=== PATIENT | female | born 1945 | race Caucasian/White ===

== ENCOUNTER → 2017-08-15 11:35 | Outpatient (CLI) | payer MEDICARE, OTHER, SELFPAY ==
--- NOTE | 2017-08-15 12:28 | RAD_ITS ---
STUDY: X-RAY CHEST REASON FOR EXAM: Female, 71 years old. Shortness of breath and cough for 6 weeks. TECHNIQUE: 2 views COMPARISON: Prior chest of November 25, 2016. FINDINGS: The lung mercedes are well-expanded without new consolidation, focal atelectasis or a substantial pleural effusion. There is no demonstrated pleural abnormality. Normal size heart. Normal mediastinum and eladia. Normal visualized pulmonary arteries. There is atherosclerotic calcification of the aortic arch with tortuosity. There are diffuse degenerative changes of the visualized thoracic spine. Status post right shoulder arthroplasty and left shoulder rotator cuff repair. There is no demonstrated abnormality of the visualized soft tissue structures of the upper abdomen. RAD/Chest PA and Lateral IMPRESSION: No acute cardiopulmonary findings or changes. Negative for new consolidation, focal atelectasis or a substantial pleural effusion. Electronically Signed: Mary Ellen Santos MD at 18:36 EST , Service support ,
[2017-08-15 13:10] LABS: Hematocrit 40.3 % (37-47); Mean Corp Hgb Conc 32.3 g/gl (32-36); Mean Corpuscular Volume 93.1 fL (81-99); Mean Platelet Vol. 10.8 fl (6.2-12.0); Platelet Count 203 K/mm3 (150-450); RBC Distribution Width CV 13.9 % (11.6-14.6); Red Blood Count 4.33 M/mm3 (4.2-5.4); White Blood Count 6.2 K/mm3 (4.4-11.0)
[2017-08-15 13:28] LABS: Scan Indicated on CBC? Y/N NO
[2017-08-15 13:47] LABS: Anion Gap 5 (5-15); BUN 14 mg/dL (7-18); BUN/Creat Ratio 21.5 RATIO (10-20); CRP, High Sensitivity Cardiac 1.76 mg/L; Calcium,Total 8.7 mg/dL (8.5-10.1); Chloride 104 mmol/L (98-107); Creatinine, Serum 0.65 mg/dL (0.55-1.02); EST Glomerular Filtration Rate 95 mL/min (>60); Est Glom Filt Rate - Afr Amer 115 mL/min (>60); Glucose 110 mg/dL (74-106); Potassium 4.3 mmol/L (3.5-5.1); Sodium Level 139 mmol/L (136-145)
== END ==
PROVIDERS: Family Provider Internal Medicine; PCP Internal Medicine; Visit Provider Internal Medicine Cardiovascular Disease
DX: R06.02 Shortness of breath (principal); R05 Cough; R07.1 Chest pain on breathing
CPT/HCPCS: 36415; 71046; 80048; 85027; 86141

== ENCOUNTER → 2018-06-19 16:06 | Outpatient (CLI) | payer MEDICARE, OTHER, SELFPAY ==
[2018-06-11 13:18] VITALS: BMI 28.4
[2018-06-19 17:16] LABS: Anion Gap 8 (5-15); BUN 17 mg/dL (7-18); BUN/Creat Ratio 24.6 RATIO (10-20); Calcium,Total 9.2 mg/dL (8.5-10.1); Chloride 105 mmol/L (98-107); Creatinine, Serum 0.69 mg/dL (0.55-1.02); EST Glomerular Filtration Rate 89 mL/min (>60); Est Glom Filt Rate - Afr Amer 108 mL/min (>60); Glucose 92 mg/dL (74-106); Potassium 4.1 mmol/L (3.5-5.1); Sodium Level 139 mmol/L (136-145); Thyroid Stim Hormone (TSH) 1.75 uIU/mL (0.358-3.74)
[2018-06-19 17:18] LABS: Absolute Lymphocyte Count 2.52 X10^3/ul (0.83-4.51); Absolute Neutrophil Count 2.8 X10^3/uL (2.0-7.7); Basophil# 0.02 X10^3/uL; Basophil% 0.3 % (0-1); Eosinophil# 0.32 X10^3/uL; Hematocrit 39.7 % (37-47); Lymphocyte # 2.52 X10^3/ul (4.0); Lymphocyte % 39.7 % (19-41); Mean Corp Hgb Conc 32.7 g/gl (32-36); Mean Corpuscular Volume 91.5 fL (81-99); Mean Platelet Vol. 10.6 fl (6.2-12.0); Monocyte# 0.67 X10^3/uL; Monocyte% 10.6 % (0-10); Neutrophil # 2.81 X10^3/uL (2.7-7.7); Neutrophil % 44.2 % (47-70); Platelet Count 237 K/mm3 (150-450); RBC Distribution Width CV 13.8 % (11.6-14.6); RBC Distribution Width SD 45.7 fl (35.1-43.9); Red Blood Count 4.34 M/mm3 (4.2-5.4); White Blood Count 6.4 K/mm3 (4.4-11.0)
[2018-06-19 17:20] LABS: POSITIVE COUNT NO; POSITIVE DIFFERENTIAL NO; POSITIVE MORPHOLOGY NO
[2018-06-22 16:26] LABS: Anti-Smooth Muscle ABS 12 Units (0-19); Thyroid Peroxidase AB 15 IU/mL (0-34)
[2018-06-22 16:44] LABS: Anti-Nuclear Antibody Test Negative (.)
== END ==
PROVIDERS: Family Provider Internal Medicine; PCP Internal Medicine; Referring Provider Internal Medicine Cardiovascular Disease
DX: R74.8 Abnormal levels of other serum enzymes (principal); E78.00 Pure hypercholesterolemia, unspecified; R53.83 Other fatigue
CPT/HCPCS: 36415; 80048; 83516; 84443; 85025; 86038; 86376

== ENCOUNTER → 2019-11-18 10:53 | Outpatient (CLI) | payer MEDICARE, OTHER, SELFPAY ==
[2019-11-18 10:13] VITALS: BMI 28.2
[2019-11-18 11:22] LABS: Absolute Lymphocyte Count 2.15 X10^3/uL (0.83-4.51); Absolute Neutrophil Count 3.7 X10^3/uL (2.0-7.7); Basophil# 0.04 X10^3/uL; Basophil% 0.6 % (0-1); Eosinophil# 0.26 X10^3/uL; Eosinophils% 3.8 % (0-5); Hematocrit 40.8 % (37-47); Hemoglobin 13.2 g/dL (12.0-15.0); Lymphocyte # 2.15 X10^3/ul (4.0); Lymphocyte % 31.4 % (19-41); Mean Corp Hgb Conc 32.4 g/dL (32-36); Mean Corpuscular Hgb 31.1 pg (27.0-32.0); Mean Platelet Vol. 10.5 fl (6.2-12.0); Monocyte# 0.67 X10^3/uL; Monocyte% 9.8 % (0-10); NRBC Flagged by Analyzer 0 % (0-5); Neutrophil # 3.71 X10^3/uL (2.7-7.7); Neutrophil % 54.1 % (47-70); Platelet Count 204 K/mm3 (150-450); RBC Distribution Width CV 14.2 % (11.6-14.6); RBC Distribution Width SD 49.5 fl (35.1-43.9); Red Blood Count 4.25 M/mm3 (4.2-5.4); White Blood Count 6.9 K/mm3 (4.4-11.0)
[2019-11-18 11:45] LABS: Anion Gap 5 (5-15); BUN 18 mg/dL (7-18); BUN/Creat Ratio 23.5 RATIO (10-20); Calcium,Total 8.6 mg/dL (8.5-10.1); Chloride 107 mmol/L (98-107); Creatinine, Serum 0.76 mg/dL (0.55-1.02); EST Glomerular Filtration Rate 79 mL/min (>60); Est Glom Filt Rate - Afr Amer 95 mL/min (>60); Glucose 100 mg/dL (74-106); Potassium 4.4 mmol/L (3.5-5.1); Sodium Level 141 mmol/L (136-145)
--- OUTSIDE RECORDS SUMMARY | 2020-04-02 07:43 | XMS RPT_ITS | CCD ---
:1945 External Reference #:[id number] Author Organization [facility] Care Team Providers Name Role Phone Lane RN, L Unavailable Nata RN, A Unavailable Unavailable Haritha Salazar Unavailable Unavailable DeFinis, Y Unavailable Unavailable DeFinis, Y Unavailable Unavailable Lane RN, L Unavailable Raffy PALACIOS, Elias Unavailable Lane RN, L Unavailable Lane RN, L Unavailable Lane RN, L Unavailable Haritha Salazar Unavailable Unavailable Nata MUIR, A Unavailable Unavailable Aaron PALACIOS, Karlo Unavailable Todd PALACIOS, Mal Unavailable Lane RN, L Unavailable Haritha Salazar Unavailable Unavailable Haritha Salazar Unavailable Unavailable Haritha Salazar Unavailable Unavailable Haritha Lomax Primary Care Provider Allergies Reported Allergen Reaction(s) Severity Date of Onset Location iodine Pt states may have Critical, 10-09-2010 - [facility] ([id number]) Medications Medication Name Sig Date Prescriber Location amoxicillin AMOXICILLIN 500 MG 03-04-2017 Greg [facility] TABS Take 4 tablets 1 [facility] - hour before dental [facility] procedure Clinic ([id number]) AMOXICILLIN [id number] Greg Walker MD apixaban ELIQUIS TABS 12-27-2016 [facility] APIXABAN (39488) TABS [id number] Kat Mayes PAC ELIQUIS TABS APIXABAN 12-27-2016 [facility] (15038) TABS [id number] Kat Mayes PAC ELIQUIS TABS APIXABAN 12-27-2016 [facility] (75911) TABS [id number] Kat Juanerling PAC ELIQUIS TABS APIXABAN 12-27-2016 [facility] (32670) TABS [id number] Kat Mayes PAC ELIQUIS 5 mg tab tab(s) 5 mg 11-28-2016 [facility] (49033) twice daily. 0 12/26/2016 Active Comment: 5 mg twice daily. 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 30 capsule 0 08/02/2019 Active Comment: Take 1 capsule by mouth thre e times daily as needed. Calcium CALCIUM 500 MG TAB Take 01-23-2006 Fabian Emerson Ja ian [facility] one(1) tablet two(2) Jerry Emerson (95484) times daily. 0 01/23/2006 Active Comment: Take one(1) tablet two(2) ti mes daily. calcium carbonate / LGCLLEX-DHOSRJJKD-PQVW TABS take 03-01-2015 [facility] magnesium oxide / 1 tablet once daily [facility] - zinc oxide MULTIPLE MINERALS [id number] [facility] STEEL [facility] (443 33) VYETQSM-CGEPGZJHV-BXFL TABS take 1 tablet 03-01-2015 [facility] Orthopaedic once daily [employer]ULT[employer] [place] - [facility] [phone] Delia East LPN Cli deyvi (82942) MPLKLYY-GMWDLGWEF-CTTM TABS take 1 tablet 03-01-2015 [facility] Orthopaedic once daily [facility] MINERALS [place] - [facility] [phone] Delia East LPN Cli deyvi (95168) FTNSTTY-WFZDTZYTP-ISZB TABS take 1 tablet 03-01-2015 [facility] Orthopaedic once daily [facility] - [facility]opaedic Surgeons [phone] Delia Kita STEEL TIER Cli deyvi (26289) calcium carbonate / CALCIUM CARBONATE-VITAMIN D 10-09-2010 [facility] vitamin D 600-125 MG-UNIT TABS One (44 691) tablet by mouth daily CALCIUM CARBONATE-VITAMIN D [id number] Lulú M Rubina CALCIUM CARBONATE-VITAMIN D 600-125 10-09-201012-09-2016 [facility] MG-UNIT TABS One tablet by mouth (77465) daily CALCIUM CARBONATE-VITAMIN D [id number] Lazaro Akbar MD CALCIUM CARBONATE-VITAMIN D 600-125 10-09-2010 [facility] MG-UNIT TABS One tablet by mouth (09110) daily CALCIUM CARBONATE-VITAMIN D 22353975265 Lulú Cespedes CALCIUM CARBONATE-VITAMIN D 600-125 10-09-201012-09-2016 [facility] MG-UNIT TABS One tablet by mouth (35612) daily CALCIUM CARBONATE-VITAMIN D 23664130980 Lazaro Akbar MD CALCIUM CARBONATE-VITAMIN D 600-125 10-09-2010 [facility] MG-UNIT TABS One tablet by mouth (71015) daily CALCIUM CARBONATE-VITAMIN D 78016706091 Lulú Son Cespedes CALCIUM CARBONATE-VITAMIN D 600-125 10-09-201012-09-2016 [facility] MG-UNIT TABS One tablet by mouth (39909) daily CALCIUM CARBONATE-VITAMIN D 17470196672 Lazaro Akbar MD CALCIUM CARBONATE-VITAMIN D 600-125 10-09-2010 [facility] MG-UNIT TABS One tablet by mouth (29964) daily CALCIUM CARBONATE-VITAMIN D 44351225486 Lulú Cespedes CALCIUM CARBONATE-VITAMIN D 600-125 10-09-201012-09-2016 [facility] MG-UNIT TABS One tablet by mouth (53609) daily CALCIUM CARBONATE-VITAMIN D 34653445694 Lazaro Akbar MD CALCIUM CARBONATE-VITAMIN D 600-125 10-09-2010 [facility] MG-UNIT TABS One tablet by mouth (34148) daily CALCIUM CARBONATE-VITAMIN D 31683376906 Lulú Cespedes CALCIUM CARBONATE-VITAMIN D 600-125 10-09-201012-09-2016 [facility] MG-UNIT TABS One tablet by mouth (40085) daily CALCIUM CARBONATE-VITAMIN D 73978881557 Lazaro Akbar MD CALCIUM CARBONATE-VITAMIN D 600-125 10-09-2010 [facility] MG-UNIT TABS One tablet by mouth (45734) daily CALCIUM CARBONATE-VITAMIN D 91166305084 Lulú Cespedes CALCIUM CARBONATE-VITAMIN D 600-125 10-09-2010 [facility] MG-UNIT TABS One tablet by mouth (26648) daily CALCIUM CARBONATE-VITAMIN D 43750977108 Lulú Cespedes CALCIUM CARBONATE-VITAMIN D 600-125 10-09-201012-09-2016 [facility] MG-UNIT TABS One tablet by mouth (95123) daily CALCIUM CARBONATE-VITAMIN D 59264719696 Lazaro Akbar MD CALCIUM CARBONATE-VITAMIN D 600-125 10-09-2010 [facility] MG-UNIT TABS One tablet by mouth (85064) daily CALCIUM CARBONATE-VITAMIN D 96282557419 Lulú Cespedes CALCIUM CARBONATE-VITAMIN D 600-125 10-09-201012-09-2016 [facility] MG-UNIT TABS One tablet by mouth (00890) daily CALCIUM CARBONATE-VITAMIN D 79103113557 Lazaro Akbar MD CALCIUM CARBONATE-VITAMIN D 600-125 10-09-2010 [facility] MG-UNIT TABS One tablet by mouth (96516) daily CALCIUM CARBONATE-VITAMIN D 51008302923 Lulú Cespedes CALCIUM CARBONATE-VITAMIN D 600-125 10-09-2010 [facility] MG-UNIT TABS One tablet by mouth (12395) daily CALCIUM CARBONATE-VITAMIN D 53464893232 Lulú Cespedes CALCIUM CARBONATE-VITAMIN D 600-125 10-09-2010 [facility] MG-UNIT TABS One tablet by mouth (93017) daily CALCIUM CARBONATE-VITAMIN D 58970629425 Lulú Cline Cespedes CALCIUM CARBONATE-VITAMIN D 600-125 10-09-2010 [facility] MG-UNIT TABS One tablet by mouth (96019) daily CALCIUM CARBONATE-VITAMIN D 67931743304 Lulú Cline Brigantine CALCIUM CARBONATE-VITAMIN D 600-125 10-09-2010 [facility] MG-UNIT TABS One tablet by mouth (33605) daily CALCIUM CARBONATE-VITAMIN D 55778037635 Lulú Cline Brigantine CALCIUM CARBONATE-VITAMIN D 600-125 10-09-2010 [facility] MG-UNIT TABS One tablet by mouth (71710) daily CALCIUM CARBONATE-VITAMIN D 09029958236 Lulú Cline Brigantine CALCIUM CARBONATE-VITAMIN D 600-125 10-09-2010 [facility] MG-UNIT TABS One tablet by mouth (05494) daily CALCIUM CARBONATE-VITAMIN D 43988868277 Lulú [facility] CALCIUM CARBONATE-VITAMIN D 600-125 10-09-2010 [facility] MG-UNIT TABS One tablet by mouth (21456) daily CALCIUM CARBONATE-VITAMIN D 25112470941 Lulú Sandovalward cholecalciferol VITAMIN D3 81440 UNIT 11-08-2016 Kat mcbride [facility] CAPS Take 1 capsule by [facility] paedic [place] mouth daily for 5 days. - Or thopaedic Then take 1 capsule by [facility] mouth per week for 5 (20085) weeks CHOLECALCIFEROL [id number] Kat Mayes [facility] VITAMIN D3 1000 UNIT CAPS take 1 01-06-2015 [facility] Orthopaedic [place] capsule once daily - [facility] CHOLECALCIFEROL [id number] Delia (59188) Kita GIL diclofenac VOLTAREN 1 % GEL 05-30-2017 [facility] Cl in[facility] GLORIA PALACIOS Orthop aedic SODIUM [id number] Center - Greg Walker MD [facility] (07836) dilTIAZem DILTIAZEM HCL ER 120 05-30-2015 - Rosalind Rey [facility] [id number] One 11-29-2016 Lane [facility] (4469 1) tablet by mouth daily DILTIAZEM HCL [id number] Lazaro Akbar MD Ergocalciferol VITAMIN D 12-09-2016 [facility] (ERGOCALCIFEROL) [facility] (4469 1) 36581 UNIT CAPS One tablet by mouth weekly ERGOCALCIFEROL 55104302213 Lazaro Akbar MD VITAMIN D (ERGOCALCIFEROL) 95723 12-09-2016 [facility] UNIT CAPS One tablet by mouth (4 4691) weekly ERGOCALCIFEROL 36139520675 Lazaro Akbar MD VITAMIN D 400 UNIT CAP Take one(1) 01-23-2006 Fabian maddox [facility] tablet two(2) times daily. 0 (44 691) 01/23/2006 Active Comment: Take one(1) tablet two(2) ti mes daily. estradiol VIVELLE-DOT 0.025 MG/24HR 10-09-2010 - 10-23-2011 [facility] PTTW twice weekly, Take as ( 77454) directed ESTRADIOL [id number] Lazaro Akbar MD VIVELLE-DOT 0.025 MG/24HR PTTW 10-09-2010 [facility] (01046) twice weekly, Take as directed ESTRADIOL [id number] Lulú Cespedes VIVELLE-DOT 0.025 MG/24HR PTTW 10-09-2010 - 10-23-2011 [facility] (29346) twice weekly, Take as directed ESTRADIOL [id number] Lazaro Akbar MD VIVELLE-DOT 0.025 MG/24HR PTTW 10-09-2010 [facility] (89952) twice weekly, Take as directed ESTRADIOL [id number] Lulú Cespedes VIVELLE-DOT 0.025 MG/24HR PTTW 10-09-2010 - 10-23-2011 [facility] (96347) twice weekly, Take as directed ESTRADIOL [id number] Lazaro Akbar MD VIVELLE-DOT 0.025 MG/24HR PTT10-09-2010 [facility] (07588) twice weekly, Take as directed ESTRADIOL [id number] Lulú M Cespedes VIVELLE-DOT 0.025 MG/24HR PTTW 10-09-2010 - 10-23-2011 [facility] (08584) twice weekly, Take as directed ESTRADIOL [id number] Lazaro Akbar MD VIVELLE-DOT 0.025 MG/24HR PTT10-09-2010 [facility] (51763) twice weekly, Take as directed ESTRADIOL [id number] Lulú M Cespedes VIVELLE-DOT 0.025 MG/24HR PTTW 10-09-2010 - 10-23-2011 [facility] (03803) twice weekly, Take as directed ESTRADIOL [id number] Lazaro Akbar MD VIVELLE-DOT 0.025 MG/24HR PTTW 10-09-2010 [facility] (36947) twice weekly, Take as directed ESTRADIOL [id number] Lulú M Cespedes VIVELLE-DOT 0.025 MG/24HR PTTW 10-09-2010 - 10-23-2011 [facility] (28652) twice weekly, Take as directed ESTRADIOL [id number] Lazaro Akbar MD VIVELLE-DOT 0.025 MG/24HR PTTW 10-09-2010 - 10-23-2011 [facility] (47417) twice weekly, Take as directed ESTRADIOL [id number] Lazaro Akbar MD VIVELLE-DOT 0.025 MG/24HR PTTW 10-09-2010 [facility] (06002) twice weekly, Take as directed ESTRADIOL [id number] Lulú M Cespedes VIVELLE-DOT 0.025 MG/24HR PTT10-09-2010 [facility] (44134) twice weekly, Take as directed ESTRADIOL [id number] Lulú M Cespedes VIVELLE-DOT 0.025 MG/24HR PTTW 10-09-2010 - 10-23-2011 [facility] (01595) twice weekly, Take as directed ESTRADIOL [id number] Lazaro Akbar MD VIVELLE-DOT 0.025 MG/24HR PTT10-09-2010 [facility] (35338) twice weekly, Take as directed ESTRADIOL [id number] Lulú M Cespedes VIVELLE-DOT 0.025 MG/24HR PTTW 10-09-2010 - 10-23-2011 [facility] (25032) twice weekly, Take as directed ESTRADIOL [id number] Lazaro Akbar MD VIVELLE-DOT 0.025 MG/24HR PTT10-09-2010 [facility] (20308) twice weekly, Take as directed ESTRADIOL [id number] Lulú Cline Cespedes VIVELLE-DOT 0.025 MG/24HR PTTW 10-09-2010 - 10-23-2011 [facility] (41817) twice weekly, Take as directed ESTRADIOL [id number] Lazaro Akbar MD VIVELLE-DOT 0.025 MG/24HR PTT10-09-2010 [facility] (52360) twice weekly, Take as directed ESTRADIOL [id number] Lulú Cline Cespedes VIVELLE-DOT 0.025 MG/24HR PTTW 10-09-2010 - 10-23-2011 [facility] (97299) twice weekly, Take as directed ESTRADIOL [id number] Lazaro Akbar MD VIVELLE-DOT 0.025 MG/24HR PTT10-09-2010 [facility] (43557) twice weekly, Take as directed ESTRADIOL [id number] Lulú Son Cespedes VIVELLE-DOT 0.025 MG/24HR PTT10-09-2010 - 10-23-2011 [facility] (26969) twice weekly, Take as directed ESTRADIOL [id number] Lazaro Akbar MD Flecainide flecainide (TAMBOCOR) 100 11-28-2016 Niya Lomax [facility] mg tablet Take 1 tablet by ( 23826) mouth twice daily. This is to fill because told cannot fill her RX early before going to [place] for 4 weeks (cannot run out of med while away). Running out of medication can be detrimental to her health. Do not cancel her usual prescription with refills 60 tablet 0 12/08/2017 Active Comment: Take 1 tablet by mouth twice daily. This is to fill because told cannot fill her RX early before going to [place] for 4 weeks (cannot run out of med while away). Running out of medica tion can be detrimental to her health. Do not cancel her usual prescriptio n with refills hydroxychloroquine PLAQUENIL 200 MG TABS 10-09-2010 - [facility] One tablet by mouth 04-30-2012 Group (4 4691) daily HYDROXYCHLOROQUINE SULFATE [id number] Lazaro Akbar MD magnesium carbonate MAGNESIUM CARBONATE [facility] Provider leveland ORAL Take by mouth. 0 [facility] Provider Clinic (24483) Active Comment: Take by mouth. meloxicam MELOXICAM 15 MG TABS 08-07-2015 - [facility] tablet by mouth 01-31-2016 Group (4 4691) daily MELOXICAM 73661543802 Lazaro Akbar MD Metoprolol METOPROLOL TARTRATE 11-29-2016 [facility] 25 MG TABS One half RN Group (4 4691) tablet by mouth twice daily METOPROLOL TARTRATE [id number] Lazaro Akbar MD metoprolol tartrate, short 11-28-2016 [facility] (79505) acting, (LOPRESSOR) 25 mg tablet 12.5 mg twice daily. 0 11/28/2016 Active LOPRESSOR TABS 12.5 mg tabs: 1 11-28-2016 [facility] (19891) tab twice daily METOPROLOL TARTRATE TABS [id number] Cassia Rivasman PT LOPRESSOR TABS 12.5 mg tabs: 11-28-2016 [facility] (01541) tab twice daily METOPROLOL TARTRATE TABS [id number] Cassia Rivasman PT LOPRESSOR TABS 12.5 mg tabs: 11-28-2016 [facility] (69936) tab twice daily METOPROLOL TARTRATE TABS [id number] Cassia Rivasman PT LOPRESSOR TABS 12.5 mg tabs: 11-28-2016 [facility] (62660) tab twice daily METOPROLOL TARTRATE TABS [id number] Cassia Mcintyre PT Comment: 12.5 mg twice daily. Mupirocin mupirocin (BACTROBAN) 2 01-09-2018 [facility] (Hist) [facility] darryl Clinic % ointment Apply 1 [place] [facility] (83136) application to affected (Hist) [place] area three times daily. 1 Tube 0 01/09/2018 Active Comment: Apply 1 application to affec nicole area three times daily. Omeprazole omeprazole (PRILOSEC) 10-15-2019 Niya Haritha [place] Sasha a [facility] 20 mg capsule Take 1 D [place] (30969) capsule by mouth daily before breakfast. 1/2 hr before meal. 30 capsule 1 10/15/2019 Active Comment: Take 1 capsule by mouth ronal y before breakfast. 1/2 hr before meal. predniSONE PREDNISONE 5 MG TABS 06/17-2010 - 10-22-2011 [facility] tablet daily (446 91) PREDNISONE [id number] Lazaro Akbar MD predniSONE (DELTASONE) 2.5 mg tablet Take [facility] Pr ovider [facility] (65624) 2.5 mg by mouth twice daily. 0 Active Comment: Take 2.5 mg by mouth twice d aily. UNSPECIFIED MEDICATION UNSPECIFIED MEDICATION 12-27-2016 [facility] FOR A-FIB(VERIFY) FOR A-FIB(VERIFY) [facility] Center - UNSPECIFIED [facility] Surgeons MEDICATION FOR Clinic (47219 ) A-FIB(VERIFY) Kat Mayes PAC UNSPECIFIED MEDICATION FOR 12-27-2016 [facility]opa[facility] Center - A-FIB(VERIFY) UNSPECIFIED [facility] (43736) MEDICATION FOR A-FIB(VERIFY) Kat Martinezereshter PAC UNSPECIFIED MEDICATION FOR 12-27-2016 [facility] Orthopaedic [place] - A-FIB(VERIFY) UNSPECIFIED [facility] (66649) MEDICATION FOR A-FIB(VERIFY) Kat Mayes PAC UNSPECIFIED MEDICATION FOR 12-27-2016 [facility]opaedic [place] - A-FIB(VERIFY) UNSPECIFIED [facility] (70269) MEDICATION FOR A-FIB(VERIFY) Kat Mayes PAC Vitamin A / Vitamin D VIT A/D COD LIVER OIL CAPS 10-09-2010 [facility] 1 tsp daily (4469 1) VITAMINS A & D CAPS [id number] Lazaro Akbar MD VITAMINS A & D CAPS VIT A/D COD LIVER OIL CAPS 10-23-2011 [facility] 1 tsp daily (4469 1) VITAMINS A & D CAPS [id number] Lazaro Akbar MD VIT A/D COD LIVER OIL CAPS 1 tsp QD 10-09-2010 [facility] (50785) VITAMINS A & D CAPS [id number] Lulú Cespedes VITAMINS A & D CAPS VIT A/D COD LIVER OIL CAPS 1 10-23-2011 [facility] tsp daily (15457) VITAMINS A & D CAPS [id number] Lazaro Akbar MD VIT A/D COD LIVER OIL CAPS 1 tsp daily 10-23-2011 [facility] (29273) VITAMINS A & D CAPS [id number] Lazaro Akbar MD VIT A/D COD LIVER OIL CAPS 1 tsp daily 10-22-2011 [facility] (90654) VITAMINS A & D CAPS [id number] Lazaro Akbar MD VIT A/D COD LIVER OIL CAPS 1 tsp daily 10-23-2011 [facility] (62103) VITAMINS A & D CAPS [id number] Lazaro Akbar MD VIT A/D COD LIVER OIL CAPS 1 tsp daily 10-23-2011 [facility] (76795) VITAMINS A & D CAPS [id number] Lazaro Akbar MD VIT A/D COD LIVER OIL CAPS 1 tsp daily 10-23-2011 [facility] (11043) VITAMINS A & D CAPS [id number] Lazaro Akbar MD VIT A/D COD LIVER OIL CAPS 1 tsp daily 10-23-2011 [facility] (14163) VITAMINS A & D CAPS [id number] Lazaro Akbar MD VIT A/D COD LIVER OIL CAPS 1 tsp daily 10-23-2011 [facility] (79563) VITAMINS A & D CAPS [id number] Lazaro Akbar MD VIT A/D COD LIVER OIL CAPS 1 tsp daily 10-23-2011 [facility] (80184) VITAMINS A & D CAPS [id number] Lazaro Akbar MD VIT A/D COD LIVER OIL CAPS 1 tsp daily 10-23-2011 [facility] (79617) VITAMINS A & D CAPS [id number] Lazaro Akbar MD VIT A/D COD LIVER OIL CAPS 1 tsp daily 10-23-2011 [facility] (39548) VITAMINS A & D CAPS [id number] Lazaro Akbar MD VIT A/D COD LIVER OIL CAPS 1 tsp QD 10-09-2010 [facility] (17004) VITAMINS A & D CAPS [id number] Lulú Cespedes VIT A/D COD LIVER OIL CAPS 1 tsp QD 10-09-2010 [facility] (50747) VITAMINS A & D CAPS [id number] Lulú Cespedes VIT A/D COD LIVER OIL CAPS 1 tsp QD 10-09-2010 [facility] (92190) VITAMINS A & D CAPS [id number] Lulú Cespedes VIT A/D COD LIVER OIL CAPS 1 tsp QD 10-09-2010 [facility] (84247) VITAMINS A & D CAPS [id number] Lulú Son Cespedes VIT A/D COD LIVER OIL CAPS 1 tsp QD 10-09-2010 [facility] (04438) VITAMINS A & D CAPS [id number] Lulú Son Cespedes VIT A/D COD LIVER OIL CAPS 1 tsp QD 10-09-2010 [facility] (06781) VITAMINS A & D CAPS [id number] Lulú Son Cespedes VIT A/D COD LIVER OIL CAPS 1 tsp QD 10-09-2010 [facility] (80009) VITAMINS A & D CAPS [id number] Lulú Son Cespedes VIT A/D COD LIVER OIL CAPS 1 tsp QD 10-09-2010 [facility] (66169) VITAMINS A & D CAPS [id number] Lulú Son Cespedes VIT A/D COD LIVER OIL CAPS 1 tsp QD 10-09-2010 [facility] (11435) VITAMINS A & D CAPS [id number] Lulú Son Cespedes VIT A/D COD LIVER OIL CAPS 1 tsp QD 10-09-2010 [facility] (62460) VITAMINS A & D CAPS [id number] Lulú Son Cespedes VIT A/D COD LIVER OIL CAPS 1 tsp QD 10-09-2010 [facility] (14996) VITAMINS A & D CAPS [id number] Lulú Cespedes Zinc zinc [facility] Provider [facility] (32538) Problems Active Problems Category Problem Name Status Date Location Cardiac dysrhythmias Paroxysmal Active 10-09-2010 - [facility] supraventricular (78343) tachycardia Disorders of lipid Hyperlipidemia Active 11-01-2014 - [facility] metabolism (20358) Diverticulosis and Diverticulosis of colon Active [facility] diverticulitis (22528) Heart valve disorders Mitral valve disorder Active 10-09-2010 - [facility] (75779) Nutritional Active rickets Active 11-08-2016 - [facility] deficiencies [facility] - [facility] (99960) Open wounds of Open wound of lower limb Active 01-16-2018 - [facility] extremities [facility] - [facility] (21591) Open wounds of head; Wound dehiscence Active 01-16-2018 - [facility] neck; and trunk [facility]opaedic [place] - [facility] (43632) Osteoarthritis Degenerative joint Active 09-10-2006 - [facility] disease of shoulder Orthopae dic Center region - [facility] (16334) Other nervous system Carpal tunnel syndrome Active 08-15-2015 - [facility] disorders Orthopaedic [facility] Orthopaedic Surgeons [facility] (03374) Residual codes; Family history of Active [facility] unclassified malignant neoplasm of (76813 ) gastrointestinal tract Unclassified Preoperative Active 11-06-2016 - [facility] cardiovascular (92005) examination Past or Other Problems Category Problem Name Status Date Location Immunizations and Hepatitis C Completed 06-02-2017 - [facility] screening for antibody test (09220) infectious disease positive Other connective tissue Pain in limb Completed 10-09-[address] [facility] disease (73574) Other lower respiratory Dyspnea on exertion Completed 11-06-2016 - [facility] disease (03663) Other nutritional; Body mass index Completed 04-18-2014 - [facility] endocrine; and (BMI) 26.0-26.9, (01571) metabolic disorders adult Residual codes; Family history of Completed 09-20-2014 - [facility] unclassified cancer of colon (58754) Residual codes; Family history of Completed [facility] unclassified stroke (38896) Syncope Syncope and Completed 10-09-2010 - [facility] collapse (78767) Unclassified Problem [facility] Orthopaedic [facility] (70518) Results Result Name Value Range Unit Interpretation Flag Date Location progress on 2019-10 PROGRESS HNO ID: [id number] Normal 10-15-2019 [facility] Author: Niya Lomax Uribe ([id number]) Service: ? Author Type: Physician Type: Progress Notes Filed: 11/08/2019 11:47 PM Note Text: This Team Access Model visit is a phone encounter. It requir ed patient-provider interaction for the medical decision making as documented below. This note was created using BrightTALKriter. Subjective Oneida Nino is a 74 year old female. Patient presents with: F/U 6 months SUBJECTIVE: Oneida Nino is a 74 year old year old lady scheduled for 6 month follow-up appointment. Appointment changed to Distance Healt h visit (Virtual Visit/FaceTime or Telephone visit) secondary to COV ID-19 precautions. August 05 to August 30 in [place]. Did self quarantine for 2 weeks. Worried that might have had it anyway No fevers for her or . Discussed Dr. Tran's appointment with her and results of te sts. Headaches--noted more often. At night when up in middle the night, Front with slight pain. Not thumping. Not like cannot get up or think. Can feel when bends down then goes away. No N/V. No vision problems. Not like a vise. One time had very severe headache and had to put cold compre ss on head. Shortly after that saw Dr. Clifton who thought might be TA. No biopsy done. Saw specialists including Ophthalmology who said did n ot think was TA. Dumb head sometimes--does not feel right but not bad heada shane Wonders if weather related. Normally does not suffer with headaches Off and on since back from [place]. Many days Periods with resolves then comes back. Sometimes robbin but noted with weather when bad. No sinus pressure Sometimes ear pressure and sore throat when woke up some day s. Noted heart burn and reflux issues some evenings. PAST MEDICAL HISTORY Diagnosis Date - Diarrhea - Diverticulosis of colon (without mention of hemorrhage) - Paroxysmal atrial fibrillation (HCC) 06/02/2017 Controlled on current meds; Dr. Akbar managing. - Positive hepatitis C antibody test 06/02/2017 negative for chronic active hepatitis C - Rheumatoid arthritis(714.0) Remission; note that diagnosis inflammatory arthritis (neg R F) on Dr. 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 - predniSONE (DELTASONE) 2.5 mg tablet Take 2.5 mg by mouth twice daily. - mupirocin (BACTROBAN) 2 % ointment Apply 1 application to affected area three times daily. (Patient not taking: Reported on 0 ) - flecainide (TAMBOCOR) 100 mg tablet Take 1 tablet by mouth twice daily. This is to fill because told cannot fill her RX early before going to [place] for 4 weeks (cannot run out of med while away). Runpat pham out of medication can be detrimental to her health. Do not cancel h er usual prescription with refills - ELIQUIS 5 mg tab tab(s) 5 mg twice daily. - metoprolol tartrate, short acting, (LOPRESSOR) 25 mg table t 12.5 mg twice daily. - MAGNESIUM CARBONATE ORAL Take by mouth. - zinc - CALCIUM 500 MG TAB Take one(1) tablet two(2) times daily. - VITAMIN D 400 UNIT CAP Take one(1) tablet two(2) times emil ly. No current facility-administered medications for this visit. Review of Systems Objective There were no vitals taken for this visit. Physical Exam Neurological: Mental Status: She is oriented to person, place, and time. Psychiatric: Mood and Affect: Mood normal. Speech: Speech normal. Thought Content: Thought content normal. Judgment: Judgment normal. Assessment and Plan Encounter Diagnosis ICD-10-CM 1. Nonintractable episodic headache, unspecified headache ty pe R51 2. Gastroesophageal reflux disease without esophagitis K21.9 3. Vitamin D deficiency E55.9 VITAMIN D 25 HYDROXY 4. Mixed hyperlipidemia E78.2 LIPID PANEL BASIC 5. Encounter for long-term current use of medication Z79.899 COMP METABOLIC PANEL CBC Above issues addressed with patient. Patient involved in shared decision making for management of medical issues. Reviewed travel history and concerns that might have had ill ness with COVID19 but no severe symptoms. Also evaluation and treatment she had for episode of severe headaches with rule out temporal arteritis. Continue to monitor and treat accordingly for issues with he adaches and GERD, including issues with sometimes sore throat in AM. Stable from cardiac standpoint. Continue present management. Follow up with ore miner. History and medications reviewed. Epic updated as needed Refills and/or prescriptions taken care of and meds adjusted as indicated after reviewed history, exam and labs. Health Maintenance reviewed. Updated record and/or ordered t ests as recorded. Encouraged on efforts at healthy diet and regular exercise a nd adequate sleep. The majority of the visit was spent counseling and/or coordi nating care for the patient. Telephone time was at least 30 minutes. Niya Lomax MD 10:50 -11:20 progress on 2019-09 PROGRESS HNO ID: [id number] Normal 10-05-2019 [facility] Author: Nilo Tran Uribe ([id number]) Service: ? Author Type: Physician Type: Progress Notes Filed: 10/05/2019 10:54 AM Note Text: Virtual visit Telephone patient choice COVID 19 era Follow up of Jul 02 2019 consultation when I wrote: Consultation requested for an opinion regarding abnormal anyi er tests. My final recommendations will be communicated back to the reque sting physician by way of shared Medical record or letter to reque sting physician via US mail. ? delightful 73 year old woman with mildly elevated liver enzy mes for decades ? She reports hepatitis after receiving gamma globulin after of her firsrt-born ? lap miriam for stones complicated by stricture ERCP and dilatation here 2002 ? MRCP [facility] (reviewed in [facility]) with no liver mass and non-specifi c dilated biliary tree 2008 ? Labs here: mildly elevated ast alt, GGT normal ? alcohol: infrequent ? symptoms; rheumatologic requiring low dose prednisone no pruritus ? ? I do not see a serol screen for liver ? never biopsy ? ? Exam: BP 143/71 (BP Site: Left Arm, BP Position: Sitting, BP Cuff Size: Regular Adult) Pulse 61 Temp 36.6 ?C (97.8 ?F) (Oral) Ht 170.2 cm (5' 7) Wt 80.2 kg (176 lb 12.8 oz) SpO2 95% BMI 27.69 kg/m? HEENT: neg abd; no mass or organ enalrgement extrem: no edema neuro: no asterixis Impression; mild liver test abn suspect not much liver injury ? Rec; 1. serol screen 2. Fibroscan today 3. call me next week 4. back up appt with me 3 months [facility] Robi. Interval Serologic screen negative - normal Component Latest Ref Rng AND Units 07/02/2019 Hep B Core Ab, Total Negative Negative Hep C Antibody IA Negative Negative Hep B Surface Ag Negative Negative Hep B Surface Ab, Qual Negative Negative Iron 41 - 186 ug/dL 63 TIBC 232 - 386 ug/dL 317 Transferrin Saturation 15 - 57 % 20 JUVE by EIA, Qual Negative Negative JUVE by EIA OD Ratio 0.6 Hep A Ab, Total Negative Positive (A) Smooth Muscle Ab Panel Negative Negative Mitochondrial Ab Panel Negative Negative Ferritin 14.7 - 205.1 ng/mL 216.0 (H) Fibroscan E (kpa):?5.3 CAP: 287 ? Impression The reading was adequate,?there is no corresponding fibrosis stage for the diagnosis abnormal results of liver function studies, these results can be used for baseline/comparison. 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 In summary, abnormal liver tests are best explained by mild steatosis without evidence of fibrosis. A liver biopsy would provide m ore certainty but risks not worth taking. Impression: NAFLD without evidence of BEYER or of cirrhosis Rec: control weight, BP, lipids repeat labs (CMP) yearly New Fibroscan to assess for evidence of progression in 2 yea rs. Discussed in detail with patient. she asks if intermittant f atigue might be related to liver condition. I do not think so. Will send her a copy of this visit report so she can share i t with her HCP outside [facility] orbit. See me 2 years Nilo Tran MD MACG progress on 2019-07 PROGRESS HNO ID: [id number] Normal 08-02-2019 [facility] Author: Natalee (Shredding Floor Equipment Operator) Kyler Uribe ([id number]) Service: ? Author Type: Nurse Specialist Type: Progress Notes Filed: 08/05/2019 3:55 PM Note Text: SUBJECTIVE: Oneida Nino is a 73 year old female. SHINGRIX VACCINE(2 of 3) due on 07/08/2011 INFLUENZA(1) due on 02/14/2019 HPI PMH significant for atrial fibrillation on OAC. Follows with Dr. Akbar [facility]. Presents today with report of cough ?1 week. She noted initially was productive of clear sputum, now resolved, and now mostly dry cough with some wheezing noted. Slightly short of breath with taki ng stairs otherwise not short of breath. Notes that she has been cough ing a lot, worse at night. She reports going skiing with her group, [facility] ill group members. She reports fever on Friday, not since. No h istory of asthma or COPD. Has been taking ybfu-izg-uathjul treatments with minor relief. Review of Systems Constitutional: Negative. Respiratory: Positive for cough and wheezing. Cardiovascular: Negative. Objective Physical Exam BP 110/70 (BP Site: Left Arm, BP Position: Sitting, BP Cuff Size: Regular Adult) Pulse (!) 54 Temp 36.6 ?C (97.9 ?F) Wt 79.8 kg (176 lb) SpO2 95% BMI 27.57 kg/m? General appearance: alert, cooperative, pleasant, in no acut e distress Head: Normocephalic Eyes: conjunctiva/corneas normal Ears: R TM - clear with good landmarks, L TM - clear with go od landmarks Nose: clear Oropharynx: moist without lesions Neck: supple and small, benign anterior cervical nodes bilat erally Heart: regular rate and rhythm, without murmur Lungs: clear to auscultation, without rales or wheeze, good air exchange ALLERGIES No Known Allergies predniSONE (DELTASONE) 2.5 mg tablet Take 2.5 mg by mouth tw ice daily. flecainide (TAMBOCOR) 100 mg tablet Take 1 tablet by mouth t wice daily. This is to fill because told cannot fill her RX early before going to [place] for 4 weeks (cannot run out of med while away). Runni ng out of medication can be detrimental to her health. Do not cancel h er usual prescription with refills ELIQUIS 5 mg tab tab(s) 5 mg twice daily. metoprolol tartrate, short acting, (LOPRESSOR) 25 mg tablet 12.5 mg twice daily. MAGNESIUM CARBONATE ORAL Take by mouth. zinc CALCIUM 500 MG TAB Take one(1) tablet two(2) times daily. VITAMIN D 400 UNIT CAP Take one(1) tablet two(2) times daily . predniSONE (DELTASONE) 20 mg tablet Take 1 tablet by mouth o nce daily for 4 days. Take daily with food. benzonatate (TESSALON PERLES) 100 mg capsule Take 1 capsule by mouth three times daily as needed. codeine-guaiFENesin (ROBITUSSIN AC) 10-100 mg/5 mL syrup Erik e 5-10 mL by mouth four times daily as needed for Cough for up to 7 days. May cause drowsiness. amoxicillin (AMOXIL) 875 mg tablet Take 1 tablet by mouth tw ice daily for 10 days. mupirocin (BACTROBAN) 2 % ointment Apply 1 application to af fected area three times daily. PAST MEDICAL HISTORY Diagnosis Date - Diarrhea - Diverticulosis of colon (without mention of hemorrhage) - Paroxysmal atrial fibrillation (HCC) 06/02/2017 Controlled on current meds; Dr. Akbar managing. - Positive hepatitis C antibody test 06/02/2017 negative for chronic active hepatitis C - Rheumatoid arthritis(714.0) Remission; note that diagnosis inflammatory arthritis (neg R F) on Dr. 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 Cough - ICD9: 786.2, ICD10: R05 Recommend plenty of rest and fluids, supportive care, Tyleno l as needed - PREDNISONE 20 MG TABLET - BENZONATATE 100 MG CAPSULE - CODEINE 10 MG-GUAIFENESIN 100 MG/5 ML ORAL LIQUID - AMOXICILLIN 875 MG TABLET She will let us know if not feeling improved with the above. PDMP website checked and validated. All prescriptions have b een APPROPRIATELY filled. No suspicious activity was identified. 08/02/2019 by JENNIFER Contreras APRN.CNS This Team Access Model visit is a same day encounter. It req uired patient-provider interaction for the medical decision making as documented below. cnov on 2019-08-02 CNOV Office Visit (INTMWS) Normal 08-02-[address] [place] [address] [facility] ONEIDA NINO I ([id number]) 1945 [facility] Date Time Provider Department ([id number]) 08/02/19 10:20 AM NATALEE CHÁVZE (SONU) INTMWS During your visit today, we recorded the following informati on about you: Temperature Pulse Blood pressure Weight 97.9 degrees 54/minute 110/70 79.8 kg Natalee Chváez APRN.CNS 08/05/2019 3:55 PM Addendum SUBJECTIVE: Oneida Nino is a 73 year old female. SHINGRIX VACCINE(2 of 3) due on 07/08/2011 INFLUENZA(1) due on 02/14/2019 HPI PMH significant for atrial f ibrillation on OAC. Follows with Dr. Akbar [facility]. Presents today with report of cough ?1 week. She noted initi ally was productive of clear sputum, now resolved, and now most ly dry cough with some wheezing noted. Slightly short of breath with taking stairs otherwise not short of breath. Notes that she has been coughing a lo t, worse at night. She reports going skiing with her group, several ill group mem bers. She reports fever on Friday, not since. No history of asthma or COPD. H as been taking eqvb-zmb-lmfodel treatments with minor relief. Review of Systems Constitutional: Negative. Respiratory: Positive for cough and wheezing. Cardiovascular: Negative. Objective Physical Exam BP 110/70 (BP Site: Left Arm, BP Position: Sitting, BP Cuff Size: Regular Adult) Pulse (!) 54 Temp 36.6 ?C (97.9 ?F) Wt 79.8 k g (176 lb) SpO2 95% BMI 27.57 kg/m? General appearance: alert, cooperative, pleasant, in no acut e distress Head: Normocephalic Eyes: conjunctiva/corneas normal Ears: R TM - clear with good landmarks, L TM - clear with go od landmarks Nose: clear Oropharynx: moist without lesions Neck: supple and small, benign anterior cervical nodes bilat erally Heart: regular rate and rhythm, without murmur Lungs: clear to auscultation, without rales or wheeze, good air exchange ALLERGIES No Known Allergies predniSONE (DELTASONE) 2.5 mg tablet Take 2.5 mg by mouth tw ice daily. flecainide (TAMBOCOR) 100 mg tablet Take 1 tablet by mouth twice daily. This is to fill because told cannot fill her RX early before going t o [place] [employer] for 4 weeks (cannot run out of med while away). Running out of med ication can be detrimental to her health. Do not cancel her usual pre scription with refills ELIQUIS 5 mg tab tab(s) 5 mg twice daily. metoprolol tartrate, short acting, (LOPRESSOR) 25 mg tablet 12.5 mg twice daily. MAGNESIUM CARBONATE ORAL Take by mouth. zinc CALCIUM 500 MG TAB Take one(1) tablet two(2) times daily. VITAMIN D 400 UNIT CAP Take one(1) tablet two(2) times daily . predniSONE (DELTASONE) 20 mg tablet Take 1 tablet by mouth once daily for 4 days. Take daily with food. benzonatate (TESSALON PERLES) 100 mg capsule Take 1 capsule by mouth three times daily as needed. codeine-guaiFENesin (ROBITUSSIN AC) 10-1 00 mg/5 mL syrup Take 5-10 mL by mouth four times daily as needed for Cough for up to 7 days. May cause drowsiness. amoxicillin (AMOXIL) 875 mg tablet Take 1 tablet by [facility] twice daily for 10 days. mupirocin (BACTROBAN) 2 % ointment Apply 1 appli cation to affected area three times daily. PAST MEDICAL HISTORY Diagnosis Date - Diarrhea - Diverticulosis of colon (without mention of hemorrhage) - Paroxysmal atrial fibrillation (HCC) 06/02/2017 Controlled on current meds; Dr. Akbar managing. - Positive hepatitis C antibody test 06/02/2017 negative for chronic active hepatitis C - Rheumatoid arthritis(714.0) Remission; note that diagnosis inflammatory arthritis (neg R F) on Dr. 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 Cough - ICD9: 786.2, ICD10: R05 Recommend plenty of rest and fluids, supportive care, Tyleno l as needed - PREDNISONE 20 MG TABLET - BENZONATATE 100 MG CAPSULE - CODEINE 10 MG-GUAIFENESIN 100 MG/5 ML ORAL LIQUID - AMOXICILLIN 875 MG TABLET She will let us know if not feeling improved with the above. PDMP website checked and validated. All prescrip tions have been APPROPRIATELY filled. No suspicious activity was identified. 08/02/2019 by JENNIFER Contreras APRN.SONU This Team Access Model visit is a same day encounter. It req uired patient-provider interaction for the medical decision making as documented below. Referring Provider: SELF [[id number]] Allergies As of Date: 08/02/2019 (No Known Allergies) Date Reviewed: 08/02/2019 Reviewed by: Shannon Hotte STEEL TIER - Fully Assessed Reason for Visit: Cough [28] Primary Visit Diagnosis:Cough [R05] Order(s):predniSONE (DELTASONE) 20 mg tabletTake 1 tablet by mouth once daily for 4 days. Take daily with food.Disp: 4 tabletRfl: 0 benzonatate (TESSALON PERLES) 100 mg capsuleTake 1 capsule b y mouth three times daily as needed.Disp: 30 capsuleRfl: 0 codeine-guaiFENesin (ROBITUSSIN AC) 10-100 mg/5 mL syrupTake 5-10 mL by mouth four times daily as needed for Cough for up to 7 da ys. May cause drowsiness.Disp: 120 mLRfl: 0 amoxicillin (AMOXIL) 875 mg tabletTake 1 tablet by mouth twi ce daily for 10 days.Disp: 20 tabletRfl: 0 Prescriptions as of 08/02/2019 Sig: PREDNISONE 2.5 MG TABLET Take 2.5 mg by mouth twice da* FLECAINIDE 100 MG TABLET Take 1 tablet by mouth twice * ELIQUIS 5 MG TABLET 5 mg twice daily. METOPROLOL TARTRATE 25 MG TAB* 12.5 mg twice daily. MAGNESIUM CARBONATE ORAL Take by mouth. ZINC-FOR TPN CALCIUM 500 MG TABLET Take one(1) tablet two(2) juany* VITAMIN D2 400 UNIT CAPSULE Take one(1) tablet two(2) juany* PREDNISONE 20 MG TABLET Take 1 tablet by mouth once d* BENZONATATE 100 MG CAPSULE Take 1 capsule by mouth three* CODEINE 10 MG-GUAIFENESIN 100* Take 5-10 mL by mouth four ti * AMOXICILLIN 875 MG TABLET Take 1 tablet by mouth twice * MUPIROCIN 2 % TOPICAL OINTMENT Apply 1 application to affect * Patient not taking: Reported on 07/02/2019 Problem List As Of Date 08/02/2019 Noted Resolved Unspecified constipation [K59.00] 06/02/2017 Diverticulosis of colon [K57.30] Internal hemorrhoids without mention of complic* 10/13/2015 FAMILY HX GI MALIGNANCY [Z80.0] More... Inflammatory arthritis [M19.90] 09/10/2006 More... 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 Positive hepatitis C antibody test [R76.8] 06/02/2017 More... Primary osteoarthritis of both knees [M17.0] 06/02/2017 More... Paroxysmal atrial fibrillation (HCC) [I48.0] 06/02/2017 More... Prescriptions ordered this encounter Disp Refills Start End PREDNISONE 20 MG TABLET 4 ta* 0 08/02/2019 08/06/2019 Route: ORAL Sig: Take 1 tablet by mouth once daily for 4 days. Take ronal y with food. BENZONATATE 100 MG CAPSULE 30 c* 0 08/02/2019 Route: ORAL Sig: Take 1 capsule by mouth three times daily as needed. CODEINE 10 MG-GUAIFENESIN 100 MG/5 M* 120 * 0 08/02/2019 Route: ORAL Sig: Take 5-10 mL by mouth four times daily as needed for Cough for up to 7 days. May cause drowsiness. AMOXICILLIN 875 MG TABLET 20 t* 0 08/02/2019 08/12/2019 Route: ORAL Sig: Take 1 tablet by mouth twice daily for 10 days. Encounter Status:Closed by NATALEE DUMONT on 08/02/19 smooth muscle ab pnl on 2019-07-02 Smooth Muscle Ab Pnl Negative Negative Normal 0 [facility] [place] [facility] ([id number]) Comment: Result Comment: Normal range : negative at a 1:20 serum dilution. Performed By: #### CBC, CRP, WSR #### [facility] [address] [place], [place] [address] protime on PT Coag (PPP) [Time] <0.9 0.9-1.3 s Low 0 [facility] [place] [facility] ([id number]) Comment: Result Comment: Vitamin K An tagonist (VKA) Therapeutic Range: INR 2 to 3 (Target INR of 2.5) Note: For patients treated w ith VKA drugs, such as warfarin, the [employer] [employer] 2012 Guideline recommends a therapeutic INR range of 2 to 3 (target INR of 2.5). This recommendation includes high-risk patients with antiphospholipid syndrome with previous arterial or venous thromboembolism, current-generation mechanical or bioprosthetic aortic heart valve replacement. Note: Patients with mechanical systems control engineer al aortic valve replacement and additional risk factors for thromboembolic events (atrial fibrillation, previous thromboembolism, LV dysfunction, hypercoagulable conditions) or an older generation mecha nical AVR (i.e., ball in-Cage) or any mechanical MVR should have a INR therapeutic range of 2.5 to 3.5 (target INR of 3). Danielle GH, et al. Chest 2012 , 141:7S-47S Isra RA, et al. [facility] , 70: 252-289 Result rechecked. Sample checked for a clot. Performed By: #### PT, CBC, CK, CMP, FERR, GGT, HREMOP, AHAVT, IRON, ANAS, ALD, SMOOTH, PHILLIP ####[facility] [id number] [place], [place] [phone] PT Coag (PPP) [Time] 9.9 9.7-13.0 sec Normal 0 [facility] [place] [facility] ([id number]) Comment: Performed By: #### PT, CBC, CK, CMP, FERR, GGT, HREMOP, AHAVT, IRON, ANAS, ALD, SMOOTH, PHILLIP ####[facility] [id number] [place], [place] [phone] progress on 2019-06 PROGRESS HNO ID: [id number] Normal 07-02-2019 [facility] Author: Crispin Uribe (Pa) ([id number]) Service: ? Author Type: Physician Major Assembler Type: Progress Notes Filed: 07/09/2019 3:19 PM Note Text: Patient fasting for 3 hours:Yes Any implanted devices:No Possibility of :No Fibroscan was performed on 07/02/2019, by Shireen Kemp RN and results are interpreted by Crispin Valdez PA-C Diagnosis: Abnormal results of liver function studies Please refer to get images report for individual readings Number of readings: 10 IQR 8% E (kpa): 5.3 CAP: 287 Impression The reading was adequate, there is no corresponding fibrosis stage for the diagnosis abnormal results of liver function studies, these results can be used for baseline/comparison. 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 Crispin Valdez PA-C Grade CAP value up to 237 dB/M corresponds to S0 (< 10 % Fat) CAP value between (238 - 258 dB/M) corresponds to S1 (>/= 11 % Fat) CAP value between (259 - 289 dB/M) corresponds to S2 (>/= 33 % Fat) CAP value > 290dB/M corresponds to S3 (>/= 67 % Fat) stage 0 ( S0:< 10 % steatosis) stage 1 (>/= S1: 11%-33% steatosis) stage 2 (>/= S2: 34%-66% steatosis) stage 3 (>/= S3: > 66% steatosis) Int J Clin Exp Med. 2015; 8(10): 91934?28675 PROGRESS HNO ID: [id number] Normal 07-02-2019 [facility] Author: Nilo Tran [place] ([id number]) Service: ? Author Type: Physician Type: Progress Notes Filed: 07/02/2019 10:11 AM Note Text: Consultation requested for an opinion regarding abnormal anyi er tests. My final recommendations will be communicated back to the reque sting physician by way of shared Medical record or letter to reque sting physician via US mail. delightful 73 year old woman with mildly elevated liver enzy mes for decades She reports hepatitis after receiving gamma globulin after of her firsrt-born lap miriam for stones complicated by stricture ERCP and dilatation here 2002 MRCP [facility] (reviewed in [facility]) with no liver mass and non-specifi c dilated biliary tree 2009 Labs here: mildly elevated ast alt, GGT normal alcohol: infrequent symptoms; rheumatologic requiring low dose prednisone no pruritus I do not see a serol screen for liver never biopsy Current Outpatient Medications Medication Sig - predniSONE (DELTASONE) 2.5 mg tablet Take 2.5 mg by mouth twice daily. - flecainide (TAMBOCOR) 100 mg tablet Take 1 tablet by mouth twice daily. This is to fill because told cannot fill her RX early before going to [place] 4 weeks (cannot run out of med while away). Runni ng out of medication can be detrimental to her health. Do not cancel h er usual prescription with refills - ELIQUIS 5 mg tab tab(s) 5 mg twice daily. - metoprolol tartrate, short acting, (LOPRESSOR) 25 mg table t 12.5 mg twice daily. - MAGNESIUM CARBONATE ORAL Take by mouth. - zinc - CALCIUM 500 MG TAB Take one(1) tablet two(2) times daily. - VITAMIN D 400 UNIT CAP Take one(1) tablet two(2) times emil ly. - mupirocin (BACTROBAN) 2 % ointment Apply 1 application to affected area three times daily. (Patient not taking: Reported on 0 ) No current facility-administered medications for this visit. Exam: BP 143/71 (BP Site: Left Arm, BP Position: Sitting, BP Cuff Size: Regular Adult) Pulse 61 Temp 36.6 ?C (97.8 ?F) (Oral) Ht 170.2 cm (5' 7) Wt 80.2 kg (176 lb 12.8 oz) SpO2 95% BMI 27.69 kg/m? HEENT: neg abd; no mass or organ enalrgement extrem: no edema neuro: no asterixis Impression; mild liver test abn suspect not much liver injury Rec; 1. serol screen 2. Fibroscan today 3. call me next week 4. back up appt with me 3 months [facility]. 25 min more than 50% counseling MD DOMENICA Murphy mitochondrial ab pnl on 2019-07-02 Mitochondrial Ab Pnl Negative Negative Normal 0 [facility] [place] [facility] ([id number]) Comment: Result Comment: Normal range : negative at a 1:20 serum dilution. Performed By: #### CBC, CRP, WSR #### [facility] [address] [place], [place] [id number] iron and tibc on 05-07-16 Iron [Mass/Vol] 63 41-186 ug/dL Normal 07-02-2019 [facility] ([id number]) Comment: Performed By: #### CBC, CRP, WSR #### [facility] [address] [place], [place] [address] TIBC 317 232-386 ug/dL Normal 07-02-2019 [facility] [place] [facility] ([id number]) Comment: Performed By: #### CBC, CRP, WSR #### [facility] [address] [place], [place] [address] Transferrin Saturatn 20 15-57 % Normal 0 [facility] [place] [facility] ([id number]) Comment: Performed By: #### CBC, CRP, WSR #### [address] [address] hepatitis remote panel on 2019-07-02 HBsAg Negative Negative Normal 07-02-2019 [facility] [place] [facility] ([id number]) Comment: Performed By: #### CBC, CRP, WSR #### [address] [address] Hep B Core Ab,Total Negative Negative Normal 07-02-2019 [facility] [place] [facility] ([id number]) Comment: Performed By: #### CBC, CRP, WSR #### [address] [address] Hepatitis C Ab IA Negative Negative Normal 07-02-2019 C [facility] (26587) Comment: Performed By: #### CBC, CRP, WSR #### [address] [address] HepB Surface Ab,Qual Negative Negative Normal 0 [facility] [place] [facility] (37237) Comment: Result Comment: NEGATIVE Performed By: #### CBC, CRP, WSR #### [address] [address] hepatitis a ab total on 2019-07-02 Hepatitis A Ab Positive Negative Critically abnormal 07-02 [facility] ([address]25) Comment: Performed By: #### CBC, CRP, WSR #### [address] [address] ggt on 2019-07-02 Gamma glutamyl transferase 130 6-46 U/L High [facility] [place] [facility] [Catalytic activity/Vol] (58942) Comment: Performed By: #### CBC, CRP, WSR #### [facility] [address] [place], [place] [address] ferritin on 2019-06 Ferritin [Mass/Vol] 216.0 14.7-205.1 ng/mL High 0 [facility] [place] [facility] (92960) Comment: Performed By: #### CBC, CRP, WSR #### [facility] s [facility] [place], [place] [address] comp metabolic panel on 2019-07-02 Albumin [Mass/Vol] 3.9 3.9-4.9 g/dL Normal 07-02-2019 [facility] [place] [facility] (81776) Comment: Performed By: #### CBC, CRP, WSR #### [address] [address] ALP [Catalytic activity/Vol] 156 34-123 U/L High 0 07-02-2019 [facility] [place] [facility] (32062) Comment: Performed By: #### CBC, CRP, WSR #### [address] [address] ALT [Catalytic activity/Vol] 44 7-38 U/L High 0 07-02-2019 [facility] [place] [facility] (46685) Comment: Performed By: #### CBC, CRP, WSR #### [facility] [address] [place], [place] [address] Anion gap [Moles/Vol] 8 9-18 mmol/L Low 07-02-19 20 [facility] [place] [facility] (98004) Comment: Performed By: #### CBC, CRP, WSR #### [place] [place], [place] [address] AST [Catalytic activity/Vol] 40 13-35 U/L High 0 07-02-2019 [facility] [place] [facility] (34475) Comment: Performed By: #### CBC, CRP, WSR #### [facility] [address] [place] [address] Bilirubin [Mass/Vol] 0.3 0.2-1.3 mg/dL Normal 0 [facility] [place] [facility] (27901) Comment: Performed By: #### CBC, CRP, WSR #### [facility] [address] [place], [place] [address] Calcium [Mass/Vol] 9.2 8.5-10.2 mg/dL Normal 07-02-2019 [facility] [place] [facility] (49785) Comment: Performed By: #### CBC, CRP, WSR #### [facility] [address] [place], [place] [address] Chloride [Moles/Vol] 102 97-105 mmol/L Normal 0 [facility] [place] [facility] (18090) Comment: Performed By: #### CBC, CRP, WSR #### [facility] [address] [place], [place] [address] CO2 [Moles/Vol] 29 22-30 mmol/L Normal 07-02-2019 [facility] (16179) Comment: Performed By: #### CBC, CRP, WSR #### [facility] s [address] [place], [place] [address] Creatinine [Mass/Vol] 0.77 0.58-0.96 mg/dL Normal 07-02-19 20 [facility] [place] [facility] (67993) Comment: Performed By: #### CBC, CRP, WSR #### [facility] [address] [place], [place] [address] eGFR- Amer. >60 Normal 07-02-2019 [facility] [place] [facility] (60021) Comment: Performed By: #### CBC, CRP, WSR #### [facility] [address] [place], [place] [address] GFR/1.73 sq M predicted >60 mL/min/{1.73_m2} Normal 07-02-2019 [facility] among non-blacks MDRD [place] ([address]) (S/P/Bld) [Vol rate/Area] Comment: Result Comment: eGFR (Estima nicole GFR) Units of measure: mL/min/1.73 meters squared eGFR is derived from the ree xpressed MDRD Study equation using the following parameters: serum creatinine, age, gender and race. The creatinine assay has been calibrated to be traceable to IDMS. An eGFR <60 mL/min/1.73m2 fo r >3 months is consistent with chronic kidney disease. Refer to KDOQI guidelines for clinical interpretation. In patients with unstable re nal function, e.g. those with acute kidney injury, the eGFR may not accurately reflect actual GFR. Performed By: #### CBC, CRP, WSR #### [facility] [address] [place], [place] [address] Glucose [Mass/Vol] 90 74-99 mg/dL Normal 07-02-2019 [facility] [place] [facility] (03296) Comment: Result Comment: The [place] Diabetes Association (ADA) provides guidance for cutoff values for fasting glucose and random glucose. The ADA defines fasting as no caloric intake for at least 8 hours. Fas ting plasma glucose results between 100 to 125 mg/dL indicate increased risk for diabetes (prediabetes). Fasting plasma glucose resul ts greater than or equal to 126 mg/dL meet the criteria for diagnosis of diabetes. In the absence of unequivocal hyperglycemia, results should be confirmed by repeat testing. In a patient with classic s ymptoms of hyperglycemia or hyperglycemic crisis, random plasma glucose results greater than or equal to 200 mg/dL meet the criteria for diagnosis of diabetes. Reference: Standards of [facility] Care in Diabetes 2016, [place] Diabetes Association. Diabetes Care. 2016.39(Suppl 1). Performed By: #### CBC, CRP, WSR #### [facility] [address] [place], [place] [address] Potassium [Moles/Vol] 4.4 3.7-5.1 mmol/L Normal 07-02-19 [facility] [place] [facility] (24359) Comment: Performed By: #### CBC, CRP, WSR #### [facility] [address] [place], [place] [address] Protein [Mass/Vol] 7.2 6.3-8.0 g/dL Normal 07-02-2019 [facility] [place] [facility] (68418) Comment: Performed By: #### CBC, CRP, WSR #### [facility] [address] [place], [place] [address] Sodium [Moles/Vol] 139 136-144 mmol/L Normal 07-02-2019 [facility] [place] [facility] (25799) Comment: Performed By: #### CBC, CRP, WSR #### [facility] [address] [place], [place] [address] Urea nitrogen [Mass/Vol] 18 7-21 mg/dL Normal 07-02 [facility] [place] [facility] (23903) Comment: Performed By: #### CBC, CRP, WSR #### [facility] [address] [place], [place] [address] cnov on 2019-07-02 CNOV Office Visit (GASTA5) Normal 07-02-[address] [place] [address] [facility] ONEIDA NINO I ([id number]) 1945 [facility] Date Time Provider Department ([id number]) 07/02/19 10:30 AM HEPATOLOGY PROCEDURES A5 GASTA5 During your visit today, we recorded the following informati on about you: Crispin Valdez PA-C 07/09/2019 3:19 PM Addendum Patient fasting for 3 hours:Yes Any implanted devices:No Possibility of :No Fibroscan was performed on 07/02/2019, by Shireen espino RN and results are interpreted by Crispin Valdez PA-C Diagnosis: Abnormal results of liver function studies Please refer to get images report for individual readings Number of readings: 10 IQR 8% E (kpa): 5.3 CAP: 287 Impression The reading was adequate, there is no corresponding fibrosis stage for the diagnosis abnormal results o f liver function studies, these results can be used for baseline/comparison. 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 Crispin Valdez PA-C Grade CAP value up to 237 dB/M corresponds to S0 (< 10 % Fat) CAP value between (238 - 258 dB/M) corresponds to S1 (>/= 11 % Fat) CAP value between (259 - 289 dB/M) corresponds to S2 (>/= 33 % Fat) CAP value > 290dB/M corresponds to S3 (>/= 67 % Fat) stage 0 ( S0:< 10 % steatosis) stage 1 (>/= S1: 11%-33% steatosis) stage 2 (>/= S2: 34%-66% steatosis) stage 3 (>/= S3: > 66% steatosis) Int J Clin Exp Med. 2015; 8(10): 04556?09836 Referring Provider: NILO TRAN [[id number]] Allergies As of Date: 07/02/2019 (No Known Allergies) Date Reviewed: 07/02/2019 Reviewed by: Gin Grace MA - Fully Assessed Visit Diagnosis:Abnormal results of liver function studies [ R94.5] Prescriptions as of 07/02/2019 Sig: PREDNISONE 2.5 MG TABLET Take 2.5 mg by mouth twice da* MUPIROCIN 2 % TOPICAL OINTMENT Apply 1 application to affect * Patient not taking: Reported on 07/02/2019 FLECAINIDE 100 MG TABLET Take 1 tablet by mouth twice * ELIQUIS 5 MG TABLET 5 mg twice daily. METOPROLOL TARTRATE 25 MG TAB* 12.5 mg twice daily. MAGNESIUM CARBONATE ORAL Take by mouth. ZINC-FOR TPN CALCIUM 500 MG TABLET Take one(1) tablet two(2) juany* VITAMIN D2 400 UNIT CAPSULE Take one(1) tablet two(2) juany* Problem List As Of Date 07/02/2019 Noted Resolved Unspecified constipation [K59.00] 06/02/2017 Diverticulosis of colon [K57.30] Internal hemorrhoids without mention of complic* 10/13/2015 FAMILY HX GI MALIGNANCY [Z80.0] More... Inflammatory arthritis [M19.90] 09/10/2006 More... 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 Positive hepatitis C antibody test [R76.8] 06/02/2017 More... Primary osteoarthritis of both knees [M17.0] 06/02/2017 More... Paroxysmal atrial fibrillation (HCC) [I48.0] 06/02/2017 More... Encounter Status:Closed by CRISPIN VALDEZ PA-C on 07/02/19 CNOV Office Visit (GASTA5) Normal 07-02-19 [place] [facility] NICHELLEONEIDA Yi ([id number]) 1945 [facility] Date Time Provider Department ([id number]) 07/02/19 9:30 AM NILO TRAN GASTA5 During your visit today, we recorded the following informati on about you: Temperature Pulse Blood pressure Weight 97.8 degrees 61/minute 143/71 80.2 kg Height 1.702 m Nilo Tran MD [facility] 07/02/2019 10:11 AM Signed Consultation requested for an opinion regarding abnormal anyi er tests. My final recommendations will be communicat ed back to the requesting physician by way of shared Medical record or letter to requesting physi sunita via [place] mail. delightful 73 year old woman with mildly elevated liver en zymes for decades She reports hepatitis after receiving gamma globulin after of her firsrt-born lap miriam for stones complicated by stricture ERCP and dilatation here 2002 MRCP [facility] (reviewed in [facility]) with no liver mass and non-specific dilated biliary tree 2008 Labs here: mildly elevated ast alt, GGT normal alcohol: infrequent symptoms; rheumatologic requiring low dose prednisone no pruritus I do not see a serol screen for liver never biopsy Current Outpatient Medications Medication Sig - predniSONE (DELTASONE) 2.5 mg tablet Take 2.5 mg by mouth twice daily. - flecainide (TAMBOCOR) 100 mg tablet Ta ke 1 tablet by mouth twice daily. This is to fill because told cannot fill her RX early before going to [place] for 4 weeks (cannot run out of med while away). Running out of med ication can be detrimental to her health. Do not cancel her usual pre scription with refills - ELIQUIS 5 mg tab tab(s) 5 mg twice daily. - metoprolol tartrate, short acting, (LOPRESSOR) 25 mg tab let 12.5 mg twice daily. - MAGNESIUM CARBONATE ORAL Take by mouth. - zinc - CALCIUM 500 MG TAB Take one(1) tablet two(2) times daily. - VITAMIN D 400 UNIT CAP Take one(1) tablet two(2) times emil ly. - mupirocin (BACTROBAN) 2 % ointment Apply 1 application to affected area three times daily. (Patient not taking: Reported on 07/02/2019 ) No current facility-administered medications for this visit. Exam: BP 143/71 (BP Site: Le ft Arm, BP Position: Sitting, BP Cuff Size: Regular Adult) Pulse 61 Temp 36.6 ?C (97.8 ?F) (Oral) Ht 170.2 cm (5' 7) Wt 80.2 kg (176 lb 12.8 oz) SpO2 95% BMI 27.69 kg/m? HEENT: neg abd; no mass or organ enalrgement extrem: no edema neuro: no asterixis Impression; mild liver test abn suspect not much liver injury Rec; 1. serol screen 2. Fibroscan today 3. call me next week 4. back up appt with me 3 months [facility]. 25 min more than 50% counseling MD DOMENICA Murphy MD [facility] 07/02/2019 10:13 AM Signed Addended by: NILO TRAN MD on: 07/02/2019 10:13 AM Modules accepted: Orders MD DOMENICA Murphy 07/02/2019 10:34 AM Signed Addended by: NILO TRAN MD on: 07/02/2019 10:34 AM Modules accepted: Orders Referring Provider: SELF [[id number]] Allergies As of Date: 07/02/2019 (No Known Allergies) Date Reviewed: 07/02/2019 Reviewed by: Gin Grace MA - Fully Assessed Reason for Visit: New Patient [172] Cmt: elevated liver enzymes Primary Visit Diagnosis:Abnormal results of liver function s angelika [R94.5] Order(s):DDI VIBRATION CONTROLLED TRANSIENT ELASTOGRAPHY (VC TE) [0871245] Order #: [id number] VIBRATION CONTROLLED TRANSIENT ELASTOGRAPHY (POC) [0860947] Order #: [id number]: 1 HEP REMOTE PANEL BL [SQHREMOP] Order #: [id number] FUTURE HEP A AB TOTAL [SQAHAVT] Order #: [id number] FUTURE SMOOTH MUSCLE AB PNL SCRN [SQSMOOTH] Order #: [id number] FUT URE MITOCHONDRIAL AB PNL SCRN [SQMITO] Order #: [id number] FUTUR E JUVE BLOOD [SQANAS] Order #: [id number] FUTURE IRON + TIBC [SQIRON] Order #: [id number] FUTURE FERRITIN BLD [SQFERR] Order #: [id number] FUTURE COMP METABOLIC PANEL [SQCMP] Order #: [id number] FUTURE CBC [SQCBC] Order #: [id number] FUTURE PROTHROMBIN TIME/PT [SQPT] Order #: [id number] FUTURE GGT BLD [SQGGT] Order #: [id number] FUTURE CK CREATINE KINASE [SQCK] Order #: [id number] FUTURE ALDOLASE BLD [SQALD] Order #: [id number] FUTURE Prescriptions as of 07/02/2019 Sig: PREDNISONE 2.5 MG TABLET Take 2.5 mg by mouth twice da* FLECAINIDE 100 MG TABLET Take 1 tablet by mouth twice * ELIQUIS 5 MG TABLET 5 mg twice daily. METOPROLOL TARTRATE 25 MG TAB* 12.5 mg twice daily. MAGNESIUM CARBONATE ORAL Take by mouth. ZINC-FOR TPN CALCIUM 500 MG TABLET Take one(1) tablet two(2) juany* VITAMIN D2 400 UNIT CAPSULE Take one(1) tablet two(2) juany* MUPIROCIN 2 % TOPICAL OINTMENT Apply 1 application to affect * Patient not taking: Reported on 07/02/2019 Problem List As Of Date 07/02/2019 Noted Resolved Unspecified constipation [K59.00] 06/02/2017 Diverticulosis of colon [K57.30] Internal hemorrhoids without mention of complic* 10/13/2015 FAMILY HX GI MALIGNANCY [Z80.0] More... Inflammatory arthritis [M19.90] 09/10/2006 More... 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 Positive hepatitis C antibody test [R76.8] 06/02/2017 More... Primary osteoarthritis of both knees [M17.0] 06/02/2017 More... Paroxysmal atrial fibrillation (HCC) [I48.0] 06/02/2017 More... Encounter Status:Closed by NILO TRAN MD on 07/02/19 ck on 2019-07-02 CK [Catalytic activity/Vol] 70 42-196 U/L Normal [facility] [place] [facility] (23324) Comment: Performed By: #### PT, CBC, CK, CMP, FERR, GGT, HREMOP, AHAVT, IRON, ANAS, ALD, SMOOTH, PHILLIP ####[facility] [address] [place], [place] [phone] cbc on 2019-07-02 Absolute nRBC <0.01 <0.01 Normal 07-02-2019 [facility] (21704) Comment: Performed By: #### PT, CBC, CK, CMP, FERR, GGT, HREMOP, AHAVT, IRON, ANAS, ALD, SMOOTH, PHILLIP ####[facility] [address] [place], [place] [phone] Erythrocyte distribution 13.5 11.5-15.0 % Normal 07-02 [facility] width (RBC) [Ratio] [place] ([address]) Comment: Performed By: #### PT, CBC, CK, CMP, FERR, GGT, HREMOP, AHAVT, IRON, ANAS, ALD, SMOOTH, PHILLIP ####[facility] [address] [place] [address], [place] [phone] Hematocrit (Bld) [Volume 43.0 36.0-46.0 % Normal 07-02 [facility] (41263) Comment: Performed By: #### PT, CBC, CK, CMP, FERR, GGT, HREMOP, AHAVT, IRON, ANAS, ALD, SMOOTH, PHILLIP ####[facility] [address] [place] [address] [phone] Hemoglobin (Bld) 13.9 11.5-15.5 g/dL Normal 07-02-2019 [facility] [Mass/Vol] [place] ([address]) Comment: Performed By: #### PT, CBC, CK, CMP, FERR, GGT, HREMOP, AHAVT, IRON, ANAS, ALD, SMOOTH, PHILLIP ####[facility] and [place] [phone] MCH (RBC) [Entitic mass] 30.2 26.0-34.0 pG Normal 07-02 [facility] [place] [facility] (71882) Comment: Performed By: #### PT, CBC, CK, CMP, FERR, GGT, HREMOP, AHAVT, IRON, ANAS, ALD, SMOOTH, PHILLIP ####[facility] and [address] [phone] MCHC (RBC) [Mass/Vol] 32.3 30.5-36.0 g/dL Normal 07-02-19 20 [facility] [place] [facility] (46539) Comment: Performed By: #### PT, CBC, CK, CMP, FERR, GGT, HREMOP, AHAVT, IRON, ANAS, ALD, SMOOTH, PHILLIP ####[facility] and [address] [phone] MCV (RBC) [Entitic vol] 93.3 80.0-100.0 fL Normal 07-02 [facility] [place] [facility] (24900) Comment: Performed By: #### PT, CBC, CK, CMP, FERR, GGT, HREMOP, AHAVT, IRON, ANAS, ALD, SMOOTH, PHILLIP ####[facility] [address] [place] [address], [place] [phone] Platelet mean volume 11.3 9.0-12.7 fL Normal 0 [facility] (Bld) [Entitic vol] [place] ([address]) Comment: Performed By: #### PT, CBC, CK, CMP, FERR, GGT, HREMOP, AHAVT, IRON, ANAS, ALD, SMOOTH, PHILLIP ####[facility] [address] [place] [address], [place] [phone] Platelets (Bld) [#/Vol] 236 150-400 k/uL Normal 2019 [facility] [place] [facility] (58740) Comment: Performed By: #### PT, CBC, CK, CMP, FERR, GGT, HREMOP, AHAVT, IRON, ANAS, ALD, SMOOTH, PHILLIP ####[facility] [address] [place] [place], [place] [phone] RBC (Bld) [#/Vol] 4.61 3.90-5.20 m/uL Normal 07-02-2019 [facility] (69911) Comment: Performed By: #### PT, CBC, CK, CMP, FERR, GGT, HREMOP, AHAVT, IRON, ANAS, ALD, SMOOTH, PHILLIP ####[facility] and [facility] [address] [place] [place], [place] [phone] WBC (Bld) [#/Vol] 8.38 3.70-11.00 k/uL Normal 07-02-2019 [facility] [place] [facility] (53064) Comment: Performed By: #### PT, CBC, CK, CMP, FERR, GGT, HREMOP, AHAVT, IRON, ANAS, ALD, SMOOTH, PHILLIP ####[facility] [address] [place] [address], [place] [phone] juve on 2019-07-02 Nuclear Ab IF (S) Negative Negative Normal 07-02-2019 [facility] [Titer] [place] ([address]) Comment: Performed By: #### CBC, CRP, WSR #### [facility] [address] [place], [place] [address] Nuclear Ab IF (S) [Titer] 0.6 OD Ratio Normal 06-16 [facility] [place] [facility] (05170) Comment: Result Comment: OD Ratio is interpreted as follows: Negative <1.0 Positive >=1.0 Performed By: #### CBC, CRP, WSR #### [facility] [address] [place], [place] [address] aldolase on 2019-06 Aldolase 7.9 1.5-8.1 U/L Normal 07-02-2019 [facility] [place] [facility] (87536) Comment: Result Comment: This test wa s developed and its performance characteristics determined by [facility]'s Miki Kaufman [facility]ology [facility] [place] ([facility]). It has not been cleared or a pproved by the FDA. [facility] is regulated under CLIA as qualified to perform high complexity testing. This test is used for clinic al purposes. It should not be regarded as investigational or for research. Performed By: #### CBC, CRP, WSR #### [facility] [address] [place], [place] [address] progress on 2019-04 PROGRESS HNO ID: [id number] Normal 04-26-2019 [facility] Author: Niya Lomax [place] ([id number]) Service: ? Author Type: Physician Type: Progress Notes Filed: 05/26/2019 7:45 AM Note Text: Patient presents with: Recheck: 6 month follow up SUBJECTIVE: Oneida Nino is a 73 year old year old lady here today for 6 month follow up appointment for review of medical conditions. Noted that rheumatoid arthritis issues increased this year. but was better when was in [place] where they walked and hiked more in the fresh air. Reviewed temporal arteritis scare. Had been referred to [facility] for biopsy but decision was not to pursue biopsy since did not s ee an indication to do the biopsy. Noted that had varicose vein procedure in [place]. Doing well . Discussed 2 episodes of GERD. with cough at night. None sinc e. Stable from cardiac standpoint, including from Paroxysmal A fib standpoint. PAST MEDICAL HISTORY Diagnosis Date - Diarrhea - Diverticulosis of colon (without mention of hemorrhage) - Paroxysmal atrial fibrillation (HCC) 06/02/2017 Controlled on current meds; Dr. Akbar managing. - Positive hepatitis C antibody test 06/02/2017 negative for chronic active hepatitis C - Rheumatoid arthritis(714.0) Remission; note that diagnosis inflammatory arthritis (neg R F) on Dr. 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 mupirocin (BACTROBAN) 2 % ointment, Apply 1 application to a ffected area three times daily. flecainide (TAMBOCOR) 100 mg tablet, Take 1 tablet by mouth twice daily. This is to fill because told cannot fill her RX early before going to [place] 4 weeks (cannot run out of med while away). Runni ng out of medication can be detrimental to her health. Do not cancel h er usual prescription with refills ELIQUIS 5 mg tab tab(s), 5 mg twice daily. metoprolol tartrate, short acting, (LOPRESSOR) 25 mg tablet, 12.5 mg twice daily. MAGNESIUM CARBONATE ORAL, Take by mouth. zinc, CALCIUM 500 MG TAB, Take one(1) tablet two(2) times daily. VITAMIN D 400 UNIT CAP, Take one(1) tablet two(2) times ronal y. No current facility-administered medications for this visit. OBJECTIVE: BP 108/62 (BP Site: Left Arm, BP Position: Sitting, BP Cuff Size: Large Adult) Pulse 60 Resp 16 Wt 78.5 kg (173 lb) BMI 27.9 2 kg/m? Patient is alert, oriented times 3, no apparent distress, af fect is bright, reactive. Heart: Regular rate, rhythm, no murmurs, gallops, rubs. Lungs: Clear to auscultation, bilaterally, breathing non lab ored. Ext: No cyanosis, clubbing, or edema. ASSESSMENT AND PLAN: Encounter Diagnosis ICD-10-CM 1. Inflammatory arthritis M19.90 2. Paroxysmal atrial fibrillation (HCC) I48.0 3. Mixed hyperlipidemia E78.2 4. Elevated alkaline phosphatase level R74.8 ALK PHOS ISOENZ YM BL 5. Gastroesophageal reflux disease without esophagitis K21.9 Above issues addressed with patient. Will continue follow up with Rheumatology. Noted that was be tter when was more active in [place]. No signs or symptoms of temporal art eritis. Continue to monitor. Further evaluation and treatment as ind icated. Also follows with Cardiology for PAF on Tambicor. Continue p resent management. Update labs on AlkPhos elevation. Further evaluation and jose atment as indicated. Patient involved in shared decision making for management of medical issues. History and medications reviewed. Epic updated as needed Refills and/or prescriptions taken care of and meds adjusted as indicated after reviewed history, exam and labs. Health Maintenance reviewed. Updated record and/or ordered t ests as recorded. Encouraged on efforts at healthy diet and regular exercise a nd adequate sleep. Niya Lomax MD cnov on 2019-04-14 CNOV Office Visit (INTMWS) Normal 04-14-20 19 [place] [facility] ONEIDA NINO I ([id number]) 1945 F [place] Date Time Provider Department ([id number]) 04/14/19 11:00 AM NIYA LOMAX INTMWS During your visit today, we recorded the following informati on about you: Pulse Respiration Blood pressure Weight 60/minute 16/minute 108/62 78.5 kg Niya Lomax MD 05/26/2019 7:45 AM Addendum Patient presents with: Recheck: 6 month follow up SUBJECTIVE: Oneida Nino is a 73 year old year old lady here today for 6 month follow up appointment for review of medical conditions. Noted that rheumatoid arthri tis issues increased this year. but was better when was in [place] where they walked and hiked more in the fresh air. Reviewed temporal arteritis scare. Had been referred to surgeon for biopsy but decision was not to purs ue biopsy since did not see an indication to do the biopsy. Noted that had varicose vein procedure in [place]. Doing well . Discussed 2 episodes of GERD. with cough at night. None sinc e. Stable from cardiac standpoint, including from Paroxysmal A fib standpoint. PAST MEDICAL HISTORY Diagnosis Date - Diarrhea - Diverticulosis of colon (without mention of hemorrhage) - Paroxysmal atrial fibrillation (HCC) 06/02/2017 Controlled on current meds; Dr. Akbar managing. - Positive hepatitis C antibody test 06/02/2017 negative for chronic active hepatitis C - Rheumatoid arthritis(714.0) Remission; note that diagnosis inflammatory arthritis (neg R F) on Dr. 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 mupirocin (BACTROBAN) 2 % ointment, Appl y 1 application to affected area three times daily. flecainide (TAMBOCOR) 100 mg tablet, Take 1 tabl et by mouth twice daily. This is to fill because told cannot fill her RX early before going to [place] for 4 weeks (cannot run out of med while away). Running out of med ication can be detrimental to her health. Do not cancel her usual pre scription with refills ELIQUIS 5 mg tab tab(s), 5 mg twice daily. metoprolol tartrate, short acting, (LOPRESSOR) 25 mg tablet, 12.5 mg twice daily. MAGNESIUM CARBONATE ORAL, Take by mouth. zinc, CALCIUM 500 MG TAB, Take one(1) tablet two(2) times daily. VITAMIN D 400 UNIT CAP, Take one(1) tablet two(2) times ronal y. No current facility-administered medications for this visit. OBJECTIVE: BP 108/62 (BP Site: Left Arm, BP Positio n: Sitting, BP Cuff Size: Large Adult) Pulse 60 Resp 16 Wt 78.5 kg (173 lb) BMI 27.92 kg/m? Patient is alert, oriented times 3, no apparent distress, affect is bright, reactive. Heart: Regular rate, rhythm, no murmurs, gallops, rubs. Lungs: Clear to auscultation, bilaterally, breathing non lab ored. Ext: No cyanosis, clubbing, or edema. ASSESSMENT AND PLAN: Encounter Diagnosis ICD-10-CM 1. Inflammatory arthritis M19.90 2. Paroxysmal atrial fibrillation (HCC) I48.0 3. Mixed hyperlipidemia E78.2 4. Elevated alkaline phosphatase level R74.8 ALK PHOS ISOENZ YM BL 5. Gastroesophageal reflux disease without esophagitis K21.9 Above issues addressed with patient. Will continue follow up with Rheumatolog y. Noted that was better when was more active in [place]. No signs or symptoms of temporal arteriti s. Continue to monitor. Further evaluation and treatment as indicated. Also follows with Cardiology for PAF on Tambicor. Continue present management. Update labs on AlkPhos eleva tion. Further evaluation and treatment as indicated. Patient involved in shared decision making for managem ent of medical issues. History and medications reviewed. Epic updated as needed Refills and/or prescriptions taken care of and meds adjusted as indicated after reviewed history, exam and labs. Health Maintenance reviewed. Updated record and/ or ordered tests as recorded. Encouraged on efforts at healthy diet an d regular exercise and adequate sleep. Niya Lomax MD Referring Provider: NIYA LOMAX [[id number]] Allergies As of Date: 04/14/2019 (No Known Allergies) Date Reviewed: 04/14/2019 Reviewed by: Odilia John LPN - Fully Assessed Reason for Visit: Recheck [92] Cmt: 6 month follow up Primary Visit Diagnosis:Inflammatory arthritis [M19.90] Other Visit Diagnoses:Paroxysmal atrial fibrillation (HCC) [ I48.0] Mixed hyperlipidemia [E78.2] Elevated alkaline phosphatase level [R74.8] Gastroesophageal reflux disease without esophagitis [K21.9] Order(s):ALK PHOS ISOENZYM BL [SQALKISO] Order #: [id number] FUTURE Prescriptions as of 04/14/2019 Sig: PREDNISONE 2.5 MG TABLET Take 2.5 mg by mouth twice da* MUPIROCIN 2 % TOPICAL OINTMENT Apply 1 application to affect * FLECAINIDE 100 MG TABLET Take 1 tablet by mouth twice * ELIQUIS 5 MG TABLET 5 mg twice daily. METOPROLOL TARTRATE 25 MG TAB* 12.5 mg twice daily. MAGNESIUM CARBONATE ORAL Take by mouth. ZINC-FOR TPN CALCIUM 500 MG TABLET Take one(1) tablet two(2) juany* VITAMIN D2 400 UNIT CAPSULE Take one(1) tablet two(2) juany* Problem List As Of Date 04/14/2019 Noted Resolved Unspecified constipation [K59.00] 06/02/2017 Diverticulosis of colon [K57.30] Internal hemorrhoids without mention of complic* 10/13/2015 FAMILY HX GI MALIGNANCY [Z80.0] More... Inflammatory arthritis [M19.90] 09/10/2006 More... 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 Positive hepatitis C antibody test [R76.8] 06/02/2017 More... Primary osteoarthritis of both knees [M17.0] 06/02/2017 More... Paroxysmal atrial fibrillation (HCC) [I48.0] 06/02/2017 More... Disposition: Return in about 6 months (around 10/14/2019) for 6 months follow up, With labs prior. Follow-up and Disposition History Recorded Encounter Status:Closed by NIYA LOMAX MD on 04/26/19 vitamin d 25 hydroxy on 2019-04-08 Vitamin D 25 Hydroxy 49.1 31.0-80.0 ng/mL Normal 04-08-201 9 [facility] [place] [facility] ([id number]) Comment: Result Comment: Classificati on of 25 [place] Vitamin D status: Insufficiency/Moderate Defic iency: < or = 30 ng/mL Sufficiency/Optimal Levels: 31 to 80 ng/mL Toxicity: > 100 ng/mL Test performed by chemilumin escent immunoassay. Performed By: #### CMP, LIPB , VITD ####[facility] [address] [place] [address] [phone] lipid panel, basic on 2019-04-08 Cholesterol [Mass/Vol] 235 <200 mg/dL High 04-08-2 019 [facility] [place] [facility] ([id number]) Comment: Result Comment: <200 mg/dL, Desirable 200-239 mg/dL, Borderline hi gh >239 mg/dL, High Performed By: #### CMP, LIPB , VITD #### [facility] [address] [place] [address] Cholesterol in HDL 80 >39 mg/dL Normal 04-08-2019 [facility] [place] [facility] [Mass/Vol] ([id number]) Comment: Result Comment: 40-59 mg/dL, Acceptable >59 mg/dL, High: Negative ri sk factor for coronary heart disease <40 mg/dL, Low: Positive ris k factor for coronary heart disease Performed By: #### CMP, LIPB , VITD #### [facility] [address] [place] [address] Cholesterol in LDL 143 <100 mg/dL High 04-08-2019 [facility] [place] [facility] [Mass/Vol] ([id number]) Comment: Result Comment: <100 mg/dL, Optimal 100-129 mg/dL, Near optimal/ above optimal 130-159 mg/dL, Borderline hi gh 160-189 mg/dL, High >189 mg/dL, Very high Secondary prevention optimal LDL Cholesterol levels are recommended to be < 70 mg/dL Performed By: #### CMP, LIPB , VITD #### [facility] [address] [place] [address] Fasting Time 10 hrs Normal 04-08-2019 [facility] ([id number]) Comment: Performed By: #### CMP, LIPB , VITD #### [facility] [address] [place] [address] LDL:HDL Ratio 1.79 <2.54 Normal 04-08-2019 [facility] ([id number]) Comment: Result Comment: Reference: 1. National Cholesterol Educ ation Program ATP III Guideline At-A-Glance Quick Desk Reference: National Heart, Lung, and Blood [place]. National Institutes of Health. 2001: NIH Publication No. 01-3305. 2. An International Atherosc lerosis Society position paper: global recommendations for the management of dyslipidemia: executive summary, Atherosclerosis. 2014: 232(2):410-413. Performed By: #### CMP, LIPB , VITD #### [place] [id number] [place] [phone] Non HDL Cholesterol 155 <130 mg/dL High 04-08-2019 [facility] [place] [facility] ([id number]) Comment: Result Comment: <130 mg/dL, Optimal 130-159 mg/dL, Near optimal/ above optimal 160-189 mg/dL, Borderline hi gh 190-219 mg/dL, High >219 mg/dL, Very high Secondary prevention optimal non HDL Cholesterol levels are recommended to be < 100 mg/dL Performed By: #### CMP, LIPB , VITD #### [place] [address] TC:HDL Ratio 2.94 <5.10 Normal 04-08-2019 [facility] ([id number]) Comment: Performed By: #### CMP, LIPB , VITD #### [place] [phone] Triglyceride [Mass/Vol] 61 <150 mg/dL Normal 2018 [facility] [place] [facility] (18692) Comment: Result Comment: <150 mg/dL, Normal 150-199 mg/dL, Borderline hi gh 200-499 mg/dL, High >499 mg/dL, Very high Performed By: #### CMP, LIPB , VITD #### [place] [phone] VLDL Cholesterol 12 <30 mg/dL Normal 04-08-2019 [facility] (43104) Comment: Performed By: #### CMP, LIPB , VITD #### [place] [address] comp metabolic panel on 2019-04-08 Albumin [Mass/Vol] 4.2 3.9-4.9 g/dL Normal 04-08-2019 [facility] [place] [facility] ([id number]) Comment: Performed By: #### CMP, LIPB , VITD #### [facility] [address] [place], [place] [address] ALP [Catalytic activity/Vol] 186 34-123 U/L High 1 [facility] [place] [facility] (79287) Comment: Performed By: #### CMP, LIPB , VITD #### [facility] [address] [place], [place] [address] ALT [Catalytic activity/Vol] 74 7-38 U/L High 1 [facility] [place] [facility] (37905) Comment: Performed By: #### CMP, LIPB , VITD #### [facility] [address] [place], [place] [address] Anion gap [Moles/Vol] 11 9-18 mmol/L Normal 04-08-20 19 [facility] [place] [facility] (17586) Comment: Performed By: #### CMP, LIPB , VITD #### [facility] [address] [place] [address] AST [Catalytic activity/Vol] 56 13-35 U/L High 1 [facility] [place] [facility] (87597) Comment: Performed By: #### CMP, LIPB , VITD #### [facility] [address] [place], [place] [address] Bilirubin [Mass/Vol] 0.5 0.2-1.3 mg/dL Normal 9 [facility] [place] [facility] (66902) Comment: Performed By: #### CMP, LIPB , VITD #### [facility] [address] [place], [place] [address] Calcium [Mass/Vol] 9.2 8.5-10.2 mg/dL Normal 04-08-2019 [facility] [place] [facility] (97341) Comment: Performed By: #### CMP, LIPB , VITD #### [facility] [address] [place], [place] [address] Chloride [Moles/Vol] 102 97-105 mmol/L Normal 9 [facility] [place] [facility] (10160) Comment: Performed By: #### CMP, LIPB , VITD #### [facility] [address] [place], [place] [address] CO2 [Moles/Vol] 26 22-30 mmol/L Normal 04-08-2019 [facility] (28652) Comment: Performed By: #### CMP, LIPB , VITD #### [facility] [address] [place] [address] Creatinine [Mass/Vol] 0.84 0.58-0.96 mg/dL Normal 04-08-20 19 [facility] [place] [facility] (06329) Comment: Performed By: #### CMP, LIPB , VITD #### [facility] [address] [place] [address] eGFR- Amer. >60 Normal 04-08-2019 [facility] [place] [facility] (76432) Comment: Performed By: #### CMP, LIPB , VITD #### [facility] [address] [place] [address] GFR/1.73 sq M predicted >60 mL/min/{1.73_m2} Normal 04-08-2019 [facility] among non-blacks [facility] (62547) (S/P/Bld) [Vol rate/Area] Comment: Result Comment: eGFR (Estima nicole GFR) Units of measure: mL/min/1.73 meters squared eGFR is derived from the ree xpressed MDRD Study equation using the following parameters: serum creatinine, age, gender and race. The creatinine assay has been calibrated to be traceable to IDMS. An eGFR <60 mL/min/1.73m2 fo r >3 months is consistent with chronic kidney disease. Refer to KDOQI guidelines for clinical interpretation. In patients with unstable re nal function, e.g. those with acute kidney injury, the eGFR may not accurately reflect actual GFR. Performed By: #### CMP, LIPB , VITD #### [facility] [address] [place] [address] Glucose [Mass/Vol] 86 74-99 mg/dL Normal 04-08-2019 [facility] [place] [facility] (15869) Comment: Result Comment: The [place] Diabetes Association (ADA) provides guidance for cutoff values for fasting glucose and random glucose. The ADA defines fasting as no caloric intake for at least 8 hours. Fas ting plasma glucose results between 100 to 125 mg/dL indicate increased risk for diabetes (prediabetes). Fasting plasma glucose resul ts greater than or equal to 126 mg/dL meet the criteria for diagnosis of diabetes. In the absence of unequivocal hyperglycemia, results should be confirmed by repeat testing. In a patient with classic s ymptoms of hyperglycemia or hyperglycemic crisis, random plasma glucose results greater than or equal to 200 mg/dL meet the criteria for diagnosis of diabetes. Reference: Standards of [facility] Care in Diabetes 2016, [place] Diabetes Association. Diabetes Care. 2016.39(Suppl 1). Performed By: #### CMP, LIPB , VITD #### [facility] [address] [place] [address] Potassium [Moles/Vol] 4.3 3.7-5.1 mmol/L Normal 04-08-20 19 [facility] [place] [facility] ([id number]) Comment: Performed By: #### CMP, LIPB , VITD #### [facility] [address] [place], [place] [address] Protein [Mass/Vol] 7.1 6.3-8.0 g/dL Normal 04-08-2019 [facility] [place] [facility] (64983) Comment: Performed By: #### CMP, LIPB , VITD #### [facility] [address] [place], [place] [address] Sodium [Moles/Vol] 139 136-144 mmol/L Normal 04-08-2019 [facility] [place] [facility] (97189) Comment: Performed By: #### CMP, LIPB , VITD #### [facility] [address] [place], [place] [address] Urea nitrogen [Mass/Vol] 16 7-21 mg/dL Normal 04-08 [facility] [place] [facility] (46984) Comment: Performed By: #### CMP, LIPB , VITD #### [facility] [address] [place], [place] [address] progress on 2019-01 PROGRESS HNO ID: [id number] Normal 02-10-2019 [facility] Author: Bhargavi Dean [place] ([id number]) Service: ? Author Type: ? Type: Progress Notes Filed: 02/10/2019 11:19 AM Note Text: Radiology Service Progress Note PATIENT NAME: Oneida Nino DATE OF SERVICE: February 10, 2019 TIME: 11:19 AM PATIENT IDENTITY VERIFICATION COMPLETED USING TWO (2) METHOD S: Name and Date of confirmed by patient verbally. PATIENT GENDER DATA: Female. status: : No status: NO. PATIENT RELEVANT IMPLANT DATA REVIEWED: Not Applicable RADIOLOGY DEPARTMENT: Mammography PERIPHERAL IV DATA: Not applicable SIGNED BY: Bhargavi Dean February 10, 2019 11:19 AM [place] screening on 02-02-28 [facility] SCREENING * * *Final Report* * * Normal [facility] DATE OF EXAM: Feb 10 2019 12:02PM [place] ([id number]) WO [id number] - [facility] SCREENING / PROCEDURE REASON: Screening for breast cancer * * * * Physician Interpretation * * * * RESULT: #[id number] - [facility] SCREENING BILATERAL DIGITAL SCREENING MAMMOGRAM WITH CAD: 02/10/2019 HISTORY: Screening Mammogram - patient reports NO breast sym ptoms /priors available for comparison. RESULT: TECHNIQUE: The study was acquired using full field digital t echnology and interpreted from soft copy. Current study was also evaluated with a Computer Aided Detec tion (CAD). Comparison is made to exams dated: 10/16/2017 mammogram, 016 mammogram, and 09/16/2014 mammogram - [facility]. The tissue of both breasts is heterogeneously dense. This may lo wer the sensitivity of mammography. No significant masses, calcifications, or other findings are seen in either breast. There has been no significant interval change. IMPRESSION: NEGATIVE There is no mammographic evidence of malignancy. A 1 year sc reening mammogram is recommended. Kaia Ross M.D., ch/speedy:02/10/2019 13:19:57 Custodian Supervisor(s): Hali Mendez RT(R)(M), Jerry rivers [facility] letter sent: Normal over 40 Mammogram BI-RADS: 1 Negative Multiple national specialty organizations have released chintan st cancer screening guidelines for women at average risk for developin g breast cancer - guidelines that are based on both evidence and opin ion, yet differ on when to start and how often to screen for breast c ancer. With representation from Breast Imaging, Internal Medicine, Women 's Health, Family Medicine, and Medical/Surgical Oncology, the [facility] has carefully reviewed the data and reached the following consen juarez: 1) All women should engage in shared decision-making with eir providers to decide when to start and how often to screen; 2) All women should have the opportunity to start screening mammography at age 40; 3) For women ages 45-55, we recommend annual screening mammo grams; 4) For women ages 55 and over, we support both the transitio n from an annual to a biennial interval if this aligns more with patie nt's values and preferences, or continuation with annual screening; 5) All women should discuss with their providers when to sto p screening mammograms. Oceanographer Geological: Speedy Transcribe Date/Time: Feb 10 2019 12:00P Dictated by: KAIA ROSS MD This examination was interpreted and the report reviewed and electronically signed by: KAIA ROSS MD on Feb 10 2019 1:19PM EST [id number] cnco on 2019-02-10 CNCO HNO ID: [id number] Normal 02-10-2019 [facility] [place] [facility] Author: Mammography Coordinator ([id number]) Service: ? Author Type: Physician Type: Letter Filed: 02/11/2019 11:32 PM Note Text: February 10, 2019 PID: [id number] Oneida Nino [address] [place] [address] Dear Ms. Nino, We are pleased to inform you that the results of your recent breast imaging exam on 02/10/2019 are normal. Your mammogram demonstrates that you have dense breast tissu e, which could hide abnormalities. Dense breast tissue, in and of itself, i s a relatively common condition. Therefore, this information is not provided to cause undue concern; rather, it is to raise your awarenes s and promote discussion with your health care provider regarding the pres ence of dense breast tissue in addition to other risk factors. Early detection of cancer is very important. We also underst and recommendations regarding breast cancer screening are contro versial. Please discuss with your primary care provider which strateg y is best for you and whether a mammogram is right for you. Your imaging studies and report will be kept on file at [facility] as part of your permanent medical record and are available f or your continuing care. Thank you for allowing us to help in meeting your health car e needs. Sincerely, Dr. Ross Interpreting Radiologist [facility] (Normal over 40) sed rate westergren on 2019-01-07 Sed Rate Westergren 5 0-20 mm/hr Normal 01-07-2019 [facility] [place] [facility] ([id number]) Comment: Performed By: #### CBC, CRP, WSR #### [facility] [address] [place] [id number] progress on 2018-12 PROGRESS HNO ID: [id number] Normal 01-07-2019 [facility] Author: Rolf Dee [place] ([id number]) Service: ? Author Type: Physician Type: Progress Notes Filed: 01/07/2019 10:51 AM Note Text: This note was created using [employer] Cytometer[employer]. Subjective Oneida Nino is a 73 year old female. Oneida Nino is a 73 year old year old female who presents w ith complaint of recent headache(s). On December 06, she woke up with left tem poral bursting headache that was relieved by Advil, cold compress, and was resolved the next morning. She saw Dr. Clifton who got nirmala rned about GCA. She was referred for a temporal biopsy to [place] [facility], b ut she cancelled due to the concern for general anesthesia, atrial fibrillation in the past, and being on Eliquis. She had no recurrence of that severe headache. She saw Dr. López in December and he examined her eyes and found no indication for GCA (see scanned report). Now she noted mild headaches lasting a few hours off and on. Pain is vague, non localized described as a dumb head, or heaviness. Headaches were intermittent. He r prednisone dose was not increased. There was no history of fever, visio n change, jaw claudication, neck pain, or stiffness. ACTIVE PROBLEM LIST Diverticulosis of Colon Family History of Malignant Neoplasm of Gastrointestinal Tra ct Inflammatory Arthritis Fh: Colon Cancer Hyperlipidemia Positive Hepatitis C Antibody Test Primary Osteoarthritis of Both Knees Paroxysmal Atrial Fibrillation (Hcc) Current Outpatient Medications: predniSONE (DELTASONE) 2.5 mg tablet Take 2.5 mg by mouth tw ice daily. flecainide (TAMBOCOR) 100 mg tablet Take 1 tablet by mouth t wice daily. This is to fill because told cannot fill her RX early before going to [place] for 4 weeks (cannot run out of med while away). Runni ng out of medication can be detrimental to her health. Do not cancel h er usual prescription with refills ELIQUIS 5 mg tab tab(s) 5 mg twice daily. metoprolol tartrate, short acting, (LOPRESSOR) 25 mg tablet 12.5 mg twice daily. MAGNESIUM CARBONATE ORAL Take by mouth. zinc CALCIUM 500 MG TAB Take one(1) tablet two(2) times daily. VITAMIN D 400 UNIT CAP Take one(1) tablet two(2) times daily . mupirocin (BACTROBAN) 2 % ointment Apply 1 application to af fected area three times daily. No current facility-administered medications for this visit. Review of Systems Constitutional: Negative for appetite change and fever. HENT: Negative. Eyes: Negative. Respiratory: Negative. Cardiovascular: Negative. Neurological: Negative for dizziness, speech difficulty, wea kness and numbness. Objective BP 124/60 (BP Site: Left Arm, BP Position: Sitting, BP Cuff Size: Regular Adult) Pulse (!) 56 Temp 36.4 ?C (97.5 ?F) (Temporal Art anita) Resp 12 Wt 78 kg (172 lb) BMI 27.76 kg/m? Physical Exam Constitutional: She is oriented to person, place, and time. No distress. HENT: Head: Normocephalic. Right Ear: Tympanic membrane normal. Left Ear: Tympanic membrane normal. Nose: Nose normal. Mouth/Throat: Oropharynx is clear and moist. Scant dried blood on right ear canal. No scalp tenderness. Eyes: Pupils are equal, round, and reactive to light. Conjun ctivae and EOM are normal. Neck: Neck supple. No muscular tenderness present. Carotid b ruit is not present. Cardiovascular: Regular rhythm, S1 normal and S2 normal. Bra dycardia present. Pulmonary/Chest: Breath sounds normal. Musculoskeletal: She exhibits no edema. Neurological: She is alert and oriented to person, place, an d time. She has normal strength. No cranial nerve deficit or sensory def icit. Gait normal. Skin: She is not diaphoretic. Assessment and Plan 1. Nonintractable headache, unspecified chronicity pattern, unspecified headache type - ICD9: 784.0, ICD10: R51 Mild, etiology not clear. Stress related? Heat related? I do ubt GCA, but we agreed to recheck labs. If abnormal, follow thru with biopsy or color doppler US. - CBC - SED RATE WESTERGREN - C-REACTIVE PROTEIN (CRP) Rolf Dee MD cnov on 2019-01-07 CNOV Office Visit (INTMWS) Normal 01-08-20 19 [place] [facility] ONEIDA NINO I ([id number]) 1945 [facility] Date Time Provider Department ([id number]) 01/07/19 9:40 AM ROLF DEE INTMWS During your visit today, we recorded the following informati on about you: Temperature Pulse Respiration Blood pressure 97.5 degrees 56/minute 12/minute 124/60 Weight 78 kg Rolf Dee MD 01/07/2019 10:51 AM Signed This note was created using NoteWriter. Subjective Oneida Nino is a 73 year old female. Oneiad Nino is a 73 year old year old female who pres ents with complaint of recent headache(s). On December 06, she woke up with left tempor al bursting headache that was relieved by Advil, cold compre ss, and was resolved the next morning. She saw Dr. Clifton who got concerned about GCA. Chapis katz was referred for a temporal biopsy to [facility], but she can celled due to the concern for general anesthesia, atrial fibrillation in the past, and being on Eliquis. She had no recurrence of that severe headache. She saw Dr. Waldo wilson in December and he examined her eyes and found no indication for GCA (see sca nned report). Now she noted mild headaches lasting a few hours off and on. P ain is vague, non localized described as a dumb head, or heaviness. Headache s were intermittent. Her prednisone dose was not increased. T here was no history of fever, vision change, jaw claudication, neck pain, or stiffn ess. ACTIVE PROBLEM LIST Diverticulosis of Colon Family History of Malignant Neoplasm of Gastrointestinal Tra ct Inflammatory Arthritis Fh: Colon Cancer Hyperlipidemia Positive Hepatitis C Antibody Test Primary Osteoarthritis of Both Knees Paroxysmal Atrial Fibrillation (Hcc) Current Outpatient Medications: predniSONE (DELTASONE) 2.5 mg tablet Take 2.5 mg by mouth tw ice daily. flecainide (TAMBOCOR) 100 mg tablet Take 1 tablet by mouth twice daily. This is to fill because told cannot fill her RX early before going t [employer] for 4 weeks (cannot run out of med while away). Running out of med ication can be detrimental to her health. Do not cancel her usual pre scription with refills ELIQUIS 5 mg tab tab(s) 5 mg twice daily. metoprolol tartrate, short acting, (LOPRESSOR) 25 mg tablet 12.5 mg twice daily. MAGNESIUM CARBONATE ORAL Take by mouth. zinc CALCIUM 500 MG TAB Take one(1) tablet two(2) times daily. VITAMIN D 400 UNIT CAP Take one(1) tablet two(2) times daily . mupirocin (BACTROBAN) 2 % ointment Apply 1 appli cation to affected area three times daily. No current facility-administered medications for this visit. Review of Systems Constitutional: Negative for appetite change and fever. HENT: Negative. Eyes: Negative. Respiratory: Negative. Cardiovascular: Negative. Neurological: Negative for d izziness, speech difficulty, weakness and numbness. Objective BP 124/60 (BP Site: Left Arm, BP Position: Sitting, BP Cuff Size: Regular Adult) Pulse (!) 56 Temp 36.4 ?C (97.5 ?F) (Temporal Art anita) Resp 12 Wt 78 kg (172 lb) BMI 27.76 kg/m? Physical Exam Constitutional: She is oriented to person, place, and time. No distress. HENT: Head: Normocephalic. Right Ear: Tympanic membrane normal. Left Ear: Tympanic membrane normal. Nose: Nose normal. Mouth/Throat: Oropharynx is clear and moist. Scant dried blood on right ear canal. No scalp tenderness. Eyes: Pupils are equal, round, and react susan to light. Conjunctivae and EOM are normal. Neck: Neck supple. No muscular tenderness present. Carotid b ruit is not present. Cardiovascular: Regular rhythm, S1 normal and S2 normal. Bradycardia present. Pulmonary/Chest: Breath sounds normal. Musculoskeletal: She exhibits no edema. Neurological: She is alert and oriented to person, place, and time. She has normal strength. No cranial nerve deficit or sensory deficit . Gait normal. Skin: She is not diaphoretic. Assessment and Plan 1. Nonintractable headache, unspecified chronicity pattern, unspecified headache type - ICD9: 784.0, ICD10: R51 Mild, etiology not clear. Stress related? Heat related? I doubt GCA, but we agreed to recheck labs. If abnormal, follow thru with biopsy or color doppler US. - CBC - SED RATE WESTERGREN - C-REACTIVE PROTEIN (CRP) Rolf Dee MD Referring Provider: SELF [[id number]] Allergies As of Date: 01/07/2019 (No Known Allergies) Date Reviewed: 01/07/2019 Reviewed by: Karon Olguin LPN - Fully Assessed Reason for Visit: Discussion [[id number]] Primary Visit Diagnosis:Nonintractable headache, unspecified chronicity pattern, unspecified headache type [R51] Order(s):CBC [SQCBC] Order #: [id number] FUTURE SED RATE WESTERGREN [SQWSR] Order #: [id number] FUTURE C-REACTIVE PROTEIN (CRP) [SQCRP] Order #: [id number] FUTURE Prescriptions as of 01/07/2019 Sig: PREDNISONE 2.5 MG TABLET Take 2.5 mg by mouth twice da* FLECAINIDE 100 MG TABLET Take 1 tablet by mouth twice * ELIQUIS 5 MG TABLET 5 mg twice daily. METOPROLOL TARTRATE 25 MG TAB* 12.5 mg twice daily. MAGNESIUM CARBONATE ORAL Take by mouth. ZINC-FOR TPN CALCIUM 500 MG TABLET Take one(1) tablet two(2) juany* VITAMIN D2 400 UNIT CAPSULE Take one(1) tablet two(2) juany* MUPIROCIN 2 % TOPICAL OINTMENT Apply 1 application to affect * Problem List As Of Date 01/07/2019 Noted Resolved Unspecified constipation [K59.00] 06/02/2017 Diverticulosis of colon [K57.30] Internal hemorrhoids without mention of complic* 10/13/2015 FAMILY HX GI MALIGNANCY [Z80.0] More... Inflammatory arthritis [M19.90] INVALID FOR* More... Other premature beats [I49.49] INVALID FOR*06/02/2017 VAIN I (vaginal intraepithelial neoplasia grade*INVALID FOR* 06/02/2017 FH: colon cancer [Z80.0] INVALID FOR* Hyperlipidemia [E78.5] INVALID FOR* More... Positive hepatitis C antibody test [R76.8] INVALID FOR* More... Primary osteoarthritis of both knees [M17.0] INVALID FOR* More... Paroxysmal atrial fibrillation (HCC) [I48.0] INVALID FOR* More... Encounter Status:Closed by ROLF DEE MD on 01/07/19 cbc on 2019-01-07 Absolute nRBC <0.01 <0.01 Normal 01-07-2019 [facility] ([id number]) Comment: Performed By: #### CBC, CRP, WSR #### [facility] [address] [place], [place] [address] Erythrocyte distribution 13.3 11.5-15.0 % Normal 01-07 [facility] width (RBC) [Ratio] [place] ([id number]) Comment: Performed By: #### CBC, CRP, WSR #### [facility] [address] [place], [place] [address] Hematocrit (Bld) [Volume 42.6 36.0-46.0 % Normal 01-07 [facility] fraction] [place] ([id number]) Comment: Performed By: #### CBC, CRP, WSR #### [facility] [address] [place], [place] [address] Hemoglobin (Bld) 14.0 11.5-15.5 g/dL Normal 01-07-2019 [facility] [Mass/Vol] [place] ([id number]) Comment: Performed By: #### CBC, CRP, WSR #### [address] [address] MCH (RBC) [Entitic mass] 31.0 26.0-34.0 pG Normal 01-07 [facility] [place] [facility] ([id number]) Comment: Performed By: #### CBC, CRP, WSR #### [address] [address] MCHC (RBC) [Mass/Vol] 32.9 30.5-36.0 g/dL Normal 01-08-20 19 [facility] [place] [facility] ([id number]) Comment: Performed By: #### CBC, CRP, WSR #### [address] [address] MCV (RBC) [Entitic vol] 94.5 80.0-100.0 fL Normal 01-07 [facility] [place] [facility] ([id number]) Comment: Performed By: #### CBC, CRP, WSR #### [address] [address] Platelet mean volume 11.0 9.0-12.7 fL Normal 9 [facility] (Bld) [Entitic vol] [place] ([address]) Comment: Performed By: #### CBC, CRP, WSR #### [address] [address] Platelets (Bld) [#/Vol] 230 150-400 k/uL Normal 2018 [facility] [place] [facility] ([id number]) Comment: Performed By: #### CBC, CRP, WSR #### [address] [place], [place] [address] RBC (Bld) [#/Vol] 4.51 3.90-5.20 m/uL Normal 01-07-2019 [facility] ([id number]) Comment: Performed By: #### CBC, CRP, WSR #### [facility] [address] [place] [address] WBC (Bld) [#/Vol] 7.30 3.70-11.00 k/uL Normal 01-07-2019 [facility] [place] [facility] ([id number]) Comment: Performed By: #### CBC, CRP, WSR #### [facility] [address] [place] [address] c-reactive protein on 2019-01-07 CRP [Mass/Vol] 0.3 <0.9 mg/dL Normal 01-07-2019 [facility] ([id number]) Comment: Performed By: #### CBC, CRP, WSR #### [facility] [address] [place], [place] [id number] office visit: follow-up by complaint, rm : 1 on 2018-02-13 NEGATED: Done Invalid Interpretation 018 [facility] Highlighted Code 02-13-2018 [facility] rowProtein mass - [facility] (75 [id number]) clinical summary: hmspatientid on 2018-02-13 POP Invalid 02-13-2018 [facility] Interpretation Code 02-13-2018 [facility] ([id number]) office visit: follow-up by complaint, rm : 1 on 2018-01-27 NEGATED: Done Invalid Interpretation 018 - [facility] Highlighted Code 01-27-2018 [facility] rowProtein mass - [facility] (17 360) clinical summary: hmspatientid on 2018-01-27 POP Invalid 01-27-2018 - [facility] Interpretation Code 01-27-2018 [facility] ([id number]) office visit: new/est - 1st visit with p hysician, rm: 3 on 2018-01-16 NEGATED: Done Invalid Interpretation 018 - [facility] Highlighted Code 01-16-2018 [facility] - [facility] (41 235) clinical summary: scanned ros summary on 2018-01-16 endocrine ROS Denies Invalid 01-16-2018 - [facility] Interpretation 01-16-2018 [facility] ([id number]) genitourinary review Denies Invalid 8 - [facility] of systems, E&M Interpretation 8 [facility] (06719) Lymphocytes Auto Denies Invalid 01-16-2018 - [facility] #/vol (Bld) Interpretation 01-16-2018 [facility] ([id number]) ROS Cardiac: Comments Ankle Invalid 01-17-20 18 - [facility] Swelling Interpretation 01-16-2018 [facility] (53555) ROS cardiovascular Complains Invalid 01-16-2018 - [facility] E&M Interpretation 01-16-2018 [facility] ([id number]) ROS ENT E&M Denies Invalid 01-16-2018 - [facility] Interpretation 01-16-2018 [facility] ([id number]) ROS gastrointestinal Denies Invalid 8 - [facility] E&M Interpretation 01-16-2018 [facility] ([id number]) ROS general E&M Denies Invalid 01-16-2018 - [facility] Interpretation 01-16-2018 [facility] (36368) ROS musculoskeletal Denies Invalid 01-16-2018 - [facility] E&M Interpretation 01-16-2018 [facility] ([id number]) ROS neurological E&M Denies Invalid 8 - [facility] Interpretation 01-16-2018 [facility] (14706) ROS psychiatric E&M Denies Invalid 01-16-2018 - [facility] Interpretation 01-16-2018 [facility] (52167) ROS pulmonary E&M Denies Invalid 01-16-2018 - [facility] Interpretation 01-16-2018 [facility] ([id number]) ROS skin E&M Denies Invalid 01-16-2018 - [facility] Interpretation 01-16-2018 [facility] (57587) clinical summary: hmspatientid on 2018-01-16 POP Invalid 01-16-2018 - [facility] Interpretation Code 01-16-2018 [facility] ([id number]) office visit: postop - subsequent visit, rm: 43 on 2018-01-13 NEGATED: Done Invalid Interpretation 018 - [facility] Highlighted Code 01-13-2018 [facility] rowProtein mass - [facility] ([id number]) Protein mass conc Done Invalid Interpretation 01-13-2018 - [facility] Code 01-13-2018 [facility] (44 333) clinical summary: hmspatientid on 2018-01-13 OOP Invalid 01-13-2018 - [facility] Interpretation Code 01-13-2018 [facility] ([id number]) lab report: crp, high sensitivity cardia c on 2017-08-15 c-reactive protein, 1.76 mg/L Invalid 08-15-2017 - [facility] quantitative, serum Interpretation Code 08-15-2017 Group (59575) lab report: cbc-complete blood cnt no di ff on 2017-08-15 Erythrocytes 4.33 4.2-5.4 10*6/uL Invalid 08-15-[address] [facility] (RBC) Interpretation 08-15-2017 [facility] (85898) Hematocrit (HCT) 40.3 37-47 % Invalid 08-15-2017 - [facility] Interpretation 08-15-2017 [facility] (93691) Hemoglobin (HGB) 13.0 12.0-15.0 g/dL Invalid 08-15-2017 - [facility] Interpretation 08-15-2017 [facility] (94611) MCH 30.0 27.0-32.0 pg Invalid 08-15-2017 - [facility] Interpretation 08-15-2017 [facility] (16580) MCHC 32.3 32-36 Invalid 08-15-2017 - [facility] G/GL Interpretation 08-15-2017 [facility] (94392) MCV 93.1 81-99 fL Invalid 08-15-2017 - [facility] Interpretation 08-15-2017 [facility] (28774) Platelets 203 150-450 10*3/mm3 Invalid 08-15-2017 - [facility] Interpretation 08-15-2017 [facility] (24525) PMV by 10.8 6.2-12.0 fL Invalid 08-15-2017 - [facility] Bakari-Gonzales Interpretation 08-15-2017 [facility] (65008) RDW-CA 13.9 11.6-14.6 % Invalid 08-15-2017 - [facility] Interpretation 08-15-2017 [facility] (03925) red blood cell 47.0 35.1-43.9 fL High 08-15-2017 - [facility] distribution 08-15-2017 Heart width, size Group density (89344) WBC (Leukocytes) 6.2 4.4-11.0 10*9/L Invalid 08-15-2017 - [facility] Interpretation 08-15-2017 [facility] (40156) lab report: basic metabolic profile (bmp ) on 2017-08-15 Anion gap 5 5-15 mmol/L Invalid 08-15-2017 - [facility] Interpretation Code 08-15-2017 [facility] (85552) BUN/Creatinine 21.5 RATIO 10-20 High 08-15-2017 - [place] Ratio 08-15-2017 [facility] (54037) Calcium 8.7 8.5-10.1 mg/dL Invalid 08-15-2017 - [facility] Interpretation Code 08-15-2017 [facility] (93050) Chloride 104 98-107 mmol/L Invalid 08-15-2017 - [facility] Interpretation Code 08-15-2017 [facility] (49450) CO2 30.0 21.0-32.0 mmol/L Invalid 08-15-2017 - [facility] Interpretation Code 08-15-2017 [facility] (40117) Creatinine 0.65 0.55-1.02 mg/dL Invalid 08-15-2017 - [place] Interpretation Code 08-15-2017 [facility] (41028) eGFR 95 >60 mL/min Invalid 08-15-2017 - [facility] (non-black) Interpretation Code 08-16-19 18 [facility] (96045) eGFR 115 >60 mL/min Invalid 08-15-2017 - [facility] (non-black) Interpretation Code 08-16-19 18 [facility] (02609) Glucose 110 74-106 mg/dL High 08-15-2017 - [facility] 08-15-2017 [facility] (98683) Potassium 4.3 3.5-5.1 mmol/L Invalid 08-15-2017 - [facility] Interpretation Code 08-15-2017 [facility] (90469) Sodium 139 136-145 mmol/L Invalid 08-15-2017 - [facility] Interpretation Code 08-15-2017 [facility] (54388) Urea nitrogen 14 7-18 mg/dL Invalid 08-15-2017 - [facility] Interpretation Code 08-15-2017 [facility] (91990) office visit on 12-22-23 Dietary management yes Invalid 02-06-2017 - [facility] education, guidance, Interpretation Code 02-06-2017 Group (81362) and counseling (procedure) Documentation of Done Invalid 02-06-2017 - [facility] current medications Interpretation Code 02-06-2017 Group (48956) (procedure) Fall risk assessment No Invalid - [facility] Interpretation Code 02-06-2017 Group (68306) Protein mass conc Done 02-06-2017 - [facility] 02-06-2017 Group (44 691) Tobacco smoking Never smoker Invalid 02-06-2017 - [facility] status OKIS Interpretation Code 02-07-20 17 Group (72131) office visit on 12-19-25 Dietary management yes Invalid Interpretatio n 12-09-2016 - [facility] education, guidance, Code 7 Group (31781) and counseling (procedure) Documentation of Done Invalid Interpretation 12-09-2016 - [facility] current medications Code 12-09-2016 Group (42127) (procedure) Fall risk assessment No Invalid Interpretat ion 12-09-2016 - [facility] Code 12-09-2016 [facility] (44 691) Protein mass conc Done 12-09-2016 - [facility] 12-09-2016 [facility] (44 691) replaced document: [facility] ecg observati ons on 2016-12-06 EKG QRS axis -10 deg 12-06-2016 [facility] 12-06-2016 [facility] (72576) electrocardiogram Sinus Rhythm Invalid 7 - [facility] interpretation -Left atrial Interpretation 017 [facility] enlargement. Code (13437) BORDERLINE GE use only - for 443 ms Invalid 12-06-2016 - [facility] [employer] import when Interpretation [facility] terms are not Code (83072 ) otherwise specified Interpretation Sinus Rhythm 12-06-2016 - [facility] -Left atrial 12-06-2016 [facility] enlargement. (98782) BORDERLINE P Vi[place] 57 deg 12-06-2016 - [facility] 12-06-2016 [facility] (76829) P wave axis, 57 deg Invalid 12-06-2016 - [facility] electrocardiogram Interpretation 017 [facility] Code (94323) [place] Interval 186 ms 12-06-2016 - [place] 12-06-2016 [facility] (18660) [place] interval, 186 ms Invalid 12-06-2016 - [facility] electrocardiogram Interpretation 017 [facility] Code (11328) Pulse (Heart Rate) 62 BPM /min Invalid 12-06-2016 - [facility] Interpretation 12-06-2016 [facility] Code (27136) QRS axis, -10 deg Invalid 12-06-2016 - [facility] electrocardiogram Interpretation 017 [facility] Code (43554) QRS Duration 106 ms 12-06-2016 [facility] 12-06-2016 [facility] (72494) QRS duration, 106 ms Invalid 12-06-2016 - [facility] electrocardiogram Interpretation 017 [facility] Code (73178) QT Interval new path ms 12-06-2016 - [facility] 12-06-2016 [facility] (51129) QT interval, new path ms Invalid 12-06-2016 - [facility] electrocardiogram Interpretation 017 [facility] Code (69052) QTc [place] 443 ms 12-06-2016 - [place] 12-06-2016 [facility] (38231) T Viola 39 deg 12-06-2016 - [facility] 12-06-2016 [facility] (92470) T wave axis, 39 deg Invalid 12-06-2016 - [facility] electrocardiogram Interpretation 12-06-2 017 [facility] Code (38442) clinical lists update: preload on 2016-11-22 Left ventricular 60 % Invalid Interpretation 11-22-2016 - [facility] Ejection fraction Code 11-22-2016 [facility] (83990) replaced document: [facility] ecg observati ons on 2016-11-06 EKG QRS axis -23 deg Invalid 11-06-2016 - [facility] Interpretation Code 11-06-2016 [facility] (42335) electrocardiogram Sinus Invalid 11-06-2016 - [facility] interpretation Rhythm Interpretation Code 11-06 [facility] WITHIN (74648) NORMAL LIMITS GE use only - for 398 ms Invalid 11-06-2016 - [facility] [employer] import when Interpretation Cod e 11-06-2016 [facility] terms are not (34300 ) otherwise specified Interpretation Sinus Invalid 11-06-2016 - [facility] Rhythm Interpretation Code 11-06-2016 [facility] WITHIN (61784) NORMAL LIMITS P Viola 35 deg Invalid 11-06-2016 - [facility] Interpretation Code 11-06-2016 [facility] (63249) P wave axis, 35 deg Invalid 11-06-2016 - [facility] electrocardiogram Interpretation Code [facility] (74537) [place] Interval 150 ms Invalid 11-06-2016 - [place] Interpretation Code 11-06-2016 [facility] (39142) [place] interval, 150 ms Invalid 11-06-2016 - [facility] electrocardiogram Interpretation Code [facility] (37396) Pulse (Heart Rate) 66 BPM /min Invalid 11-06-2016 - [facility] Interpretation Code 11-06-2016 [facility] (08933) QRS axis, -23 deg Invalid 11-06-2016 - [facility] electrocardiogram Interpretation Code [facility] (18090) QRS Duration 94 ms Invalid 11-06-2016 - [facility] Interpretation Code 11-06-2016 [facility] (05651) QRS duration, 94 ms Invalid 11-06-2016 - [facility] electrocardiogram Interpretation Code [facility] (93278) QT Interval new path ms Invalid 11-06-2016 - [facility] Interpretation Code 11-06-2016 [facility] (76663) QT interval, new path ms Invalid 11-06-2016 - [facility] electrocardiogram Interpretation Code [facility] (18762) QTc [place] 398 ms Invalid 11-06-2016 - [place] [facility] Interpretation Code 11-06-2016 [facility] (63506) T Viola 25 deg Invalid 11-06-2016 - [facility] Interpretation Code 11-06-2016 [facility] (18340) T wave axis, 25 deg Invalid 11-06-2016 - [facility] electrocardiogram Interpretation Code [facility] (08511) office visit on 201 12-19-23 Dietary management yes Invalid Interpretatio n 11-06-2016 - [facility] education, guidance, Code 7 Group (21787) and counseling (procedure) Documentation of Done Invalid Interpretation 11-06-2016 - [facility] current medications Code 11-06-2016 Group (87268) (procedure) Protein mass conc Done 11-06-2016 - [facility] 11-06-2016 Group (44 691) clinical lists update: preload on 2016-11-01 Left ventricular 63 % Invalid Interpretation 11-01-2016 - [facility] Ejection fraction Code 11-01-2016 [facility] (66763) office visit on 201 11-21-16 Dietary management yes Invalid Interpretatio n 01-31-2016 - [facility] education, guidance, Code 6 Group (53765) and counseling (procedure) Documentation of Done Invalid Interpretation 01-31-2016 - [facility] current medications Code 01-31-2016 Group (92874) (procedure) office visit on 201 11-15-21 General cardiovascular 6 % Invalid 016 - [facility] disease 10Y risk [#] Interpretation Code 08-07-2015 [facility] (71814) Tobacco smoking status Never 016 - [facility] NHIS smoker 08-07-2015 [facility] (13187) Tobacco use CPHS Never Invalid 08-07-2015 - [facility] smoker Interpretation Code 08-07-2015 [facility] (90673) office visit on 201 10-21-09 cardiac risk group B Invalid Interpretatio n 01-23-2015 - [facility] Code 01-23-2015 Group (44 691) office visit on 201 10-17-08 Alanine 44 U/L Invalid 09-22-2014 - [facility] aminotransferase (ALT) Interpretation Co de 09-22-2014 [facility] (51351) Alkaline phosphatase 92 U/L Invalid - [facility] (ALP) Interpretation Code 09-22-2014 [facility] (45571) ALP enzyme act/vol 92 U/L 09-22-2014 - [facility] (Bld) 09-22-2014 [facility] (21380) Aspartate 35 U/L Invalid 09-22-2014 - [facility] aminotransferase (AST) Interpretation Co de 09-22-2014 [facility] (99449) Chloride 104 mmol/L Invalid 09-22-2014 - [facility] Interpretation Code 09-22-2014 [facility] (88298) Cholesterol 238 mg/dL High 09-22-2014 - [place] 09-22-2014 [facility] (18790) CO2 27 mmol/L Invalid 09-22-2014 - [facility] Interpretation Code 09-22-2014 [facility] (98015) CO2 ppres (BldV) 27 mmol/L 09-22-2014 - [facility] 09-22-2014 [facility] (98549) Creatinine 0.70 mg/dL Invalid 09-22-2014 - [place] [facility] Interpretation Code 09-22-2014 [facility] (75576) HDL Cholesterol 73 mg/dL Invalid 09-22-2014 - [place] Interpretation Code 09-22-2014 [facility] (79626) Hematocrit (HCT) 41.6 % Invalid 09-22-2014 - [facility] Interpretation Code 09-22-2014 [facility] (37664) Hematocrit Volume 41.6 % 09-22-2014 - [facility] Fraction (Bld) 09-22-2014 Hear t [facility] (70652) Hemoglobin (HGB) 13.5 g/dL Invalid 09-22-2014 - [facility] Interpretation Code 09-22-2014 [facility] (46462) LDL Cholesterol 154 mg/dL High 09-22-2014 - [place] [facility] 09-22-2014 [facility] (00292) Lipoprotein.pre-beta 11 mg/dL Normal 5 - [facility] mass conc 09-22-2014 [facility] (33994) Platelets 267 10*3/mm3 Invalid 09-22-2014 - [facility] Interpretation Code 09-22-2014 [facility] (71536) Platelets #/vol (Bld) 267 10*3/mm3 09-23-19 15 - [facility] 09-22-2014 [facility] (38205) Potassium 4.1 mmol/L Invalid 09-22-2014 - [facility] Interpretation Code 09-22-2014 [facility] (75111) Sodium 143 mmol/L Invalid 09-22-2014 - [facility] Interpretation Code 09-22-2014 [facility] (27641) Thyroid stimulating 1.75 u[iU]/mL Invalid 09-22-2014 - [facility] hormone (TSH) Interpretation Code 2014 [facility] (84306) Triglyceride 56 mg/dL Invalid 09-22-2014 - [facility] Interpretation Code 09-22-2014 [facility] (29806) Urea nitrogen 16 mg/dL Invalid 09-22-2014 - [facility] Interpretation Code 09-22-2014 [facility] (47819) very low density 11 mg/dL Normal 09-22-2014 - [facility] lipoproteins 09-22-2014 [facility] (00261) WBC #/vol (Bld) 5.80 10*9/L 09-22-2014 - [place] 09-22-2014 [facility] (98565) WBC (Leukocytes) 5.80 10*9/L Invalid 09-22-2014 - [facility] Interpretation Code 09-22-2014 [facility] (28709) replaced document: [facility] ecg observati ons on 2014-04-18 electrocardiogram Sinus Rhythm Invalid - [facility] interpretation -Left atrial Interpretation Heart enlargement. Code Group BORDERLINE (49258) GE use only - for 382 ms Invalid 04-18-2014 - [facility] [employer] import when Interpretation Heart terms are not Code Group otherwise specified (97629) P wave axis, 51 deg Invalid 04-18-2014 - [facility] electrocardiogram Interpretation 014 [facility] (62260) [place] interval, 150 ms Invalid 04-18-2014 - [facility] electrocardiogram Interpretation 014 [facility] (10176) Pulse (Heart Rate) 66 BPM /min Invalid 04-18-2014 - [facility] Interpretation 04-18-2014 Hear t [facility] (12777) QRS axis, -10 deg Invalid 04-18-2014 - [facility] electrocardiogram Interpretation 014 [facility] (44627) QRS duration, 88 ms Invalid 04-18-2014 - [facility] electrocardiogram Interpretation 014 [facility] (92801) QT interval, new path ms Invalid 04-18-2014 - [facility] electrocardiogram Interpretation 014 [facility] (00156) T wave axis, -1 deg Invalid 04-18-2014 - [facility] electrocardiogram Interpretation 014 Heart Code Group (43091) office visit on 201 08-14-10 Anion gap 10 mmol/L Invalid Interpretation 013 - [facility] Code 06-26-2012 Group (44 691) Anion gap molar 10 mmol/L 06-26-2012 - [place] conc 06-26-2012 [facility] (44 691) replaced document: [facility] ecg observati ons on 2011-10-23 Pulse (Heart 399 ms Invalid Interpretation - [facility] Rate) Code 10-23-2011 Group (44 731) Vital Signs Vital Sign Description Value / Unit Date Location The following section is limited to 5 en tries per type and includes entries from the following time range: 20180116 - 20180116 1. NEGATED: Highlighted 27.76 kg/m2 02-13-2018 - 02-13-2018 [facility] rowBMI (Body Mass Index) [facility] (46452) NEGATED: Highlighted 27.76 kg/m2 01-27-2018 - 01-27-2018 [facility] rowBMI (Body Mass Index) [facility] (02554) NEGATED: Highlighted 27.76 kg/m2 01-16-2018 - 01-16-2018 [facility] rowBMI (Body Mass Index) [facility] (83094) NEGATED: Highlighted 27.04 kg/m2 01-13-2018 - 01-13-2018 [facility] rowBMI (Body Mass Index) [facility] (53630) BMI (Body Mass Index) 26 kg/m2 02-06-2017 - 02-06-2017 [facility] (63027) NEGATED: Highlighted 72 mm[Hg] 02-13-2018 - 02-13-2018 [facility] rowBP Diastolic [facility] (58116) NEGATED: Highlighted 72 mm[Hg] 01-27-2018 - 01-27-2018 [facility] rowBP Diastolic [facility] [facility] ([id number][facility] NEGATED: Highlighted 72 mm[Hg] 01-16-2018 - 01-16-2018 [facility] Diastolic [facility] ([id number]) NEGATED: Highlighted 75 mm[Hg] 01-13-2018 - 01-13-2018 [facility] Diastolic [facility] ([id number]) BP Diastolic 62 mm[Hg] 02-06-2017 - 02-06-2017 [facility] ([id number]) NEGATED: Highlighted 116 mm[Hg] 02-13-2018 - 02-13-2018 [facility] Systolic [facility] ([id number]) NEGATED: Highlighted 127 mm[Hg] 01-27-2018 - 01-27-2018 [facility] row[facility] Systolic [facility] ([id number]) NEGATED: Highlighted 113 mm[Hg] 01-16-2018 - 01-16-2018 [facility] row[facility] Systolic [facility] ([id number]) NEGATED: Highlighted 120 mm[Hg] 01-13-2018 - 01-13-2018 [facility] Systolic [facility] ([id number]) BP Systolic 104 mm[Hg] 02-06-2017 - 02-06-2017 [facility] ([id number]) BSA (Body Surface Area) 1.86 m2 01-31-2016 - 01-31-2016 [facility] ([id number]) Heart rate 62 /min 12-06-2016 - 12-06-2016 [facility] ([id number]) Heart rate 66 /min 11-06-2016 - 11-06-2016 [facility] ([id number]) Heart rate 399 ms 10-23-2011 - 10-23-2011 [facility] ([id number]) NEGATED: Highlighted 168.91 cm 02-13-2018 - 02-13-2018 [facility] ([id number]) NEGATED: Highlighted 169 cm 02-13-2018 - 02-13-2018 [facility] ([id number]) NEGATED: Highlighted 169 cm 01-27-2018 - 01-27-2018 [facility] ([id number]) NEGATED: Highlighted 168.91 cm 01-27-2018 - 01-27-2018 [facility] ([id number]) NEGATED: Highlighted 169 cm 01-16-2018 - 01-16-2018 [facility] ([id number]) NEGATED: Highlighted 55 /min 02-13-2018 - 02-13-2018 [facility] rowPulse (Heart Rate) [facility] ([id number]) NEGATED: Highlighted 49 /min 01-27-2018 - 01-27-2018 [facility] row[facility]ulse (Heart Rate) [facility] ([id number]) Respiratory Rate 16 /min 02-06-2017 - 02-06-2017 [facility] ([id number]) Respiratory Rate 16 /min 12-09-2016 - 12-09-2016 [facility] ([id number]) Respiratory Rate 16 /min 11-06-2016 - 11-06-2016 [facility] ([id number]) Respiratory Rate 16 /min 01-31-2016 - 01-31-2016 [facility] ([id number]) NEGATED: Highlighted 79 kg 02-13-2018 - 02-13-2018 [facility] ([id number]) NEGATED: Highlighted 78.93 kg 02-13-2018 - 02-13-2018 [facility] ([id number]) NEGATED: Highlighted 79 kg 01-27-2018 - 01-27-2018 [facility] ([id number]) NEGATED: Highlighted 78.93 kg 01-27-2018 - 01-27-2018 [facility] ([id number]) NEGATED: Highlighted 79 kg 01-16-2018 - 01-16-2018 [facility] ([id number]) Encounters Date Type Reason Provider Location 02-07-2020 - Patient encounter External Provider [facility] 02-07-2020 procedure 02-13-2018 - Patient encounter [facility] 02-13-[address] [facility] ([id number]) 01-27-2018 - Patient encounter [facility] 01-27-[address] [facility] ([id number]) 01-16-2018 - Patient encounter [facility] 01-16-[address] [facility] ([id number]) 01-13-2018 - Patient encounter [facility] 01-13-[address] [facility] ([id number]) 02-07-2020 Results Only External Provider External-N [facility] Procedures Procedure Name Date Provider Location EXTERNAL LAB 02-07-2020 External Provider [facility] ([id number]) Mammography 02-10-2019 [facility] ([id number]) Blood pressure within 02-13-2018 - [facility] normal parameters - no 02-13-2018 [facility] ([id number]) BMI documented as above 02-13-2018 - [facility] normal parameters - 02-13-2018 [facility] ([id number]) Current medications 02-13-2018 - [facility] documented 02-13-[address] [facility] ([id number]) Incision & drainage abscess 02-13-2018 - [facility] simple/single 02-13-[address] [facility] ([id number]) Pain assessment documented 02-13-2018 - [facility] as negative - follow-up not 02-13-2018 [facility] ([id number]) Tobacco non-user 02-13-2018 - [facility] 02-13-[facility] ([id number]) Blood pressure within 01-27-2018 - [facility] normal parameters - no 01-27-2018 [facility] ([id number]) BMI documented as above 01-27-2018 - [facility] normal parameters - 01-27-2018 [facility] ([id number]) Current medications 01-27-2018 - [facility] documented 01-27-[address] [facility] ([id number]) Pain assessment documented 01-27-2018 - [facility] as negative - follow-up not 01-27-2018 [facility] ([id number]) Tobacco non-user 01-27-2018 - [facility] 01-27-[address] [facility] ([id number]) Blood pressure within 01-16-2018 - D[facility]aton [facility] normal parameters - no 01-16-2018 [facility] ([id number]) BMI documented as above 01-16-2018 - [facility] normal parameters - 01-16-2018 [facility] ([id number]) Current medications 01-16-2018 - [facility] documented 01-16-[address] [facility] ([id number]) Pain assessment documented 01-16-2018 - [facility] as negative - follow-up not 01-16-2018 [facility] ([id number]) Tobacco non-user 01-16-2018 - [facility] 01-16-[address] [facility] ([id number]) Blood pressure within 01-13-2018 - [facility] normal parameters - no 01-13-2018 [facility] ([id number]) BMI documented as above 01-13-2018 - [facility] normal parameters - 01-13-2018 [facility] follow[facility]up documented [facility] ([id number]) Current medications 01-13-2018 - [facility] 01-13-[address] [facility] ([id number]) Pain assessment documented 01-13-2018 - [facility] as negative - follow-up not 01-13-2018 [facility] - [facility] ([id number]) Tobacco non-user 01-13-2018 - [facility] 01-13-[address] [facility] ([id number]) Dietary management 02-06-2017 - [facility] education, guidance, and 02-06-2017 ([id number]) counseling Follow Up Appt 6 months 02-06-2017 - [facility] 02-06-2017 ([id number]) PFM 02-06-2017 - [facility] 02-06-2017 ([id number]) Dietary management 12-09-2016 - [facility] education, guidance, and 12-09-2016 ([id number]) counseling Follow Up Appt Other 12-09-2016 - [facility] 12-09-2016 ([id number]) PFM 12-09-2016 - [facility] 12-09-2016 ([id number]) Electrocardiogram, complete 12-06-2016 - [facility] 12-06-2016 ([id number]) Nuclear stress test 11-07-2016 - [facility] -exercise 11-22-2016 ([id number]) Dietary management 11-06-2016 - [facility] education, guidance, and 11-06-2016 ([id number]) counseling Ecg routine ecg w/least 12 11-06-2016 - [facility] lds w/i&r 11-06-2016 ([id number]) Follow Up Appt 6 months 11-06-2016 - [facility] 11-06-2016 ([id number]) PFM 11-06-2016 - [facility] 11-06-2016 ([id number]) Stress Echocardiogram 11-06-2016 - [facility]aro [facility]bar [facility] (treadmill) 11-07-2016 ([id number]) Echocardiography 11-06-2016 - [facility] 11-22-2016 ([id number]) Electrocardiogram, complete 11-06-2016 - Lazaro Akbar MD [facility] 11-06-2016 ([id number]) Follow Up Appt 6 months 11-06-2016 - [facility] 11-06-2016 ([id number]) PFM 11-06-2016 - [facility] 11-06-2016 ([id number]) Preoperative cardiovascular 11-06-[address] [facility] examination ([id number]) Stress Echocardiogram 11-06-2016 - [facility] (treadmill) 11-07-2016 ([id number]) Follow Up Appt 9 months 01-31-2016 - [facility] 01-31-2016 ([id number]) PFM 01-31-2016 - [facility] 01-31-2016 ([id number]) Follow Up Appt 9 months 01-31-2016 - [facility]aro Abkar [facility] 01-31-2016 ([id number]) PFM 01-31-2016 - [facility] 01-31-2016 ([id number]) Colonoscopy 01-25-2016 [facility] ([id number]) Follow Up Appt 4 months 08-07-2015 - [facility] 08-07-2015 ([id number]) PFM 08-07-2015 - Lazaro Akbar [facility] 08-07-2015 ([id number]) Follow Up Appt 4 months 08-07-2015 - Lazaro [facility] 08-07-2015 ([id number]) PFM 08-07-2015 - [facility] 08-07-2015 ([id number]) 24 hour holter monitor 05-23-2015 - [facility] 08-16-2015 ([id number]) 24 hour holter monitor 05-23-2015 - [facility] 08-16-2015 ([id number]) Documentation of current 01-23-2015 - [facility] medications 01-24-2015 ([id number]) Follow Up Appt 6 months 01-23-2015 - Lazaro Akbra [facility] 01-23-2015 ([id number]) PFM 01-23-2015 - L[facility]aro [facility] 01-23-2015 ([id number]) Documentation of current 01-23-2015 - [facility] medications 01-24-2015 ([id number]) Follow Up Appt 6 months 01-23-2015 - Lazaro [facility] 01-23-2015 ([id number]) PFM 01-23-2015 - [facility] 01-23-2015 ([id number]) Ecg routine ecg w/least 12 04-18-2014 - [facility] lds w/i&r 04-18-2014 ([id number]) Follow Up Appt 6 months 04-18-2014 - Lazaro Ak[facility] 04-18-2014 ([id number]) MM 04-18-2014 - L[facility]aro Akbar MD [facility] 04-18-2014 ([id number]) Electrocardiogram, complete 04-18-2014 - Lazaro Akbar MD [facility] 04-18-2014 ([id number]) Follow Up Appt 6 months 04-18-2014 - L[facility] 04-18-2014 ([id number]) MMM 04-18-2014 - L[facility]aro [facility] 04-18-2014 ([id number]) Follow Up Appt 6 months 09-22-2013 - [facility] 09-22-2013 PA-C ([id number]) PFM 09-22-2013 - [facility] 09-22-2013 PA-C ([id number]) Follow Up Appt 6 months 09-22-2013 - Rosalind Wells, [facility] 09-22-2013 PA-C ([id number]) PF 09-22-2013 - Rosalind Wells, [facility] 09-22-2013 PA-C ([id number]) Follow Up Appt 4 months 05-19-2013 - Lazaro Akbar [facility] 05-19-2013 ([id number]) MM 05-19-2013 - [facility] 05-19-2013 ([id number]) Follow Up Appt 4 months 05-19-2013 - Lazaro Akbar [facility] 05-19-2013 ([id number]) [facility] 05-19-2013 - L[facility]aro [facility]bar [facility] 05-19-2013 ([id number]) Follow Up Appt 6 months 10-28-2012 - Lazaro Ak[facility] 09-10-2013 ([id number]) PF 10-28-2012 - [facility] 09-10-2013 ([id number]) Follow Up Appt 6 months 10-28-2012 - Lazaro Akbar [facility] 09-10-2013 ([id number]) PF 10-28-2012 - L[facility]aro Akbar MD [facility] 09-10-2013 ([id number]) Follow Up Appt 6 months 04-30-2012 - Lazaro [facility] 04-30-2012 ([id number]) Follow Up Appt 6 months 04-30-2012 - L[facility] 04-30-2012 ([id number]) Ecg routine ecg w/least 12 10-23-2011 - [facility] lds w/i&r 10-23-2011 ([id number]) Follow Up Appt 6 months 10-23-2011 - [facility] 10-23-2011 ([id number]) Electrocardiogram, complete 10-23-2011 - Lazaro Akbar [facility] 10-23-2011 ([id number]) Follow Up Appt 6 months 10-23-2011 - [facility] 10-23-2011 ([id number]) Plan of Treatment Plan Description Date Location DTAP,TDAP,TD (2 - Td) DTAP,TDAP,TD (2 - Td) 12-23-2027 [facility] ([id number]) LIPID SCREEN LIPID SCREEN 04-08-2024 [facility] ([id number]) DIABETES SCREEN DIABETES SCREEN 07-02-2022 [facility] ([id number]) COLONOSCOPY COLONOSCOPY 01-24-2021 [facility] ([id number]) INFLUENZA (#1) INFLUENZA (#1) 2020 [facility] ([id number]) MAMMOGRAM MAMMOGRAM 02-11-2020 [facility] ([id number]) Appointment Appointment 02-27-2018 - [facility] 02-27-[address] [facility] ([id number]) Appointment Appointment 02-13-2018 - [facility] 02-13-[address] [facility] ([id number]) Appointment Appointment 01-27-2018 - [facility] 01-27-[address] [facility] ([id number]) Appointment Appointment 01-16-2018 - [facility] 01-16-[address] [facility] ([id number]) Appointment Appointment 01-13-2018 - [facility] 01-13-[address] [facility] ([id number]) Appointment Appointment 09-29-2017 - [facility] 09-29-2017 ([id number]) Appointment Appointment 05-14-2017 - [facility] 05-14-2017 ([id number]) Appointment Appointment 05-14-2017 - [facility] 05-14-2017 ([id number]) Appointment Appointment 02-06-2017 - [facility] 02-06-2017 ([id number]) Follow Up Appt 6 months Follow Up Appt 6 months 02-06-2017 - [facility] 02-06-2017 ([id number]) PFM PFM 02-06-2017 - [facility] 02-06-2017 ([id number]) Appointment Appointment 12-09-2016 - [facility] 12-09-2016 ([id number]) Follow Up Appt Other Follow Up Appt Other 12-09-2016 - [facility] 12-09-2016 ([id number]) PFM PFM 12-09-2016 - [facility] 12-09-2016 ([id number]) Appointment Appointment 12-06-2016 - [facility] 12-06-2016 ([id number]) EKG (In office) EKG (In office) 12-06-2016 - [facility] 12-06-2016 ([id number]) Nuclear stress test Nuclear stress test 11-07-2016 - [facility] -exercise -exercise 11-08-2016 ([id number]) Nuclear stress test Nuclear stress test 11-07-2016 - [facility] -exercise -exercise 11-08-2016 ([id number]) Appointment Appointment 11-06-2016 - [facility] 11-06-2016 ([id number]) EKG (In office) EKG (In office) 11-06-2016 - [facility] 11-06-2016 ([id number]) Echocardiogram (complete) Echocardiogram (complete) 11-06-2016 - [facility] 11-12-2016 ([id number]) Follow Up Appt 6 months Follow Up Appt 6 months 11-06-2016 - [facility] 11-06-2016 ([id number]) PFM PFM 11-06-2016 - [facility] 11-06-2016 ([id number]) Stress Echocardiogram Stress Echocardiogram 11-06-2016 - [facility] (treadmill) (treadmill) 11-07-2016 ([id number]) Echocardiogram (complete) Echocardiogram (complete) 11-06-2016 - [facility] 11-12-2016 ([id number]) EKG (In office) EKG (In office) 11-06-2016 - [facility] 11-06-2016 ([id number]) Follow Up Appt 6 months Follow Up Appt 6 months 11-06-2016 - [facility] 11-06-2016 ([id number]) PFM PFM 11-06-2016 - [facility] 11-06-2016 ([id number]) Stress Echocardiogram Stress Echocardiogram 11-06-2016 - [facility] (treadmill) (treadmill) 11-07-2016 ([id number]) Follow Up Appt 9 months Follow Up Appt 9 months 01-31-2016 - [facility] 01-31-2016 ([id number]) PFM PFM 01-31-2016 - [facility] 01-31-2016 ([id number]) Follow Up Appt 9 months Follow Up Appt 9 months 01-31-2016 - [facility] 01-31-2016 ([id number]) PFM PFM 01-31-2016 - [facility] 01-31-2016 ([id number]) *BMP *BMP 08-30-2015 - [facility] 08-16-2015 ([id number]) *BMP *BMP 08-30-2015 - [facility] 08-16-2015 ([id number]) Follow Up Appt 4 months Follow Up Appt 4 months 08-07-2015 - [facility] 08-07-2015 ([id number]) PFM PFM 08-07-2015 - [facility] 08-07-2015 ([id number]) Follow Up Appt 4 months Follow Up Appt 4 months 08-07-2015 - [facility] 08-07-2015 ([id number]) PFM PFM 08-07-2015 - [facility] 08-07-2015 ([id number]) 24 hour holter monitor 24 hour holter monitor 05-23-2015 - [facility] 05-23-2015 ([id number]) 24 hour holter monitor 24 hour holter monitor 05-23-2015 - [facility] 05-23-2015 ([id number]) Follow Up Appt 6 months Follow Up Appt 6 months 01-23-2015 - [facility] 01-23-2015 ([id number]) PFM PFM 01-23-2015 - [facility] 01-23-2015 ([id number]) Follow Up Appt 6 months Follow Up Appt 6 months 01-23-2015 - [facility] 01-23-2015 ([id number]) PFM PFM 01-23-2015 - [facility] 01-23-2015 ([id number]) EKG (In office) EKG (In office) 04-18-2014 - [facility] 04-18-2014 ([id number]) Follow Up Appt 6 months Follow Up Appt 6 months 04-18-2014 - [facility] 04-18-2014 ([id number]) MMM MMM 04-18-2014 - [facility] 04-18-2014 ([id number]) EKG (In office) EKG (In office) 04-18-2014 - [facility] 04-18-2014 ([id number]) Follow Up Appt 6 months Follow Up Appt 6 months 04-18-2014 - [facility] 04-18-2014 ([id number]) MMM MMM 04-18-2014 - [facility] 04-18-2014 ([id number]) Follow Up Appt 6 months Follow Up Appt 6 months 09-22-2013 - [facility] 09-22-2013 ([id number]) PFM PFM 09-22-2013 - [facility] 09-22-2013 ([id number]) Follow Up Appt 6 months Follow Up Appt 6 months 09-22-2013 - [facility] 09-22-2013 ([id number]) PFM PFM 09-22-2013 - [facility] 09-22-2013 ([id number]) Follow Up Appt 4 months Follow Up Appt 4 months 05-19-2013 - [facility] 05-19-2013 ([id number]) MMM MMM 05-19-2013 - [facility] 05-19-2013 ([id number]) Follow Up Appt 4 months Follow Up Appt 4 months 05-19-2013 - [facility] 05-19-2013 ([id number]) MMM MMM 05-19-2013 - [facility] 05-19-2013 ([id number]) Follow Up Appt 6 months Follow Up Appt 6 months 10-28-2012 - [facility] 09-10-2013 ([id number]) PFM PFM 10-28-2012 - [facility] 09-10-2013 ([id number]) Follow Up Appt 6 months Follow Up Appt 6 months 10-28-2012 - [facility] 09-10-2013 ([id number]) PFM PFM 10-28-2012 - [facility] 09-10-2013 ([id number]) Follow Up Appt 6 months Follow Up Appt 6 months 04-30-2012 - [facility] 04-30-2012 ([id number]) Follow Up Appt 6 months Follow Up Appt 6 months 04-30-2012 - [facility] 04-30-2012 ([id number]) EKG (In office) EKG (In office) 10-23-2011 - [facility] 10-23-2011 ([id number]) Follow Up Appt 6 months Follow Up Appt 6 months 10-23-2011 - [facility] 10-23-2011 ([id number]) EKG (In office) EKG (In office) 10-23-2011 - [facility] 10-23-2011 ([id number]) Follow Up Appt 6 months Follow Up Appt 6 months 10-23-2011 - [facility] 10-23-2011 ([id number]) ADVANCE DIRECTIVE ADVANCE DIRECTIVE 09-24-2011 [facility] inic DISCUSSION DISCUSSION ([id number]) SHINGRIX VACCINE (2 of 3) SHINGRIX VACCINE (2 of 3) 07-08-2011 [facility] ([id number]) no information [facility] ([id number]) Immunizations Vaccine Notes Status Date Location Hepatitis A vaccine hepatitis A vaccine, (completed) 02-01-2008 [facility] unspecified formulation ([id number]) Hepatitis B Adult hepatitis B vaccine, (completed) 05-13-2011 [facility] adult dosage (24138) Hepatitis B Adult hepatitis B vaccine, (completed) 03-14-2008 [facility] adult dosage (75641) Hepatitis B Adult hepatitis B vaccine, (completed) 01-18-2008 [facility] adult dosage (81925) No information No information (completed) [facility] deyvi available. available. [facility] ([id number]) Pneumococcal-13 Vac pneumococcal conjugate (completed) 07-14-2018 [facility] Conjugate vaccine, 13 valent (26688) [facility] ([facility]) [facility], (441 95) 23 valent TD Adult tetanus and diphtheria (completed) 01-12-2008 [facility] toxoids, adsorbed, (84731) preservative free, for adult use (2 Lf of tetanus toxoid and 2 Lf of diphtheria toxoid) Zostavax zoster vaccine, live (completed) 05-13-2011 [facility] ([id number]) Payers Payer Name Policy Number Location [employer] [id number] [facility] ([id number]) MEDICARE [id number] [facility] (44 195) The following information is from the original [email or web address] Payer Records Found Social History Type Social History Date Location Description Assertion Unknown if ever smoked [facility]-13-2018 [facility] [facility] ([id number]) Tobacco smoking status Never smoker 08-02-2019 [facility] ([id number]) Tobacco use and Never used 08-02-2019 [facility] exposure ([id number]) Alcohol intake Current drinker of 08-02-2019 [facility] alcohol (finding) (29355) Sex Assigned At Not on file [facility] ([id number]) The following information is from the original [email or web address] Social History Records Found Instructions Instruction Description Start Date Patient advised to follow-up with [facility] Care [facility] for BMI management. Instruction Description Start Date Patient advised to follow-up with [facility] for BMI management. Instruction Description Start Date Patient advised to follow-up with [facility] for BMI management. Instruction Description Start Date Patient advised to follow-up with [facility] for BMI management. Advance Directives There may be information available, but it has not been provided by the sender. There may be information available, but it has not been provided by the sender. There may be information available, but it has not been provided by the sender. There may be information available, but it has not been provided by the sender. No Advanced Directives Records Found Assessments There may be information available, but it has not been provided by the sender.There may be information available, but it has not been provided by the sender.There may be information available, but it has not been provided by the sender.There may be information available, but it has not been provided by the sender. Review of System There may be information available, but it has not been provided by the sender.There may be information available, but it has not been provided by the sender.There may be information available, but it has not been provided by the sender.There may be information available, but it has not been provided by the sender. 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 This clinical summary was aggregated from multiple sources. Caution should be exercised in using it in the provision of clinical care. This summary normalizes information from multiple sources, and as a consequence, information in this document may materially changethe coding, format and clinical context of patient data. In addition, data may be omittedin some cases. CLINICAL DECISIONS SHOULD BE BASED ON THE PRIMARY CLINICAL RECORDS. [facility] provides no warranty or guarantee of the accuracy or completeness of information in this document. UNRECOGNIZED CONTENT PROVIDED BELOW FOR UNRECOGNIZED SECTION INFORMATION SOURCE DATE CREATED AUTHOR AUTHOR'S DEREKO N 11/08/2019 [facility] UNRECOGNIZED CONTENT PROVIDED BELOW FOR UNRECOGNIZED SECTION Source Comments In the event this information is protected by the Federal Confidentiality of Alcohol and Drug Abuse Patient Records regulations: The Federal rules restrict any use of the information to criminally investigate or prosecute any alcohol or drug abuse patient.[facility]
== END ==
PROVIDERS: PCP Internal Medicine; Referring Provider Physician Assistant Medical; Visit Provider Physician Assistant Medical
DX: I34.0 Nonrheumatic mitral (valve) insufficiency (principal); I48.0 Paroxysmal atrial fibrillation
CPT/HCPCS: 36415; 80048; 85025

== ENCOUNTER 2020-07-28 09:56 | Outpatient (RCR) | payer MEDICARE, OTHER, SELFPAY ==
[2020-07-05 09:56] VITALS: BMI 28.8
== END 2020-07-28 23:59 ==
LOC: IMMUN 09:56
PROVIDERS: PCP Internal Medicine; Referring Provider Family Medicine; Visit Provider Family Medicine
DX: Z23 Encounter for immunization (principal)
CPT/HCPCS: 0011A; 0012A

== ENCOUNTER → 2021-01-05 09:53 | Outpatient (CLI) | payer MEDICARE, OTHER, SELFPAY ==
[2021-01-03 11:04] VITALS: BMI 28.2
== END ==
PROVIDERS: PCP Internal Medicine; Referring Provider Nurse Practitioner Family; Visit Provider Nurse Practitioner Family
DX: I48.0 Paroxysmal atrial fibrillation (principal); R00.1 Bradycardia, unspecified
CPT/HCPCS: 93225; 93226

== ENCOUNTER 2021-02-02 07:59 | Day surgery (SDC) | payer MEDICARE, OTHER, SELFPAY ==
[2021-01-17 09:43] VITALS: BMI 28.5
[2021-02-02 08:19] VITALS: BP 122/64; PULSE 64; RESP 16; TEMP 36.2; O2SAT 97; BMI 26.6
[2021-02-02] MEDS: Lactated Ringers 1,000 ML 100 ML IV (08:33)
--- NOTE | 2021-02-02 08:47 | HP.PCM_ITS ---
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 Hand Required: No Accompanied by: Self Is patient in pain?: No Allergies iodine Adverse Reaction (Severe, Verified 01/17/21 09:45) Pt, states may have possible reaction Medications apixaban 5 mg tablet 5 mg PO BID #180 tab 12/22/20 [Rx Confirmed 01/17/21] flecainide 50 mg tablet 50 mg PO BID #180 tab 01/12/21 [Rx Confirmed 01/17/21] metoprolol succinate 25 mg tablet,extended release 24 hr 12.5 mg PO DAILY #45 tab 01/12/21 [Rx Confirmed 01/17/21] cholecalciferol (vitamin D3) 25 mcg (1,000 unit) capsule 25 mcg PO DAILY 01/17/21 [History Confirmed 01/17/21] magnesium 250 mg tablet 250 mg PO DAILY 01/17/21 [History Confirmed 01/17/21] omega-3 fatty acids 1,000 mg capsule 1,000 mg PO DAILY 01/17/21 [History Confirmed 01/17/21] FOR[facility]LY [facility] Medical History (Updated 01/17/21 @ 09:43 by Odilia Rich) Cardiac murmur Chest pain on respiration Constipation Dyspnea on exertion Family history of colon cancer in father HLD (hyperlipidemia) Mitral valve regurgitation New onset a-fib Nonrheumatic mitral (valve) insufficiency PAC (premature atrial contraction) Palpitations Paroxysmal supraventricular tachycardia by electrocardiogram (ECG) Pure hypercholesterolemia PVC (premature ventricular contraction) PVD (peripheral vascular disease) Rheumatoid arthritis Shortness of breath Syncope Syncope and collapse Surgical History History of carpal tunnel release History of cholecystectomy History of hysterectomy History of repair of rotator cuff History of tonsillectomy History of tubal ligation Family History Father Colon cancer Mother CVA (cerebral vascular accident) Social History (Updated 01/17/21 @ 09:43 by Odilia Rich) Smoking Status: Never smoker alcohol intake: current alcohol intake frequency: holidays/special occasions only substance use type: does not use caffeine: Yes what type of physical activity do you participate in: none frequency: does not exercise HPI HPI HPI: ONEIDA STEWARD, is a 75 F who presents to the office today for colonoscopy. The patient's last colonoscopy was 5 years ago. She has a family history of colon cancer in her father. Patient's last colonoscopy was normal. She denies any abdominal pain or blood in her stool. ROS General General: No weight change, appetite, fatigue, colon cancer, breast cancer or weakness HEENT HEENT: No difficulty swallowing, eye injury, eye surgery, swollen glands or hoarseness Endo Endocrine: No thyroid disease, diabetes mellitus, thyroid cancer, Hair loss, heat intolerance or cold intolerance Skin Skin: No rash or changing moles Musc Musculoskeletal: Yes back problems, arthritis and rheumatoid arthritis; No gout or joint pain Cardio Cardiovascular: Yes atrial fibrillation; No murmur, pacemaker, heart disease, high blood pressure, heart attack, heart stent, palpitations, shortness of breat with exertion or chest pain Psych Psychiatric: No depression, anxiety or hearing voices Resp Respiratory: Yes shortness of breath, No sleep apnea, No cough, No COPD, No asthma, No emphysema and No wheezing Gastro Gastrointestinal: No abdominal pain, No nausea or vomiting, No diarrhea, Yes constipation, No blood in stool, No acid reflux, No hemorrhoids, No ulcers, No gallbladder problem and No black,tarry stools Abhi Hematologic: Yes blood thinners, No blood disorders, No bleeding, No anemia and No blood clots Neuro Neurologic: No weakness Exam Const General: cooperative Orientation: alert and oriented x3 HENMT Head: normal to inspection Neck Neck: normal visual inspection and full ROM Chest Chest palpation & inspection: normal inspection of the chest Resp Effort & Inspection: normal respiratory effort Auscultation: clear to auscultation bilaterally Cardio Rate: regular rate Rhythm: regular rhythm GI Inspection: non-distended Palpation: soft and nontender Skin General: no rashes or lesions noted Neuro General: patient alert and patient oriented x3 Extrem General: full ROM Psych Appearance: grossly normal Mental Status: mental status grossly normal Assessment and Plan Assessment and Plan (1) Family history of colon cancer in father: Status: Acute Orders: Orders: Colonoscopy Today Plan - Dr. Abdirizak Yuan MD: Patient has a family history of colon cancer in her father and requires colonoscopy every 5 years. Patient had issue with anesthesia in the past and went into A. 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 Patient will stop her blood thinners 3 days before the procedure. I explained endoscopy in detail to the patient. I explained the risks including but not limited to stroke or heart attack with anesthesia, perforation of the GI tract, bleeding, infection. I explained that any of these could necessitate further emergency surgery. The patient understands and all questions were answered sufficiently. The patient wishes to proceed with procedure. Abdirizak Yuan MD Pager: [facility] [address] [place] [address], [address] [place] [address] Office: I have re-examined the patient. There are no clinical changes since date of exam.
[2021-02-02 09:20] VITALS: BP 122/64; BP 98/53; PULSE 58; RESP 16; TEMP 36.1; O2SAT 96
--- NOTE | 2021-02-02 09:20 | OP.COLON_ITS ---
Patient Name: Leticia Nino Procedure Date: 02/02/2021 8:56 AM Date of : 1945 Age: 75 Procedure: Colonoscopy Indications: Screening in patient at increased risk: Colorectal cancer in father before age 60 Providers: Abdirizak Yuan MD Medicines: Monitored Anesthesia Care Patient Profile: This is a 75 year old female. Refer to note in patient chart for documentation of history and physical. Last Colonoscopy: several years ago. Complications: No immediate complications. Procedure: Pre-Anesthesia Assessment: - Prior to the procedure, a History and Physical was performed, and patient medications and allergies were reviewed. The patient's tolerance of previous anesthesia was also reviewed. The risks and benefits of the procedure and the sedation options and risks were discussed with the patient. All questions were answered, and informed consent was obtained. Prior Anticoagulants: The patient has taken Eliquis (apixaban), last dose was 2 days prior to procedure. After reviewing the risks and benefits, the patient was deemed in satisfactory condition to undergo the procedure. After I obtained informed consent, the scope was passed under direct vision. Throughout the procedure, the patient's blood pressure, pulse, and oxygen saturations were monitored continuously. The Colonoscope was introduced through the anus and advanced to the cecum, identified by appendiceal orifice and ileocecal valve. The colonoscopy was performed without difficulty. The patient tolerated the procedure well. The quality of the bowel preparation was good. Scope In: 9:01:15 AM Scope Withdrawal Time 0 hours 6 minutes 2 seconds Scope Out: 9:14:53 AM Total Procedure Duration Time 0 hours 13 minutes 38 seconds Findings: The entire examined colon appeared normal on direct and retroflexion views. Impression: - The entire examined colon is normal on direct and retroflexion views. - No specimens collected. Recommendation: - Discharge patient to home. - Resume previous diet. - Continue present medications. - Repeat colonoscopy in 5 years for screening purposes. Procedure Code(s): --- Professional --- 66736, Colonoscopy, flexible; diagnostic, including collection of specimen(s) by brushing or washing, when performed (separate procedure) Diagnosis Code(s): --- Professional --- Z80.0, Family history of malignant neoplasm of digestive organs CPT copyright 2017 [employer]. All rights reserved. The codes documented in this report are preliminary and upon hcc coders review may be revised to meet current compliance requirements. Abdirizak Yuan MD 02/02/2021 9:19:41 AM This report has been signed electronically. Number of Addenda: 0 Note Initiated On: 02/02/2021 8:56 AM
--- NOTE | 2021-02-02 09:20 | OP.CCLET_ITS ---
02/02/2021 Haleigh Lomax Md Re : Colonoscopy procedure for Leticia Nino Dear Dami This procedure was performed on Tuesday, February 02, 2021. My impressions and recommendations are as follows: Impressions : - The entire examined colon is normal on direct and retroflexion views. - No specimens collected. Recommendations : - Discharge patient to home. - Resume previous diet. - Continue present medications. - Repeat colonoscopy in 5 years for screening purposes. My findings are described in the full procedure note, which is enclosed. If I can be of further assistance, please feel free to contact me at Doctor phone number(s): , Work: . Sincerely, Abdirizak Yuan MD 02/02/2021 9:19:41 AM This report has been signed electronically.
[2021-02-02 09:25] VITALS: BP 103/59; BP 122/64; PULSE 58; RESP 16; O2SAT 98
[2021-02-02 09:30] VITALS: BP 122/64; BP 92/54; PULSE 56; RESP 16; O2SAT 99
[2021-02-02 09:37] VITALS: BP 103/59; BP 122/64; PULSE 57; RESP 16; TEMP 36.1
[2021-02-02 10:01] VITALS: BP 122/64
== END 2021-02-02 10:21 | disposition home or self-care (01) ==
LOC: EN 08:01 → AC 08:03
PROVIDERS: PCP Internal Medicine; Referring Provider Internal Medicine; Visit Provider Surgery
PROC: 0DJD8ZZ Inspection of Lower Intestinal Tract, Via Natural or Artificial Opening Endoscopic (ICD-10-PCS; CPT 45378; principal; 2021-02-02 08:55)
DX: Z12.11 Encounter for screening for malignant neoplasm of colon (principal); Z80.0 Family history of malignant neoplasm of digestive organs; E78.5 Hyperlipidemia, unspecified; I48.91 Unspecified atrial fibrillation; Z79.01 Long term (current) use of anticoagulants; Z88.8 Allergy status to other drugs, medicaments and biological substances
CPT/HCPCS: G0105; J7120; J2405

== ENCOUNTER → 2022-06-14 | Outpatient (CLI) | payer MEDICARE, OTHER, SELFPAY ==
[2022-06-14 11:04] LABS: Absolute Lymphocyte Count 2.21 X10^3/uL (0.83-4.51); Absolute Neutrophil Count 3.3 X10^3/uL (2.0-7.7); Basophil# 0.04 X10^3/uL; Basophil% 0.6 % (0-1); Eosinophil# 0.44 X10^3/uL; Eosinophils% 6.6 % (0-5); Hematocrit 40.6 % (37-47); Hemoglobin 13.6 g/dL (12.0-15.0); Lymphocyte # 2.21 X10^3/ul (0.83-4.51); Lymphocyte % 33.1 % (19-41); Mean Corp Hgb Conc 33.5 g/dL (32-36); Mean Corpuscular Hgb 31.7 pg (27.0-32.0); Mean Corpuscular Volume 94.6 fL (81-99); Mean Platelet Vol. 10.5 fl (6.2-12.0); Monocyte# 0.68 X10^3/uL; Monocyte% 10.2 % (0-10); NRBC Flagged by Analyzer 0 % (0-5); Neutrophil # 3.29 X10^3/uL (2.7-7.7); Neutrophil % 49.2 % (47-70); Platelet Count 230 K/mm3 (150-450); RBC Distribution Width SD 49.3 fl (35.1-43.9); Red Blood Count 4.29 M/mm3 (4.2-5.4); White Blood Count 6.7 K/mm3 (4.4-11.0)
[2022-06-14 11:44] LABS: Anion Gap 1 (5-15); BUN 16 mg/dL (7-18); Calcium,Total 9.2 mg/dL (8.5-10.1); Chloride 107 mmol/L (98-107); EST Glomerular Filtration Rate 87 mL/min (>60); Est Glom Filt Rate - Afr Amer 105 mL/min (>60); Glucose 93 mg/dL (74-106); Potassium 4.1 mmol/L (3.5-5.1); Sodium Level 141 mmol/L (136-145)
[2022-06-14 11:46] LABS: BNP,B-Type NATRIURETIC PEPTIDE 166.1 pg/mL (0-100)
== END | disposition home or self-care (01) ==
LOC: LAB 10:00
PROVIDERS: PCP Internal Medicine; Referring Provider Nurse Practitioner Family; Visit Provider Nurse Practitioner Family
DX: R06.02 Shortness of breath (principal); I48.0 Paroxysmal atrial fibrillation; I34.0 Nonrheumatic mitral (valve) insufficiency; R00.1 Bradycardia, unspecified; R00.2 Palpitations
CPT/HCPCS: 36415; 80048; 83880; 85025

== ENCOUNTER → 2023-03-13 | Outpatient (CLI) | payer MEDICARE, OTHER, SELFPAY ==
--- NOTE | 2023-03-13 07:07 | ECHOD_ITS ---
Reason For Study: Chest Pain Procedure This was a 2D Doppler, Color Flow transthoracic echocardiogram. Exam performed in department. Left Ventricle Normal LV size. Left ventricular systolic function is normal. The estimated ejection fraction is 60 %. Stage 1 diastolic dysfunction. No regional wall motion abnormalities noted. Right Ventricle Normal RV size. Normal systolic function. Atria Normal left atrium. Normal right atrium. Mitral Valve Normal mitral valve. Tricuspid Valve Normal tricuspid valve. Mild (1+) tricuspid valve insufficiency. Pulmonary artery systolic pressure is 34 mmHg. Aortic Valve Normal aortic valve. Trisinus/trileaflet aortic valve. Pulmonic Valve Normal pulmonic valve. Great Vessels Normal aortic root. The pulmonary artery is normal size. Normal inferior vena cava. Pericardium/Pleural No pericardial effusion. MMode/2D Measurements & Calculations LVIDd: 4.2 cm IVSd: 0.96 cm Ao root diam: 3.1 cm LVIDs: 2.7 cm LVPWd: 0.95 cm LA dimension: 3.9 cm RVDd: 3.7 cm FS: 35.2 % LAV(MOD-bp): 51.5 ml LA A4 area: 18.9 cm2 RA A4 area: 18.9 cm2 LAV(MOD-bp) Indexed: 26.7 ml/m2 LAV(MOD-sp2): 47.9 ml LAV(MOD-sp4): 44.6 ml TAPSE: 2.0 cm Time Measurements MV dec time: 0.21 sec Doppler Measurements & Calculations MV E max virgilio: 58.4 cm/sec Lat Peak E' Virgilio: 10.1 cm/sec Med Peak E' Virgilio: 7.6 cm/sec MV A max virgilio: 99.3 cm/sec E/E' lat: 5.8 E/E' med: 7.7 MV E/A: 0.59 MV V2 max: 125.5 cm/sec MV P1/2t max virgilio: 80.6 cm/sec Ao V2 max: 161.3 cm/sec MV max P.3 mmHg MV P1/2t: 90.0 msec Ao max P.4 mmHg MV V2 mean: 56.5 cm/sec Ao V2 mean: 107.8 cm/sec MV mean P.6 mmHg MV dec slope: 262.4 cm/sec2 Ao mean P.4 mmHg MV V2 VTI: 38.7 cm MVA(P1/2t): 2.4 cm2 Ao V2 VTI: 40.7 cm AV (velocity ratio): 0.90 LV V1 max: 158.1 cm/sec PA V2 max: 107.2 cm/sec LV V1 max P.0 mmHg PI dec slope: 89.6 cm/sec2 LV V1 mean P.1 mmHg LV V1 mean: 105.7 cm/sec LV V1 VTI: 36.6 cm TR max virgilio: 265.0 cm/sec TR max P.1 mmHg ECHO/Echo Complete Interpretation Summary Normal LV size. Left ventricular systolic function is normal. The estimated ejection fraction is 60 %. Stage 1 diastolic dysfunction. Pulmonary artery systolic pressure is 34 mmHg. Ordering Physician: Trell Leyva Referring Physician: Trell Leyva Performed By: Jaden Foreman RCS
--- NOTE | 2023-03-13 15:27 | STRESSREP ---
Stress Test Report Exercise myocardial perfusion stress test. 77-year-old lady with a history of shortness of breath Stress protocol: Resting EKG demonstrates normal sinus rhythm with a rate of 54 bpm resting blood pressure is 120/74 mmHg. The patient exercised according to the regular Akira protocol for a total duration of 6 minutes attaining a maximum heart rate of 86 bpm which was 59% of maximum predicted heart rate; the maximum workload was 7 metabolic equivalents. At rest there were no ST or T wave changes noted to suggest ischemia and at peak exercise upsloping ST changes only were noted which did not meet the criteria for ischemia. No clinical angina was noted the test was terminated due to the target heart rate being achieved/fatigue. The peak blood pressure was 134/80 mmHg. Rate-pressure product was [26,200]. Because the patient did not attain 85% of max impacted heart rate the patient underwent infusion of Lexiscan. Myocardial perfusion protocol. 13.1 mCi of technetium 99m sestamibi was injected at rest. The patient received adenosine per protocol. and at peak exercise 39.7 mCi of technetium 99m sestamibi was injected stress images were obtained stress and rest images were reconstructed in comparing the short axis vertical long and horizontal long axis. Gated images were also obtained. Perfusion SPECT analysis: Review of the stress images demonstrate normal uptake of tracer noted in all areas of the myocardium. The resting images similarly demonstrate normal uptake of tracer noted in all areas of the myocardium. No areas of reversibility are noted to suggest ischemia no previous infarct was noted. Gated SPECT analysis: The gated ejection fraction is 77%. Conclusion: Normal exercise myocardial perfusion stress test at a moderate workload Preserved ejection fraction. Pharmacologic portion demonstrating no evidence of ischemia or wall motion abnormalities
== END | disposition home or self-care (01) ==
LOC: CVS 07:05
PROVIDERS: PCP Internal Medicine; Referring Provider Internal Medicine Cardiovascular Disease; Visit Provider Internal Medicine Cardiovascular Disease
DX: R06.02 Shortness of breath (principal)
CPT/HCPCS: 78452; 93017; 93306; A9500; A4216; J2785

== ENCOUNTER 2023-08-18 07:59 | Emergency (ER) | payer MEDICARE, OTHER, SELFPAY ==
[2023-08-18 08:05] VITALS: BP 173/75; PULSE 67; RESP 14; TEMP 36.6; O2SAT 93; BMI 29.5
--- NOTE | 2023-08-18 08:35 | CT_ITS ---
EXAM: CT HEAD WITHOUT INTRAVENOUS CONTRAST CLINICAL INDICATION: Intractable headache TECHNIQUE: Multiple axial images were obtained of the head without intravenous contrast. This CT exam was performed using one or more of the following dose reduction techniques: automated exposure control, adjustment of the mA and/or kV according to patient size, and/or use of iterative reconstruction technique. RADIATION DOSE: CTDIvol = 44.99 mGy, DLP = 779.24 mGy-cm COMPARISON: CT head without contrast 11/08/2008. FINDINGS: BRAIN AND EXTRA-AXIAL SPACES: Small hypodense areas in the white matter of the cerebral hemispheres are chronic white matter ischemic changes. No intra- or extra-axial hemorrhage. No intracranial mass or mass effect. Posterior fossa structures are unremarkable. Ventricles are appropriate for age. No hydrocephalus. Basal cisterns are patent. BONES/JOINTS: Unremarkable. No discrete lytic or blastic abnormalities. SINUSES: Unremarkable as visualized. Clear. MASTOID AIR CELLS: Unremarkable. Clear. ORBITS: Visualized globes, extraocular muscles, optic nerves and retrobulbar fat appear unremarkable. CT/Brain/Head without Contrast IMPRESSION: 1. No CT evidence of intracranial bleeding, acute ischemic infarct or acute intracranial abnormality. 2. Chronic white matter ischemic changes in both cerebral hemispheres are new findings when compared to 11/08/2008. Electronically Signed: Isaiah Iverson MD at 10:03 EST ,
--- NOTE | 2023-08-18 08:36 | EX.ED.VIS.HA ---
HPI History of Present Illness Chief Complaint: Headache Detail of Chief Complaint: Headache that started approximately 1 month ago Informant: patient and spouse/S.O. Onset/Context/Timing Onset: Month(s) (Approximately 1 month) Context: Sudden Timing: Continuous (Continue was initially on the right side. Now alternates to left) Quality -Headache: Positive for Other (An explosion it in my head); Negative for Similar Prior Headaches, Sharp, Dull, Throbbing, Tightness or Burning Current Severity: Moderate Maximum Severity: Severe Worsened by: Nothing specific Relieved by: Improved when she was prescribed prednisone by her PCP Associated Symptoms/Injury Associated Symptoms: Positive for Sore Throat (Initially); Negative for Fever, Nausea, Vomiting, Sinus Pressure, Numbness, Tingling, Preceding Aura, Visual Changes, Blurred Vision, Photophobia or Visual Loss Injury - [place]: Negative for Direct Trauma Narrative Narrative: Patient is a 77-year-old woman with history of atrial fibrillation on long-term anticoagulant, apixaban. Patient was seen by her PCP approximately 1 month ago. She was prescribed prednisone and an antibiotic because she had respiratory like symptoms. She states the headache improved with the prednisone. Headache is now worse. There is nothing specific that makes it worse. She states the headache was initially constant and on the right side. It has now shifted intermittently to the left side. She describes it as her head is about to explode. She denies double vision, blurred vision loss of vision. She denies trouble with speech or swallowing. When asked if she has had problems with coordination she states something is off . She denies respiratory or cardiac symptoms. She denies GI symptoms. Patient was recently prescribed losartan for elevated blood pressure. She states she normally does not have an elevated blood pressure. Her blood pressure is presently being managed by [facility]. Prior similar symptoms: No Recent Illness/Hospitalization: No [facility] Medical History Alcohol use Cardiac murmur Cardiology follow-up encounter Chest pain on respiration Constipation Dyspnea on exertion Family history of colon cancer in father High cholesterol HLD (hyperlipidemia) Migraine headache Mitral valve regurgitation New onset a-fib Non-smoker Nonrheumatic mitral (valve) insufficiency PAC (premature atrial contraction) Palpitations Paroxysmal supraventricular tachycardia by electrocardiogram (ECG) Post-menopausal Pure hypercholesterolemia PVC (premature ventricular contraction) PVD (peripheral vascular disease) Rheumatoid arthritis Shortness of breath Shortness of breath on exertion Syncope Syncope and collapse Wears glasses Home Medications cholecalciferol (vitamin D3) 25 mcg (1,000 unit) capsule 25 mcg PO DAILY 01/17/21 [History Last Taken Unknown] omega-3 fatty acids 1,000 mg capsule (Fish Oil Concentrate) 1,000 mg PO DAILY 01/17/21 [History Last Taken Unknown] apixaban 5 mg tablet 5 mg PO BID #180 tabs 07/31/21 [Rx Last Taken Unknown] milk thistle 500 mg capsule 500 mg PO DAILY 10/24/21 [History Last Taken Unknown] flecainide 100 mg tablet 50 mg (1/2 x 100 mg) PO Q12H #90 tabs 08/08/23 [Rx Last Taken Unknown] losartan 50 mg tablet 50 mg PO DAILY #90 tabs 08/08/23 [Rx Last Taken Unknown] metoprolol tartrate 25 mg tablet 12.5 mg (1/2 x 25 mg) PO BID avoid EvolveMol, doesn't work for pt. #90 tabs 08/08/23 [Rx Last Taken Unknown] amoxicillin 875 mg-potassium clavulanate 125 mg tablet 875 mg (0.875 x 875-125 mg) PO Q12H #20 TABLETS 08/18/23 [Rx Last Taken Unknown] Allergy/AdvReac Type Severity Reaction Status Date / Time iodine AdvReac Severe Pt, states Verified 08/08/23 11:26 may have possible reaction Family History Father Colon cancer Mother CVA (cerebral vascular accident) Surgical History History of carpal tunnel release History of cholecystectomy History of cyst of breast (~04/2021) History of hysterectomy History of repair of rotator cuff History of shoulder replacement History of tonsillectomy History of tubal ligation Social History Smoking Status: Never smoker alcohol intake: current alcohol intake frequency: holidays/special occasions only substance use type: does not use caffeine: Yes what type of physical activity do you participate in: none frequency: does not exercise ROS ROS ED Constitutional Constitutional ED: Denies chills, fever(s), subjective, sweats or weight loss Eyes Eyes: Denies blurry vision, change in vision or diplopia ENT ENT ED: Reports rhinorrhea, sore throat and other Details: HEENT symptoms were initially present. ; Denies ear pain Cardiovascular Cardiovascular: Denies chest pain or palpitations Respiratory/Chest Respiratory/Chest: Denies cough, dyspnea or dyspnea on exertion Gastrointestinal Gastrointestinal: Denies abdominal pain, constipation, diarrhea, melena, nausea or vomiting Genitourinary Genitourinary ED: Denies dysuria, hematuria or urinary frequency Musculoskeletal Musculoskeletal: Reports arthralgias, neck pain and other Details: Patient states she has a history of rheumatoid arthritis. ; Denies back pain or myalgias Integumentary Denies rash Neurologic Neurologic: Reports headache(s); Denies paresthesias or weakness Psychiatric Psychiatric: Denies anxiety Hematologic/Lymphatic Hematologic/Lymphatic: Reports easy bruising; Denies easy bleeding EXAM Physical Exam Const Vital Signs: 08/18/23 08:05 Temperature 97.9 F Temperature Source Temporal Pulse Rate 67 Respiratory Rate 14 Blood Pressure 173/75 H Blood Pressure Mean 107 Pulse Ox 93 Oxygen Delivery Method Room Air Positive well nourished, well developed and obese General Appearance ED: well developed and NAD; Negative for cyanotic, diaphoretic or pallor Nutritional Appearance: obese HEENT Reports normocephalic, TM's clear and moist mucous membranes HEENT Narrative: Ears are normal. External auditory canal is normal. There is no tenderness over the frontal, ethmoid or maxillary sinuses. Patient reports pain with palpation of her scalp postauricular region. She does not endorse a trigger point. She does not describe it as electrical or pulsating. atraumatic Tympanic Membrane ED: Yes TM's clear Eyes PERRL and EOMs intact bilaterally Eyes Narrative: There is no nystagmus. General Eye ED: Negative for pale conjunctiva or scleral icterus Neck no lymphadenopathy, supple, no meningeal signs and no JVD Neck Narrative: Limited range of motion especially turning to the right causes her discomfort and she grimaces. She had x-rays done as an outpatient at the [facility] which revealed degenerative changes. Resp normal respiratory effort and clear to auscultation bilaterally Cardio regular rate, regular rhythm, S1 normal heart sound, S2 normal heart sound and no murmurs GI non-tender and non-distended Auscultation: normoactive bowel sounds Palpation: soft Extremity normal to inspection and full ROM Neuro oriented x3, CN's II-XII intact bilaterally and no sensory deficits noted Neuro Narrative: There is no dysmetria. There is no clonus or Babinski sign. [place] Coma Scale: document GCS findings Spontaneous Obeys Commands Oriented 15 Sensorium / Orientation: awake and alert Coordination / Balance: [id number] test normal Speech: speech normal Motor Exam: strength 5/5 throughout Psych mental status grossly normal Skin General Skin Exam: Negative for jaundice or pallor Lesions: no lesions Rashes: no rashes MDM MDM MDM Narrative Medical decision making narrative: Patient have an intractable headache that has gotten worse on anticoagulant need to entertain possibility of epidural hematoma, subdural hematoma, subarachnoid hemorrhage and intraparenchymal bleed. Epidural be less likely. This also may be a tension headache due to degenerative neck disease. In light of her age and the fact that it was unilateral need to entertain possibility of vasculitis. ESR was obtained. Last dose of prednisone was [address] of the head was obtained without contrast. History & Record Review Additional record(s) reviewed:: Prior outpatient record (Report of cervical spine reviewed.), Prior ED visit and Prior labs Lab Data Attestation: I reviewed the patient's lab results. Lab results narrative: CBC is normal. ESR is normal. Basic metabolic panel is remarkable for slight elevation of alkaline phosphatase at 338 otherwise unremarkable. Labs: Laboratory Results - last 24 hr 08/18/23 09:30 WBC 7.9 RBC 4.39 Hgb 13.6 Hct 41.4 MCV 94.3 MCH 31.0 MCHC 32.9 RDW Std Deviation 46.7 H RDW Coeff of Claudia 13.5 Plt Count 248 MPV 10.1 Immature Gran % (Auto) 0.300 Neut % (Auto) 60.8 Lymph % (Auto) 24.1 [place] % (Auto) 11.0 H Eos % (Auto) 3.5 Baso % (Auto) 0.3 Absolute Neuts (auto) 4.8 Absolute Lymphs (auto) 1.91 Nucleated RBC % 0 ESR 6 Sodium 139 Potassium 3.8 Chloride 107 Carbon Dioxide 29.0 Anion Gap 3 L BUN 12 Creatinine 0.66 Estim Creat Clear Calc 64.96 Est GFR (MDRD) Af Amer 111 Est GFR (MDRD) Non-Af 92 BUN/Creatinine Ratio 18.1 Glucose 108 H Calcium 9.5 Total Bilirubin 0.50 AST 49 H ALT 104 H Alkaline Phosphatase 238 H Total Protein 7.3 Albumin 3.3 Globulin 4.0 Albumin/Globulin Ratio 0.8 L Radiography Diagnostic Testing: Clinical Impression(s) from Imaging Studies Brain CT 08/18/23 08:35 IMPRESSION: 1. No CT evidence of intracranial bleeding, acute ischemic infarct or acute intracranial abnormality. 2. Chronic white matter ischemic changes in both cerebral hemispheres are new findings when compared to 11/08/2008. Electronically Signed: Isaiah Iverson MD at 10:03 EST , CT was reviewed. Agree there is no evidence of intracranial bleed or stroke. Patient does have an air-fluid level right sphenoid sinus and has mucosal thickening of the right and left maxillary sinus. There is no disease noted in the frontal sinuses. Patient was informed that my review of CAT scan is different than what the radiologist interpreted. Discharge Plan Triage Chief Complaint: Headache ED Provider: Brennon Johnston Dx/Rx/DC Orders Clinical Impression: Sphenoid sinusitis, Rheumatoid arthritis, Pure hypercholesterolemia, Hypertension, Chronic maxillary sinusitis, DDD (degenerative disc disease), cervical, Anticoagulant long-term use Instructions: ED Sinusitis (Antibiotic Treatment) Prescriptions: New amoxicillin-pot clavulanate [amoxicillin-pot clavulanate] 875-125 mg tablet 875 mg PO Q12H Qty: 20 0RF No Action milk thistle 500 mg capsule 500 mg PO DAILY Rx Instructions: give with meal/snack omega-3 fatty acids [Fish Oil Concentrate] 1,000 mg capsule 1,000 mg PO DAILY cholecalciferol (vitamin D3) 25 mcg (1,000 unit) capsule 25 mcg PO DAILY flecainide 100 mg tablet 50 mg PO Q12H Qty: 90 4RF metoprolol tartrate 25 mg tablet 12.5 mg PO BID Qty: 90 4RF losartan 50 mg tablet 50 mg PO DAILY Qty: 90 3RF apixaban 5 mg tablet 5 mg PO BID Qty: 180 3RF Patient Comments: BLOOD THINNER Primary Care Provider: Haleigh Lomax Referrals: Haleigh Lomax MD [Primary Care Provider] - 1 Week if not improving Disposition Disposition: Home, Self Care
[2023-08-18 09:50] LABS: Erythrocyte Sedimentation Rate 6 mm/hr (0-30)
[2023-08-18 09:52] LABS: Absolute Lymphocyte Count 1.91 X10^3/uL (0.83-4.51); Absolute Neutrophil Count 4.8 X10^3/uL (2.0-7.7); Basophil# 0.02 X10^3/uL; Basophil% 0.3 % (0-1); Eosinophil# 0.28 X10^3/uL; Eosinophils% 3.5 % (0-5); Hematocrit 41.4 % (37-47); Hemoglobin 13.6 g/dL (12.0-15.0); Lymphocyte # 1.91 X10^3/ul (0.83-4.51); Lymphocyte % 24.1 % (19-41); Mean Corp Hgb Conc 32.9 g/dL (32-36); Mean Corpuscular Volume 94.3 fL (81-99); Mean Platelet Vol. 10.1 fl (6.2-12.0); Monocyte# 0.87 X10^3/uL; NRBC Flagged by Analyzer 0 % (0-5); Neutrophil # 4.83 X10^3/uL (2.7-7.7); Neutrophil % 60.8 % (47-70); Platelet Count 248 K/mm3 (150-450); RBC Distribution Width CV 13.5 % (11.6-14.6); RBC Distribution Width SD 46.7 fl (35.1-43.9); Red Blood Count 4.39 M/mm3 (4.2-5.4); White Blood Count 7.9 K/mm3 (4.4-11.0)
[2023-08-18 10:08] LABS: ALB/GLOB Ratio 0.8 RATIO (0.9-2.4); AST(SGOT) 49 U/L (15-37); Alanine Aminotransfer ALT/SGPT 104 U/L (13-56); Albumin, Serum 3.3 g/dL (3.2-5.0); Alkaline Phosphatase 238 U/L (45-117); Anion Gap 3 (5-15); BUN 12 mg/dL (7-18); BUN/Creat Ratio 18.1 RATIO (10-20); Calcium,Total 9.5 mg/dL (8.5-10.1); Chloride 107 mmol/L (98-107); Creatinine, Serum 0.66 mg/dL (0.55-1.02); EST Glomerular Filtration Rate 92 mL/min (>60); Est Glom Filt Rate - Afr Amer 111 mL/min (>60); Estimated Creatinine Clearance 64.96 ml/min; Glucose 108 mg/dL (74-106); Potassium 3.8 mmol/L (3.5-5.1); Protein, Total 7.3 g/dL (6.4-8.2); Sodium Level 139 mmol/L (136-145)
[2023-08-18 10:34] VITALS: BP 118/76; PULSE 69; RESP 15; TEMP 36.6; O2SAT 96
== END 2023-08-18 10:35 | disposition home or self-care (01) ==
PROVIDERS: Emergency Provider Emergency Medicine; PCP Internal Medicine; Visit Provider Emergency Medicine
DX: J32.0 Chronic maxillary sinusitis (principal); M06.9 Rheumatoid arthritis, unspecified; I48.91 Unspecified atrial fibrillation; J02.9 Acute pharyngitis, unspecified; J32.3 Chronic sphenoidal sinusitis; E78.00 Pure hypercholesterolemia, unspecified; Z79.01 Long term (current) use of anticoagulants; I10 Essential (primary) hypertension; M50.30 Other cervical disc degeneration, unspecified cervical region; Z80.0 Family history of malignant neoplasm of digestive organs
CPT/HCPCS: 70450; 80053; 85025; 85652; 99283; A4216

== ENCOUNTER → 2024-07-14 | Outpatient (CLI) | payer MEDICARE, OTHER, SELFPAY ==
--- NOTE | 2024-07-14 11:32 | MRI_ITS ---
PROCEDURE: BRAIN W/WO CONTRAST REASON FOR EXAM: Sudden onset headache. TECHNIQUE: Multiplanar, multisequence MRI of the brain with and without intravenous gadolinium-based contrast. COMPARISON: None. FINDINGS: Mild to moderate global parenchymal atrophy. Mild chronic microvascular ischemia. No evidence of ac renée hemorrhage or infarction. No extra-axial blood or fluid collections. The paranasal sinuses are clear. The orbits are unremarkable. MRI/Brain W/WO Contrast IMPRESSION: No acute intracranial abnormalities. Reading Location: [id number]
--- NOTE | 2024-07-14 11:32 | MRI_ITS ---
PROCEDURE: MRA HEAD ONLY WITHOUT CONTRAST REASON FOR EXAM: Headache; evaluate for aneurysms. COMPARISON: None. TECHNIQUE: 3D Time of Flight MRA of the head without intravenous contrast. 3D reformatted images. FINDINGS: Anatomy: [place] anatomy is within normal limits. Anterior Circulation: Distal internal carotid anterior and middle cerebral arteries appear patent wit hout high grade stenosis. No large aneurysms are identified. Posterior Circulation: Distal vertebral arteries the basilar artery and the posterior cerebral arteri es appear patent without high grade stenosis. No large aneurysms are identified. MRI/MRA Head ONLY without Contrast IMPRESSION: No acute arterial abnormality. Reading Location: [id number]
== END | disposition home or self-care (01) ==
LOC: MRI 10:56
PROVIDERS: PCP Internal Medicine; Referring Provider Psychiatry & Neurology Neurology; Visit Provider Psychiatry & Neurology Neurology
DX: G43.009 Migraine without aura, not intractable, without status migrainosus (principal); G44.52 New daily persistent headache (NDPH)
CPT/HCPCS: 70544; 70553; A9575

== ENCOUNTER → 2024-08-10 | Outpatient (CLI) | payer MEDICARE, OTHER, SELFPAY ==
[2024-08-10 13:10] LABS: Hematocrit 39.8 % (37-47); Hemoglobin 13.1 g/dL (12.0-15.0); Mean Corp Hgb Conc 32.9 g/dL (32-36); Mean Corpuscular Hgb 31.5 pg (27.0-32.0); Mean Corpuscular Volume 95.7 fL (81-99); Platelet Count 230 K/mm3 (150-450); RBC Distribution Width CV 13.2 % (11.6-14.6); RBC Distribution Width SD 46.8 fl (35.1-43.9); Red Blood Count 4.16 M/mm3 (4.2-5.4); White Blood Count 6.4 K/mm3 (4.4-11.0)
[2024-08-11 05:43] LABS: Vitamin B12 827 pg/mL (180-914)
[2024-08-12 12:24] LABS: ALB/GLOB Ratio 1.3 RATIO (0.9-2.4); AST(SGOT) 59 U/L (<=31); Alanine Aminotransfer ALT/SGPT 81 U/L (<=34); Alkaline Phosphatase 214 U/L (35-104); Anion Gap 15 (5-15); BUN 15 mg/dL (4-19); BUN/Creat Ratio 18.7 RATIO (10-20); Calcium 9.5 mg/dL (7.6-11.0); Carbon Dioxide 22.6 mmol/L (22.0-29.0); Chloride 106 mmol/L (96-108); Creatinine, Serum 0.8 mg/dL (0.6-1.0); EST Glomerular Filtration Rate 75 (>60); Folates, Serum 6.34 ng/mL (4.60-34.80); Glucose 102 mg/dL (70-99); Potassium 4.8 mmol/L (3.3-5.1); Protein, Total 6.9 g/dL (5.9-8.4); Sodium Level 143 mmol/L (133-145)
[2024-08-13 10:08] LABS: Free Kappa Light Chains 19.9 mg/L (3.3-19.4); Free Lambda Light Chains 16.8 mg/L (5.7-26.3); Vitamin B1, Thiamine 121.9 nmol/L (66.5-200.0)
== END | disposition home or self-care (01) ==
LOC: MTLAB 09:53
PROVIDERS: PCP Internal Medicine; Referring Provider Psychiatry & Neurology Neurology; Visit Provider Psychiatry & Neurology Neurology
DX: G62.9 Polyneuropathy, unspecified (principal); I48.0 Paroxysmal atrial fibrillation
CPT/HCPCS: 36415; 80053; 82607; 82746; 83883; 84425; 84443; 85027

== ENCOUNTER → 2024-09-06 | Outpatient (CLI) | payer MEDICARE, OTHER, SELFPAY ==
[2024-09-07 23:11] LABS: Hemoglobin A1c 5.8 % (<=5.6)
[2024-09-09 15:09] LABS: Albumin 3.5 g/dL (2.9-4.4); Alpha-1-Globulins 0.2 g/dL (0.0-0.4); Alpha-2-Globulins 0.7 g/dL (0.4-1.0); Gamma Globulin 1.3 g/dL (0.4-1.8); Immunofixation Urine Comment: (.); Immunoglobulin A 286 mg/dL (64-422); Immunoglobulin G 1353 mg/dL (586-1602); Immunoglobulin M 88 mg/dL (26-217); PROEL- TOTAL PROTEIN 6.9 g/dL (6.0-8.5)
== END | disposition home or self-care (01) ==
LOC: MTLAB 14:12
PROVIDERS: PCP Internal Medicine; Referring Provider Psychiatry & Neurology Neurology; Visit Provider Psychiatry & Neurology Neurology
DX: G62.9 Polyneuropathy, unspecified (principal); R73.9 Hyperglycemia, unspecified
CPT/HCPCS: 36415; 82784; 83036; 84165; 86334; 86335

== ENCOUNTER → 2024-12-31 | Outpatient (CLI) | payer MEDICARE, OTHER, SELFPAY ==
[2024-12-31 11:35] LABS: Anion Gap 8 (5-15); BUN 17 mg/dL (4-19); BUN/Creat Ratio 23.1 RATIO (10-20); Calcium,Total 9.4 mg/dL (7.6-11.0); Carbon Dioxide 26.5 mmol/L (21.0-32.0); Chloride 106 mmol/L (98-108); Glucose 90 mg/dL (70-99); Magnesium 1.9 mg/dL (1.5-2.2); Potassium 4.5 mmol/L (3.3-5.1)
== END | disposition home or self-care (01) ==
LOC: LAB 09:36
PROVIDERS: PCP Internal Medicine; Referring Provider Student in an Organized Health Care Education/Training Program; Visit Provider Student in an Organized Health Care Education/Training Program
DX: R00.2 Palpitations (principal)
CPT/HCPCS: 36415; 80048; 83735; 84443

== ENCOUNTER → 2025-01-28 | Outpatient (CLI) | payer MEDICARE, OTHER, SELFPAY ==
--- OUTSIDE RECORDS SUMMARY | 2025-01-28 06:20 | XMS RPT_ITS | CCD ---
Author Organization [facility] Care Team Providers Care Microcomputer Support Specialist Name Role Phone Nata RN, Luiza Resendez Unavailable Unavailable Nata RN, Luiza Resendez Unavailable Unavailable Saurav Salazar Unavailable Unavailable Conor Dinh Unavailable Unavailable Conor Dinh Unavailable Unavailable Lane RN, Rosalind L Unavailable Lazaro Akbar MD Unavailable Lane RN, Rosalind L Unavailable [phone] Lane RN, Rosalind L Unavailable Lane RN, Rosalind L Unavailable Saurav Salazar Unavailable Unavailable Lane RN, Rosalind L Unavailable Saurav Salazar Unavailable Unavailable Saurav Salazar Unavailable Unavailable Saurav Salazar Unavailable Unavailable Lane RN, Rosalind L Unavailable Radha Maldonado Unavailable Unavailable Lane RN, Rosalind L Unavailable Niya Martinez MD Primary Care Provider Lazaro Akbar Unavailable MD Niya Martinez Primary Care Provider MD Niya Grant Referring Provider Unavailab rodolfo Denney CURTAIN FELLER BLINDSTITCH, CURTAIN FELLER BLINDSTITCHEdward Laughlin Attending Provider Niya Martinez MD Primary Care Provider Lazaro Akbar Unavailable Lazaro Akbar MD Unavailable Dr. Niya Martinez Primary Care Provider Dr. Niya Martinez Referring Provider Dr. Trell Leyva Attending Provider Niya Martinez MD Primary Care Provider NIYA MARTINEZ Primary Care Unavailable ISHMAELAMPPAMELA, NIYA Mg Referring Unavailable BETY MENA Attending Unavailable ISHMAELAMPNIYA SANTIAGO Primary Care Unavailable BETY MENA Referring Unavailable TALAMPPAMELA, NIYA Mg Primary Care Unavailable TALAMPPAMELA, NIYA D Referring Unavailable BETY MENA H Attending Unavailable Chávez UNDERWEAR FINISHER.TRANSFORMER MAKER, Sushila Unavailable Víctor UNDERWEAR FINISHER.PNEUMATIC PRESS HAND, Dora Unavailable Dr. Niya Martinez MD Primary Care Provider Michelle PALACIOS, Dr. Niya Mg Referring Provider Apryl PALACIOS, Dr. Love Attending Provider Dr. Ivan Pink MD Referring Provider Rosalind Taylor Attending Provider Víctor UNDERWEAR FINISHER.PNEUMATIC PRESS HAND, Dora Unavailable Chávez UNDERWEAR FINISHER.TRANSFORMER MAKER, Sushila Unavailable Dr. Niya Martinez MD Primary Care Provider [phone] Michelle PALACIOS, Dr. Niya Mg Referring Provider Dr. Ivan Pink MD Attending Provider Dr. Ivan Pink MD Referring Provider Elie Connor Attending Provider Dr. Niya Martinez MD Primary Care Provider Michelle PALACIOS, Dr. Niya Mg Referring Provider Elie Connor Referring Provider NIYA MARTINEZ Primary Care Unavailable JUAQUIN BURGESS Referring Unavailable NIYA MARTINEZ Primary Care Unavailable MICHELLE, NIYA Mg Referring Unavailable TALAMPAS, NIYA D Primary Care Unavailable JUAQUIN BURGESS Attending Unavailable TALAMPAS, NIYA D Attending Unavailable TALAMPAS, NIYA D Primary Care Unavailable BETY MENA Referring Unavailable TALAMPAS, NIYA D Primary Care Unavailable TALAMPAS, NIYA D Primary Care Unavailable TALAMPAS, NIYA D Referring Unavailable TALAMPAS, NIYA D Primary Care Unavailable TALAMPAS, NIYA D Attending Unavailable TALAMPAS, NIYA D Primary Care Unavailable BAGGOTTJUAQUIN BROCK Referring Unavailable Talampas, Niya D Primary Care Unavailable Baddour, Ivan Attending Unavailable Baddour, Ivan Referring Unavailable Talampas, Niya D Primary Care Unavailable Talampas, Niya D Referring Unavailable Demiter, Elie Attending Unavailable Talampas, Niya D Referring Unavailable Baddour, Ivan Attending Unavailable Talampas, Niya D Primary Care Unavailable Talampas, Niya D Referring Unavailable Talampas, Niya D Primary Care Unavailable Rosalind Taylor Attending Unavail able Talampas, Niya D Referring Unavailable Talampas, Niya D Primary Care Unavailable Baddour, Ivan Attending Unavailable Talampas, Niya D Primary Care Unavailable Baddour, Ivan Referring Unavailable Baddour, Ivan Attending Unavailable Baddour, Ivan Referring Unavailable Baddour, Ivan Attending Unavailable Talampas, Niya D Primary Care Unavailable Talampas, Niya D Primary Care Unavailable Demiter, Elie Attending Unavailable Demiter, Elie Referring Unavailable Talampas, Niya D Primary Care Unavailable Demiter, Elie Attending Unavailable Demiter, Elie Referring Unavailable Talampas, Niya D Primary Care Unavailable Demiter, Elie Attending Unavailable Demiter, Elie Referring Unavailable Allergies Allergy Classification Reported Allergen(s) Allergy Type Date of Onset Reaction(s) Facility (20 sources) iodine; Translations: [iodine] drug allergy 10-09-2010 Pt states may have possible re, Pt, states may have possible reaction [employer] Work Phone: Medications Current Medications Medication Drug Class(es) Dates Sig (Normalized) Sig (Original) amoxicillin 875 mg oral tablet (1 source) Penicillin-class Antibacterial Start: 07-24-2023 End: 08-03-2023 take 1 tablet by mouth twice daily amoxicillin (AMOXIL) 875 mg tablet Indications: Acute ear pain, bilateral Take 1 tablet by mouth two times a day for 10 days. 20 tablet 0 07/24/2023 08/03/2023 Active Comment on above: Take 1 tablet by sarahi th two times a day for 10 days. atropine sulfate 0.025 mg / diphenoxylate hydrochloride 2.5 mg oral tablet (11 sources) Anticholinergic, Cholinergic Muscarinic Antagonist, Antidiarrheal Start: 08-25-2023 End: 09-04-2023 take 1 tablet by mouth every six hours as needed for diarrhea and diarrhea diphenoxylate-atropi ne (LOMOTIL) 2.5-0.025 mg per tablet Indications: Diarrhea, unspecified type Take 1 tablet by mouth four times a day as needed for diarrhea for up to 10 days. 20 tablet 08/25/2023 Active Comment on above: Take 1 tablet by sarahi th four times a day as needed for diarrhea for up to 10 days. Calcium (20 sources) Phosphate Binder, Calcium Start: 01-23-2006 CALCIUM 500 MG TAB Take one(1) tablet two(2) times daily. 0 01/23/2006 Active Comment on above: Take one(1) tablet t wo(2) times daily. cholecalciferol 0.025 mg oral capsule (6 sources) Vitamin D Start: 01-17-2021 take 1 capsule by mouth once daily Cholecalciferol (Vitamin D3) 25 mcg (1,000 unit) capsule Active 25 ug PO DAILY January 17, 2021 12:00am COD LIVER OIL ORAL (20 sources) COD LIVER OIL OR AL Take by mouth. Active COD LIVER OIL OR AL Take by mouth. 0 Active Comment on above: Take by mouth. cyanocobalamin, vitamin B-12 , (VITAMIN B-12 ORAL) (20 sources) cyanocobalamin, vitamin B-12, (VITAMIN B-12 ORAL) Take by mouth. Active cyanocobalamin, vitamin B-12, (VITAMIN B-12 ORAL) Take by mouth. 0 Active Comment on above: Take by mouth. magnesium carbonate (20 sources) MAGNESIUM CARBON ATE ORAL Take by mouth. Active MAGNESIUM CARBON ATE ORAL Take by mouth. 0 Active Comment on above: Take by mouth. mecobalamin (4 sources) Start: 01-15-2024 take 1 tablet by mouth every other day Mecobalamin (Vitamin B12) 500 mcg tablet,chewable Active 500 ug PO every other day January 15, 2024 12:00am milk thistle extract 500 mg oral capsule (20 sources) Start: 10-24-2021 Milk Thistle 500 mg cap Take 500 mg by mouth. 10/24/2021 Active Start: 10-24-2021 Milk Thistle 5 00 mg cap Take 500 mg by mouth. 0 10/24/2021 Active Start: 10-24-2021 take 1 capsule by mo uth once daily Milk Thistle 500 mg capsule Active 500 mg PO DAILY October 24, 2021 12:00am give with meal/snack Start: 10-24-2021 take 500 mg by mouth once ronal y Milk Thistle Active 500 MG PO DAILY October 23, 2021 11:00pm give with meal/snack Comment on above: Take 500 mg by mouth . [place]-3 Fatty Acids (Fish Oil Concentrate) 1,000 mg capsule (6 sources) Start: 01-17-2021 take 1 capsule by mouth once daily [place]-3 Fatty Acids (Fish Oil Concentrate) 1,000 mg capsule Active 1000 mg PO DAILY January 17, 2021 12:00am Start: 01-17-2021 take 1 capsule by mo uth once daily [place]-3 Fatty Acids (Fish Oil Concentrate) 1,000 mg capsule Active 1000 MG PO DAILY January 16, 2021 11:00pm omeprazole 20 mg delayed release oral capsule (18 sources) Proton Pump Inhibitor Start: 03-12-2023 take 1 capsule by mouth once daily before breakfast omeprazole (PRILOSEC) 20 mg capsule Indications: Gastroesophageal reflux disease without esophagitis Take 1 capsule by mouth daily before breakfast. 1/2 hr before meal. As directed 30 capsule 2 03/12/2023 Active Comment on above: Take 1 capsule by mo uth daily before breakfast. 1/2 hr before meal. As directed pyridoxine HCl, vitamin B6, (VITAMIN B-6 ORAL) (20 sources) pyridoxine HCl, vitamin B6, (VITAMIN B-6 ORAL) Take by mouth. Active pyridoxine HCl, vitamin B6, (VITAMIN B-6 ORAL) Take by mouth. 0 Active Comment on above: Take by mouth. turmeric root extract 500 mg cap (20 sources) take 1 capsule by mouth every other day turmeric root extract 500 mg cap Take 1 capsule by mouth every other day. Active take 1 capsule by mouth every ot her day turmeric root extract 500 mg cap Take 1 capsule by mouth every other day. 0 Active turmeric root ex tract 500 mg cap 1 cap(s) 0 Active Comment on above: 1 cap(s) vitamin b6 100 mg oral tablet (4 sources) Start: 01-15-2024 take 1 tablet by mouth every other day Pyridoxine (Vitamin B6) 100 mg tablet Active 100 mg PO every other day January 15, 2024 12:00am Completed/Discontinued Medications Medication Drug Class(es) Dates Sig (Normalized) Sig (Original) amoxicillin 875 mg / clavulanate 125 mg oral tablet (7 sources) Penicillin-class Antibacterial Start: 08-18-2023 End: 09-04-2023 take 1 tablet by mouth twice daily amoxicillin-clav ulanate potassium (AUGMENTIN) 875-125 mg per tablet Take 1 tablet by mouth two times a day. 0 08/18/2023 09/04/2023 Start: 08-18-2023 End: 01-15-2024 take 1 tablet by mouth every twelve hours Amoxicillin-Pot Clavulanate 875-125 mg tablet Discontinued 875 mg PO Q12H 20 0 August 18, 2023 1:00am January 15, 2024 11:10am Comment on above: Take 1 tablet by sarahi th two times a day. apixaban 5 mg oral tablet (20 sources) Factor Xa Inhibitor Start: 11-28-2016 End: 07-31-2021 take 1 tablet by mouth twice daily Apixaban 5 mg tablet Discontinued 5 mg PO TWICE A DAY 180 4 December 22, 2020 1:05pm July 31, 2021 4:19pm Comment on above: 5 mg twice daily. calcium carbonate / vitamin D (20 sources) Start: 10-09-2010 End: 12-09-2016 take 1 tablet by mouth once daily CALCIUM CARBONATE-VITAMIN D 600-125 MG-UNIT TABS One tablet by mouth daily CALCIUM CARBONATE-VITAMIN D [id number] Lazaro Akbar MD Start: 10-09-2010 take 1 tablet by sarahi th once daily CALCIUM CARBONATE-VITAMIN D 600-125 MG-UNIT TABS One tablet by mouth daily CALCIUM CARBONATE-VITAMIN D [id number] Lulú Cespedes dilTIAZem hydrochloride 60 mg oral tablet (20 sources) Calcium Channel Cheryle Start: 01-22-2016 End: 11-28-2016 take 2 tablets by mouth at bedtime Diltiazem Hcl 60 MG tablet Discontinued 120 mg PO AT BEDTIME January 22, 2016 12:00am November 28, 2016 11:15am Start: 01-22-2016 End: 11-28-2016 take 120 mg by mouth at bedtime Diltiazem Hcl Disconti nued 120 MG PO AT BEDTIME January 21, 2016 11:00pm November 28, 2016 10:15am Start: 05-30-2015 End: 11-29-2016 take 1 tablet by mouth once daily DILTIAZEM HCL ER 120 MG [id number] One tablet by mouth daily DILTIAZEM HCL [id number] Rosalind Sherman RN docusate sodium 100 mg oral capsule (10 sources) Start: 04-26-2021 End: 11-20-2022 take 1 capsule by mouth every twelve hours as needed docusate sodium (COLACE) 100 mg capsule Take 1 capsule by mouth twice daily as needed for constipation. While taking narcotic pain medications 10 capsule 04/26/2021 11/20/2022 Discontinued (Other) Comment on above: Take 1 capsule by mo [facility] twice daily as needed for constipation. While taking narcotic pain medications ergocalciferol 10573 unt oral tablet (19 sources) Provitamin D2 Compound Start: 12-09-2016 take 1 tablet by mouth every week VITAMIN D (ERGOCALCIFEROL) 68834 UNIT CAPS One tablet by mouth weekly ERGOCALCIFEROL [id number] Lazaro Akbar MD Start: 12-09-2016 take 1 tablet by sarahi every week VITAMIN D (ERGOCALCIFEROL) 25863 UNIT CAPS One tablet by mouth weekly ERGOCALCIFEROL [id number] Lazaro Akbar MD Start: 01-23-2006 End: 03-12-2023 VITAMIN D 400 UNIT CAP Take one(1) tablet two(2) times daily. 0 01/23/2006 03/12/2023 Discontinued Start: 01-23-2006 VITAMIN D 400 UNIT CAP Take one(1) tablet two(2) times daily. 0 01/23/2006 Active Comment on above: Take one(1) tablet t wo(2) times daily. ESTRADIOL (20 sources) Estrogen Start: 10-09-2010 End: 10-23-2011 VIVELLE-DOT 0.025 MG/24HR PTTW twice weekly, Take as directed ESTRADIOL [id number] Lazaro Akbar MD Start: 10-09-2010 VIVELLE-DOT 0. 025 MG/24HR PTTW twice weekly, Take as directed ESTRADIOL [id number] Lulú Cespedes Start: 10-09-2010 End: 10-23-2011 VIVELLE-DOT 0.025 MG/24HR PT TW twice weekly, Take as directed ESTRADIOL [id number] Lazaro Akbar MD flecainide acetate 100 mg oral tablet (20 sources) Antiarrhythmic Start: 11-19-2023 take 0.5 tablet by mouth twice daily flecainide (TAMBOCOR) 100 mg tablet Take 0.5 tablets by mouth two times a day. 11/19/2023 Active Start: 01-31-2021 End: 01-31-2021 Flecainide 50 mg tablet Disc ontinued 25 mg PO TWICE A DAY January 31, 2021 1:42pm January 31, 2021 3:48pm Start: 01-31-2021 End: 01-31-2021 take 25 mg by mouth twice daily Flecainide Discontinue d 25 MG PO TWICE A DAY January 31, 2021 12:42pm January 31, 2021 2:48pm Start: 01-31-2021 End: 07-20-2024 Flecainide 100 mg tablet Discontinued 50 mg PO Q12H 90 July 15, 2022 4:36pm August 08, 2023 1:00pm Start: 01-31-2021 End: 08-08-2023 take 50 mg by mouth every twelve hours Flecainide Active 50 MG PO Q12H 90 August 08, 2023 12:02pm Start: 01-12-2021 End: 01-31-2021 take 1 tablet by mouth twice daily Flecainide 50 mg tablet Discontinued 50 mg PO TWICE A DAY 180 3 January 12, 2021 4:45pm January 31, 2021 1:42pm Start: 11-28-2016 End: 11-19-2023 take 1 tablet by mouth twice daily Flecainide 100 mg tablet Discontinued 100 mg PO TWICE A DAY 180 3 June 17, 2019 2:54pm July 05, 2020 5:22pm Comment on above: Take 1 tablet by sraahi twice daily. This is to fill because told cannot fill her RX early before going to [place] for 4 weeks (cannot run out of med while away). Running out of medication can be detrimental to her health. Do not cancel her usual prescription with refills hydroxychloroquine sulfate 200 mg oral tablet (20 sources) Antirheumatic Agent Start: 2018 End: 2018 take 1 tablet by mouth twice daily Hydroxychloroquine (Plaquenil) 200 mg tablet Discontinued 200 mg PO TWICE A DAY 60 0 November 19, 2018 12:00am June 03, 2019 3:17pm Start: 10-24-2017 End: 06-11-2018 take 1 tablet by mouth once daily Hydroxychloroquine (Plaquenil) 200 mg tablet Discontinued 200 mg PO daily October 24, 2017 12:00am June 11, 2018 2:09pm Start: 10-09-2010 End: 04-30-2012 take 1 tablet by mouth once daily PLAQUENIL 200 MG TABS One tablet by mouth daily HYDROXYCHLOROQUINE SULFATE [id number] Lazaro Akbar MD ibuprofen 200 mg oral tablet (6 sources) Nonsteroidal Anti-inflammatory Drug Start: 06-11-2018 End: 11-18-2018 take 1 tablet by mouth once daily as needed Ibuprofen (Advil) 200 mg tablet Discontinued 200 mg PO DAILY as needed June 11, 2018 1:00am November 18, 2018 11:09am losartan potassium 50 mg oral tablet (20 sources) Angiotensin 2 Receptor Cheryle Start: 08-08-2023 End: 10-11-2024 take 1 tablet by mouth once daily Losartan 50 mg tablet Discontinued 50 mg PO DAILY 90 3 August 09, 2024 5:23pm October 11, 2024 3:09pm Comment on above: Take 50 mg by mouth once daily. Dr. Hamlet fonseca Magnesium (6 sources) Start: 01-17-2021 End: 10-24-2021 take 1 tablet by mouth once daily Magnesium 250 mg tablet Discontinued 250 mg PO DAILY January 17, 2021 12:00am October 24, 2021 10:03am Start: 01-17-2021 End: 10-24-2021 take 250 mg by mouth once daily Magnesium Discontinued 250 MG PO DAILY January 16, 2021 11:00pm October 24, 2021 9:03am meloxicam 15 mg oral tablet (20 sources) Nonsteroidal Anti-inflammatory Drug Start: 08-07-2015 End: 01-31-2016 take 1 tablet by mouth once daily MELOXICAM 15 MG TABS One tablet by mouth daily MELOXICAM [id number] Lazaro Akbar MD metoprolol tartrate 25 mg oral tablet (20 sources) beta-Adrenergic Cheryle Start: 03-29-2021 End: 08-08-2023 take 12.5 mg by mouth twice daily Metoprolol Tartrate Active 12.5 MG PO TWICE A DAY August 08, 2023 12:02pm Start: 01-12-2021 End: 03-29-2021 take 2 tablets by mouth once daily Metoprolol Succinate 25 mg tablet extended release 24 hr Discontinued 12.5 mg PO DAILY January 31, 2021 1:42pm March 29, 2021 4:57pm Start: 01-12-2021 End: 03-29-2021 take 12.5 mg by mouth once daily Metoprolol Succinate Discontinued 12.5 MG PO DAILY January 31, 2021 12:42pm March 29, 2021 3:57pm Start: 11-29-2016 take 1 tablet by sarahi th twice daily METOPROLOL TARTRATE 25 MG TABS One half tablet by mouth twice daily METOPROLOL TARTRATE [id number] Lazaro Akbar MD Start: 11-28-2016 End: 08-09-2024 Metoprolol Tartrate 25 mg ta blet Discontinued 12.5 mg PO TWICE A DAY April 29, 2023 3:36pm August 08, 2023 1:00pm avoid [employer] pink brand, doesn't work for pt. Start: 11-28-2016 End: 01-12-2021 take 12.5 mg by mouth twice daily Metoprolol Tartrate Discontinued 12.5 MG PO TWICE A DAY June 17, 2019 1:54pm July 05, 2020 4:22pm Comment on above: 12.5 mg twice daily. predniSONE 10 mg oral tablet (20 sources) Corticosteroid Start: 08-25-2023 End: 09-06-2023 predniSONE (DELTASONE) 10 mg tablet 20 mg daily for 4 days then 10 mg for 7 then 5 mg daily for 7 days. Will treat flare ups as needed 60 tablet 0 08/25/2023 09/06/2023 Start: 07-15-2023 End: 08-25-2023 predniSONE (DELTASONE) 10 mg tablet Indications: Cervicalgia , Acute ear pain, bilateral , Inflammatory arthritis Take 40 mg x 5 days, 20 mg x 5 days, 10 mg x 5 days. Take with food 35 tablet 0 07/24/2023 08/25/2023 Discontinued (Course of therapy completed) Start: 11-18-2018 End: 11-18-2019 take 1 tablet by mouth once daily Prednisone 2.5 mg tablet Discontinued 2.5 mg PO DAILY November 18, 2018 12:00am November 18, 2019 10:01am Start: 10-09-2010 End: 10-23-2011 PREDNISONE 5 MG TABS 1/2 tab let daily PREDNISONE [id number] Lazaro Akbar MD Comment on above: Take 4 tabs daily x 3 days, then 3 tabs x 3 days, 2 tabs x 3 days, then 1 tab x3 days with food. Take 40 mg x 5 days, 20 mg x 5 days, 10 mg x 5 days. Take with food 20 mg daily for 4 da ys then 10 mg for 7 then 5 mg daily for 7 days. Will treat flare ups as needed traMADol hydrochloride 50 mg oral tablet (10 sources) Opioid Agonist Start: End: 3 take 1 tablet by mouth every eight hours as needed for pain traMADol (ULTRAM) 50 mg tablet Indications: Radial scar of left breast Take 1 tablet by mouth every 8 hours as needed for pain. 10 tablet 04/26/2021 11/20/2022 Discontinued (Other) Comment on above: Take 1 tablet by sarahi every 8 hours as needed for pain. vitamin a 1250 unt / vitamin d 135 unt oral capsule (14 sources) Vitamin A Start: 1 VIT A/D COD LIVER OIL CAPS 1 tsp daily VITAMINS A & D CAPS [id number] Lazaro Akbar MD VITAMINS A & D CAPS (20 sources) Start: 2 VIT A/D COD LIVER OIL CAPS 1 tsp daily VITAMINS A & D CAPS [id number] Lazaro Akbar MD Start: 10-09-2010 VIT A/D COD LI LATASHA OIL CAPS 1 tsp QD VITAMINS A & D CAPS [id number] Lulú Cline Cespedes Problems Active Problems Problem Classification Problem Date Documented Da te Episodic/Chronic Cardiac dysrhythmias (20 sources) Paroxysmal supraventricular tachycardia; Translations: [Ventricular premature beats] Onset: 9 Resolved: 7 08-07-2015 Chronic Cardiac dysrhythmias (20 sources) Palpitations; Translations: [Palpitations] Onset: 1 10-09-2010 Episodic Disorders of lipid metabolism (20 sources) Hyperlipidemia; Translations: [Hyperlipidemia, unspecified] Onset: 5 11-01-2014 Chronic Diverticulosis and diverticulitis (20 sources) Diverticulosis of colon; Translations: [Diverticulosis of large intestine without perforation or abscess without bleeding] 06-02-2017 Chronic Esophageal disorders (1 source) Gastroesophageal reflux disease without esophagitis; Translations: [Gastro-esophageal reflux disease without esophagitis] 11-19-2023 Chronic Essential hypertension (10 sources) Hypertensive disorder; Translations: [Essential (primary) hypertension] 08-18-2023 Chronic Headache; including migraine (18 sources) Episodic tension-type headache; Translations: [Episodic tension-type headache, not intractable] Onset: 5 11-19-2023 Chronic Headache; including migraine (2 sources) Acute headache; Translations: [Acute nonintractable headache, unspecified headache type] 07-24-2023 Episodic Heart valve disorders (20 sources) Mitral valve disorder; Translations: [Mitral valve regurgitation] Onset: 1 10-09-2010 Chronic Heart valve disorders (20 sources) Heart murmur; Translations: [Cardiac murmur, unspecified] Onset: 1 10-09-2010 Episodic Nonmalignant breast conditions (6 sources) Fibrocystic changes of bilateral breasts; Translations: [Diffuse cystic mastopathy of right breast] Onset: 4 Chronic Nutritional deficiencies (3 sources) Vitamin D deficiency; Translations: [Vitamin D deficiency, unspecified] Onset: 5 Chronic Osteoarthritis (20 sources) Arthritis; Translations: [Unspecified osteoarthritis, unspecified site] Onset: 7 06-02-2017 Chronic Other aftercare (1 source) Patient encounter status; Translations: [Encounter for therapeutic drug level monitoring] 07-15-2023 Episodic Other aftercare (5 sources) Long-term current use of anticoagulant; 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] 08-18-2023 Episodic Other aftercare (2 sources) Long-term current use of drug therapy; Translations: [Encounter for therapeutic drug level monitoring] 12-31-2024 Episodic Other aftercare (1 source) Encounter for therapeutic drug level monitoring; Translations: [Encounter for therapeutic drug monitoring] Onset: 5 Episodic Other and unspecified benign neoplasm (3 sources) Papilloma of breast; Translations: [Benign neoplasm of left breast] Episodic Other and unspecified benign neoplasm (1 source) Benign neoplasm of left breast; Translations: [Papilloma of left breast] Onset: 4 Episodic Other congenital anomalies (2 sources) Porokeratosis; Translations: [Other specified congenital malformations of skin] Chronic Other connective tissue disease (3 sources) Pain in hallux; Translations: [Pain in left toe(s)] Episodic Other connective tissue disease (1 source) Swelling of right lower limb; Translations: [Other specified soft tissue disorders] 11-19-2023 Episodic Other ear and sense organ disorders (1 source) Pain of ear structure; Translations: [Otalgia, bilateral] 07-24-2023 Episodic Other gastrointestinal disorders (19 sources) Constipation; Translations: [Constipation, unspecified] Resolved: 7 01-17-2021 Episodic Other gastrointestinal disorders (1 source) Diarrhea; Translations: [Diarrhea, unspecified] 10-02-2023 Episodic Other inflammatory condition of skin (1 source) Pruritus, unspecified; Translations: [Unspecified pruritic disorder] 03-10-2023 Episodic Other liver diseases (2 sources) Fatty (change of) liver, not elsewhere classified; Translations: [Other chronic nonalcoholic liver disease] Onset: 5 06-30-2024 Chronic Other liver diseases (1 source) Elevated liver enzymes level; Translations: [Abnormal levels of other serum enzymes] 07-25-2024 Episodic Other lower respiratory disease (6 sources) Dyspnea; Translations: [Shortness of breath] 06-14-2022 Episodic Other lower respiratory disease (6 sources) Chest pain on breathing; Translations: [Chest pain on breathing] 08-15-2017 Episodic Other lower respiratory disease (2 sources) Shortness of breath; Translations: [Shortness of breath] Onset: 5 Episodic Other lower respiratory disease (1 source) Cough; Translations: [Cough] 07-24-2023 Episodic Other nervous system disorders (8 sources) Polyneuropathy; Translations: [Polyneuropathy, unspecified] 06-15-2024 Chronic Other nervous system disorders (1 source) Polyneuropathy, unspecified; Translations: [Polyneuropathy, unspecified] Onset: 5 Chronic Other non-traumatic joint disorders (1 source) Multiple joint pain; Translations: [Pain in unspecified joint] 07-25-2024 Episodic Other screening for suspected conditions (not mental disorders or infectious disease) (20 sources) Other specified abnormal findings of blood chemistry; Translations: [Other abnormal blood chemistry] Onset: 4 Episodic Other upper respiratory infections (10 sources) Chronic maxillary sinusitis; Translations: [Chronic maxillary sinusitis] 08-18-2023 Chronic Other upper respiratory infections (1 source) Acute sinusitis; Translations: [Other acute sinusitis] 10-02-2023 Episodic Residual codes; unclassified (20 sources) Family history of malignant neoplasm of gastrointestinal tract; Translations: [Family history of malignant neoplasm of digestive organs] 12-15-2008 Episodic Residual codes; unclassified (20 sources) Family history of cancer of colon; Translations: [Family history of malignant neoplasm of digestive organs] Onset: 5 09-20-2014 Episodic Residual codes; unclassified (1 source) Bilateral lower limb edema; Translations: [Localized edema] Episodic Residual codes; unclassified (3 sources) Family history of breast cancer; Translations: [Family history of malignant neoplasm of breast] 03-10-2023 Episodic Residual codes; unclassified (1 source) Family history of malignant neoplasm of breast; Translations: [Family history of breast cancer] Onset: 4 Episodic Residual codes; unclassified (6 sources) Edema; Translations: [Edema, unspecified] 01-15-2024 Episodic Residual codes; unclassified (1 source) Localized edema; Translations: [Bilateral lower extremity edema] Onset: 5 Episodic Rheumatoid arthritis and related disease (9 sources) Rheumatoid arthritis; Translations: [Rheumatoid arthritis, unspecified] Onset: 5 Chronic Screening and history of mental health and substance abuse codes (2 sources) Encounter for screening examination for other mental health and behavioral disorders; Translations: [Encounter for screening for depression] Onset: Episodic Spondylosis; intervertebral disc disorders; other back problems (8 sources) Pain in cervical spine; Translations: [Cervical disc disorder, unspecified, unspecified cervical region] 07-15-2023 Chronic Spondylosis; intervertebral disc disorders; other back problems (1 source) Neck pain; Translations: [Cervicalgia] 07-24-2023 Episodic Syncope (20 sources) Syncope and collapse; Translations: [Syncope] Onset: 1 10-09-2010 Episodic Unclassified (10 sources) Preoperative cardiovascular examination ; Translations: [Encounter for preprocedural cardiovascular examination] Onset: 7 11-06-2016 Unclassified (3 sources) Finding of body mass index; Translations: [Body mass index (BMI) 26.0-26.9, adult] Onset: 4 04-18-2014 Unclassified (1 source) Headaches; Translations: [Headaches] Onset: 5 Past or Other Problems Problem Classification Problem Date Documented Date Episodic/Chronic Diabetes mellitus without complication (1 source) Hyperglycemia, unspecified; Translations: [Hyperglycemia, unspecified] Onset: 09-06-2024 Episodic Hemorrhoids (13 sources) Internal hemorrhoids; Translations: [Other hemorrhoids] Resolved: 10-13-2015 10-13-2015 Episodic Immunizations and screening for infectious disease (20 sources) Hepatitis C antibody test positive; Translations: [Other specified abnormal immunological findings in serum] Onset: 06-02-2017 06-02-2017 Episodic Nonmalignant breast conditions (20 sources) Radial scar of left breast; Translations: [Other specified disorders of breast] Onset: 04-26-2021 04-26-2021 Episodic Other connective tissue disease (18 sources) Pain in limb; Translations: [Pain in unspecified limb] Onset: 10-09-2010 10-09-2010 Episodic Other female genital disorders (13 sources) Vaginal intraepithelial neoplasia grade 1; 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] Onset: 04-24-2009 Resolved: 06-02-2017 06-02-2017 Episodic Other lower respiratory disease (17 sources) Dyspnea on exertion; Translations: [Other forms of dyspnea] Onset: 11-06-2016 11-06-2016 Episodic Other nutritional; endocrine; and metabolic disorders (15 sources) Body mass index (BMI) 26.0-26.9, adult; Translations: [Body mass index (BMI) 26.0-26.9, adult] Onset: 04-18-2014 04-18-2014 Episodic Unclassified (18 sources) Family history of stroke; Translations: [Family history of stroke] 04-18-2014 Episodic Results Test Name Value Interpretation Reference Range Facility Anion gap in Serum or Plasma Ordered By: Elie Whelan on 12-31-2024 Anion gap [Moles/Vol] 8 mmol/L 10-28 [facility] BUN/creatinine ratioOrdered By: Elie Whelan on 12-31-2024 Urea nitrogen/Creatinine [Mass ratio] 23.1 mg/mg [facility] Basic Metabolic Profile (BMP )on 12-31-2024 BUN/CRE 23.1 RATIO High [address] [place] [address] Comment on above: Performed By: #### L 501.5200, L500.2500, L501.9520 #### [facility] [address] [place], [address] Calcium [Mass/Vol] 9.4 mg/dL Normal 7.6-11.0 [facility] Comment on above: Performed By: #### L 501.5200, L500.2500, L501.9520 #### [facility] [address] [place], [address] Chloride [Moles/Vol] 106 mmol/L Normal 98-108 [facility] Comment on above: Performed By: #### L 501.5200, L500.2500, L501.9520 #### [facility] [address] [place], [address] CO2 [Moles/Vol] 26.5 mmol/L Normal 21.0-32.0 [facility] Comment on above: Performed By: #### L 501.5200, L500.2500, L501.9520 #### [facility] [address] [place], [address] Creatinine [Mass/Vol] 0.75 mg/dL Normal 0.70-1.20 [facility] Comment on above: Performed By: #### L 501.5200, L500.2500, L501.9520 #### [facility] [address] [place], [address] GAP 8 Normal 5-15 [facility] Comment on above: Performed By: #### L 501.5200, L500.2500, L501.9520 #### [facility] [address] [place], [address] GFR/1.73 sq M.predicted among non-blacks MDRD (S/P/Bld) [Vol rate/Area] 81 mL/min/{1.73_m2} Normal >60 [facility] Comment on above: Result Comment: mL/m in/1.73m2 CKD-EPI Creatinine Equation (2020) Performed By: #### L 501.5200, L500.2500, L501.9520 #### [facility] [address] [place], [address] Glucose [Mass/Vol] 90 mg/dL Normal 70-99 [facility] Comment on above: Performed By: #### L 501.5200, L500.2500, L501.9520 #### [facility] [address] [place], [address] Potassium [Moles/Vol] 4.5 mmol/L Normal 3.3-5.1 [facility] Comment on above: Performed By: #### L 501.5200, L500.2500, L501.9520 #### [facility] [address] [place], [address] Sodium [Moles/Vol] 141 mmol/L Normal 133-145 [facility] Comment on above: Performed By: #### L 501.5200, L500.2500, L501.9520 #### [facility] [address] [place], [address] Urea nitrogen [Mass/Vol] 17 mg/dL Normal 4-19 [facility] Comment on above: Performed By: #### L 501.5200, L500.2500, L501.9520 #### [facility] [address] [place], [address] Carbon dioxide, total [Moles /volume] in Central venous bloodOrdered By: Elie Whelan on 12-31-2024 CO2 [Moles/Vol] 26.5 mmol/L 21.0-32.0 [facility] Cardiology Visit Reporton Cardiology Visit Report [facility] [address] [place] [address] OFFICE VISIT Date of Service: 12/31/24 MR#: [id number] Acct: [id number] Name: ONEIDA STEWARD Rep #: [id number] : 1945 Provider: RUI Pierce Age/Sex: 79/F Location: [facility] Status: Signed HPI HPI History of Present Illness Details: Oneida Steward is a 79-year-old female who presents to office today with acute concerns of irregular heart rate and feeling palpitations over the last couple months. She called in on 12/30/2024 with these concerns and reported an episode that happened that morning. She has a history of syncope, PACs/PVCs, paroxysmal atrial fibrillation, valvular heart disease with MR/TR and hyperlipidemia. Upon presentation today, patient reports noticing palpitations described as irregular heart beats and fast heart beats, most noticed at rest, in the evenings. She has been woken up in the middle of the night with these. She denies associated chest pain. The frequency fluctuates, can happen 1-2x per week, a little more, or not at all. Prior to June of this year, these were rarely noticed but have become more frequent. She reports feeling up-tight with these episodes. She also reports chronic SOB with stairs or an inclined walk that has been noticed for a few years now, and she denies noticing in worsening or improvement in this symptom. She feels her fatigue has increased. This is most noticed in the morning after waking up and eating breakfast in which she finds herself lying back down. This is not noticed every morning. She feels she sleeps well at night. Her R LE edema is chronic, has been noticed over last 1-2 years and she notices this improved with elevation and worse with sitting for long periods of time. She finds herself lightheaded a little bit more lately and has had to be cautious, this is noticed while being active and resolves within seconds. Further ROS below. Intake Vital Signs 09/06/24 10:21 12/31/24 06:37 Height 5 ft 6 in 5 ft 6 in Weight: 181 lb 181 lb BMI 29.2 29.2 BP 110/66 112/67 Blood Pressure Location Rt brachial Lt brachial Position Sitting Sitting Respiration 15 18 Pulse 63 61 Pulse Source Monitor Monitor Temp 98.4 F Pulse Oximetry (%) 98 95 Oxygen Delivery Method room air Intake Visit Reasons: Palps, irreg HR, see clinical. Mobile Equipment Operator Required: No Is patient in pain?: No Allergies iodine Adverse Reaction (Severe, Verified 12/31/24 08:43) Pt, states may have possible reaction Medications ???Medication ???Instructions ???Recorded ???Confirmed ???Type cholecalciferol (vitamin D3) 25 25 mcg PO DAILY 01/17/21 12/31/24 History mcg (1,000 unit) capsule omega-3 fatty acids 1,000 mg 1,000 mg PO DAILY 01/17/21 5 History capsule (Fish Oil Concentrate) apixaban 5 mg tablet 5 mg PO BID #180 tabs 07/31/21 Rx milk thistle 500 mg capsule 500 mg PO DAILY 10/24/21 12/31/24 History mecobalamin (vitamin B12) 500 mcg 500 mcg PO Q OTHER DAY 01/15/24 0 12/31/24 History chewable tablet pyridoxine (vitamin B6) 100 mg 100 mg PO Q OTHER DAY 01/15/24 History tablet flecainide 100 mg tablet 50 mg (1/2 x 100 mg) PO Q12H #90 0 07/20/24 12/31/24 Rx tabs metoprolol tartrate 25 mg tablet 12.5 mg (1/2 x 25 mg) PO BID avoid 08/09/24 12/31/24 Rx [employer] pink brand, doesn't work for pt. #90 tabs losartan 50 mg tablet 50 mg PO DAILY #90 tabs 10/11/24 0 12/31/24 Rx Ejection fraction %: 60 Have you fallen in the past year?: No PFSH Medical History Wears glasses Post-menopausal Alcohol use High cholesterol Migraine headache Non-smoker Shortness of breath on exertion Cardiology follow-up encounter Constipation Family history of colon cancer in father PVD (peripheral vascular disease) Nonrheumatic mitral (valve) insufficiency Pure hypercholesterolemia Syncope and collapse Dyspnea on exertion Palpitations Cardiac murmur Paroxysmal supraventricular tachycardia by electrocardiogram (ECG) Shortness of breath Chest pain on respiration Syncope HLD (hyperlipidemia) Mitral valve regurgitation PVC (premature ventricular contraction) PAC (premature atrial contraction) Rheumatoid arthritis New onset a-fib Surgical History History of cyst of breast ( 04/2021) History of shoulder replacement History of cholecystectomy History of tonsillectomy History of hysterectomy History of tubal ligation History of repair of rotator cuff History of carpal tunnel release Family History Father Colon cancer Mother CVA (cerebral vascular accident) So (more content not included)... Normal [facility] Chloride assayOrdered By: Salo Whelan on 12-31-2024 Chloride [Moles/Vol] 106 mmol/L 98-108 [facility] Glomerular filtration rate ( GFR) estimation/1.73 sq m using serum, plasma, or whole bOrdered By: Eile Whelan on 12-31-2024 GFR/1.73 sq M.predicted among non-blacks MDRD (S/P/Bld) [Vol rate/Area] 81 mL/min/{1.73_m2} >60 [facility] Comment on above: mL/min/1.73m2 CKD-EP I Creatinine Equation (2020) Magnesiumon 12-31-2024 Magnesium [Mass/Vol] 1.9 mg/dL Normal 1.5-2.2 [facility] Comment on above: Performed By: #### L 501.5200, L500.2500, L501.9520 #### [facility] [place], [address] Magnesium measurement (mass/ volume)Ordered By: Elie Whelan on 12-31-2024 Magnesium (Unsp spec) [Mass/Vol] 1.9 mg/dL 1.5-2.2 [facility] Potassium measurement (mass/ volume)Ordered By: Elie Whelan on 12-31-2024 Potassium (Unsp spec) [Mass/Vol] 4.5 mmol/L 3.3-5.1 [facility] Serum creatinine measurement (mass/volume)Ordered By: Elie Whelan on 12-31-2024 Creatinine [Mass/Vol] 0.75 mg/dL 0.70-1.20 [facility] Serum glucose measurement (m ass/volume)Ordered By: Elie Whelan on 12-31-2024 Glucose [Mass/Vol] 90 mg/dL 70-99 [facility] Serum or plasma calcium marifer urement (mass/volume)Ordered By: Elie Whelan on 12-31-2024 Calcium [Mass/Vol] 9.4 mg/dL 7.6-11.0 [facility] Serum or plasma urea nitroge n measurement (mass/volume)Ordered By: Elie Whelan on 12-31-2024 Urea nitrogen [Mass/Vol] 17 mg/dL 4-19 [facility] Sodium levelOrdered By: Salomarlo Whelan on 12-31-2024 Sodium [Moles/Vol] 141 mmol/L 133-145 [facility] TSH DL <= 0.005 mIU/L QnOrde red By: Elie Whelan on 12-31-2024 TSH Qn 2.790 uIU/mL 0.300-4.20 0 [facility] Thyroid Stim Hormone (TSH)on 12-31-2024 TSH 2.790 uIU/mL Normal 0.300-4.20 0 [facility] Comment on above: Performed By: #### L 501.5200, L500.2500, L501.9520 #### [facility] [address] [place], [address] CNOVon 12-28-2024 CNOV Office Visit (INTMWS ) ONEIDA STEWARD I ([id number]) 1945 F Date Time Provider Department 12/28/24 2:20 PM NIYA MARTINEZ INTWS During your visit today, we recorded the following information about you: Pulse Blood pressure Weight 57/minute 99/63 81.2 kg Niya Martinez MD 01/21/2025 12:57 AM Signed This note was created using [employer]. Subjective Oneida Steward is a 79 year old female. SUBJECTIVE: Oneida Steward is a 79-year-old female with a history of atrial fibrillation, presenting for a Medicare Annual Wellness Visit. Oneida reports episodes of tachycardia, particularly nocturnally, and occasionally upon waking. She is currently on flecainide, but notes that the generic version is ineffective. She has identified a specific white pill that works and requests this formulation. She denies recent episodes of atrial fibrillation. She also reports occasional fatigue, particularly in the mornings, but denies anxiety, depression, or suicidal ideation. Oneida has a history of elevated cholesterol and is currently on metoprolol. Recent lab results show LDL levels fluctuating between 130-147 mg/dL, with previous levels in the 150s. HDL levels have improved from the 70s to the 80s, and triglycerides are in the 60s. She denies consuming processed foods or high-fructose corn syrup, but admits to occasional ice cream and cake consumption. Oneida has a history of fatty liver disease, with recent lab results showing elevated alkaline phosphatase levels (230 U/L, previously 190 U/L) and slightly elevated AST and ALT levels. A recent FibroScan showed minimal fibrosis, and a repeat scan is scheduled for next year. She denies any new symptoms related to her liver condition. She also reports a recent episode of bleeding from a lesion on her leg, which occurred in late September. The lesion formed a thick crust and took several weeks to heal. She denies any known trauma to the area and is unsure of the cause of the bleeding. She used zinc cream during the healing process. She also reports mild swelling in her legs, which worsens throughout the day, particularly in hot weather. She denies any current issues with diarrhea and is no longer taking Lomotil. She also reports occasional use of omeprazole for acid reflux, but denies needing it regularly. PAST MEDICAL HISTORY Diagnosis Date Diarrhea Diverticulosis of colon (without mention of hemorrhage) Paroxysmal atrial fibrillation (HCC) 06/02/2017 Controlled on current meds; Dr. Akbar managing. Positive hepatitis C antibody test 06/02/2017 negative for chronic active hepatitis C Pure hypercholesterolemia 11/01/2014 Rheumatoid arthritis(714.0) Remission; note that diagnosis inflammatory arthritis (neg RF) on Dr. 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 losartan (COZAAR) 50 mg tablet Take 50 mg by mouth once daily. Dr. Leyva Milk Thistle 500 mg cap Take 500 mg by mouth. turmeric root extract 500 mg cap Take 1 capsule by mouth every other day. pyridoxine HCl, vitamin B6, (VITAMIN B-6 ORAL) Take by mouth. cyanocobalamin, vitamin B-12, (VITAMIN B-12 ORAL) Take by mouth. COD LIVER OIL ORAL Take by mouth. ELIQUIS 5 mg tab tab(s) 5 mg twice daily. metoprolol tartrate, short acting, (LOPRESSOR) 25 mg tablet 12.5 mg twice daily. CALCIUM 500 MG TAB Take one(1) tablet two(2) times daily. MAGNESIUM CARBONATE ORAL Take by mouth. No current facility-administered medications for this visit. Review of Systems Objective BP 99/63 (BP Site: Left Arm, BP Position: Sitting, BP Cuff Size: Large Adult) Pulse (!) 57 Wt 81.2 kg (179 lb 0.2 oz) BMI 28.94 kg/m? Physical Exam Constitutional: Appearance: Normal appearance. HENT: Head: Normocephalic. Eyes: Conjunctiva/sclera: Conjunctivae normal. Cardiovascular: Rate and Rhythm: Normal rate and regular rhythm. Heart sounds: Normal heart sounds. Pulmonary: Effort: Pulmonary effort is normal. Breath sounds: Normal breath sounds. Musculoskeletal: Right lower le+ Pitting Edema present. Left lower le+ Pitting Edema present. Skin: General: Skin is warm and dry. Neurological: General: No focal deficit present. Mental Status: She is alert and oriented to person, place, and time. Psychiatric: Mood and Affect: Mood normal. Behavior: Behavior normal. Thought Content: Thought content normal. Judgment: Judgment normal. Latest Ref [facility] 12/31/2023 06/28/2024 12/27/2024 Protein, Total 6.3 - 8.0 g/dL 6.7 7.3 7.2 Albumin 3.9 - 4.9 g/dL 3.8 (L) 4.0 3.9 Calcium 8.5 - 10.2 mg/dL 9.2 9.5 9.4 Bilirubin, Total 0.2 - 1.3 mg/dL 0.3 0.4 0.4 Alkaline Phosphatase 34 - 123 U/L 176 (H) 197 (H) 234 (H) AST 13 - 35 U/L (more content not included)... Normal [facility] 25-hydroxyvitamin D3 [Mass/Vol] 53.2 ng/mL Normal 31.0-80.0 [facility] Comment on above: Order Comment: Speci men Type: BLOOD SPECIMEN Ordering Facility: [facility] Address: [address] [place] [address] Result Comment: Clas sification of 25 [place] Vitamin D status: Deficiency/Insufficiency: < or = 30 ng/ml. Sufficiency/Optimal Levels: 31-80 ng/mL Toxicity: > 100 ng/mL. Test performed by chemiluminescent immunoassay. Performed By: #### 1 989-3 #### [facility] CLIA [id number] [address] [place] [address] [place] CBC panel Auto (Bld)on 12-27 Erythrocyte distribution width (RBC) [Ratio] 14.3 % Normal 11.5-15.0 [facility] Comment on above: Order Comment: Dakota grier Type: BLOOD SPECIMEN Ordering Facility: [facility] Address: [address] [place] [address] Performed By: #### 4 537-7, 78997-8 #### [facility] CLIA [id number] [address] [place] [address] [place] Hematocrit (Bld) [Volume fraction] 41.2 % Normal 36.0-46.0 [facility] Comment on above: Order Comment: Dakota grier Type: BLOOD SPECIMEN Ordering Facility: [facility] Address: [address] [place] [address] Performed By: #### 4 537-7, 55458-8 #### [facility] CLIA [id number] [address] [place] [address] [place] Hemoglobin (Bld) [Mass/Vol] 13.5 g/dL Normal 11.5-15.5 [facility] Comment on above: Order Comment: Speci men Type: BLOOD SPECIMEN Ordering Facility: [facility] Address: [address] [place] [address] Performed By: #### 4 537-7, 74018-0 #### [facility] CLIA [id number] [address] [place] [address] [place] MCH (RBC) [Entitic mass] 31.2 pg Normal 26.0-34.0 [facility] Comment on above: Order Comment: Speci men Type: BLOOD SPECIMEN Ordering Facility: [facility] Address: [address] [place] [address] Performed By: #### 4 537-7, 22103-0 #### [facility] CLIA [id number] [address] [place] [address] [place] MCHC (RBC) [Mass/Vol] 32.8 g/dL Normal 30.5-36.0 [facility] Comment on above: Order Comment: Speci men Type: BLOOD SPECIMEN Ordering Facility: [facility] Address: [address] [place] [address] Performed By: #### 4 537-7, 35811-6 #### [facility] CLIA [id number] [address] [place] [address] [place] MCV (RBC) [Entitic vol] 95.2 fL Normal 80.0-100.0 [facility] Comment on above: Order Comment: Speci men Type: BLOOD SPECIMEN Ordering Facility: [facility] Address: [address] [place] [address] Performed By: #### 4 537-7, 95584-1 #### [facility] CLIA [id number] [address] [place] [address] [place] Nucleated RBC (Bld) [#/Vol] 10*3/uL Normal <0.01 [facility] Comment on above: Order Comment: Speci men Type: BLOOD SPECIMEN Ordering Facility: [facility] Address: [address] [place] [address] Performed By: #### 4 537-7, 79323-4 #### [facility] CLIA [id number] [address] [place] [address] [place] Platelet mean volume (Bld) [Entitic vol] 11.4 fL Normal 9.0-12.7 [facility] Comment on above: Order Comment: Speci men Type: BLOOD SPECIMEN Ordering Facility: [facility] Address: [address] [place] [address] Performed By: #### 4 537-7, 13901-0 #### [facility] CLIA [id number] [address] [place] [address] [place] Platelets (Bld) [#/Vol] 248 10*3/uL Normal 150-400 [facility] Comment on above: Order Comment: Speci men Type: BLOOD SPECIMEN Ordering Facility: [facility] Address: [address] [place] [address] Performed By: #### 4 537-7, 77585-6 #### [facility] CLIA [id number] [address] [place] [address] [place] RBC (Bld) [#/Vol] 4.33 10*6/uL Normal 3.90-5.20 [facility] Comment on above: Order Comment: Speci men Type: BLOOD SPECIMEN Ordering Facility: [facility] Address: [address] [place] [address] Performed By: #### 4 537-7, 76927-2 #### [facility] CLIA [id number] [address] [place] [address] [place] WBC (Bld) [#/Vol] 7.19 10*3/uL Normal 3.70-11.00 [facility] Comment on above: Order Comment: Speci men Type: BLOOD SPECIMEN Ordering Facility: [facility] Address: [address] [place] [address] Performed By: #### 4 537-7, 80644-1 #### [facility] CLIA [id number] [address] [place] [address] [place] [facility] 12-27-2024 CRP [Mass/Vol] mg/L Normal <0.9 [facility] Comment on above: Order Comment: Speci men Type: BLOOD SPECIMEN Ordering Facility: [facility] Address: [address] [place] [address] Performed By: #### 4 537-7, 98757-3 #### [facility] CLIA [id number] [address] [place], [place] [id number] [place] Comprehensive metabolic 2000 panelon 12-27-2024 Albumin [Mass/Vol] 3.9 g/dL Normal 3.9-4.9 [facility] Comment on above: Order Comment: Speci men Type: BLOOD SPECIMEN Ordering Facility: [facility] Address: [address] [place] [address] Performed By: #### 4 537-7, 19231-3 #### [facility] CLIA [id number] [address] [place] [address] [place] ALP [Catalytic activity/Vol] 234 U/L High 34-123 [facility] Comment on above: Order Comment: Speci men Type: BLOOD SPECIMEN Ordering Facility: [facility] Address: [address] [place] [address] Performed By: #### 4 537-7, 78753-8 #### [facility] CLIA [id number] [address] [place], [place] [address] [place] ALT [Catalytic activity/Vol] 93 U/L High 7-38 [facility] Comment on above: Order Comment: Speci men Type: BLOOD SPECIMEN Ordering Facility: [facility] Address: [address] [place] [address] Performed By: #### 4 537-7, 64970-6 #### [facility] CLIA [id number] [address] [place], [place] [address] [place] Anion gap [Moles/Vol] 9 mmol/L Normal 8-15 [facility] Comment on above: Order Comment: Speci men Type: BLOOD SPECIMEN Ordering Facility: [facility] Address: [address] [place] [address] Performed By: #### 4 537-7, 78884-2 #### [facility] CLIA [id number] [address] [place] [address] [place] AST [Catalytic activity/Vol] 71 U/L High 13-35 [facility] Comment on above: Order Comment: Speci men Type: BLOOD SPECIMEN Ordering Facility: [facility] Address: [address] [place] [address] Performed By: #### 4 537-7, 66531-7 #### [facility] CLIA [id number] [address] [place] [address] [place] Bilirubin [Mass/Vol] 0.4 mg/dL Normal 0.2-1.3 [facility] Comment on above: Order Comment: Speci men Type: BLOOD SPECIMEN Ordering Facility: [facility] Address: [address] [place] [address] Performed By: #### 4 537-7, 90346-6 #### [facility] CLIA [id number] [address] [place] [address] [place] Calcium [Mass/Vol] 9.4 mg/dL Normal 8.5-10.2 [facility] Comment on above: Order Comment: Speci men Type: BLOOD SPECIMEN Ordering Facility: [facility] Address: [address] [place] [address] Performed By: #### 4 537-7, 13124-6 #### [facility] CLIA [id number] [address] [place] [address] [place] Chloride [Moles/Vol] 103 mmol/L Normal 98-107 [facility] Comment on above: Order Comment: Speci men Type: BLOOD SPECIMEN Ordering Facility: [facility] Address: [address] [place] [address] Performed By: #### 4 537-7, 67071-8 #### [facility] CLIA [id number] [address] [place] [address] [place] CO2 [Moles/Vol] 27 mmol/L Normal 22-30 [facility] Comment on above: Order Comment: Speci men Type: BLOOD SPECIMEN Ordering Facility: [facility] Address: [address] [place] [address] Performed By: #### 4 537-7, 28137-3 #### [facility] CLIA [id number] [address] [place] [address] [place] Creatinine [Mass/Vol] 0.75 mg/dL Normal 0.58-0.96 [facility] Comment on above: Order Comment: Speci men Type: BLOOD SPECIMEN Ordering Facility: [facility] Address: [address] [place] [address] Performed By: #### 4 537-7, 97197-8 #### [facility] IA [id number] [address] [place] [address] [place] Creatinine and Glomerular filtration rate.predicted panel (S/P/Bld) 82 mL/min/1.73m??? Normal >=60 [facility] Comment on above: Order Comment: Speci men Type: BLOOD SPECIMEN Ordering Facility: [facility] Address: [address] [place] [address] Result Comment: Carly mated Glomerular Filtration Rate (eGFR) is calculated using the 2020 CKD-EPI creatinine equation. This equation utilizes serum creatinine, sex, and age as parameters. The creatinine assay has traceable calibration to isotope dilution-mass spectrometry. Refer to KDIGO guidelines for clinical interpretation. In patients with unstable renal function, e.g. those with acute kidney injury, the eGFR may not accurately reflect actual GFR. Performed By: #### 4 537-7, 41362-3 #### [facility] CLIA [id number] [address] [place] [address] [place] Glucose [Mass/Vol] 100 mg/dL High 74-99 [facility] Comment on above: Order Comment: Dakota grier Type: BLOOD SPECIMEN Ordering Facility: [facility] Address: [address] [place] [address] Result Comment: The [place] Diabetes Association (ADA) provides guidance for cutoff values for fasting glucose and random glucose. The ADA defines fasting as no caloric intake for at least 8 hours. Fasting plasma glucose results between 100 to 125 mg/dL indicate increased risk for diabetes (prediabetes). Fasting plasma glucose results greater than or equal to 126 mg/dL meet the criteria for diagnosis of diabetes. In the absence of unequivocal hyperglycemia, results should be confirmed by repeat testing. In a patient with classic symptoms of hyperglycemia or hyperglycemic crisis, random plasma glucose results greater than or equal to 200 mg/dL meet the criteria for diagnosis of diabetes. Reference: Standards of Medical Care in Diabetes 2016, [place] Diabetes Association. Diabetes Care. 2016.39(Suppl 1). Performed By: #### 4 537-7, 21606-2 #### [facility] CLIA [id number] [address] [place] [address] [place] Potassium [Moles/Vol] 4.5 mmol/L Normal 3.7-5.1 [facility] Comment on above: Order Comment: Dakota grier Type: BLOOD SPECIMEN Ordering Facility: [facility] Address: [address] [place] [address] Performed By: #### 4 537-7, 84868-5 #### [facility] CLIA [id number] [address] [place] [address] [place] Protein [Mass/Vol] 7.2 g/dL Normal 6.3-8.0 [facility] Comment on above: Order Comment: Dakota grier Type: BLOOD SPECIMEN Ordering Facility: [facility] Address: [address] [place] [address] Performed By: #### 4 537-7, 45860-4 #### [facility] CLIA [id number] [address] [place] [address] [place] Sodium [Moles/Vol] 139 mmol/L Normal 136-144 [facility] Comment on above: Order Comment: Speci men Type: BLOOD SPECIMEN Ordering Facility: [facility] Address: [address] [place] [address] Performed By: #### 4 537-7, 08834-3 #### [facility] CLIA [id number] [address] [place] [address] [place] Urea nitrogen [Mass/Vol] 18 mg/dL Normal 7-21 [facility] Comment on above: Order Comment: Speci men Type: BLOOD SPECIMEN Ordering Facility: [facility] Address: [address] [place] [address] Performed By: #### 4 537-7, 87854-9 #### [facility] CLIA [id number] [address] [place] [address] [place] ESR Westergren method (Bld) [Velocity]on 12-27-2024 ESR (Bld) [Velocity] 12 mm/h Normal 0-20 [facility] Comment on above: Order Comment: Speci men Type: BLOOD SPECIMEN Ordering Facility: [facility] Address: [address] [place] [address] Performed By: #### 4 537-7, 11769-6 #### [facility] CLIA [id number] [address] [place] [address] [place] Ferritin SerPl-mCncon 2024 Ferritin [Mass/Vol] 187.0 ng/mL Normal 14.7-205.1 [facility] Comment on above: Order Comment: Speci men Type: BLOOD SPECIMEN Ordering Facility: [facility] Address: [address] [place] [address] Performed By: #### 4 537-7, 87671-5 #### [facility] CLIA [id number] [address] [place] [address] [place] Iron and Iron binding capaci ty panelon 12-27-2024 Iron [Mass/Vol] 50 ug/dL Normal 41-186 [facility] Comment on above: Order Comment: Speci men Type: BLOOD SPECIMEN Ordering Facility: [facility] Address: [address] [place] [address] Performed By: #### 4 537-7, 48834-9 #### [facility] CLIA [id number] [address] [place] [address] [place] [facility] Iron binding capacity [Mass/Vol] 287 ug/dL Normal 232-386 [facility] Comment on above: Order Comment: Speci men Type: BLOOD SPECIMEN Ordering Facility: [facility] Address: [address] [place] [address] Performed By: #### 4 537-7, 89988-5 #### [facility] CLIA [id number] [address] [place] [address] [place] Iron/TIBC [Molar ratio] 17.4 % Normal 15.0-57.0 [facility] Comment on above: Order Comment: Speci men Type: BLOOD SPECIMEN Ordering Facility: [facility] Address: [address] [place] [address] Performed By: #### 4 537-7, 06644-7 #### [facility] CLIA [id number] [address] [place] [address] [place] Lipid 1996 panelon Cholesterol [Mass/Vol] 239 mg/dL High <200 [facility] Comment on above: Order Comment: Speci men Type: BLOOD SPECIMEN Ordering Facility: [facility] Address: [address] [place] [address] Result Comment: <200 mg/dL, Desirable 200-239 mg/dL, Borderline high >239 mg/dL, High Performed By: #### 4 537-7, 06633-7 #### [facility] CLIA [id number] [address] [place] [address] [place] Cholesterol in HDL [Mass/Vol] 82 mg/dL Normal >39 [facility] Comment on above: Order Comment: Dakota grier Type: BLOOD SPECIMEN Ordering Facility: [facility] Address: [address] [place] [address] Result Comment: 40-5 9 mg/dL, Acceptable >59 mg/dL, High: Negative risk factor for coronary heart disease <40 mg/dL, Low: Positive risk factor for coronary heart disease Performed By: #### 4 537-7, 21245-1 #### [facility] CLIA [id number] [address] [place] [address] [place] Cholesterol in LDL [Mass/Vol] 147 mg/dL High <100 [facility] Comment on above: Order Comment: Dakota grier Type: BLOOD SPECIMEN Ordering Facility: [facility] Address: [address] [place] [address] Result Comment: <100 mg/dL, Optimal 100-129 mg/dL, Near optimal/above optimal 130-159 mg/dL, Borderline high 160-189 mg/dL, High >189 mg/dL, Very high Secondary prevention optimal LDL Cholesterol levels are recommended to be <70 mg/dL LDL cholesterol is calculated using the Calloway-NIH equation. Performed By: #### 4 537-7, 83094-6 #### [facility] CLIA [id number] [address] [place] [address] [place] Cholesterol in LDL/Cholesterol in HDL [Mass ratio] 1.79 {ratio} Normal <2.54 [facility] Comment on above: Order Comment: Geoffreyraymundo grier Type: BLOOD SPECIMEN Ordering Facility: [facility] Address: [address] [place] [address] Result Comment: Johnny harper: 1. National Cholesterol Education Program ATP III Guideline At-A-Glance Quick Desk Reference: National Heart, Lung, and Blood [place]once. National Institutes of Health. 2001: NIH Publication No. 01-3305. 2. An International Atherosclerosis Society position paper: global recommendations for the management of dyslipidemia: executive summary, Atherosclerosis. 2014: 232(2):410-413. Performed By: #### 4 537-7, 09264-9 #### [facility] CLIA [id number] [address] [place], [place] [address] [place] Cholesterol in VLDL [Mass/Vol] 11 mg/dL Normal <30 [facility] Comment on above: Order Comment: Speci men Type: BLOOD SPECIMEN Ordering Facility: [facility] Address: [address] [place] [address] Performed By: #### 4 537-7, 35925-9 #### [facility] CLIA [id number] [address] [place], [place] [address] [place] Cholesterol non HDL [Mass/Vol] 157 mg/dL High <130 [facility] Comment on above: Order Comment: Speci men Type: BLOOD SPECIMEN Ordering Facility: [facility] Address: [address] [place] [address] Result Comment: <130 mg/dL, Optimal 130-159 mg/dL, Near optimal/above optimal 160-189 mg/dL, Borderline high 190-219 mg/dL, High >219 mg/dL, Very high Secondary prevention optimal non HDL Cholesterol levels are recommended to be <100 mg/dL Performed By: #### 4 537-7, 58092-4 #### [facility] CLIA [id number] [address] [place] [address] [place] Cholesterol.total/Shonna sterol in HDL [Mass ratio] 2.91 {ratio} Normal <5.10 [facility] Comment on above: Order Comment: Speci men Type: BLOOD SPECIMEN Ordering Facility: [facility] Address: [address] [place], [place] [address] Performed By: #### 4 537-7, 46083-1 #### [facility] CLIA [id number] [address] [place], [place] [address] [place] FASTING TIME 12 hrs Normal [facility] Comment on above: Order Comment: Speci men Type: BLOOD SPECIMEN Ordering Facility: [facility] Address: [address] [place], [place] [address] Performed By: #### 4 537-7, 74126-6 #### [facility] CLIA [id number] [address] [place] [address] [place] Triglyceride [Mass/Vol] 62 mg/dL Normal <150 [facility] Comment on above: Order Comment: Speci men Type: BLOOD SPECIMEN Ordering Facility: [facility] Address: [address] [place] [address] Result Comment: <150 mg/dL, Normal 150-199 mg/dL, Borderline high 200-499 mg/dL, High >499 mg/dL, Very high Performed By: #### 4 537-7, 17521-9 #### [facility] CLIA [id number] [address] [place] [address] [place] Vit B12 [facility] 07-14-2 025 Cobalamin (Vitamin B12) [Mass/Vol] 903 pg/mL Normal 232-1245 [facility] Comment on above: Order Comment: Speci men Type: BLOOD SPECIMEN Ordering Facility: [facility] Address: [address] [place] [address] Performed By: #### 4 537-7, 92368-1 #### [facility] CLIA [id number] [address] [place] [address] [place] Liver ultrasound attenuation by transient elastographyon 11-30-2024 Fibroscan Report Date performed: November 30, 2024 Indication : MASLD Patient fasted 3 hours:Yes Performed by Alka Lorenzo LPN Impression The liver stiffness is 7.2 kPa which corresponds to 91% chance of stage F0-F2 fibrosis. The CAP analysis showed grade S0 of liver steatosis. Stage of liver fibrosis based on above kPa: A 91% chance of stage 0-2 fibrosis A 9% chance of stage 3-4 fibrosis (advanced fibrosis) A 1.3% chance of stage 4 fibrosis (cirrhosis). A kPa >20 indicates a high likelihood of stage 4 fibrosis/cirrhosis, consider further testing to confirm and refer to hepatology. Recommendations If kPa <8.0, reassess periodically Fib-4 score every 1-2 years if T2DM/Pre-T2DM OR with 2 or more metabolic risk factors Fib-4 score 2-3 years if no T2DM and <2 metabolic risk factors If kPa >8.0, refer to hepatology for further evaluation Result-Findings Technical difficulties: None. Result: The reading was adequate. Please refer to get images report for individual readings Number of readings: 10 IQR %: 7 E (kpa): 7.2 CAP: 221 Interpreted by: Marcus Bolton APRN, CNP MASLD Fibroscan Fibrosis Risk <7 kPA = F0-F2 97%, F3+F4 3%, F4 <1% <10 kPA = F0-F2 91%, F3+F4 9%, F4 1.3% 10-15 kPA = F0-F2 56%, F3+F4 43%, F4 14% >15 kPA = F0-F2 26%, F3+F4 74%, F4 46% Grade CAP value up to 237 dB/M [...] stage 3 (>/= S3: > 66% steatosis) References Wolfe Y, Torey Q, Wolfe T, Marjorie J, Wolfe H, Edenilson T. Controlled attenuation parameter for assessment of hepatic steatosis grades: a diagnostic meta-analysis. Int J Clin Exp Med. 2015 Mar 15;8(10):13398-07. PMID: 89912113; PMCID: [id number]. Srinivasan Cline, Aaron JARAD, Leigh Ann M, Tamy F, Azeb J, Sadaf O, Nelson F, Lakia M, Bijal G, Malcolm A, Daniele E, Patrice L, Gilberto G, Roberto A, Irsael U, Hunter S, Elfego P, Dawit V, Persaud V, Herminia Cline, My SANDERS. Refining the Baveno elastography criteria for the definition of compensated advanced chronic liver disease. J Hepatol. 2020;74(5):7415-3427. doi: 10.1016/j.jhep.2020.11.050. Epub 2019May 24. PMID: 40115536. Kenneth Cline, Vicky Gates, Romi Cline, Manuel Cline, Kenna Schmidt, Hali Mg, Mara Mg, Prachi Dietrich. AAS practice guidance on the clinical assessment and management of nonalcoholic fatty liver disease. Hepatology. 2022;77(5):6980-2712. doi:10.1097/HEP.[id number] [facility] Radiology Study observation (narrative) [facility] No Panel Informationon 09-22 IMPRESSION: Coarse liver echotexture. No mass. No splenomegaly. Egg Grader: REGINA Transcribe Date/Time: Sep 22 2024 1:02P Dictated by : DAYANA JULIAN MD This examination was interpreted and the report reviewed and electronically signed by: DAYANA JULIAN MD on Sep 22 2024 1:09PM [facility] DIVISION OF RADIOLOGY Radiology Study observation (narrative) [facility] No Panel InformationOrdered By: Ccf Provider on 09-22-2024 [facility] US ABD RIGHT UPPER QUADRANTo n 09-22-2024 US ABD RIGHT UPPER QUADRANT * * *Final Report* * * DATE OF EXAM: Sep 22 2024 12:57PM [facility] 1032 - US ABD RIGHT UPPER QUADRANT / PROCEDURE REASON: Abnormal LFTs * * * * Physician Interpretation * * * * EXAMINATION: RIGHT UPPER QUADRANT AND SPLEEN ULTRASOUND CLINICAL HISTORY: Abnormal LFTs TECHNIQUE: Sonography of the right upper quadrant and spleen was performed. Images were obtained and stored in a permanent archive. MQ: URUQ_2 COMPARISON: 01/28/2022 RESULT: Pancreas: Normal sonographic appearance. Portions obscured: tail Liver: Echotexture: Coarse Echogenicity: Normal Surface contour: Smooth Lesions: None. Biliary: No intrahepatic biliary duct dilation. CBD: 0.8 cm at the hilum. Gallbladder: Prior cholecystectomy Right Kidney: No hydronephrosis. Ascites: None. Spleen: The length of the spleen is 8.8 cm. There are no splenic lesions. IMPRESSION: Coarse liver echotexture. No mass. No splenomegaly. Egg Grader: [facility] Transcribe Date/Time: Sep 22 2024 1:02P Dictated by : DAYANA JULIAN MD This examination was interpreted and the report reviewed and electronically signed by: DAYANA JULIAN MD on Sep 22 2024 1:09PM EST [id number] Normal [facility] US ABD SPLEENon 09-22-2024 US ABD SPLEEN * * *Final Report* * * DATE OF EXAM: Sep 22 2024 12:58PM [facility] 1039 - US ABD SPLEEN / PROCEDURE REASON: Abnormal LFTs * * * * Physician Interpretation * * * * EXAMINATION: RIGHT UPPER QUADRANT AND SPLEEN ULTRASOUND CLINICAL HISTORY: Abnormal LFTs TECHNIQUE: Sonography of the right upper quadrant and spleen was performed. Images were obtained and stored in a permanent archive. MQ: URUQ_2 COMPARISON: 01/28/2022 RESULT: Pancreas: Normal sonographic appearance. Portions obscured: tail Liver: Echotexture: Coarse Echogenicity: Normal Surface contour: Smooth Lesions: None. Biliary: No intrahepatic biliary duct dilation. CBD: 0.8 cm at the hilum. Gallbladder: Prior cholecystectomy Right Kidney: No hydronephrosis. Ascites: None. Spleen: The length of the spleen is 8.8 cm. There are no splenic lesions. IMPRESSION: Coarse liver echotexture. No mass. No splenomegaly. Egg Grader: [facility] Transcribe Date/Time: Sep 22 2024 1:02P Dictated by : DAYANA JULIAN MD This examination was interpreted and the report reviewed and electronically signed by: DAYANA JULIAN MD on Sep 22 2024 1:09PM EST [id number] Normal [facility] US Abdomen RUQon 09-22-2024 * * *Final Report* * * DATE OF EXAM: Sep 22 2024 12:57PM [facility] 1032 - US ABD RIGHT UPPER QUADRANT / PROCEDURE REASON: Abnormal LFTs * * * * Physician Interpretation * * * * EXAMINATION: RIGHT UPPER QUADRANT AND SPLEEN ULTRASOUND CLINICAL HISTORY: Abnormal LFTs TECHNIQUE: Sonography of the right upper quadrant and spleen was performed. Images were obtained and stored in a permanent archive. MQ: URUQ_2 COMPARISON: 01/28/2022 RESULT: Pancreas: Normal sonographic appearance. Portions obscured: tail Liver: Echotexture: Coarse Echogenicity: Normal Surface contour: Smooth Lesions: None. Biliary: No intrahepatic biliary duct dilation. CBD: 0.8 cm at the hilum. Gallbladder: Prior cholecystectomy Right Kidney: No hydronephrosis. Ascites: None. Spleen: The length of the spleen is 8.8 cm. There are no splenic lesions. DIVISION OF RADIOLOGY Provider, [facility] - 09/22/2024 * * *Final Report* * * DATE OF EXAM: Sep 22 2024 12:57PM [facility] 1032 - US ABD RIGHT UPPER QUADRANT / PROCEDURE REASON: Abnormal LFTs * * * * Physician Interpretation * * * * EXAMINATION: RIGHT UPPER QUADRANT AND SPLEEN ULTRASOUND CLINICAL HISTORY: Abnormal LFTs TECHNIQUE: Sonography of the right upper quadrant and spleen was performed. Images were obtained and stored in a permanent archive. MQ: URUQ_2 COMPARISON: 01/28/2022 RESULT: Pancreas: Normal sonographic appearance. Portions obscured: tail Liver: Echotexture: Coarse Echogenicity: Normal Surface contour: Smooth Lesions: None. Biliary: No intrahepatic biliary duct dilation. CBD: 0.8 cm at the hilum. Gallbladder: Prior cholecystectomy Right Kidney: No hydronephrosis. Ascites: None. Spleen: The length of the spleen is 8.8 cm. There are no splenic lesions. IMPRESSION IMPRESSION: Coarse liver echotexture. No mass. No splenomegaly. Egg Grader: [facility] Transcribe Date/Time: Sep 22 2024 1:02P Dictated by : DAYANA JULIAN MD This examination was interpreted and the report reviewed and electronically signed by: DAYANA JULIAN MD on Sep 22 2024 1:09PM [facility] US Spleenon 09-22-2024 * * *Final Report* * * DATE OF EXAM: Sep 22 2024 12:58PM [facility] 1039 - US ABD SPLEEN / PROCEDURE REASON: Abnormal LFTs * * * * Physician Interpretation * * * * EXAMINATION: RIGHT UPPER QUADRANT AND SPLEEN ULTRASOUND CLINICAL HISTORY: Abnormal LFTs TECHNIQUE: Sonography of the right upper quadrant and spleen was performed. Images were obtained and stored in a permanent archive. MQ: URUQ_2 COMPARISON: 01/28/2022 RESULT: Pancreas: Normal sonographic appearance. Portions obscured: tail Liver: Echotexture: Coarse Echogenicity: Normal Surface contour: Smooth Lesions: None. Biliary: No intrahepatic biliary duct dilation. CBD: 0.8 cm at the hilum. Gallbladder: Prior cholecystectomy Right Kidney: No hydronephrosis. Ascites: None. Spleen: The length of the spleen is 8.8 cm. There are no splenic lesions. DIVISION OF RADIOLOGY Provider, [facility] - 09/22/2024 * * *Final Report* * * DATE OF EXAM: Sep 22 2024 12:58PM [facility] 1039 - US ABD SPLEEN / PROCEDURE REASON: Abnormal LFTs * * * * Physician Interpretation * * * * EXAMINATION: RIGHT UPPER QUADRANT AND SPLEEN ULTRASOUND CLINICAL HISTORY: Abnormal LFTs TECHNIQUE: Sonography of the right upper quadrant and spleen was performed. Images were obtained and stored in a permanent archive. MQ: URUQ_2 COMPARISON: 01/28/2022 RESULT: Pancreas: Normal sonographic appearance. Portions obscured: tail Liver: Echotexture: Coarse Echogenicity: Normal Surface contour: Smooth Lesions: None. Biliary: No intrahepatic biliary duct dilation. CBD: 0.8 cm at the hilum. Gallbladder: Prior cholecystectomy Right Kidney: No hydronephrosis. Ascites: None. Spleen: The length of the spleen is 8.8 cm. There are no splenic lesions. IMPRESSION IMPRESSION: Coarse liver echotexture. No mass. No splenomegaly. Egg Grader: [facility] Transcribe Date/Time: Sep 22 2024 1:02P Dictated by : DAYANA JULIAN MD This examination was interpreted and the report reviewed and electronically signed by: DAYANA JULIAN MD on Sep 22 2024 1:09PM EST [facility] GERRY + Protein Elect, Serumon 09-09-2024 Albumin [Mass/Vol] 3.5 g/dL Normal 2.9-4.4 [facility] Comment on above: Order Comment: N Performed By: #### L 501.9985, L3100.3425, L3600.4030 ####[facility] [address] [place], [address] Albumin/Globulin [Mass ratio] 1.1 {ratio} Normal 0.7-1.7 [facility] Comment on above: Order Comment: N Performed By: #### L 501.9985, L3100.3425, L3600.4030 ####[facility] [address] [place], [address] VEBSH-7-AJCY 0.2 g/dL Normal 0.0-0.4 [facility] Comment on above: Order Comment: N Performed By: #### L 501.9985, L3100.3425, L3600.4030 ####[facility] [address] [place], [address] ADFXG-6-GUJD 0.7 g/dL Normal 0.4-1.0 [facility] Comment on above: Order Comment: N Performed By: #### L 501.9985, L3100.3425, L3600.4030 ####[facility] [address] [place], [address] BETA GLOBULIN 1.2 g/dL Normal 0.7-1.3 [facility] Comment on above: Order Comment: N Performed By: #### L 501.9985, L3100.3425, L3600.4030 ####[facility] [address] [place], [address] GAMMA GLOBULIN 1.3 g/dL Normal 0.4-1.8 [facility] Comment on above: Order Comment: N Performed By: #### L 501.9985, L3100.3425, L3600.4030 ####[facility] [address] [place], [address] Globulin (S) [Mass/Vol] 3.4 g/dL Normal 2.2-3.9 [facility] Comment on above: Order Comment: N Performed By: #### L 501.9985, L3100.3425, L3600.4030 ####[facility] [address] [place], [address] GERRY RESULT,S Comment Normal . [facility] Comment on above: Order Comment: N Result Comment: No m onoclonality detected. Performed By: #### L 501.9985, L3100.3425, L3600.4030 ####[facility] [address] [place], [address] IMMUNOGLOB A QN 286 mg/dL Normal 64-422 [facility] Comment on above: Order Comment: N Performed By: #### L 501.9985, L3100.3425, L3600.4030 ####[facility] [address] [place], [address] IMMUNOGLOB G QN 1353 mg/dL Normal 586-1602 [facility] Comment on above: Order Comment: N Performed By: #### L 501.9985, L3100.3425, L3600.4030 ####[facility] [address] [place], [address] IMMUNOGLOB M QN 88 mg/dL Normal 26-217 [facility] Comment on above: Order Comment: N Performed By: #### L 501.9985, L3100.3425, L3600.4030 ####[facility] [address] [place], [address] M-Drew Not Observed Normal Not Observed [facility] Comment on above: Order Comment: N Performed By: #### L 501.9985, L3100.3425, L3600.4030 ####[facility] [address] [place], [address] NOTE: Comment Normal . [facility] Comment on above: Order Comment: N Result Comment: Prot ein electrophoresis scan will follow via computer, mail, or behavioral technician delivery. Performed By: #### L 501.9985, L3100.3425, L3600.4030 ####[facility] [address] [place], [place], [id number] Protein [Mass/Vol] 6.9 g/dL Normal 6.0-8.5 [facility] Comment on above: Order Comment: N Performed By: #### L 501.9985, L3100.3425, L3600.4030 ####[facility] [address] [place], [address] Immunofixation Urineon 09-09 GERRY Urine Comment: Normal . [facility] Comment on above: Result Comment: Pres ence of monoclonal protein is unclear at this time. Suggest repeat in 3 to 6 months if clinically indicated. Performed at: [facility] [address] [id number] Die Attacher: Edward Moore PhD, Phone: [phone] Performed By: #### L 501.9985, L3100.3425, L3600.4030 ####[facility] [address] [place], [place], [id number] Hemoglobin A1con 09-07-2024 HbA1c (Bld) [Mass fraction] 5.8 % Normal <=5.6 [facility] Comment on above: Performed By: #### L 501.9985, L3100.3425, L3600.4030 ####[facility] [address] [place], [place], [id number] Addendum DocumentOrdered By: Ivan Pink on 09-06-2024 Serum Immunofixation Comments Comment . [facility] Comment on above: Protein electrophore sis scan will follow via computer,mail, or behavioral technician delivery. Albumin Elph [Mass/Vol]Order ed By: Ivan Pink on 09-06-2024 Albumin [Mass/Vol] 3.5 g/dL 2.9-4.4 [facility] Alpha 1 globulin Elph [Mass/ Vol]Ordered By: Ivan Pink on 09-06-2024 Ciwjk-1-Ddtczbpah (GERRY) 0.2 g/dL 0.0-0.4 [facility] Bivcu-1-Lxveiybtg (GERRY) 0.7 g/dL 0.4-1.0 [facility] Beta globulin Elph [Mass/Vol ]Ordered By: Ivan Pink on 09-06-2024 Beta-Globulins (GERRY) 1.2 g/dL 0.7-1.3 [facility] Gamma globulin Elph [Mass/Vo l]Ordered By: Ivan Pink on 09-06-2024 Gamma Globulins (GERRY) 1.3 g/dL 0.4-1.8 [facility] Hemoglobin A1c percentageOrd ered By: Ivan Pink on 09-06-2024 HbA1c (Bld) [Mass fraction] 5.8 % >5.7 [facility] IgA [Mass/Vol]Ordered By: Ra katiana Pink on 09-06-2024 Immunoglobulin A 286 mg/dL 64-422 [facility] IgG [Mass/Vol]Ordered By: Ra katiana Pink on 09-06-2024 Immunoglobulin G 1353 mg/dL 586-1602 [facility] Immunoglobulin M measurement Ordered By: Ivan Pink on 09-06-2024 Immunoglobulin M 88 mg/dL 26-217 [facility] Interpretation IEP [Interp]O rdered By: Ivan Pink on 09-06-2024 Immunofixation Screen Comment . [facility] Comment on above: No monoclonality det ected. Interpretation of serum or p lasma protein pattern by immunofixation (narrative resultOrdered By: Ivan Pink on 09-06-2024 Protein Fractions Immunofixation Eligio [Interp] Not Observed g/dL Not Observed [facility] Neurology Visit Reporton Neurology Visit Report [facility] [address], [address] [place] [address] OFFICE VISIT Date of Service: 09/06/24 MR#: [id number] Acct: [id number] Name: ONEIDA STEWARD Rep #: [id number] : 1945 Provider: Dr. Ivan oconnor MD Age/Sex: 78/F [place] [facility] Status: Signed with Addenda ADDENDUM by Dr. Ivan Pink MD on 09/10/24 at 1107 Addendum Addendum (09/10/24): Hemoglobin A1c (09/06/24): normal Serum protein electrophoresis, serum immunofixation and urine immunofixation (09/06/24): Presence of monoclonal protein is unclear at this time on urine immunofixation. The patient will be contacted. A repeat serum protein electrophoresis, serum immunofixation and urine immunofixation will be checked in 6 months and a follow-up appointment will be set for 6 months. 09/10/24 1107 Date Ivan Pink MD cc: Dr. Niya Martinez MD * Signed HPI HPI Chief Complaint: Establish Care Details: Interim History: Oneida returns for follow-up visit. She has a history of paroxysmal atrial fibrillation, rheumatoid arthritis, status post right shoulder joint replacement, hepatitis C (cleared), status- post cholecystectomy, and hypertension who presented for evaluation of headaches. In June 2023, she woke from sleep with a severe headache and this headache lasted for until September 2023. The headache was primarily localized to the vertex region but did extend globally. She experienced some associated nausea, photophobia and scalp sensitivity. She also experienced some neck pain; this subsequently resolved. The headache was continuous for several weeks though it did fluctuate in severity. In September 2023, she received acupuncture and had significant reduction of her headache following this procedure. Two weeks later, she had some exacerbation of her headache and received further acupuncture and this was of benefit. Acetaminophen was of some benefit for her headaches. She did not have associated numbness or weakness. She experienced some blurring of vision with the headache. She had associated transient tinnitus. Her ESR in August 2023 was normal. After September 2023, she has been experiencing mild headaches that occurred up to 3 days/month with individual headaches lasting 1 day each. She has experienced this pattern of headaches since around the age of 61. She generally does not feel the need to take a medication for these headaches; she has used acetaminophen occasionally and this of benefit. Her last headache was in May 2024 and was mild. Between the ages of 51 and 61, she experienced more severe headaches that were often stressed related. She had associated nausea and photophobia. These headaches occurred as frequently as 2 days/week. In 2017, she had a left temporal headache with associated tenderness in this region. She states that the possibility of temporal arteritis was raised however the headache resolved spontaneously in about 2 days and further evaluation of the headache with temporal artery biopsy was not pursued. She did not receive any prescription medication for this headache. She has rheumatoid arthritis however her musculoskeletal symptoms have been mild recently. She had a head CT in August 2023 that revealed mild diffuse age-related cerebral atrophy, mild bilateral periventricular and subcortical white matter chronic small vessel ischemic disease and mi ld ethmoid and frontal sinus disease. Since May 2024, she has been experiencing vague numbness and a feeling of tightness in the feet. Physical Exam: Neuro: The patient is awake and alert and responds appropriately; speech is fluent Supplemental Info Cardiac echo (03/13/23): Normal LV size. Left ventricular systolic function is normal. The estimated ejection fraction is 60 %. Stage 1 diastolic dysfunction. Pulmonary artery systolic pressure is 34 mmHg. CBC, ESR, CMP (08/18/2023): Glucose 108 (high), AST 49 (high), ALT 104 (high) Head CT (08/18/23): COMPARISON: CT head without contrast 11/08/2008. FINDINGS: BRAIN AND EXTRA-AXIAL SPACES: Small hypodense areas in the white matter of the cerebral hemispheres are chronic white matter ischemic changes. No intra- or extra-axial hemorrhage. No intracranial mass or mass effect. Posterior fossa structures are unremarkable. Ventricles are appropriate for age. No hydrocephalus. Basal cisterns are patent. BONES/JOINTS: Unremarkable. No discrete lytic or blastic abnormalities. SINUSES: Unremarkable as visualized. Clear. MASTOID AIR CELLS: Unremarkable. Clear. ORBITS: Visualized globes, extraocular muscles, optic nerves and retrobulbar fat appear unremarkable. IMPRESSION: 1. No CT evidence of intracranial bleeding, acute ischemic infarct or acute intracranial abnormality. 2. Chronic white matter ischemic changes in both cerebral hemispheres are n (more content not included)... Normal [facility] No Panel InformationOrdered By: Ivan Pink on 09-06-2024 Addendum Document Comment . [facility] Comment on above: Protein electrophore sis scan will follow via computer,mail, or behavioral technician delivery. Protein Fractions Immunofixa tion Eligio [Interp]Ordered By: Ivan Pink on 09-06-2024 M-Drew (GERRY) Not Observed g/dL Not Observed [facility] Serum albumin/globulin ratio Ordered By: Ivan Pink on 09-06-2024 Albumin/Globulin (GERRY) 1.1 0.7-1.7 [facility] Serum globulin measurement ( mass/volume)Ordered By: Ivan Pink on 09-06-2024 Globulin (S) [Mass/Vol] 3.4 g/dL 2.2-3.9 [facility] Serum or plasma IgA measurem ent (mass/volume)Ordered By: Ivan Pink on 09-06-2024 IgA [Mass/Vol] 286 mg/dL 64-422 [facility] Serum or plasma IgG measurem ent (mass/volume)Ordered By: Ivan Pink on 09-06-2024 IgG [Mass/Vol] 1353 mg/dL 586-1602 [facility] Serum or plasma alpha 1 glob ulin measurement by electrophoresis (mass/volume)Ordered By: Ivan Pink on 09-06-2024 Alpha 1 globulin Elph [Mass/Vol] 0.2 g/dL 0.0-0.4 [facility] Alpha 1 globulin Elph [Mass/Vol] 0.7 g/dL 0.4-1.0 [facility] Serum or plasma beta globuli n measurement by electrophoresis (mass/volume)Ordered By: Ivan Pink on 09-06-2024 Beta globulin Elph [Mass/Vol] 1.2 g/dL 0.7-1.3 [facility] Serum or plasma gamma globul in measurement by electrophoresis (mass/volume)Ordered By: Ivan Pink on 09-06-2024 Gamma globulin Elph [Mass/Vol] 1.3 g/dL 0.4-1.8 [facility] Serum or plasma immunoelectr ophoresis interpretation (nominal result)Ordered By: Ivan Pink on 09-06-2024 Interpretation IEP [Interp] Comment . [facility] Comment on above: No monoclonality det ected. Serum or plasma protein marifer urement (mass/volume)Ordered By: Ivan Pink on 09-06-2024 Protein [Mass/Vol] 6.9 g/dL 6.0-8.5 [facility] Urine IFEOrdered By: Ivan Pink on 09-06-2024 Urine Immunofixation Comment: . [facility] Comment on above: Presence of monoclon al protein is unclear at this time. Suggestrepeat in 3 to 6 months if clinically indicated.Performed at: [facility] [address] [id number] Director: Edward Moore PhD, Phone: [phone] [place] [employer] Chainson 08-13-2024 FR KAPPA LT CHN 19.9 mg/L Abnormal 3.3-19.4 [facility] Comment on above: Order Comment: Test( s) 051057-Kgi. B1, Whole Bloodwas developed and its performance characteristicsdetermined by [employer]. It has not been cleared or approvedby the Food and Drug Administration. Performed By: #### L 100.0500, L3130.0010, L500.4050, L3300.8000, L503.0106 ####[facility] [address] [place], [place], [id number] FR LAMBDA LT CH 16.8 mg/L Normal 5.7-26.3 [facility] Comment on above: Order Comment: Test( s) [id number]-Lgc. B1, Whole Bloodwas developed and its performance characteristicsdetermined by [employer]. It has not been cleared or approvedby the Food and Drug Administration. Performed By: #### L 100.0500, L3130.0010, L500.4050, L3300.8000, L503.0106 ####[facility] [address] [place], [place], [id number] KAPPA/LAMBDA % 1.18 Normal 0.26-1.65 [facility] Comment on above: Order Comment: Test( s) [id number]-Zkk. B1, Whole Bloodwas developed and its performance characteristicsdetermined by [employer]. It has not been cleared or approvedby the Food and Drug Administration. Performed By: #### L 100.0500, L3130.0010, L500.4050, L3300.8000, L503.0106 ####[facility] [address] [place], [address] Vitamin B1, Thiamineon 08-13 VIT B1 THIAMINE 121.9 nmol/L Normal 66.5-200.0 [facility] Comment on above: Order Comment: Test( s) 473977-Wms. B1, Whole Bloodwas developed and its performance characteristicsdetermined by [employer]. It has not been cleared or approvedby the Food and Drug Administration. Result Comment: Perf ormed at: [address] [id number] Die Attacher: Edward Moore PhD, Phone: [phone] Performed at: [address] [id number] Die Attacher: Demetria Kamara MD, Phone: [phone] Performed By: #### L 100.0500, L3130.0010, L500.4050, L3300.8000, L503.0106 ####[facility] [address] [place], [address] Comprehensive Metabolic Prof ilon 08-12-2024 Albumin [Mass/Vol] 4.0 g/dL Normal 3.4-4.8 [facility] Comment on above: Performed By: #### L 501.9520, L506.0250, L500.4050 ####[facility] [address] [place], [address] Albumin/Globulin [Mass ratio] 1.3 {ratio} Normal 0.9-2.4 [facility] Comment on above: Performed By: #### L 501.9520, L506.0250, L500.4050 ####[facility] [address] [place], [address] ALK PHOS 214 U/L High 35-104 [facility] Comment on above: Performed By: #### L 501.9520, L506.0250, L500.4050 ####[facility] [address] [place], [address] ALT [Catalytic activity/Vol] 81 U/L High <=34 [facility] Comment on above: Performed By: #### L 501.9520, L506.0250, L500.4050 ####[facility] [address] [place], [address] Anion gap [Moles/Vol] 15 mmol/L Normal 5-15 [facility] Comment on above: Performed By: #### L 501.9520, L506.0250, L500.4050 ####[facility] [address] [place], [address] AST [Catalytic activity/Vol] 59 U/L High <=31 [facility] Comment on above: Performed By: #### L 501.9520, L506.0250, L500.4050 ####[facility] [address] [place], [address] Bilirubin [Mass/Vol] 0.40 mg/dL Normal 0.00-1.30 [facility] Comment on above: Performed By: #### L 501.9520, L506.0250, L500.4050 ####[facility] [address] [place], [address] BUN/CRE 18.7 RATIO Normal 10-20 [facility] Comment on above: Performed By: #### L 501.9520, L506.0250, L500.4050 ####[facility] [address] [place], [address] Calcium [Mass/Vol] 9.5 mg/dL Normal 7.6-11.0 [facility] Comment on above: Performed By: #### L 501.9520, L506.0250, L500.4050 ####[facility] [address] [place], [address] Chloride [Moles/Vol] 106 mmol/L Normal 96-108 [facility] Comment on above: Performed By: #### L 501.9520, L506.0250, L500.4050 ####[facility] [address] [place], [address] CO2 [Moles/Vol] 22.6 mmol/L Normal 22.0-29.0 [facility] Comment on above: Performed By: #### L 501.9520, L506.0250, L500.4050 ####[facility] [address] [place], [address] Creatinine [Mass/Vol] 0.8 mg/dL Normal 0.6-1.0 [facility] Comment on above: Performed By: #### L 501.9520, L506.0250, L500.4050 ####[facility] [address] [place], [address] GFR/1.73 sq M.predicted among non-blacks MDRD (S/P/Bld) [Vol rate/Area] 75 mL/min/{1.73_m2} Normal >60 [facility] Comment on above: Result Comment: mL/m in/1.73m2 CKD-EPI Creatinine Equation (2020) Performed By: #### L 501.9520, L506.0250, L500.4050 ####[facility] [address] [place], [address] Globulin (S) [Mass/Vol] 3.0 g/dL Normal 2.2-4.2 [facility] Comment on above: Performed By: #### L 501.9520, L506.0250, L500.4050 ####[facility] [address] [place], [address] Glucose [Mass/Vol] 102 mg/dL High 70-99 [facility] Comment on above: Performed By: #### L 501.9520, L506.0250, L500.4050 ####[facility] [address] [place], [address] Potassium [Moles/Vol] 4.8 mmol/L Normal 3.3-5.1 [facility] Comment on above: Performed By: #### L 501.9520, L506.0250, L500.4050 ####[facility] [address] [place], [address] Sodium [Moles/Vol] 143 mmol/L Normal 133-145 [facility] Comment on above: Performed By: #### L 501.9520, L506.0250, L500.4050 ####[facility] [address] [place], [address] T PROT 6.9 g/dL Normal 5.9-8.4 [facility] Comment on above: Performed By: #### L 501.9520, L506.0250, L500.4050 ####[facility] [address] [place], [address] Urea nitrogen [Mass/Vol] 15 mg/dL Normal 4-19 [facility] Comment on above: Performed By: #### L 501.9520, L506.0250, L500.4050 ####[facility] [address] [place], [address] Folates, (Folic Acid)on 07-18 FOLATES 6.34 ng/mL Normal 4.60-34.80 [facility] Comment on above: Order Comment: N Result Comment: Hemo lysis, Results will be affected, Requires Recollection. Performed By: #### L 501.9520, L506.0250, L500.4050 ####[facility] [address] [place], [address] Thyroid Stim Hormone (TSH)on 08-12-2024 TSH 2.490 uIU/mL Normal 0.300-4.20 0 [facility] Comment on above: Performed By: #### L 501.9520, L506.0250, L500.4050 ####[facility] [address] [place], [address] L503.0106on 08-11-2024 Cobalamin (Vitamin B12) [Mass/Vol] 827 pg/mL Normal 180-914 [facility] Comment on above: Performed By: #### L 100.0500, L3130.0010, L500.4050, L3300.8000, L503.0106 ####[facility] [address] [place], [address] BUN/creatinine ratioOrdered By: Ivan Pink on 08-10-2024 Urea nitrogen/Creatinine [Mass ratio] 18.7 mg/mg 10-20 [facility] Bilirubin, totalOrdered By: Ivan Pink on 08-10-2024 Bilirubin [Mass/Vol] 0.40 mg/dL 0.00-1.30 [facility] CBC-Complete Blood Cnt No Di ffon 08-10-2024 Erythrocyte distribution width (RBC) [Ratio] 13.2 % Normal 11.6-14.6 [facility] Comment on above: Performed By: #### L 100.0500, L3130.0010, L500.4050, L3300.8000, L503.0106 #### [facility] [address] [place], [address] Hematocrit (Bld) [Volume fraction] 39.8 % Normal 37-47 [facility] Comment on above: Performed By: #### L 100.0500, L3130.0010, L500.4050, L3300.8000, L503.0106 #### [facility] [address] [place], [address] Hemoglobin (Bld) [Mass/Vol] 13.1 g/dL Normal 12.0-15.0 [facility] Comment on above: Performed By: #### L 100.0500, L3130.0010, L500.4050, L3300.8000, L503.0106 #### [facility] [address] [place], [address] MCH (RBC) [Entitic mass] 31.5 pg Normal 27.0-32.0 [facility] Comment on above: Performed By: #### L 100.0500, L3130.0010, L500.4050, L3300.8000, L503.0106 #### [facility] [address] [place], [address] MCHC (RBC) [Mass/Vol] 32.9 g/dL Normal 32-36 [facility] Comment on above: Performed By: #### L 100.0500, L3130.0010, L500.4050, L3300.8000, L503.0106 #### [facility] [address] [place], [address] MCV (RBC) [Entitic vol] 95.7 fL Normal 81-99 [facility] Comment on above: Performed By: #### L 100.0500, L3130.0010, L500.4050, L3300.8000, L503.0106 #### [facility] [address] [place], [address] Platelet mean volume (Bld) [Entitic vol] 11.0 fL Normal 6.2-12.0 [facility] Comment on above: Performed By: #### L 100.0500, L3130.0010, L500.4050, L3300.8000, L503.0106 #### [facility] [address] [place], [address] Platelets (Bld) [#/Vol] 230 10*3/uL Normal 150-450 [facility] Comment on above: Performed By: #### L 100.0500, L3130.0010, L500.4050, L3300.8000, L503.0106 #### [facility] [address] [place], [address] RBC (Bld) [#/Vol] 4.16 10*6/uL Low 4.2-5.4 [facility] Comment on above: Performed By: #### L 100.0500, L3130.0010, L500.4050, L3300.8000, L503.0106 #### [facility] [address] [place], [address] RDW SD 46.8 fl High 35.1-43.9 [facility] Comment on above: Performed By: #### L 100.0500, L3130.0010, L500.4050, L3300.8000, L503.0106 #### [facility] [address] [place], [address] WBC (Bld) [#/Vol] 6.4 10*3/uL Normal 4.4-11.0 [facility] Comment on above: Performed By: #### L 100.0500, L3130.0010, L500.4050, L3300.8000, L503.0106 #### [facility] [facility] [address] [place], [address] Carbon dioxide measurementOr dered By: Ivan Pink on 08-10-2024 CO2 [Moles/Vol] 22.6 mmol/L 22.0-29.0 [facility] Chloride measurementOrdered By: Ivan Pink on 08-10-2024 Chloride [Moles/Vol] 106 mmol/L 96-108 [facility] Comprehensive Metabolic Prof ilon 08-10-2024 ALB Normal 3.4-4.8 [facility] Comment on above: Result Comment: PUTT ING UNDER DIFFERENT REQ Performed By: #### L 100.0500, L3130.0010, L500.4050, L3300.8000, L503.0106 #### [facility] [address] [place], [address] ALK PHOS Normal 35-104 [facility] Comment on above: Result Comment: PUTT ING UNDER DIFFERENT REQ Performed By: #### L 100.0500, L3130.0010, L500.4050, L3300.8000, L503.0106 #### [facility] [address] [place], [address] ALT Normal <=34 [facility] Comment on above: Result Comment: PUTT ING UNDER DIFFERENT REQ Performed By: #### L 100.0500, L3130.0010, L500.4050, L3300.8000, L503.0106 #### [facility] [address] [place], [address] AST Normal <=31 [facility] Comment on above: Result Comment: PUTT ING UNDER DIFFERENT REQ Performed By: #### L 100.0500, L3130.0010, L500.4050, L3300.8000, L503.0106 #### [facility] [address] [place], [address] BUN Normal 4-19 [facility] Comment on above: Result Comment: PUTT ING UNDER DIFFERENT REQ Performed By: #### L 100.0500, L3130.0010, L500.4050, L3300.8000, L503.0106 #### [facility] [address] [place], [address] BUN/CRE Normal 10-20 [facility] Comment on above: Result Comment: PUTT ING UNDER DIFFERENT REQ Performed By: #### L 100.0500, L3130.0010, L500.4050, L3300.8000, L503.0106 #### [facility] [address] [place], [address] Calcium Normal 8.5-10.1 [facility] Comment on above: Result Comment: PUTT ING UNDER DIFFERENT REQ Performed By: #### L 100.0500, L3130.0010, L500.4050, L3300.8000, L503.0106 #### [facility] [address] [place], [address] CL Normal 98-107 [facility] Comment on above: Result Comment: PUTT ING UNDER DIFFERENT REQ Performed By: #### L 100.0500, L3130.0010, L500.4050, L3300.8000, L503.0106 #### [facility] [address] [place], [address] CO2 Normal 21.0-32.0 [facility] Comment on above: Result Comment: PUTT ING UNDER DIFFERENT REQ Performed By: #### L 100.0500, L3130.0010, L500.4050, L3300.8000, L503.0106 #### [facility] [address] [place], [address] CREAT,SERUM Normal 0.6-1.0 [facility] Comment on above: Result Comment: PUTT ING UNDER DIFFERENT REQ Performed By: #### L 100.0500, L3130.0010, L500.4050, L3300.8000, L503.0106 #### [facility] [address] [place], [address] eGFR Normal >60 [facility] Comment on above: Result Comment: PUTT ING UNDER DIFFERENT REQ Performed By: #### L 100.0500, L3130.0010, L500.4050, L3300.8000, L503.0106 #### [facility] [address] [place], [address] GAP Normal 5-15 [facility] Comment on above: Result Comment: PUTT ING UNDER DIFFERENT REQ Performed By: #### L 100.0500, L3130.0010, L500.4050, L3300.8000, L503.0106 #### [facility] [address] [place], [address] GLU Normal 70-99 [facility] Comment on above: Result Comment: PUTT ING UNDER DIFFERENT REQ Performed By: #### L 100.0500, L3130.0010, L500.4050, L3300.8000, L503.0106 #### [facility] [address] [place], [address] Potassium Normal 3.5-5.1 [facility] Comment on above: Result Comment: PUTT ING UNDER DIFFERENT REQ Performed By: #### L 100.0500, L3130.0010, L500.4050, L3300.8000, L503.0106 #### [facility] [address] [place], [address] T BILI Normal 0.00-1.30 [facility] Comment on above: Result Comment: PUTT ING UNDER DIFFERENT REQ Performed By: #### L 100.0500, L3130.0010, L500.4050, L3300.8000, L503.0106 #### [facility] [address] [place], [address] T PROT Normal 5.9-8.4 [facility] Comment on above: Result Comment: PUTT ING UNDER DIFFERENT REQ Performed By: #### L 100.0500, L3130.0010, L500.4050, L3300.8000, L503.0106 #### [facility] [address] [place], [address] Comprehensive Metabolic Profil Normal 136-145 [facility] Comment on above: Result Comment: PUTT ING UNDER DIFFERENT REQ Performed By: #### L 100.0500, L3130.0010, L500.4050, L3300.8000, L503.0106 #### [facility] [address] [place], [address] Creatinine [Moles/Vol]Ordere d By: Ivan Pink on 08-10-2024 Creatinine [Mass/Vol] 0.8 mg/dL 0.6-1.0 [facility] Erythrocyte distribution wid th ratioOrdered By: Ivan Pink on 08-10-2024 Erythrocyte distribution width (RBC) [Ratio] 13.2 % 11.6-14.6 [facility] Erythrocyte distribution wid th standard deviationOrdered By: Ivan Pink on 08-10-2024 Erythrocyte distribution width (RBC) [Entitic vol] 46.8 fL High 35.1-43.9 [facility] Folate measurementOrdered By : Ivan Pink on 08-10-2024 Folate 6.34 ng/mL 4.60-34.80 [facility] Comment on above: Hemolysis, Results w ill be affected, Requires Recollection. GFR/1.73 sq M.predicted nan g non-blacks MDRD (S/P/Bld) [Vol rate/Area]Ordered By: Ivan Pink on 08-10-2024 Estimated GFR (MDRD) Non-Af Amer 75 >60 [facility] Comment on above: mL/min/1.73m2 CKD-EP I Creatinine Equation (2020) Hematocrit Auto (Bld) [Volum e fraction]Ordered By: Ivan Pink 08-10-2024 Hematocrit (Bld) [Volume fraction] 39.8 % 37-47 [facility] Hemoglobin measurementOrdere d By: Ivan Pink 08-10-2024 Hemoglobin (Bld) [Mass/Vol] 13.1 g/dL 12.0-15.0 [facility] Immunoglobulin light chains. kappa [Mass/Vol]Ordered By: Ivan Pink 08-10-2024 Free [place] Light Chains, Quant 19.9 mg/L High 3.3-19.4 [facility] Immunoglobulin light chains. kappa/Immunoglobulin light chains.lambda (S) [Mass ratio]Ordered By: Ivan Pink 08-10-2024 Free [place]/Lambda Light Chain Ratio 1.18 0.26-1.65 [facility] - Chemistry and C hemistry - challengeOrdered By: Ivan Pink 08-10-2024 AST [Catalytic activity/Vol] 59 U/L High <32 [facility] Cobalamin (Vitamin B12) [Mass/Vol] 827 pg/mL 180-914 [facility] Lambda free light chain marifer urementOrdered By: Ivan Pink on 08-10-2024 Free Lambda Light Chains, Quant 16.8 mg/L 5.7-26.3 [facility] MCV (mean corpuscular volume ) determinationOrdered By: Ivan Pink on 08-10-2024 MCV (RBC) [Entitic vol] 95.7 fL 81-99 [facility] Mean corpuscular hemoglobin (MCH) determinationOrdered By: Ivan Pink on 08-10-2024 MCH (RBC) [Entitic mass] 31.5 pg 27.0-32.0 [facility] Mean corpuscular hemoglobin concentration (MCHC) determinationOrdered By: Ivan Pink on 08-10-2024 MCHC (RBC) [Mass/Vol] 32.9 g/dL 32-36 [facility] Mean platelet volume determi nationOrdered By: Ivan Pink on 08-10-2024 Platelet mean volume (Bld) [Entitic vol] 11.0 fL 6.2-12.0 [facility] Platelet countOrdered By: Ra katiana Pink on 08-10-2024 Platelets (Bld) [#/Vol] 230 10*3/uL 150-450 [facility] RBC Auto (Bld) [#/Vol]Ordere d By: Ivan Pink on 08-10-2024 RBC (Bld) [#/Vol] 4.16 10*6/uL Low 4.2-5.4 [facility] Serum globulin measurementOr dered By: Ivan Pink on 08-10-2024 Globulin (S) [Mass/Vol] 3.0 g/dL 2.2-4.2 [facility] Serum glucose measurement (m ass/volume)Ordered By: Ivan Pink on 08-10-2024 Glucose [Mass/Vol] 102 mg/dL High 70-99 [facility] Serum or plasma alanine verma otransferase (ALT) measurementOrdered By: Ivan Pink on 08-10-2024 ALT [Catalytic activity/Vol] 81 U/L High <35 [facility] Serum or plasma albumin marifer urement (mass/volume)Ordered By: Ivan Pink on 08-10-2024 Albumin [Mass/Vol] 4.0 g/dL 3.4-4.8 [facility] Serum or plasma albumin/glob ulin mass ratioOrdered By: Ivan Pink on 08-10-2024 Albumin/Globulin [Mass ratio] 1.3 {ratio} 0.9-2.4 [facility] Serum or plasma alkaline wojciech sphatase measurementOrdered By: Ivan Pink on 08-10-2024 ALP [Catalytic activity/Vol] 214 U/L High 35-104 [facility] Serum or plasma anion gap de termination (moles/volume)Ordered By: Ivan Pink on 08-10-2024 Anion gap [Moles/Vol] 15 mmol/L 5-15 [facility] Serum or plasma calcium marifer urement (mass/volume)Ordered By: Ivan Pink on 08-10-2024 Calcium [Mass/Vol] 9.5 mg/dL 7.6-11.0 [facility] Serum or plasma potassium me asurementOrdered By: Ivan Pink on 08-10-2024 Potassium [Moles/Vol] 4.8 mmol/L 3.3-5.1 [facility] Serum or plasma sodium measu rement (moles/volume)Ordered By: Ivan Pink on 08-10-2024 Sodium [Moles/Vol] 143 mmol/L 133-145 [facility] Serum or plasma urea nitroge n measurement (mass/volume)Ordered By: Ivan Pink on 08-10-2024 Urea nitrogen [Mass/Vol] 15 mg/dL 4-19 [facility] TSH DL <= 0.005 mIU/L QnOrde red By: Ivan Pink on 08-10-2024 Thyroid Stimulating Hormone (TSH) 2.490 uIU/mL 0.300-4.20 0 [facility] Thiamine [Mass/Vol]Ordered B y: Ivan Pink on 08-10-2024 Whole Blood Vitamin B1 Level 121.9 nmol/L 66.5-200.0 [facility] Comment on above: Performed at: [facility] [id number] [place], [place] [id number] Director: Edward Moore PhD, Phone: [phone] at: - [facility] [address] [place], [place] [id number] Director: Demetria Kamara MD, Phone: [phone] Total proteinOrdered By: Jerry Pink on 08-10-2024 Protein [Mass/Vol] 6.9 g/dL 5.9-8.4 [facility] White blood cell (WBC) count Ordered By: Ivan Pink on 08-10-2024 WBC (Bld) [#/Vol] 6.4 10*3/uL 4.4-11.0 [facility] 12 Lead EKG performed by [facility] [place] 07-20-2024 12 Lead EKG performed by [address] [address] 12 Lead EKG performed by [facility] 07/20/24 0810 MR#: [id number] Acct: [id number] Name: ONEIDA STEWARD Rep #: [id number] : 1945 78 From: Rosalind Resendez Attending Dr: RUI Grossman Status: DEP AMB Ordering Dr: Rosalind Wells Date: 10/08 [address]: [facility] Sex: F C Admitted: [facility]12 Lead EKG performed by [facility] ECG Report Interpretation S inus Bradycardia -RSR(V1) -nondiagnostic. PROBABLY NORMALElectronically signed on 07/22/2024 at 11:42 by Trell Leyva Software Version [id number] 07/22/24 1146 Date Rosalind FABIAN CC: Dr. Niya Martinez MD Date Dictated: 07/20/24809 Date Transcribed: 07/20/24809 Egg Grader: MAXWELL Signed Normal [facility] Cardiology Visit Reporton Cardiology Visit Report [facility] [address] [place] [address] OFFICE VISIT Date of Service: 07/20/24 MR#: [id number] Acct: [id number] Name: ONEIDA STEWARD Rep #: [id number] : 1945 Provider: RUI Asencio Age/Sex: 78/F [place] [facility] Status: Signed HPI HPI History of Present Illness Details: ONEIDA STEWARD, is a 78 year old white female who presents to the office today for outpatient cardiovascular follow-up with respect to her previous history of syncope, PACs/PVCs, paroxysmal atrial fibrillation, valvular heart disease with MR/TR, and hyperlipidemia. Pt notes that she had one episode of Afib, this lasted a few hours. This was while she was on a cruise. She does not have any chest pain. She does have SOB with exertion but feels that this is where is should be. She does not have any not have any edema. EKG today demonsrates SB with a HR of 51. Intake Vital Signs 01/15/24 11:00 06/15/24 08:59 07/20/24 11:02 07/20/24 11:35 Height 5 ft 6 in 5 ft 6 in 5 ft 6 in Weight: 184 lb 183 lb BMI 29.7 29.5 BP 112/64 134/77 H 128/70 H Blood Pressure Location Lt brachial Lt brachial Position Sitting Sitting Respiration 15 18 Pulse 62 53 L Pulse Source Monitor Monitor Temp 98.2 F Pulse Oximetry (%) 99 97 Oxygen Delivery Method room air Intake Visit Reasons: 6 M FU Mobile Equipment Operator Required: No Is patient in pain?: No Allergies iodine Adverse Reaction (Severe, Verified 07/20/24 11:02) Pt, states may have possible reaction Medications ???Medication ???Instructions ???Recorded ???Confirmed ???Type cholecalciferol (vitamin D3) 25 25 mcg PO DAILY 01/17/21 07/20/24 History mcg (1,000 unit) capsule omega-3 fatty acids 1,000 mg 1,000 mg PO DAILY 01/17/21 5 History capsule (Fish Oil Concentrate) apixaban 5 mg tablet 5 mg PO BID #180 tabs 07/31/2110/08 Rx milk thistle 500 mg capsule 500 mg PO DAILY 10/24/21 07/20/24 History losartan 50 mg tablet 50 mg PO DAILY #90 tabs 08/08/23 0 07/20/24 Rx mecobalamin (vitamin B12) 500 mcg 500 mcg PO Q OTHER DAY 01/15/24 0 07/20/24 History chewable tablet pyridoxine (vitamin B6) 100 mg 100 mg PO Q OTHER DAY 01/15/2410/08 History tablet flecainide 100 mg tablet 50 mg (1/2 x 100 mg) PO Q12H #90 0 07/20/24 07/20/24 Rx tabs metoprolol tartrate 25 mg tablet 12.5 mg (1/2 x 25 mg) PO BID avoid 07/20/24 07/20/24 Rx [employer] pink brand, doesn't work for pt. #90 tabs Have you fallen in the past year?: No PFSH Medical History Wears glasses Post-menopausal Alcohol use High cholesterol Migraine headache Non-smoker Shortness of breath on exertion Cardiology follow-up encounter Constipation Family history of colon cancer in father PVD (peripheral vascular disease) Nonrheumatic mitral (valve) insufficiency Pure hypercholesterolemia Syncope and collapse Dyspnea on exertion Palpitations Cardiac murmur Paroxysmal supraventricular tachycardia by electrocardiogram (ECG) Shortness of breath Chest pain on respiration Syncope HLD (hyperlipidemia) Mitral valve regurgitation PVC (premature ventricular contraction) PAC (premature atrial contraction) Rheumatoid arthritis New onset a-fib Surgical History History of cyst of breast ( 04/2021) History of shoulder replacement History of cholecystectomy History of tonsillectomy History of hysterectomy History of tubal ligation History of repair of rotator cuff History of carpal tunnel release Family History Father Colon cancer Mother CVA (cerebral vascular accident) Social History Smoking Status: Never smoker alcohol intake: current alcohol intake frequency: holidays/special occasions only substance use type: does not use caffeine: Yes what type of physical activity do you participate in: none frequency: does not exercise ROS Const Const: Negative for fatigue, weakness, headache(s), frequent falls, excessive sweating, weight gain or weight loss Eyes Eyes: Negative for blind spots, loss of peripheral vision, transient loss of vision, blurry vision, change in vision or double vision ENT ENT: Negative for headache(s), dizziness, tinnitus, Nosebleed/epistaxis or balance problems Cardio Chest Pain: No Palpitations: Yes Edema: None Muscle aches with walking: None Resp Respiratory: Negative for SOB with activity, SOB at rest, SOB orthopnea SOB lying down or Cough GI GI: Negative nausea, vomiting, heartburn, bloating, vomiting blood/hematemesis, bright, red blood in stools or black,tarry s (more content not included)... Normal [facility] Brain W/WO Contraston 2024 Brain W/WO Contrast [facility] Imaging Services [address] [place] [address] [id number] Brain W/WO Contrast MR#: [id number] Acct: [id number] Name: ONEIDA STEWARD Rep #: [id number] : 1945 F 78 From: Mateo Cooley MD PCP: Dr. Niya Martinez MD Status: REG CLI Study: Brain W/WO Contrast Date of Exam: 07/14/24 Exam# [id number] Ordering Dr: Ivan Pink MD PROCEDURE: BRAIN W/WO CONTRAST REASON FOR EXAM: Sudden onset headache. TECHNIQUE: Multiplanar, multisequence MRI of the brain with and without intravenous gadolinium-based contrast. COMPARISON: None. FINDINGS: Mild to moderate global parenchymal atrophy. Mild chronic microvascular ischemia. No evidence of acute hemorrhage or infarction. No extra-axial blood or fluid collections. The paranasal sinuses are clear. The orbits are unremarkable. MRI/Brain W/WO Contrast IMPRESSION: No acute intracranial abnormalities. Reading Location: [facility] CC: Dr. Niya Martinez MD; Dr. Ivan Pink MD Egg Grader: Signed Normal [facility] MRA Head ONLY without Contra ston 07-14-2024 MRA Head ONLY without Contrast [facility] Imaging Services [address] [facility] [address] [place], [place] [address] MRA Head ONLY without Contrast MR#: [id number] Acct: [id number] Name: ONEIDA STEWARD Rep #: [id number] : 1945 F 78 From: Mateo Cooley MD PCP: Dr. Niya Martinez MD Status: REG CLI Study: MRA Head ONLY without Contrast Date of Exam: 0 07/14/24 Exam# [id number] Ordering Dr: Ivan Pink MD PROCEDURE: MRA HEAD ONLY WITHOUT CONTRAST REASON FOR EXAM: Headache; evaluate for aneurysms. COMPARISON: None. TECHNIQUE: 3D Time of Flight MRA of the head without intravenous contrast. 3D reformatted images. FINDINGS: Anatomy: [place] of Martinez anatomy is within normal limits. Anterior Circulation: Distal internal carotid anterior and middle cerebral arteries appear patent without high grade stenosis. No large aneurysms are identified. Posterior Circulation: Distal vertebral arteries the basilar artery and the posterior cerebral arteries appear patent without high grade stenosis. No large aneurysms are identified. MRI/MRA Head ONLY without Contrast IMPRESSION: No acute arterial abnormality. Reading Location: [facility] CC: Dr. Niya Martinez MD; Dr. Ivan Pink MD Egg Grader: Signed Normal [facility] CNOVon 06-30-2024 CNOV Office Visit (INTMWS ) ONEIDA STEWARD I ([id number]) 1945 F Date Time Provider Department 06/30/24 4:20 PM NIYA MARTINEZ During your visit today, we recorded the following information about you: Temperature Pulse Respiration Blood pressure 98.5 degrees 55/minute 16/minute 107/65 Weight Height 84 kg 1.675 m Niya Martinez MD 07/26/2024 12:01 AM Signed This note was created using [employer]. Subjective Oneida Steward is a 78 year old female. HISTORY Oneida Steward is a 78 year old lady here for yearly exam and follow up appointment. Oneida Steward is a 78-year-old female with a history of elevated liver enzymes, presenting for a Medicare Annual Wellness Visit and yearly exam. Oneida has a history of elevated liver enzymes and was previously seen by Dr. Burgess, who ordered ultrasounds that were not completed. She reports that she was supposed to have an ultrasound done last year but did not receive a call to schedule it. She has an upcoming appointment with Dr. Burgess in September. She also mentions a family history of colon cancer, as her father from the disease. Oneida has a history of severe headaches, for which she was seen by Dr. Pink, a neurologist. She reports that acupuncture treatments by Edilma Gonzalez in [place] have resolved her headaches. She had three sessions last year and does not require regular treatments. Oneida also reports experiencing deep pain in her knee, buttocks, and hip that lasted for three days. The pain did not radiate down her leg and was not associated with any specific activity. She used heat for three days, which provided relief. Oneida has a history of a hysterectomy and has not seen a filling operator for a long time. She had an appointment with Dr. Mir last year, which was canceled without her being informed. She expresses frustration with the scheduling issues and lack of communication. Oneida has a mammogram scheduled and reports that her bowel movements have been regular. She denies any issues with her appetite or energy levels. She also denies any recent falls or fear of falling. She reports feeling safe in her home and does not have any difficulties with activities of daily living. She denies any changes in memory or ability to focus, and does not report any feelings of depression or anxiety. She denies any issues with her sexual health. She reports that she does not smoke or use tobacco, and drinks alcohol occasionally. She reports that she eats out very little and tries to watch what she eats. She also reports that she enjoys traveling. PAST MEDICAL HISTORY Diagnosis Date Diarrhea Diverticulosis of colon (without mention of hemorrhage) Paroxysmal atrial fibrillation (HCC) 06/02/2017 Controlled on current meds; Dr. Akbar managing. Positive hepatitis C antibody test 06/02/2017 negative for chronic active hepatitis C Rheumatoid arthritis(714.0) Remission; note that diagnosis inflammatory arthritis (neg RF) on Dr. 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 losartan (COZAAR) 50 mg tablet Take 50 mg by mouth once daily. Dr. Leyva omeprazole (PRILOSEC) 20 mg capsule Take 1 capsule by mouth daily before breakfast. 1/2 hr before meal. As directed Milk Thistle 500 mg cap Take 500 mg by mouth. turmeric root extract 500 mg cap Take 1 capsule by mouth every other day. pyridoxine HCl, vitamin B6, (VITAMIN B-6 ORAL) Take by mouth. cyanocobalamin, vitamin B-12, (VITAMIN B-12 ORAL) Take by mouth. COD LIVER OIL ORAL Take by mouth. ELIQUIS 5 mg tab tab(s) 5 mg twice daily. metoprolol tartrate, short acting, (LOPRESSOR) 25 mg tablet 12.5 mg twice daily. MAGNESIUM CARBONATE ORAL Take by mouth. CALCIUM 500 MG TAB Take one(1) tablet two(2) times daily. diphenoxylate-atropine (LOMOTIL) 2.5-0.025 mg per tablet Take 1 tablet by mouth four times a day as needed for diarrhea for up to 10 days. No current facility-administered medications for this visit. ALLERGIES No Known Allergies FAMILY HISTORY Problem Relation Age of Onset Colon Cancer Father 80 Breast Cancer Paternal Grandmother other (Other) Other No stock letterer cancer Ovarian cancer No Family History Social History Tobacco Use Smoking status: Never Smokeless tobacco: Never Vaping Use Vaping status: Never Used Substance Use Topics Alcohol use: Yes Comment: Socially Drug use: No Review of Systems Objective BP 107/65 Pulse (!) 55 Temp 36.9 ?C (98.5 ?F) Resp 16 Ht 167.5 cm (5' 5.95) Wt 84 kg (185 lb 3 oz) SpO2 97% BMI 29.94 kg/m? Physical Exam Vitals reviewed. Constitutional: Appearance: Normal appearance. She is well-developed. HENT: Head: Normocephalic (more content not included)... Normal [facility] 25(OH)D3 [facility] 25-hydroxyvitamin D3 [Mass/Vol] 52.4 ng/mL Normal 31.0-80.0 [facility] Comment on above: Order Comment: Speci men Type: BLOOD SPECIMEN Ordering Facility: [facility] Address: [address] [place] [address] Performed By: #### 1 [id number] #### [facility] CLIA [id number] [address] [place] [address] [place] CBC panel Auto (Bld)on 06-28 Erythrocyte distribution width (RBC) [Ratio] 13.2 % Normal 11.5-15.0 [facility] Comment on above: Order Comment: Speci men Type: BLOOD SPECIMEN Ordering Facility: [facility] Address: [address] [place] [address] Performed By: #### 4 [id number], 80468-2 #### [facility] CLIA [id number] [address] [place] [address] [place] Hematocrit (Bld) [Volume fraction] 42.0 % Normal 36.0-46.0 [facility] Comment on above: Order Comment: Speci men Type: BLOOD SPECIMEN Ordering Facility: [facility] Address: [address] [place] [address] Performed By: #### 4 537-7, 40327-3 #### [facility] CLIA [id number] [address] [place] [address] [place] Hemoglobin (Bld) [Mass/Vol] 13.8 g/dL Normal 11.5-15.5 [facility] Comment on above: Order Comment: Speci men Type: BLOOD SPECIMEN Ordering Facility: [facility] Address: [address] [place] [address] Performed By: #### 4 537-7, 83452-8 #### [facility] CLIA [id number] [address] [place] [address] [place] MCH (RBC) [Entitic mass] 30.8 pg Normal 26.0-34.0 [facility] Comment on above: Order Comment: Speci men Type: BLOOD SPECIMEN Ordering Facility: [facility] Address: [address] [place] [address] Performed By: #### 4 537-7, 79505-8 #### [facility] CLIA [id number] [address] [place] [address] [place] MCHC (RBC) [Mass/Vol] 32.9 g/dL Normal 30.5-36.0 [facility] Comment on above: Order Comment: Speci men Type: BLOOD SPECIMEN Ordering Facility: [facility] Address: [address] [place] [address] Performed By: #### 4 537-7, 07827-5 #### [facility] CLIA [id number] [address] [place] [address] [place] MCV (RBC) [Entitic vol] 93.8 fL Normal 80.0-100.0 [facility] Comment on above: Order Comment: Speci men Type: BLOOD SPECIMEN Ordering Facility: [facility] Address: [address] [place] [address] Performed By: #### 4 537-7, 81790-9 #### [facility] CLIA [id number] [address] [place] [address] [place] Nucleated RBC (Bld) [#/Vol] 10*3/uL Normal <0.01 [facility] Comment on above: Order Comment: Speci men Type: BLOOD SPECIMEN Ordering Facility: [facility] Address: [address] [place] [address] Performed By: #### 4 537-7, 19503-8 #### [facility] CLIA [id number] [address] [place] [address] [place] Platelet mean volume (Bld) [Entitic vol] 11.1 fL Normal 9.0-12.7 [facility] Comment on above: Order Comment: Speci men Type: BLOOD SPECIMEN Ordering Facility: [facility] Address: [address] [place] [address] Performed By: #### 4 537-7, 42031-3 #### [facility] CLIA [id number] [address] [place] [address] [place] Platelets (Bld) [#/Vol] 244 10*3/uL Normal 150-400 [facility] Comment on above: Order Comment: Speci men Type: BLOOD SPECIMEN Ordering Facility: [facility] Address: [address] [place] [address] Performed By: #### 4 537-7, 44529-3 #### [facility] CLIA [id number] [address] [place] [address] [place] RBC (Bld) [#/Vol] 4.48 10*6/uL Normal 3.90-5.20 [facility] Comment on above: Order Comment: Speci men Type: BLOOD SPECIMEN Ordering Facility: [facility] Address: [address] [place] [address] Performed By: #### 4 537-7, 51456-8 #### [facility] CLIA [id number] [address] [place] [address] [place] WBC (Bld) [#/Vol] 7.61 10*3/uL Normal 3.70-11.00 [facility] Comment on above: Order Comment: Speci men Type: BLOOD SPECIMEN Ordering Facility: [facility] Address: [address] [place] [address] Performed By: #### 4 537-7, 54584-2 #### [facility] CLIA [id number] [address] [place] [address] [place] CRP SerPl-mCncon 06-28-2024 CRP [Mass/Vol] 0.3 mg/dL Normal <0.9 [facility] Comment on above: Order Comment: Speci men Type: BLOOD SPECIMEN Ordering Facility: [facility] Address: [address] [place] [address] Performed By: #### 4 537-7, 14784-2 #### [facility] CLIA [id number] [address] [place] [address] [place] Comprehensive metabolic 2000 panelon 06-28-2024 Albumin [Mass/Vol] 4.0 g/dL Normal 3.9-4.9 [facility] Comment on above: Order Comment: Speci men Type: BLOOD SPECIMEN Ordering Facility: [facility] Address: [address] [place] [address] Performed By: #### 4 537-7, 03855-9 #### [facility] CLIA [id number] [address] [place] [address] [place] ALP [Catalytic activity/Vol] 197 U/L High 34-123 [facility] Comment on above: Order Comment: Speci men Type: BLOOD SPECIMEN Ordering Facility: [facility] Address: [address] [place] [address] Performed By: #### 4 537-7, 18432-8 #### [facility] CLIA [id number] [address] [place] [address] [place] ALT [Catalytic activity/Vol] 58 U/L High 7-38 [facility] Comment on above: Order Comment: Speci men Type: BLOOD SPECIMEN Ordering Facility: [facility] Address: [address] [place] [address] Performed By: #### 4 537-7, 14395-9 #### [facility] CLIA [id number] [address] [place] [address] [place] Anion gap [Moles/Vol] 12 mmol/L Normal 8-15 [facility] Comment on above: Order Comment: Speci men Type: BLOOD SPECIMEN Ordering Facility: [facility] Address: [address] [place] [address] Performed By: #### 4 537-7, 67588-2 #### [facility] CLIA [id number] [address] [place] [address] [place] AST [Catalytic activity/Vol] 44 U/L High 13-35 [facility] Comment on above: Order Comment: Speci men Type: BLOOD SPECIMEN Ordering Facility: [facility] Address: [address] [place] [address] Performed By: #### 4 537-7, 35015-4 #### [facility] CLIA [id number] [address] [place] [address] [place] Bilirubin [Mass/Vol] 0.4 mg/dL Normal 0.2-1.3 [facility] Comment on above: Order Comment: Speci men Type: BLOOD SPECIMEN Ordering Facility: [facility] Address: [address] [place] [address] Performed By: #### 4 537-7, 39756-2 #### [facility] CLIA [id number] [address] [place] [address] [place] Calcium [Mass/Vol] 9.5 mg/dL Normal 8.5-10.2 [facility] Comment on above: Order Comment: Speci men Type: BLOOD SPECIMEN Ordering Facility: [facility] Address: [address] [place] [address] Performed By: #### 4 537-7, 63244-1 #### [facility] CLIA [id number] [address] [place] [address] [place] Chloride [Moles/Vol] 104 mmol/L Normal 98-107 [facility] Comment on above: Order Comment: Speci men Type: BLOOD SPECIMEN Ordering Facility: [facility] Address: [address] [place] [address] Performed By: #### 4 537-7, 30756-7 #### [facility] CLIA [id number] [address] [place] [address] [place] CO2 [Moles/Vol] 25 mmol/L Normal 22-30 [facility] Comment on above: Order Comment: Speci men Type: BLOOD SPECIMEN Ordering Facility: [facility] Address: [address] [place] [address] Performed By: #### 4 537-7, 90377-8 #### [facility] CLIA [id number] [address] [place] [address] [place] Creatinine [Mass/Vol] 0.69 mg/dL Normal 0.58-0.96 [facility] Comment on above: Order Comment: Speci men Type: BLOOD SPECIMEN Ordering Facility: [facility] Address: [address] [place] [address] Performed By: #### 4 537-7, 19050-4 #### [facility] CLIA [id number] [address] [place] [address] [place] Creatinine and Glomerular filtration rate.predicted panel (S/P/Bld) 90 mL/min/1.73m??? Normal >=60 [facility] Comment on above: Order Comment: Speci men Type: BLOOD SPECIMEN Ordering Facility: [facility] Address: [address] [place] [address] Result Comment: Carly mated Glomerular Filtration Rate (eGFR) is calculated using the 2020 CKD-EPI creatinine equation. This equation utilizes serum creatinine, sex, and age as parameters. The creatinine assay has traceable calibration to isotope dilution-mass spectrometry. Refer to KDIGO guidelines for clinical interpretation. In patients with unstable renal function, e.g. those with acute kidney injury, the eGFR may not accurately reflect actual GFR. Performed By: #### 4 537-7, 57452-3 #### [facility] CLIA [id number] [address] [place] [address] [place] Glucose [Mass/Vol] 88 mg/dL Normal 74-99 [facility] Comment on above: Order Comment: Dakota grier Type: BLOOD SPECIMEN Ordering Facility: [facility] Address: [address] [place] [address] Result Comment: The [place] Diabetes Association (ADA) provides guidance for cutoff values for fasting glucose and random glucose. The ADA defines fasting as no caloric intake for at least 8 hours. Fasting plasma glucose results between 100 to 125 mg/dL indicate increased risk for diabetes (prediabetes). Fasting plasma glucose results greater than or equal to 126 mg/dL meet the criteria for diagnosis of diabetes. In the absence of unequivocal hyperglycemia, results should be confirmed by repeat testing. In a patient with classic symptoms of hyperglycemia or hyperglycemic crisis, random plasma glucose results greater than or equal to 200 mg/dL meet the criteria for diagnosis of diabetes. Reference: Standards of Medical Care in Diabetes 2016, [place] [employer] Association. Diabetes Care. 2016.39(Suppl 1). Performed By: #### 4 537-7, 23982-1 #### [facility] CLIA [id number] [address] [place], [place] [address] [place] Potassium [Moles/Vol] 4.4 mmol/L Normal 3.7-5.1 [facility] Comment on above: Order Comment: Dakota grier Type: BLOOD SPECIMEN Ordering Facility: [facility] Address: [address] [place] [address] Performed By: #### 4 537-7, 63098-5 #### [facility] CLIA [id number] [address] [place], [place] [address] [place] Protein [Mass/Vol] 7.3 g/dL Normal 6.3-8.0 [facility] Comment on above: Order Comment: Speci men Type: BLOOD SPECIMEN Ordering Facility: [facility] Address: [address] [place] [address] Performed By: #### 4 537-7, 06628-4 #### [facility] CLIA [id number] [address] [place] [address] [place] Sodium [Moles/Vol] 141 mmol/L Normal 136-144 [facility] Comment on above: Order Comment: Speci men Type: BLOOD SPECIMEN Ordering Facility: [facility] Address: [address] [place] [address] Performed By: #### 4 537-7, 15561-2 #### [facility] CLIA [id number] [address] [place] [address] [place] Urea nitrogen [Mass/Vol] 15 mg/dL Normal 7-21 [facility] Comment on above: Order Comment: Speci men Type: BLOOD SPECIMEN Ordering Facility: [facility] Address: [address] [place] [address] Performed By: #### 4 537-7, 15823-0 #### [facility] CLIA [id number] [address] [place] [address] [place] ESR Westergren method (Bld) [Velocity]on 06-28-2024 ESR (Bld) [Velocity] 13 mm/h Normal 0-20 [facility] Comment on above: Order Comment: Speci men Type: BLOOD SPECIMEN Ordering Facility: [facility] Address: [address] [place] [address] Performed By: #### 4 537-7, 78987-7 #### [facility] CLIA [id number] [address] [place] [address] [place] Ferritin SerPl-mCncon 2024 Ferritin [Mass/Vol] 240.0 ng/mL High 14.7-205.1 [facility] Comment on above: Order Comment: Speci men Type: BLOOD SPECIMEN Ordering Facility: [facility] Address: [address] [place] [address] Performed By: #### 4 537-7, 40447-1 #### [facility] CLIA [id number] [address] [place] [address] [place] Iron and Iron binding capaci ty panelon 06-28-2024 Iron [Mass/Vol] 88 ug/dL Normal 41-186 [facility] Comment on above: Order Comment: Speci men Type: BLOOD SPECIMEN Ordering Facility: [facility] Address: [address] [place] [address] Performed By: #### 4 537-7, 21106-4 #### [facility] CLIA [id number] [address] [place] [address] [place] Iron binding capacity [Mass/Vol] 276 ug/dL Normal 232-386 [facility] Comment on above: Order Comment: Speci men Type: BLOOD SPECIMEN Ordering Facility: [facility] Address: [address] [place] [address] Performed By: #### 4 537-7, 38064-1 #### [facility] CLIA [id number] [address] [place] [address] [place] Iron/TIBC [Molar ratio] 31.9 % Normal 15.0-57.0 [facility] Comment on above: Order Comment: Speci men Type: BLOOD SPECIMEN Ordering Facility: [facility] Address: [address] [place] [address] Performed By: #### 4 537-7, 77811-8 #### [facility] CLIA [id number] [address] [place], [place] [address] [place] Lipid 1996 panelon Cholesterol [Mass/Vol] 222 mg/dL High <200 [facility] Comment on above: Order Comment: Geoffreyi men Type: BLOOD SPECIMEN Ordering Facility: [facility] Address: [address] [place] [address] Result Comment: <200 mg/dL, Desirable 200-239 mg/dL, Borderline high >239 mg/dL, High Performed By: #### 4 537-7, 86884-7 #### [facility] CLIA [id number] [address] [place] [address] [place] Cholesterol in HDL [Mass/Vol] 75 mg/dL Normal >39 [facility] Comment on above: Order Comment: Geoffreyi men Type: BLOOD SPECIMEN Ordering Facility: [facility] Address: [address] [place] [address] Result Comment: 40-5 9 mg/dL, Acceptable >59 mg/dL, High: Negative risk factor for coronary heart disease <40 mg/dL, Low: Positive risk factor for coronary heart disease Performed By: #### 4 537-7, 93687-0 #### [facility] CLIA [id number] [address] [place] [address] [place] Cholesterol in LDL [Mass/Vol] 134 mg/dL High <100 [facility] Comment on above: Order Comment: Geoffreyi men Type: BLOOD SPECIMEN Ordering Facility: [facility] Address: [address] [place] [address] Result Comment: <100 mg/dL, Optimal 100-129 mg/dL, Near optimal/above optimal 130-159 mg/dL, Borderline high 160-189 mg/dL, High >189 mg/dL, Very high Secondary prevention optimal LDL Cholesterol levels are recommended to be < 70 mg/dL Performed By: #### 4 537-7, 64674-3 #### [facility] CLIA [id number] [address] [place] [address] [place] Cholesterol in LDL/Cholesterol in HDL [Mass ratio] 1.79 {ratio} Normal <2.54 [facility] Comment on above: Order Comment: Speci men Type: BLOOD SPECIMEN Ordering Facility: [facility] Address: [address] [place] [address] Result Comment: Johnny harper: 1. National Cholesterol Education Program ATP III Guideline At-A-Glance Quick Desk Reference: National Heart, Lung, and Blood [place]once. National Institutes of Health. 2001: NIH Publication No. 01-3305. 2. An International Atherosclerosis Society position paper: global recommendations for the management of dyslipidemia: executive summary, Atherosclerosis. 2014: 232(2):410-413. Performed By: #### 4 537-7, 02902-2 #### [facility] CLIA [id number] [address] [place] [address] [place] Cholesterol in VLDL [Mass/Vol] 13 mg/dL Normal <30 [facility] Comment on above: Order Comment: Dakota grier Type: BLOOD SPECIMEN Ordering Facility: [facility] Address: [address] [place] [address] Performed By: #### 4 537-7, 32489-2 #### [facility] CLIA [id number] [address] [place] [address] [place] Cholesterol non HDL [Mass/Vol] 147 mg/dL High <130 [facility] Comment on above: Order Comment: Dakota grier Type: BLOOD SPECIMEN Ordering Facility: [facility] Address: [address] [place] [address] Result Comment: <130 mg/dL, Optimal 130-159 mg/dL, Near optimal/above optimal 160-189 mg/dL, Borderline high 190-219 mg/dL, High >219 mg/dL, Very high Secondary prevention optimal non HDL Cholesterol levels are recommended to be <100 mg/dL Performed By: #### 4 537-7, 98606-4 #### [facility] CLIA [id number] [address] [place] [address] [place] Cholesterol.total/Shonna sterol in HDL [Mass ratio] 2.96 {ratio} Normal <5.10 [facility] Comment on above: Order Comment: Dakota grier Type: BLOOD SPECIMEN Ordering Facility: [facility] Address: [address] [place] [address] Performed By: #### 4 537-7, 71202-8 #### [facility] CLIA [id number] [address] [place] [address] [place] FASTING TIME 12 hrs Normal [facility] Comment on above: Order Comment: Speci men Type: BLOOD SPECIMEN Ordering Facility: [facility] Address: [address] [place] [address] Performed By: #### 4 537-7, 71441-3 #### [facility] CLIA [id number] [address] [place] [address] [place] Triglyceride [Mass/Vol] 63 mg/dL Normal <150 [facility] Comment on above: Order Comment: Speci men Type: BLOOD SPECIMEN Ordering Facility: [facility] Address: [address] [place] [address] Result Comment: <150 mg/dL, Normal 150-199 mg/dL, Borderline high 200-499 mg/dL, High >499 mg/dL, Very high Performed By: #### 4 537-7, 88127-0 #### [facility] CLIA [id number] [address] [place] [address] [place] Vit [facility]25 Cobalamin (Vitamin B12) [Mass/Vol] 825 pg/mL Normal 232-1245 [facility] Comment on above: Order Comment: Speci men Type: BLOOD SPECIMEN Ordering Facility: [facility] Address: [address] [place] [address] Performed By: #### 4 537-7, 38822-4 #### [facility] CLIA [id number] [address] [place] [address] [place] Neurology Visit Reporton Neurology Visit Report [facility] [address] [facility], [address] [place] [address] OFFICE VISIT Date of Service: 06/15/24 MR#: [id number] Acct: [id number] Name: ONEIDA STEWARD Rep #: [id number] : 1945 Provider: Dr. Ivan oconnor MD Age/Sex: 78/F Location: [facility] Status: Signed with Addenda ADDENDUM by Dr. Ivan Pink MD on 06/27/24 at 1536 Addendum Addendum (06/27/24): CBC, ESR, CMP, iron, ferritin, , c-reactive protein, B12, lipid profile (12/31/23): AST 49 (high), ALT 53 (high), cholesterol 243, triglycerides 66 (normal), HDL 77 (normal), LDL 153 (high), ferritin 211 (high) 06/27/24 1536 Date Ivan Pink MD cc: Dr. Tor Wright MD; Dr. Niya Martinez MD * Signed HPI HPI Chief Complaint: Establish Care Details: History: The patient is a 78-year-old right-handed woman with a past medical history of paroxysmal atrial fibrillation, rheumatoid arthritis, status post right shoulder joint replacement, hepatitis C (cleared), status-post cholecystectomy, and hypertension who presents for evaluation of headaches. In June 2023, she woke from sleep with a severe headache and this headache lasted for until September 2023. The headache was primarily localized to the vertex region but did extend globally. She experienced some associated nausea. She had some associated photophobia and scalp sensitivity. She also experienced some neck pain. This headache was continuous for several weeks though it did fluctuate in severity. In September 2023, she received acupuncture and reports that she had significant reduction of her headache following this procedure. Two weeks later, she had some exacerbation of her headache and received further acupuncture and this was of benefit. Acetaminophen was of some benefit for her headaches. She did not have associated numbness, or weakness. She experienced some blurring of vision with the headache. She had associated transient tinnitus. Her ESR in August 2023 was normal. After September 2023, she has been experiencing mild headaches that occur about 3 days/month with individual headaches lasting 1 day each. She has experienced this pattern of headaches since around the age of 61. She generally does not feel the need to take a medication for these headaches; she has used acetaminophen occasionally and this of benefit. Between the ages of 51 and 61, she experienced more severe headaches that were often stressed related. She had associated nausea and photophobia. These headaches occurred as frequently as 2 days/week. She has rheumatoid arthritis however her musculoskeletal symptoms have been mild recently. She is no longer experiencing neck pain. She had a head CT in August 2023 that revealed mild diffuse age-related cerebral atrophy, mild bilateral periventricular and subcortical white matter chronic small vessel ischemic disease and mild ethmoid and frontal sinus disease. More recently, she has been experiencing vague numbness in a feeling of tightness in the feet. In 2016, she had a left temporal headache with associated tenderness in this region. She states that the possibility of temporal arteritis was raised however the headache resolved spontaneously in about 2 days and further evaluation of the headache with temporal artery biopsy was not pursued. She did not receive any prescription medication for this headache. Past Medical History: As above. There is no history of diabetes mellitus, lung disease, stroke, seizure, thyroid disease, cancer, renal disease, sleep apnea, or hyperlipidemia. Social History: The patient does not smoke tobacco. There is no history of alcohol abuse or illicit drug use. Family History: The patient's mother had a stroke. There is no family history of cerebral aneurysm, seizure or headache. Review of Systems: As above. The patient has not had any recent fever, rash, chest pain, gastrointestinal problems or urinary problems. She has gained a few pounds over recent months. She experiences some dyspnea on exertion. She denies having sleep disturbance, depression, or anxiety. Physical Exam: General: Well-developed, well-nourished female in no acute distress. Neuro: The patient is awake and alert and responds appropriately; speech is fluent; language function is within normal limits Cranial nerves: PERRL, 3mm bilaterally; EOMI; visual mercedes are full; visual acuity is 20/20 on the right and 20/25 on the left; face is symmetrical; tongue is midline; there are no deficits to pinprick Cerebellar system: No nystagmus or dysmetria Deep tendon reflexes: +2 at the right biceps and right brachioradialis and absent at the triceps bilaterally, left biceps, left brachioradialis, knees and ankles; plantar responses are downward bilaterally Motor: Strength 5/5 in the biceps bilaterally, abductor pollicis brevis muscles (more content not included)... Normal [facility] US BREAST LTD RTon 04-06 [facility] US BREAST LTD RT * * *Final Report* * * DATE OF EXAM: Apr 06 2024 1:13PM AAW [id number] - [facility] US BREAST LTD RT / PROCEDURE REASON: multiple diagnoses * * * * Physician Interpretation * * * * [facility] [address] [facility] [place] [id number] HISTORY: Patient is 78 years old and is seen for diagnostic evaluation of focal pain in the right breast. Patient states no personal history of breast cancer. Patient states no personal history of other cancers. COMPARISON STUDIES: The present examination has been compared to prior imaging studies dated 04/26/2021, 02/07/2022 (mammogram), 03/10/2023 (mammogram), 03/24/2023 (ultrasound) and 03/22/2024 (mammogram). ULTRASOUND TECHNIQUE: Targeted ultrasound of the indicated area was performed. Baxter scale images were saved. ULTRASOUND FINDINGS: In the area of pain in the 6:00 right breast, 2 to 6 cm from the nipple, there is normal breast tissue without suspicious sonographic finding. In the area of reported thickening in the 8:00 axis of the right breast, this examination, there is similar however cystic changes within largest cyst measuring 0.6 x 0.4 x 0.5 cm. This is similar to right breast ultrasound dated 03/24/2023. No suspicious masses, distortions, or abnormal vascularity is identified. IMPRESSION: No suspicious sonographic findings to correlate with the patient's area of pain/thickening in the right breast. Recommend clinical correlation/management. A return to screening mammogram in 1 year is recommended. BI-RADS Category 2: Benign Interpreting Radiologist: Agnes Palumbo M.D. Electronically signed on: 04/06/2024 Egg Grader: HO Transcribe Date/Time: Apr 06 2024 12:56P Dictated by : AGNES PALUMBO MD This examination was interpreted and the report reviewed and electronically signed by: AGNES PALUMBO MD on Apr 06 2024 1:27PM EST [id number] Normal [facility] US Breast - right limitedon 04-06-2024 IMPRESSION: No suspicious sonographic findings to correlate with the patient's area of pain/thickening in the right breast. Recommend clinical correlation/management. A return to screening mammogram in 1 year is recommended. BI-RADS Category 2: Benign Interpreting Radiologist: Agnes Palumbo M.D. Electronically signed on: 04/06/2024 Egg Grader: HO Transcribe Date/Time: Apr 06 2024 12:56P Dictated by : AGNES PALUMBO MD This examination was interpreted and the report reviewed and electronically signed by: AGNES PALUMBO MD on Apr 06 2024 1:27PM EST [facility] * * *Final Report* * * DATE OF EXAM: Apr 06 2024 1:13PM [facility] 0594 - CHAO BREAST LTD RT / PROCEDURE REASON: multiple diagnoses * * * * Physician Interpretation * * * * [facility] [address] [facility]. [place] [id number] HISTORY: Patient is 78 years old and is seen for diagnostic evaluation of focal pain in the right breast. Patient states no personal history of breast cancer. Patient states no personal history of other cancers. COMPARISON STUDIES: The present examination has been compared to prior imaging studies dated 04/26/2021, 02/07/2022 (mammogram), 03/10/2023 (mammogram), 03/24/2023 (ultrasound) and 03/22/2024 (mammogram). ULTRASOUND TECHNIQUE: Targeted ultrasound of the indicated area was performed. Baxter scale images were saved. ULTRASOUND FINDINGS: In the area of pain in the 6:00 right breast, 2 to 6 cm from the nipple, there is normal breast tissue without suspicious sonographic finding. In the area of reported thickening in the 8:00 axis of the right breast, this examination, there is similar however cystic changes within largest cyst measuring 0.6 x 0.4 x 0.5 cm. This is similar to right breast ultrasound dated 03/24/2023. No suspicious masses, distortions, or abnormal vascularity is identified. [facility] Provider, Cc Jade Ponce - 04/06/2024 * * *Final Report* * * DATE OF EXAM: Apr 06 2024 1:13PM [facility] 0594 - CHAO US BREAST LTD RT / PROCEDURE REASON: multiple diagnoses * * * * Physician Interpretation * * * * [facility] [address] [facility] [place] [address] HISTORY: Patient is 78 years old and is seen for diagnostic evaluation of focal pain in the right breast. Patient states no personal history of breast cancer. Patient states no personal history of other cancers. COMPARISON STUDIES: The present examination has been compared to prior imaging studies dated 04/26/2021, 02/07/2022 (mammogram), 03/10/2023 (mammogram), 03/24/2023 (ultrasound) and 03/22/2024 (mammogram). ULTRASOUND TECHNIQUE: Targeted ultrasound of the indicated area was performed. Baxter scale images were saved. ULTRASOUND FINDINGS: In the area of pain in the 6:00 right breast, 2 to 6 cm from the nipple, there is normal breast tissue without suspicious sonographic finding. In the area of reported thickening in the 8:00 axis of the right breast, this examination, there is similar however cystic changes within largest cyst measuring 0.6 x 0.4 x 0.5 cm. This is similar to right breast ultrasound dated 03/24/2023. No suspicious masses, distortions, or abnormal vascularity is identified. IMPRESSION IMPRESSION: No suspicious sonographic findings to correlate with the patient's area of pain/thickening in the right breast. Recommend clinical correlation/management. A return to screening mammogram in 1 year is recommended. BI-RADS Category 2: Benign Interpreting Radiologist: Agnes Palumbo M.D. Electronically signed on: 04/06/2024 Egg Grader: HO Transcribe Date/Time: Apr 06 2024 12:56P Dictated by : AGNES PALUMBO MD This examination was interpreted and the report reviewed and electronically signed by: AGNES PALUMBO MD on Apr 06 2024 1:27PM [facility] Radiology Study observation (narrative) D[facility] US Breast - right limitedOrd ered By: Ccf Provider on 04-06-2024 [facility] CNOVon 03-25-2024 [facility] ONEIDA [facility] ([id number]) 1945 F Date Time Provider Department 03/25/24 1:00 PM BETY MENA [facility] During your visit today, we recorded the following information about you: Pulse Blood pressure Weight Height 95/minute 130/73 81.6 kg 1.581 m Bety Mena MD 03/25/2024 1:53 PM Signed Chief Complaint: [facility] follow up HISTORY OF PRESENT ILLNESS: Oneida Steward is a 78 year old female who presents for CBE after imaging. She notes burning and itching for 2 weeks in right breast during February, now resolved. Area below nipple was reddish and she used lotion and resolved, maybe heat rash she thought? No nipple DC, lumps or skin scaling of nipple. PAST MEDICAL HISTORY Diagnosis Date Diarrhea Diverticulosis of colon (without mention of hemorrhage) Paroxysmal atrial fibrillation (HCC) 06/02/2017 Controlled on current meds; Dr. Akbar managing. Positive hepatitis C antibody test 06/02/2017 negative for chronic active hepatitis C Rheumatoid arthritis(714.0) Remission; note that diagnosis inflammatory arthritis (neg RF) on Dr. 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 Mena- Radial Scar CHOLECYSTECTOMY 12/25/1983 Cholecystectomy COLONOSCOPY FLX DX W/COLLJ SPEC WHEN PFRMD , 12/11/2001 Colonoscopy COLONOSCOPY FLX DX W/COLLJ SPEC WHEN PFRMD 02/13/2006 COLONOSCOPY FLX DX W/COLLJ SPEC WHEN PFRMD 11/29/2010 Colonoscopy COLONOSCOPY FLX DX W/COLLJ SPEC WHEN PFRMD N/A 02/02/2021 [facility]-Abdirizak Yuan MD LEFT HEART CATH,PERCUTANEOUS 11/14/2008 Cardiac cath, L heart [facility] - coronary angiography OPEN REPAIR OF ROTATOR CUFF ACUTE 01/16/2012 Rotator cuff repair left - [facility] PAST SURGICAL HISTORY OF Surgery on Bile Duct REVISE MEDIAN N/CARPAL TUNNEL SURG Left 2022 TOTAL ABDOMINAL HYSTERECT W/WO RMVL TUBE OVARY 12/03/2000 Hysterectomy, KINDRA, BSO Social History Tobacco Use Smoking status: Never Smokeless tobacco: Never Vaping Use Vaping status: Never Used Substance Use Topics Alcohol use: Yes Comment: Socially Drug use: No FAMILY HISTORY Problem Relation Age of Onset Colon Cancer Father 80 Breast Cancer Paternal Grandmother other (Other) Other No stock letterer cancer Ovarian cancer No Family History ALLERGIES No Known Allergies Current Outpatient Medications Medication Sig flecainide (TAMBOCOR) 100 mg tablet Take 0.5 tablets by mouth two times a day. losartan (COZAAR) 50 mg tablet Take 50 mg by mouth once daily. Dr. Autumn Sheffield Thistle 500 mg cap Take 500 mg by mouth. turmeric root extract 500 mg cap Take 1 capsule by mouth every other day. pyridoxine HCl, vitamin B6, (VITAMIN B-6 ORAL) Take by mouth. cyanocobalamin, vitamin B-12, (VITAMIN B-12 ORAL) Take by mouth. COD LIVER OIL ORAL Take by mouth. ELIQUIS 5 mg tab tab(s) 5 mg twice daily. metoprolol tartrate, short acting, (LOPRESSOR) 25 mg tablet 12.5 mg twice daily. MAGNESIUM CARBONATE ORAL Take by mouth. CALCIUM 500 MG TAB Take one(1) tablet two(2) times daily. diphenoxylate-atropine (LOMOTIL) 2.5-0.025 mg per tablet Take 1 tablet by mouth four times a day as needed for diarrhea for up to 10 days. omeprazole (PRILOSEC) 20 mg capsule Take 1 capsule by mouth daily before breakfast. 1/2 hr before meal. As directed (Patient not taking: Reported on 03/25/2024) No current facility-administered medications for this visit. PHYSICAL EXAM: BP 130/73 Pulse 95 Ht 5' 2.25 (1.58m) Wt 180 lb (81.6kg) BMI 32.66 kg/(m2). General Appearance: Well appearing, alert, in no acute distress, well-hydrated, well nourished.. Skin: Negative for jaundice or pallor. Lungs: Normal respirations Breast Exam:The sensitive examination was discussed with the Patient or Patient's Authorized Track Service Person. As applicable, any other physician, advance practice provider, medical student, or other health professional student that will be observing or involved in the sensitive examination for educational or training purposes was discussed with the Patient or Authorized Track Service Person. The Patient or Authorized Track Service Person has agreed to proceed with the sensitive examination. (Sensitive examination includes inspection and/or palpation of the breasts, pelvis, prostate and anorectal regions) Right Well-healed incisions noted. She has mild diffuse fibrocystic changes with more prominent thickening at the 8 o'clock position lower outer quadrant. Inferiorly at the 6 o'clock position where she noticed the burning and itching there a (more content not included)... Normal [facility] DBT Breast - bilateral scree cuate 03-23-2024 IMPRESSION: Finding 1: Area of clinical concern in the right breast requires additional evaluation. A DIAGNOSTIC ultrasound is recommended. Finding 2: Post-operative changes in the left breast are benign. BI-RADS Category 0: Incomplete: Needs Additional Imaging Evaluation RISK: Based on the Tyrer-Cuzick (TC) risk assessment model, this patient has a 6.5% lifetime risk of developing breast cancer, meaning they are at average risk for developing breast cancer. However, this is only an estimate based on available history provided on the patient's questionnaire. We encourage all patients talk with their providers about these results, further recommendations for managing breast health, and appropriate supplemental screening options if the patient has dense breast tissue. Interpreting Radiologist: Sharon Zepeda M.D. Electronically signed on: 03/23/2024 Egg Grader: HO Transcribe Date/Time: Mar 22 2024 9:18A Dictated by: SHARON ZEPEDA MD This examination was interpreted and the report reviewed and electronically signed by: SHARON ZEPEDA MD on Mar 23 2024 8:22AM [facility] DIVISION OF RADIOLOGY * * *Final Report* * * DATE OF EXAM: Mar 22 2024 9:35AM [facility] 0582 - CHAO SCREENING W BRIGIDA / PROCEDURE REASON: Screening mammogram for breast cancer * * * * Physician Interpretation * * * * RESULT: [facility] [address] [place] [address] HISTORY: Patient is 78 years old and is seen for screening and focal pain in the right breast. The patient has no personal history of cancer. COMPARISON STUDIES: The present examination has been compared to prior imaging studies dated 12/21/2020 (mammogram), 02/07/2022 (mammogram) and 03/10/2023 (mammogram). MAMMOGRAM TECHNIQUE: The study was acquired using full field digital technology and interpreted from soft copy. Digital Breast Tomosynthesis (DBT) images were obtained and used to assist in the interpretation of this examination. Computer-aided detection was utilized by the radiologist in the interpretation of this examination. MAMMOGRAM FINDINGS: The breasts are heterogeneously dense, which may obscure small masses. Finding 1: No suspicious mammographic finding to correlate to the area of focal pain in the lower inner quadrant of the right breast There are no significant changes from the prior study. Finding 2: There are post-operative changes in the left breast. There are no significant changes from the prior study. DIVISION OF RADIOLOGY Provider, [facility] - 03/23/2024 * * *Final Report* * * DATE OF EXAM: Mar 22 2024 9:35AM [facility] 0582 - [facility] SCREENING W BRIGIDA / PROCEDURE REASON: Screening mammogram for breast cancer * * * * Physician Interpretation * * * * RESULT: [facility] [address] [place] [address] HISTORY: Patient is 78 years old and is seen for screening and focal pain in the right breast. The patient has no personal history of cancer. COMPARISON STUDIES: The present examination has been compared to prior imaging studies dated 12/21/2020 (mammogram), 02/07/2022 (mammogram) and 03/10/2023 (mammogram). MAMMOGRAM TECHNIQUE: The study was acquired using full field digital technology and interpreted from soft copy. Digital Breast Tomosynthesis (DBT) images were obtained and used to assist in the interpretation of this examination. Computer-aided detection was utilized by the radiologist in the interpretation of this examination. MAMMOGRAM FINDINGS: The breasts are heterogeneously dense, which may obscure small masses. Finding 1: No suspicious mammographic finding to correlate to the area of focal pain in the lower inner quadrant of the right breast There are no significant changes from the prior study. Finding 2: There are post-operative changes in the left breast. There are no significant changes from the prior study. IMPRESSION IMPRESSION: Finding 1: Area of clinical concern in the right breast requires additional evaluation. A DIAGNOSTIC ultrasound is recommended. Finding 2: Post-operative changes in the left breast are benign. BI-RADS Category 0: Incomplete: Needs Additional Imaging Evaluation RISK: Based on the Tyrer-Cuzick (TC) risk assessment model, this patient has a 6.5% lifetime risk of developing breast cancer, meaning they are at average risk for developing breast cancer. However, this is only an estimate based on available history provided on the patient's questionnaire. We encourage all patients talk with their providers about these results, further recommendations for managing breast health, and appropriate supplemental screening options if the patient has dense breast tissue. Interpreting Radiologist: Sharon Zepeda M.D. Electronically signed on: 03/23/2024 Egg Grader: HO Transcribe Date/Time: Mar 22 2024 9:18A Dictated by: SHARON ZEPEDA MD This examination was interpreted and the report reviewed and electronically signed by: SHARON ZEPEDA MD on Mar 23 2024 8:22AM EST [facility] DBT Breast - bilateral scree ningOrdered By: Ccf Provider on 03-23-2024 [facility] DBT Breast - bilateral scree yonatangoruel 03-22-2024 Radiology Study observation (narrative) [facility] CHAO SCREENING W TOMOon 03-22 CHAO SCREENING W BRIGIDA * * *Final Report* * * DATE OF EXAM: Mar 22 2024 9:35AM [facility] 0582 - CHAO SCREENING W BRIGIDA / PROCEDURE REASON: Screening mammogram for breast cancer * * * * Physician Interpretation * * * * [place]: [place] [id number] HISTORY: Patient is 78 years old and is seen for screening and focal pain in the right breast. The patient has no personal history of cancer. COMPARISON STUDIES: The present examination has been compared to prior imaging studies dated 12/21/2020 (mammogram), 02/07/2022 (mammogram) and 03/10/2023 (mammogram). MAMMOGRAM TECHNIQUE: The study was acquired using full field digital technology and interpreted from soft copy. Digital Breast Tomosynthesis (DBT) images were obtained and used to assist in the interpretation of this examination. Computer-aided detection was utilized by the radiologist in the interpretation of this examination. MAMMOGRAM FINDINGS: The breasts are heterogeneously dense, which may obscure small masses. Finding 1: No suspicious mammographic finding to correlate to the area of focal pain in the lower inner quadrant of the right breast There are no significant changes from the prior study. Finding 2: There are post-operative changes in the left breast. There are no significant changes from the prior study. IMPRESSION: Finding 1: Area of clinical concern in the right breast requires additional evaluation. A DIAGNOSTIC ultrasound is recommended. Finding 2: Post-operative changes in the left breast are benign. BI-RADS Category 0: Incomplete: Needs Additional Imaging Evaluation RISK: Based on the Tyrer-Cuzick (TC) risk assessment model, this patient has a 6.5% lifetime risk of developing breast cancer, meaning they are at average risk for developing breast cancer. However, this is only an estimate based on available history provided on the patient's questionnaire. We encourage all patients talk with their providers about these results, further recommendations for managing breast health, and appropriate supplemental screening options if the patient has dense breast tissue. Interpreting Radiologist: Sharon Zepeda M.D. Electronically signed on: 03/23/2024 Egg Grader: HO Transcribe Date/Time: Mar 22 2024 9:18A Dictated by: SHARON ZEPEDA MD This examination was interpreted and the report reviewed and electronically signed by: SHARON ZEPEDA MD on Mar 23 2024 8:22AM EST [id number] Normal [facility] Absolute lymphocyte countOrd ered By: Brennon Johnston on 08-18-2023 Lymphocytes Auto (Unsp spec) [#/Vol] 1.91 10*3/uL 0.83-4.51 [facility] Automated lymphocyte count a s percentage of total leukocytesOrdered By: Brennon Johnston on 08-18-2023 Lymphocytes/100 WBC Auto (Unsp spec) 24.1 % 19-41 [facility] Basophil percentageOrdered B y: Brennon Johnston on 08-18-2023 Basophils/100 WBC (Bld) 0.3 % 0-1 [facility] Bilirubin [Mass/Vol] 0.50 mg/dL 0.20-1.00 [facility] Comment on above: For patients on eltr ombopag therapy, use of Dimension [place] TBIL is not recommended. Chloride [Moles/Vol] 107 mmol/L 98-107 [facility] Eosinophils/100 WBC (Bld) 3.5 % 0-5 [facility] Glucose [Mass/Vol] 108 mg/dL 74-106 [facility] Comment on above: Fasting Glucose resu lt from 100 to 125 mg/dL suggests IMPAIRED HOMEOSTASIS per A.D.A. criteria. Hemoglobin (Bld) [Mass/Vol] 13.6 g/dL 12.0-15.0 [facility] Monocytes/100 WBC (Bld) 11.0 % 0-10 [facility] Neutrophils (Bld) [#/Vol] 4.8 10*3/uL 2.0-7.7 [facility] Neutrophils/100 WBC (Bld) 60.8 % 47-70 [facility] Potassium [Moles/Vol] 3.8 mmol/L 3.5-5.1 [facility] Protein [Mass/Vol] 7.3 g/dL 6.4-8.2 [facility] Sodium [Moles/Vol] 139 mmol/L 136-145 [facility] WBC (Bld) [#/Vol] 7.9 10*3/uL 4.4-11.0 [facility] Determination of erythrocyte mean corpuscular volume (MCV)Ordered By: Brennon Johnston on 08-18-2023 MCV (RBC) [Entitic vol] 94.3 fL 81-99 [facility] Erythrocyte distribution wid th ratioOrdered By: Brennon Johnston on 08-18-2023 Erythrocyte distribution width (RBC) [Ratio] 13.5 % 11.6-14.6 [facility] Erythrocyte distribution wid th standard deviationOrdered By: Brennonlalitha Johnston on 08-18-2023 Erythrocyte distribution width (RBC) [Entitic vol] 46.7 fL 35.1-43.9 [facility] Erythrocyte sedimentation ra teOrdered By: Brennonlalitha Johnston on 08-18-2023 ESR (Bld) [Velocity] 6 mm/h 0-30 [facility] Hematocrit Auto (Bld) [Volum e fraction]Ordered By: [facility] [place] on 08-18-2023 Hematocrit (Bld) [Volume fraction] 41.4 % 37-47 [facility] Immature granulocytes/100 WB C Auto (Bld)[facility] Immature granulocytes/100 WBC (Bld) 0.300 % 0.0-0.9 [facility] Comment on above: IG% - Immature Granu locytes (promyelocytes, myelocytes and metamyelocytes) > 1% indicates that a LEFT SHIFT is Present. Laboratory - Chemistry and C hemistry - challengeOrdered By: [facility] 08-18[facility]2023 Albumin/Globulin [Mass ratio] 0.8 {ratio} 0.9-2.4 [facility] ALP [Catalytic activity/Vol] 238 U/L 45-117 [facility] ALT [Catalytic activity/Vol] 104 U/L 13-56 [facility] CO2 [Moles/Vol] 29.0 mmol/L 21.0-32.0 [facility] Globulin (S) [Mass/Vol] 4.0 g/dL 2.2-4.2 [facility] Urea nitrogen/Creatinine [Mass ratio] 18.1 mg/mg 10-20 [facility] Laboratory - Hematology and Cell countsOrdered By: Brennonlalitha Johnston on 08-18-2023 MCH (RBC) [Entitic mass] 31.0 pg 27.0-32.0 [facility] MCHC (RBC) [Mass/Vol] 32.9 g/dL 32-36 [facility] Nucleated RBC/100 WBC (Bld) [Ratio] 0 % 0-5 [facility] Platelet mean volume (Bld) [Entitic vol] 10.1 fL 6.2-12.0 [facility] Platelets (Bld) [#/Vol] 248 10*3/uL 150-450 [facility] No Panel InformationOrdered By: Brennon Johnston on 08-18-2023 Estimated Creatinine Clearance Calc 64.96 ml/min [facility] Estimated GFR (MDRD) Amer 111 mL/min >60 [facility] Comment on above: GFR Calc Estimated GFR (MDRD) Non-Af Amer 92 mL/min >60 [facility] Comment on above: Non- GFR Calc RBC Auto (Bld) [#/Vol]Ordere d By: Brennon Johnston on 08-18-2023 RBC (Bld) [#/Vol] 4.39 10*6/uL 4.2-5.4 [facility] Serum or plasma calcium marifer urement (mass/volume)Ordered By: Brennon Johnston on 08-18-2023 Calcium [Mass/Vol] 9.5 mg/dL 8.5-10.1 [facility] Serum or plasma creatinine m easurement (mass/volume)Ordered By: Brennon Johnston on 08-18-2023 Creatinine [Mass/Vol] 0.66 mg/dL 0.55-1.02 [facility] Comment on above: The validity of the calculated GFR & GFRAA in patients over 70 years has not been determined. Clinical correlation is essential. Serum or plasma urea nitroge n measurement (mass/volume)Ordered By: Brennon Johnston on 08-18-2023 Urea nitrogen [Mass/Vol] 12 mg/dL 7-18 [facility] Thin prep Papanicolaou smear with manual screeningOrdered By: Brennon Johnston on 08-18-2023 Thin prep Papanicolaou smear with manual screening 3.3 g/dL 3.2-5.0 [facility] Thin prep Papanicolaou smear with manual screening 49 U/L 15-37 [facility] Thin prep Papanicolaou smear with manual screening 3 5-15 [facility] C-REACTIVE PROTEIN (CRP)on 0 07-16-2023 CRP [Mass/Vol] 1.3 mg/dL High <0.9 mg/dL [facility] XR Cervical spine AP and Lat eral and obliqueon 07-16-2023 IMPRESSION: Cervical spine degenerative changes with multilevel disc space narrowing and bilateral neural foraminal narrowing. Egg Grader: REGINA Transcribe Date/Time: Jul 16 2023 12:03P Dictated by : SIMON BUTT MD This examination was interpreted and the report reviewed and electronically signed by: SIMON BUTT MD on Jul 16 2023 12:07PM [facility] DIVISION OF RADIOLOGY * * *Final Report* * * DATE OF EXAM: Jul 15 2023 11:29AM WOX 5311 - XR CERVICAL 4V AP/LAT/OBL / PROCEDURE REASON: Cervical neck pain with evidence of disc disease * * * * Physician Interpretation * * * * EXAM TITLE: XR CERVICAL 4V AP/LAT/OBL EXAM DATE/TIME: 07/15/2023 11:29 AM COMPARISON: None. CLINICAL INDICATION/HISTORY: Neck pain. TECHNIQUE: AP, lateral and oblique views of the cervical spine are presented. FINDINGS: No fractures or subluxations are noted. C4-5, C5-6 and C6-7 disc space narrowing is demonstrated. There is moderate osteophyte formation. Multiple level bilateral neural foraminal narrowing is present. The prevertebral soft tissues are normal. DIVISION OF RADIOLOGY Provider, [facility] - 07/16/2023 * * *Final Report* * * DATE OF EXAM: Jul 15 2023 11:29AM WOX 5311 - XR CERVICAL 4V AP/LAT/OBL / PROCEDURE REASON: Cervical neck pain with evidence of disc disease * * * * Physician Interpretation * * * * EXAM TITLE: XR CERVICAL 4V AP/LAT/OBL EXAM DATE/TIME: 07/15/2023 11:29 AM COMPARISON: None. CLINICAL INDICATION/HISTORY: Neck pain. TECHNIQUE: AP, lateral and oblique views of the cervical spine are presented. FINDINGS: No fractures or subluxations are noted. C4-5, C5-6 and C6-7 disc space narrowing is demonstrated. There is moderate osteophyte formation. Multiple level bilateral neural foraminal narrowing is present. The prevertebral soft tissues are normal. IMPRESSION IMPRESSION: Cervical spine degenerative changes with multilevel disc space narrowing and bilateral neural foraminal narrowing. Egg Grader: REGINA Transcribe Date/Time: Jul 16 2023 12:03P Dictated by : SIMON BUTT MD This examination was interpreted and the report reviewed and electronically signed by: SIMON BUTT MD on Jul 16 2023 12:07PM EST [facility] XR Cervical spine AP and Lat eral and obliqueOrdered By: [facility] Provider on 07-16-2023 [facility] CBC panel Auto (Bld)on 07-15 Erythrocyte distribution width (RBC) [Ratio] 13.7 % 11.5 - 15.0 % [facility] Hematocrit (Bld) [Volume fraction] 43.4 % 36.0 - 46.0 % [facility] Hemoglobin (Bld) [Mass/Vol] 14.0 g/dL 11.5 - 15.5 g/dL [facility] MCH (RBC) [Entitic mass] 30.6 pg 26.0 - 34.0 pg [facility] MCHC (RBC) [Mass/Vol] 32.3 g/dL 30.5 - 36.0 g/dL [facility] MCV (RBC) [Entitic vol] 94.8 fL 80.0 - 100.0 fL [facility] Nucleated RBC (Bld) [#/Vol] <0.01 k/uL [facility] Platelet mean volume (Bld) [Entitic vol] 11.5 fL 9.0 - 12.7 fL [facility] Platelets (Bld) [#/Vol] 229 10*3/uL 150 - 400 k/uL [facility] RBC (Bld) [#/Vol] 4.58 10*6/uL 3.90 - 5.20 m/uL [facility] WBC (Bld) [#/Vol] 12.71 10*3/uL High 3.70 - 11.00 k/uL [facility] Comprehensive metabolic 2000 panelon 07-15-2023 Albumin [Mass/Vol] 4.1 g/dL 3.9 - 4.9 g/dL [facility] ALP [Catalytic activity/Vol] 170 U/L High 34 - 123 U/L [facility] ALT [Catalytic activity/Vol] 78 U/L High 7 - 38 U/L [facility] Anion gap [Moles/Vol] 10 mmol/L 9 - 18 mmol/L [facility] AST [Catalytic activity/Vol] 61 U/L High 13 - 35 U/L [facility] Bilirubin [Mass/Vol] 0.5 mg/dL 0.2 - 1 .3 mg/dL [facility] Calcium [Mass/Vol] 9.4 mg/dL 8.5 - 10. 2 mg/dL [facility] Chloride [Moles/Vol] 100 mmol/L 97 - 10 5 mmol/L [facility] CO2 [Moles/Vol] 29 mmol/L 22 - 30 mmol/L [facility] Creatinine [Mass/Vol] 0.69 mg/dL 0.58 - 0.96 mg/dL [facility] Estimated Glomerular Filtration Rate 90 mL/min/1.73m >=60 mL/min/1.7 3m [facility] Glucose [Mass/Vol] 89 mg/dL 74 - 99 mg/dL [facility] Potassium [Moles/Vol] 4.0 mmol/L 3.7 - 5.1 mmol/L [facility] Protein [Mass/Vol] 7.5 g/dL 6.3 - 8.0 g/dL [facility] Sodium [Moles/Vol] 139 mmol/L 136 - 144 mmol/L [facility] Urea nitrogen [Mass/Vol] 13 mg/dL 7 - 21 mg/dL [facility] ESR Westergren method (Bld) [Velocity]on 07-15-2023 ESR (Bld) [Velocity] 26 mm/h High 0 - 20 mm/hr [facility] FERRITIN BLDon 07-15-2023 Ferritin [Mass/Vol] 299.0 ng/mL High 14.7 - 205.1 ng/mL [facility] Iron and Iron binding capaci ty panelon 07-15-2023 Iron [Mass/Vol] 52 ug/dL 41 - 186 ug/dL [facility] Iron binding capacity [Mass/Vol] 298 ug/dL 232 - 386 ug/dL [facility] Iron/TIBC [Molar ratio] 17.4 % 15.0 - 57.0 % [facility] Lipid 1996 panelon Cholesterol [Mass/Vol] 249 mg/dL High <200 mg/dL [facility] Cholesterol in HDL [Mass/Vol] 90 mg/dL >39 mg/dL [facility] Cholesterol in LDL [Mass/Vol] 143 mg/dL High <100 mg/dL [facility] Cholesterol in LDL/Cholesterol in HDL [Mass ratio] 1.59 {ratio} <2.54 [facility] Cholesterol in VLDL [Mass/Vol] 16 mg/dL <30 mg/dL [facility] Cholesterol non HDL [Mass/Vol] 159 mg/dL High <130 mg/dL [facility] Cholesterol.total/Shonna sterol in HDL [Mass ratio] 2.77 {ratio} <5.10 [facility] Fasting Time 12 hrs [facility] Triglyceride [Mass/Vol] 79 mg/dL <150 mg/dL [facility] VITAMIN B12 BLOODon 07-15-19 Cobalamin (Vitamin B12) [Mass/Vol] 878 pg/mL 232 - 1,245 pg/mL [facility] VITAMIN D 25 HYDROXYon 07-15 25-hydroxyvitamin D3 [Mass/Vol] 55.1 ng/mL 31.0 - 80.0 ng/mL [facility] XR Cervical spine AP and Lat eral and obliqueon 07-15-2023 Radiology Study observation (narrative) [facility] CHAO SCREENING W TOMOon 03-10 [facility] XR Foot - left AP and Latera l and obliqueon 07-12-2022 IMPRESSION: Findings as discussed under Results portion of report. Egg Grader: REGINA Transcribe Date/Time: Jul 12 2022 12:43P Dictated by : KORIN URENA DO This examination was interpreted and the report reviewed and electronically signed by: KORIN URENA DO on Jul 12 2022 12:43PM [facility] DIVISION OF RADIOLOGY * * *Final Report* * * DATE OF EXAM: Jul 11 2022 3:25PM WOX 5336 - XR FOOT 3V AP/LAT/OBL LT / PROCEDURE REASON: Pain of left great toe * * * * Physician Interpretation * * * * EXAM(s): XR FOOT 3V AP/LAT/OBL LT EXAM DATE/TIME: 07/11/2022 3:25 PM HISTORY: 76 years old Clinical information: Pain of left great toe in April had allot of pain in left grt .toe. not as bad now no inj TECHNIQUE: Images: XR FOOT 3V AP/LAT/OBL LT Comparison: None. RESULT: Findings: Bilateral findings: Moderate hallux valgus deformity. Mild narrowing of all interphalangeal joints Right :No fractures or dislocations are seen. Left :No fractures or dislocations are seen. Small anterior heel spur DIVISION OF RADIOLOGY Provider, [facility] - 07/12/2022 * * *Final Report* * * DATE OF EXAM: Jul 11 2022 3:25PM WOX 5336 - XR FOOT 3V AP/LAT/OBL LT / PROCEDURE REASON: Pain of left great toe * * * * Physician Interpretation * * * * EXAM(s): XR FOOT 3V AP/LAT/OBL LT EXAM DATE/TIME: 07/11/2022 3:25 PM HISTORY: 76 years old Clinical information: Pain of left great toe in April had allot of pain in left grt .toe. not as bad now no inj TECHNIQUE: Images: XR FOOT 3V AP/LAT/OBL LT Comparison: None. RESULT: Findings: Bilateral findings: Moderate hallux valgus deformity. Mild narrowing of all interphalangeal joints Right :No fractures or dislocations are seen. Left :No fractures or dislocations are seen. Small anterior heel spur IMPRESSION IMPRESSION: Findings as discussed under Results portion of report. Egg Grader: REGINA Transcribe Date/Time: Jul 12 2022 12:43P Dictated by : KORIN URENA DO This examination was interpreted and the report reviewed and electronically signed by: KORIN URENA DO on Jul 12 2022 12:43PM EST [facility] XR Foot - left AP and Latera l and obliqueOrdered By: [facility] Provider on 07-12-2022 [facility] XR FOOT GENERAL 3V AP/LAT/OB L LEFTon 07-11-2022 [facility] XR Foot - left AP and Latera l and obliqueon 07-11-2022 Radiology Study observation (narrative) [facility] Absolute lymphocyte counton 06-14-2022 Lymphocytes Auto (Unsp spec) [#/Vol] 2.21 10*3/uL 0.83-4.51 [facility] Work Phone: [phone] Basophil percentageon 2021 Basophils/100 WBC (Bld) 0.6 % 0-1 [facility] Work Phone: Chloride [Moles/Vol] 107 mmol/L 98-107 [facility]: Eosinophils/100 WBC (Bld) 6.6 % 0-5 [facility] Work Phone: Glucose [Mass/Vol] 93 mg/dL 74-106 [facility] Work Phone: Neutrophils (Bld) [#/Vol] 3.3 10*3/uL 2.0-7.7 [facility] Work Phone: Neutrophils/100 WBC (Bld) 49.2 % 47-70 [facility] Work Phone: Potassium [Moles/Vol] 4.1 mmol/L 3.5-5.1 [facility] Work Phone: Sodium [Moles/Vol] 141 mmol/L 136-145 [facility] Work Phone: WBC (Bld) [#/Vol] 6.7 10*3/uL 4.4-11.0 [facility] Work Phone: Blood erythrocytes count (nu mber/volume)on 06-14-2022 RBC (Bld) [#/Vol] 4.29 10*6/uL 4.2-5.4 [facility] Work Phone: Blood hemoglobin measurement (mass/volume)on 06-14-2022 Hemoglobin (Bld) [Mass/Vol] 13.6 g/dL 12.0-15.0 [facility] Work Phone: Blood lymphocytes/100 leukoc yteson 06-14-2022 Lymphocytes/100 WBC (Bld) 33.1 % 19-41 [facility] Work Phone: Blood monocytes/100 leukocyt eson 06-14-2022 Monocytes/100 WBC (Bld) 10.2 % 0-10 [facility] Work Phone: Blood platelet mean volumeon 06-14-2022 Platelet mean volume (Bld) [Entitic vol] 10.5 fL 6.2-12.0 [facility] Work Phone: [phone] Determination of erythrocyte mean corpuscular volume (MCV)on 12-30-2022 MCV (RBC) [Entitic vol] 94.6 fL 81-99 [facility] Work Phone: Hematocrit Auto (Bld) [Volum e fraction]on 06-14-2022 Hematocrit (Bld) [Volume fraction] 40.6 % 37-47 [facility] Work Phone: Laboratory - Chemistry and C hemistry - challengeon 06-14-2022 CO2 [Moles/Vol] 33.0 mmol/L 21.0-32.0 [facility] Work Phone: [phone] Natriuretic peptide B (Bld) [Mass/Vol] 166.1 pg/mL 0-100 [facility] Work Phone: Urea nitrogen/Creatinine [Mass ratio] 23.0 mg/mg 10-20 [facility] Work Phone: [phone] Laboratory - Hematology and Cell countson 06-14-2022 Erythrocyte distribution width (RBC) [Entitic vol] 49.3 fL 35.1-43.9 [facility] Work Phone: [phone] Erythrocyte distribution width (RBC) [Ratio] 14.0 % 11.6-14.6 [facility] Work Phone: [phone] Immature granulocytes/100 WBC (Bld) 0.300 % 0.0-0.9 [facility] Work Phone: Comment on above: IG% - Immature Granu locytes (promyelocytes, myelocytes and metamyelocytes) > 1% indicates that a LEFT SHIFT is Present. MCH (RBC) [Entitic mass] 31.7 pg 27.0-32.0 [facility] Work Phone: [phone] Nucleated RBC/100 WBC (Bld) [Ratio] 0 % 0-5 [facility] Work Phone: MCHC Auto (RBC) [Mass/Vol]on 06-14-2022 MCHC (RBC) [Mass/Vol] 33.5 g/dL 32-36 [facility] Work Phone: No Panel Informationon 06-14 Estimated GFR (MDRD) Amer 105 mL/min >60 [facility] Work Phone: Comment on above: GFR Calc Estimated GFR (MDRD) Non-Af Amer 87 mL/min >60 [facility] Work Phone: Comment on above: Non- GFR Calc Platelets bldon 06-14-2022 Platelets (Bld) [#/Vol] 230 10*3/uL 150-450 [facility] Work Phone: Serum or plasma calcium marifer urement (mass/volume)on 06-14-2022 Calcium [Mass/Vol] 9.2 mg/dL 8.5-10.1 [facility] Work Phone: Serum or plasma creatinine m easurement (mass/volume)on 06-14-2022 Creatinine [Mass/Vol] 0.70 mg/dL 0.55-1.02 [facility] Work Phone: Comment on above: The validity of the calculated GFR & GFRAA in patients over 70 years has not been determined. Clinical correlation is essential. Serum or plasma urea nitroge n measurement (mass/volume)on 06-14-2022 Urea nitrogen [Mass/Vol] 16 mg/dL 7-18 [facility] Work Phone: Thin prep Papanicolaou smear with manual screeningon 06-14-2022 Thin prep Papanicolaou smear with manual screening 1 5-15 [facility] Work Phone: CHAO SCREENING W TOMOon 02-07 [facility] US ABD RT UPPER QUADRANTon 0 01-28-2022 [facility] Lab Report: Basic Metabolic Profile (BMP)on 08-15-2017 Anion gap 5 mmol/L Invalid Interpretation Code 5-15 [facility] Work Phone: [phone] BUN/Creatinine Ratio 21.5 RATIO High 10-20 [facility] Work Phone: [phone] Calcium 8.7 mg/dL Invalid Interpretation Code 8.5-10.1 [facility] Work Phone: [phone] Chloride 104 mmol/L Invalid Interpretation Code 98-107 [facility] Work Phone: [phone] CO2 30.0 mmol/L Invalid Interpretation Code 21.0-32.0 [employer] Work Phone: [phone] Creatinine 0.65 mg/dL Invalid Interpretation Code 0.55-1.02 [facility] Work Phone: [phone] eGFR (non-black) 95 mL/min/{1.73_m2} Invalid Interpretation Code >60 [facility] Work Phone: [phone] eGFR (non-black) 115 mL/min/{1.73_m2} Invalid Interpretation Code >60 [facility] Work Phone: [phone] Glucose 110 mg/dL High 74-106 [facility] Work Phone: [phone] Potassium 4.3 mmol/L Invalid Interpretation Code 3.5-5.1 [facility] Work Phone: [phone] Sodium 139 mmol/L Invalid Interpretation Code 136-145 [facility] Work Phone: [phone] Urea nitrogen 14 mg/dL Invalid Interpretation Code 7-18 [facility] Work Phone: [phone] Lab Report: CBC-Complete Blo od Cnt No Diffon 08-15-2017 Erythrocytes (RBC) 4.33 10*6/uL Invalid Interpretation Code 4.2-5.4 [facility] Work Phone: [phone] Hematocrit (HCT) 40.3 % Invalid Interpretation Code 37-47 [facility] Phone: [phone] Hemoglobin (HGB) 13.0 g/dL Invalid Interpretation Code 12.0-15.0 [facility] Work Phone: [phone] MCH 30.0 pg Invalid Interpretation Code 27.0-32.0 [facility] Work Phone: [phone] MCHC 32.3 G/GL Invalid Interpretation Code 32-36 [employer] Phone: [phone] MCV 93.1 fL Invalid Interpretation Code 81-99 [employer] Work Phone: [phone] Platelets 203 10*3/mm3 Invalid Interpretation Code 150-450 [employer] Phone: [phone] PMV by Sloan 10.8 fL Invalid Interpretation Code 6.2-12.0 [employer] Work Phone: [phone] RDW-CA 13.9 % Invalid Interpretation Code 11.6-14.6 [employer] Work Phone: [phone] red blood cell distribution width, size density 47.0 fL High 35.1-43.9 [facility] Work Phone: [phone] WBC (Leukocytes) 6.2 10*3/uL Invalid Interpretation Code 4.4-11.0 [facility] Work Phone: [phone] Lab Report: CRP, High Sensit ivity [facility] 08-15-2017 c-reactive protein, quantitative, serum 1.76 mg/L Invalid Interpretation Code [employer] Work Phone: [phone] Office Visiton 02-06-2017 Dietary management education, guidance, and counseling (procedure) yes Invalid Interpretation Code [facility] Work Phone: [phone] Documentation of current medications (procedure) Done Invalid Interpretation Code [facility] Work Phone: [phone] Fall risk assessment No Invalid Interpretation Code [facility] Work Phone: [phone] Protein mass conc Done [employer] Work Phone: [phone] Tobacco smoking status NYIS Tobacco smoking status NYIS Invalid Interpretation Code [employer] Work Phone: [phone] Tobacco smoking status NYIS Never smoker [facility] Work Phone: [phone] Office Visiton 12-09-2016 Dietary management education, guidance, and counseling (procedure) yes Invalid Interpretation Code [facility] Work Phone: [phone] Documentation of current medications (procedure) Done Invalid Interpretation Code [facility] Work Phone: [phone] Fall risk assessment No Invalid Interpretation Code [employer] Work Phone: [phone] Protein mass conc Done [employer] Work Phone: [phone] Replaced Document: Mariajose WARE Observationson 12-06-2016 EKG QRS axis -10 deg [employer] Work Phone: [phone] electrocardiogram interpretation Sinus Rhythm -Left atrial enlargement. BORDERLINE Invalid Interpretation Code [employer] Work Phone: [phone] GE use only - for [employer] import when terms are not otherwise specified 443 ms Invalid Interpretation Code [employer] Work Phone: [phone] Interpretation Sinus Rhythm -Left a trial enlargement. BORDERLINE [employer] Work Phone: P Parkman 57 deg [employer] Work Phone: P wave axis, electrocardiogram 57 deg Invalid Interpretation Code [employer] Work Phone: [place] Interval 186 ms [employer] Work Phone: [place] interval, electrocardiogram 186 ms Invalid Interpretation Code [employer] Work Phone: Pulse (Heart Rate) 62 /min Invalid Interpretation Code [employer] Work Phone: QRS axis, electrocardiogram -10 deg Invalid Interpretation Code [employer] Work Phone: QRS Duration 106 ms [employer] Work Phone: QRS duration, electrocardiogram 106 ms Invalid Interpretation Code [employer] Work Phone: QT Interval new path ms [employer] Work Phone: QT interval, electrocardiogram new path ms Invalid Interpretation Code [employer] Work Phone: QTc Bradford 443 ms [employer] Work Phone: T Parkman 39 deg [employer] Work Phone: T wave axis, electrocardiogram 39 deg Invalid Interpretation Code [employer] Phone: [phone] Clinical Lists Update: Prelo tailing hand 11-22-2016 Left ventricular Ejection fraction 60 % Invalid Interpretation Code [employer] Phone: [phone] Office Visiton 11-06-2016 Dietary management education, guidance, and counseling (procedure) yes Invalid Interpretation Code [employer] Phone: [phone] Documentation of current medications (procedure) Done Invalid Interpretation Code [facility] Work Phone: [phone] Protein mass conc Done [employer] Phone: [phone] Replaced Document: Mariajose Vidal CG Observationson 11-06-2016 EKG QRS axis -23 deg [employer] Work Phone: [phone] electrocardiogram interpretation Sinus Rhythm WITHIN NORMAL LIMITS Invalid Interpretation Code [employer] Phone: [phone] GE use only - for [employer] import when terms are not otherwise specified 398 ms Invalid Interpretation Code [employer] [employer] Phone: Interpretation Sinus Rhythm WITHIN NORMAL LIMITS [employer] Phone: P Parkman 35 deg [employer] Work Phone: P wave axis, electrocardiogram 35 deg Invalid Interpretation Code [employer] Work Phone: [phone] [place] Interval 150 ms [employer] Work Phone: [place] interval, electrocardiogram 150 ms Invalid Interpretation Code [employer] Phone: Pulse (Heart Rate) 66 /min Invalid Interpretation Code [employer] Phone: QRS axis, electrocardiogram -23 deg Invalid Interpretation Code [employer] Phone: QRS Duration 94 ms [employer] Phone: QRS duration, electrocardiogram 94 ms Invalid Interpretation Code [employer] Phone: QT Interval new path ms [employer] Phone: QT interval, electrocardiogram new path ms Invalid Interpretation Code [employer] Phone: QTc Bradford 398 ms [employer] Phone: T Parkman 25 deg [employer] Phone: [phone] T wave axis, electrocardiogram 25 deg Invalid Interpretation Code [employer] Phone: [phone] Clinical Lists Update: Prelo tailing hand 11-01-2016 Left ventricular Ejection fraction 63 % Invalid Interpretation Code [employer] Phone: [phone] Office Visiton 01-31-2016 Dietary management education, guidance, and counseling (procedure) yes Invalid Interpretation Code [employer] Phone: [phone] Documentation of current medications (procedure) Done Invalid Interpretation Code [employer] Phone: [phone] Office Visiton 08-07-2015 General cardiovascular disease 10Y risk [#] [place] 6 % Invalid Interpretation Code [employer] Phone: [phone] Tobacco smoking status NHIS Never smoker [employer] Work Phone: [phone] Tobacco use CPHS Never smoker Invalid Interpretation Code [employer] Work Phone: [phone] Office Visiton 01-23-2015 cardiac risk group B Invalid Interpretation Code [employer] Work Phone: [phone] Office Visiton 09-22-2014 Alanine aminotransferase (ALT) 44 U/L Invalid Interpretation Code [facility] Work Phone: [phone] Alkaline phosphatase (ALP) 92 U/L Invalid Interpretation Code [employer] Work Phone: [phone] ALP (Bld) [Catalytic activity/Vol] 92 U/L [employer] Work Phone: [phone] Aspartate aminotransferase (AST) 35 U/L Invalid Interpretation Code [employer] Work Phone: [phone] Chloride 104 mmol/L Invalid Interpretation Code [employer] Work Phone: [phone] Cholesterol 238 mg/dL High [employer] Work Phone: [phone] CO2 27 mmol/L Invalid Interpretation Code [employer] Work Phone: [phone] CO2 (BldV) [Partial pressure] 27 mmol/L [employer] Work Phone: [phone] Creatinine 0.70 mg/dL Invalid Interpretation Code [employer] Work Phone: [phone] HDL Cholesterol 73 mg/dL Invalid Interpretation Code [employer] Work Phone: [phone] Hematocrit (Bld) [Volume fraction] 41.6 % [employer] Work Phone: [phone] Hematocrit (HCT) 41.6 % Invalid Interpretation Code [employer] Work Phone: [phone] Hemoglobin (HGB) 13.5 g/dL [employer] Work Phone: [phone] LDL Cholesterol 154 mg/dL High [employer] Work Phone: [phone] Platelets 267 10*3/mm3 Invalid Interpretation Code [employer] Work Phone: [phone] Platelets (Bld) [#/Vol] 267 10*3/mm3 [employer] Work Phone: [phone] Potassium 4.1 mmol/L Invalid Interpretation Code [facility] Work Phone: [phone] Sodium 143 mmol/L Invalid Interpretation Code [facility] Work Phone: [phone] Thyroid stimulating hormone (TSH) 1.75 u[iU]/mL Invalid Interpretation Code [facility] Work Phone: [phone] Triglyceride 56 mg/dL Invalid Interpretation Code [facility] Work Phone: [phone] Urea nitrogen 16 mg/dL Invalid Interpretation Code [facility] Work Phone: [phone] very low density lipoproteins 11 mg/dL Normal [facility] Work Phone: [phone] WBC (Bld) [#/Vol] 5.80 10*3/uL [facility] Work Phone: [phone] WBC (Leukocytes) 5.80 10*3/uL Invalid Interpretation Code [facility] Work Phone: [phone] Replaced Document: Mariajose Vidal CG Observationson 04-18-2014 electrocardiogram interpretation Sinus Rhythm -Left atrial enlargement. BORDERLINE Invalid Interpretation Code [facility] Work Phone: [phone] GE use only - for [employer] import when terms are not otherwise specified 382 ms Invalid Interpretation Code [facility] Work Phone: [phone] P wave axis, electrocardiogram 51 deg Invalid Interpretation Code [facility] Work Phone: [phone] [place] interval, electrocardiogram 150 ms Invalid Interpretation Code [facility] Work Phone: [phone] Pulse (Heart Rate) 66 /min Invalid Interpretation Code [facility] Work Phone: [phone] QRS axis, electrocardiogram -10 deg Invalid Interpretation Code [facility] Work Phone: [phone] QRS duration, electrocardiogram 88 ms Invalid Interpretation Code [facility] Work Phone: [phone] QT interval, electrocardiogram new path ms Invalid Interpretation Code [facility] Work Phone: [phone] T wave axis, electrocardiogram -1 deg Invalid Interpretation Code [facility] Work Phone: [phone] Office Visiton 06-26-2012 Anion gap 10 mmol/L Invalid Interpretation Code [facility] Work Phone: [phone] Anion gap [Moles/Vol] 10 mmol/L [facility] Work Phone: [phone] Replaced Document: Mariajose Ayalaon 10-23-2011 Pulse (Heart Rate) 399 ms Invalid Interpretation Code [facility] Work Phone: [phone] Vital Signs Date Time Vital Sign Value Performing Clinician Facility 12-31-2024 06:37-0400 Body height 167.[address] Niya Martinez MD Work Phone: [facility] 12-31-2024 06:37-0400 Body mass index (BMI) [Ratio] 29.2 kg/m2 Dr. Niya Martinez MD Work Phone: 2(479)073-933243 [place] [address] 12-31-2024 06:37-0400 Body weight 82.[address] Niya Martinez MD Work Phone: 8(730)446-590543 [place] [address] 12-31-2024 06:37-0400 Diastolic blood pressure 67 mm[Hg] Dr. Niya Martinez MD Work Phone: 6(677)963-802143 [place] [address] 12-31-2024 06:37-0400 Heart rate 61 /min Dr. Niya Martinez MD Work Phone: 7(265)828-969243 [place] [address] 12-31-2024 06:37-0400 Respiratory rate 18 /min Dr. Niya Martinez MD Work Phone: 8(791)029-233843 [place] [address] 12-31-2024 06:37-0400 SaO2% (BldA) [Mass fraction] 95 % Dr. Niya Martinez MD Work Phone: [facility] 12-31-2024 06:37-0400 Systolic blood pressure 112 mm[Hg] Dr. Niya Martinez MD Work Phone: [facility] 09-06-2024 10:21-0400 Body height 167.[address] Niya Martinez MD Work Phone: 0(381)300-094043 [place] [address] 09-06-2024 10:21-0400 Body mass index (BMI) [Ratio] 29.2 kg/m2 Dr. Niya Martinez MD Work Phone: 6(101)178-591143 [place] [address] 09-06-2024 10:21-0400 Body temperature 98.4 [degF] Dr. Niya Martinez MD Work Phone: 7(927)494-602972 [place] [address] 09-06-2024 10:21-0400 Body weight 82.[address] Niya Martinez MD Work Phone: 9(062)222-670572 [place] [address] 09-06-2024 10:21-0400 Diastolic blood pressure 66 mm[Hg] Dr. Niya Martinez MD Work Phone: 5(873)420-138472 [place] [address] 09-06-2024 10:21-0400 Heart rate 63 /min Dr. Niya Martinez MD Work Phone: 3(561)619-204172 [place] [address] 09-06-2024 10:21-0400 Respiratory rate 15 /min Dr. Niya Martinez MD Work Phone: 6(401)280-441172 [place] [address] 09-06-2024 10:21-0400 SaO2% (BldA) [Mass fraction] 98 % Dr. Niya Martinez MD Work Phone: 2(137)232-342172 [place] [address] 09-06-2024 10:21-0400 Systolic blood pressure 110 mm[Hg] Dr. Niya Martinez MD Work Phone: 0(844)324-609672 [place] [address] 07-20-2024 11:35-0500 Diastolic blood pressure 70 mm[Hg] Dr. Niya Martinez MD Work Phone: 7(476)298-103772 [place] [address] 07-20-2024 11:35-0500 Systolic blood pressure 128 mm[Hg] Dr. Niya Martinez MD Work Phone: 0(060)496-606272 [place] [address] 07-20-2024 11:02-0500 Body height 167.[address] Niya Martinez MD Work Phone: 7(366)251-870672 [place] [address] 07-20-2024 11:02-0500 Body mass index (BMI) [Ratio] 29.5 kg/m2 Dr. Niya Martinez MD Work Phone: 9(465)761-857572 [place] [address] 07-20-2024 11:02-0500 Body weight [address] Niya Martinez MD Work Phone: [facility] 07-20-2024 11:02-0500 Heart rate 53 /min Dr. Niya Martinez MD Work Phone: [facility] 07-20-2024 11:02-0500 Respiratory rate 18 /min Dr. Niya Martinez MD Work Phone: [facility] 07-20-2024 11:02-0500 SaO2% (BldA) [Mass fraction] 97 % Dr. Niya Martinez MD Work Phone: [facility] 06-30-2024 16:31-0500 Body height 167.5 cm Niya Martinez MD Work Phone: [facility] 06-30-2024 16:31-0500 Body mass index (BMI) [Ratio] 29.94 kg/m2 Niya Martinez MD Work Phone: [facility] 06-30-2024 16:31-0500 Body temperature 98.49 [degF] Niya Martinez MD Work Phone: [facility] 06-30-2024 16:31-0500 Body weight 84 kg Niya Martinez MD Work Phone: [facility] 06-30-2024 16:31-0500 Diastolic blood pressure 65 mm[Hg] Niya Martinez MD Work Phone: [facility] 06-30-2024 16:31-0500 Heart rate 55 /min Niya Martinez MD Work Phone: [facility] 06-30-2024 16:31-0500 Respiratory rate 16 /min Niya Martinez MD Work Phone: [facility] 06-30-2024 16:31-0500 SaO2% (BldA) [Mass fraction] 97 % Niya Martinez MD Work Phone: [facility] 06-30-2024 16:31-0500 Systolic blood pressure 107 mm[Hg] Niya Martinez MD Work Phone: [facility] 06-15-2024 08:59-0500 Body mass index (BMI) [Ratio] 29.7 kg/m2 Dr. Niya Martinez MD Work Phone: [facility] 06-15-2024 08:59-0500 Body temperature 98.2 [degF] Dr. Niya Martinez MD Work Phone: [facility] 06-15-2024 08:59-0500 Body weight 83.[address] Niya Martinez MD Work Phone: [facility] 06-15-2024 08:59-0500 Diastolic blood pressure 64 mm[Hg] Dr. Niya Martinez MD Work Phone: [facility] 06-15-2024 08:59-0500 Heart rate 62 /min Dr. Niya Martinez MD Work Phone: [facility] 06-15-2024 08:59-0500 Respiratory rate 15 /min Dr. Niya Martinez MD Work Phone: [facility] 06-15-2024 08:59-0500 SaO2% (BldA) [Mass fraction] 99 % Dr. Niya Martinez MD Work Phone: [facility] 06-15-2024 08:59-0500 Systolic blood pressure 112 mm[Hg] Dr. Niya Martinez MD Work Phone: [facility] 04-08-2024 11:24-0400 Body height 158.1 cm Bety Mena MD Work Phone: [facility] 04-08-2024 11:24-0400 Body mass index (BMI) [Ratio] 32.66 kg/m2 Bety Mena MD Work Phone: [facility] 04-08-2024 11:24-0400 Body weight 81.65 kg Bety Mena MD Work Phone: [facility] 03-25-2024 13:06-0400 Body height 158.1 cm Bety Mena MD Work Phone: [facility] 03-25-2024 13:06-0400 Body mass index (BMI) [Ratio] 32.66 kg/m2 Bety Mena MD Work Phone: [facility] 03-25-2024 13:06-0400 Body weight 81.65 kg Bety Mena MD Work Phone: [facility] 03-25-2024 13:06-0400 Diastolic blood pressure 73 mm[Hg] Bety Mena MD Work Phone: [facility] 03-25-2024 13:06-0400 Heart rate 95 /min Bety Mena MD Work Phone: [facility] 03-25-2024 13:06-0400 Systolic blood pressure 130 mm[Hg] Bety Mena MD Work Phone: [facility] 01-05-2024 09:27-0400 Body height 165.7 cm Sushila Chávez UNDERWEAR FINISHER.TRANSFORMER MAKER Work Phone: [facility] 01-05-2024 09:27-0400 Body mass index (BMI) [Ratio] 29.72 kg/m2 Sushila Chávez UNDERWEAR FINISHER.TRANSFORMER MAKER Work Phone: [facility] 01-05-2024 09:27-0400 Body weight 81.65 kg Sushila Chávez UNDERWEAR FINISHER.TRANSFORMER MAKER Work Phone: [facility] 01-05-2024 09:27-0400 Diastolic blood pressure 59 mm[Hg] Sushila Chávez UNDERWEAR FINISHER.TRANSFORMER MAKER Work Phone: [facility] 01-05-2024 09:27-0400 Heart rate 53 /min Sushila Chávez UNDERWEAR FINISHER.TRANSFORMER MAKER Work Phone: [facility] 01-05-2024 09:27-0400 Respiratory rate 16 /min Sushila Chávez UNDERWEAR FINISHER.TRANSFORMER MAKER Work Phone: [facility] 01-05-2024 09:27-0400 Systolic blood pressure 97 mm[Hg] Sushila Chávez UNDERWEAR FINISHERBENITO Work Phone: [facility] 11-19-2023 10:38-0400 Body mass index (BMI) [Ratio] 28.89 kg/m2 Niya Martinez MD Work Phone: [facility] 11-19-2023 10:38-0400 Body temperature 98.2 [degF] Niya Martinez MD Work Phone: [facility] 11-19-2023 10:38-0400 Body weight 81.19 kg Niya Martinez MD Work Phone: [facility] 11-19-2023 10:38-0400 Diastolic blood pressure 80 mm[Hg] Niya Martinez MD Work Phone: [facility] 11-19-2023 10:38-0400 Heart rate 63 /min Niya Martinez MD Work Phone: [facility] 11-19-2023 10:38-0400 Respiratory rate 18 /min Niya Martinez MD Work Phone: [facility] 11-19-2023 10:38-0400 SaO2% (BldA) [Mass fraction] 98 % Niya Martinez MD Work Phone: [facility] 11-19-2023 10:38-0400 Systolic blood pressure 130 mm[Hg] Niya Martinez MD Work Phone: [facility] 08-25-2023 14:04-0400 Body height 167.6 cm Niya Martinez MD Work Phone: [facility] 08-25-2023 14:04-0400 Body weight 83.01 kg Niya Martinez MD Work Phone: [facility] 08-25-2023 14:04-0400 Diastolic blood pressure 68 mm[Hg] Niya Martinez MD Work Phone: [facility] 08-25-2023 14:04-0400 Heart rate 80 /min Niya Martinez MD Work Phone: [facility] 08-25-2023 14:04-0400 Respiratory rate 16 /min Niya Martinez MD Work Phone: [facility] 08-25-2023 14:04-0400 Systolic blood pressure 110 mm[Hg] Niya Martinez MD Work Phone: [facility] 08-18-2023 10:34-0500 Body temperature 97.8 [degF] Dr. Niya Martinez Work Phone: [facility] 08-18-2023 10:34-0500 Diastolic blood pressure 76 mm[Hg] Dr. Niya Martinez Work Phone: [facility] 08-18-2023 10:34-0500 Heart rate 69 /min Dr. Niya Martinez Work Phone: 1(964)485-381343 [place] [address] 08-18-2023 10:34-0500 Respiratory rate 15 /min Dr. Niya Martinez Work Phone: [facility] 08-18-2023 10:34-0500 SaO2% (BldA) [Mass fraction] 96 % Dr. Niya Martinez Work Phone: [facility] 08-18-2023 10:34-0500 Systolic blood pressure 118 mm[Hg] Dr. Niya Martinez Work Phone: [facility] 08-18-2023 08:05-0500 Body height 167.[address] Niya Martinez Work Phone: [facility] 08-18-2023 08:05-0500 Body mass index (BMI) [Ratio] 29.5 kg/m2 Dr. Niya Martinez Work Phone: [facility] 08-18-2023 08:05-05[address] Body weight [address] Niya Martinez Work Phone: [facility] 08-08-2023 11:22-0500 Body mass index (BMI) [Ratio] 28 kg/m2 Dr. Niya Martinez Work Phone: [facility] 08-08-2023 11:22-0500 Body weight 81.[address] Niya Martinez Work Phone: [facility] 08-08-2023 11:22-0500 Diastolic blood pressure 79 mm[Hg] Dr. Niya Martinez Work Phone: [facility] 08-08-2023 11:22-0500 Heart rate 48 /min Dr. Niya Martinez Work Phone: [facility] 08-08-2023 11:22-0500 Respiratory rate 16 /min Dr. Niya Martinez Work Phone: [facility] 08-08-2023 11:22-0500 Systolic blood pressure 150 mm[Hg] Dr. Niya Martinez Work Phone: [facility] 07-24-2023 09:49-0500 Body weight 80.74 kg Sushila Chávez UNDERWEAR FINISHER.TRANSFORMER MAKER Work Phone: [facility] 07-24-2023 09:49-0500 Diastolic blood pressure 67 mm[Hg] Sushila Chávez UNDERWEAR FINISHER.TRANSFORMER MAKER Work Phone: [facility] 07-24-2023 09:49-0500 Heart rate 45 /min Sushila Chávez UNDERWEAR FINISHER.TRANSFORMER MAKER Work Phone: [facility] 07-24-2023 09:49-0500 Respiratory rate 16 /min Sushila Chávez UNDERWEAR FINISHER.TRANSFORMER MAKER Work Phone: [facility] 07-24-2023 09:49-0500 SaO2% (BldA) [Mass fraction] 97 % Sushila Chávez UNDERWEAR FINISHER.TRANSFORMER MAKER Work Phone: [facility] 07-24-2023 09:49-0500 Systolic blood pressure 135 mm[Hg] Sushila Chávez UNDERWEAR FINISHER.TRANSFORMER MAKER Work Phone: [facility] 07-15-2023 10:05-0500 Diastolic blood pressure 62 mm[Hg] Niya Martinez MD Work Phone: [facility] 07-15-2023 10:05-0500 Systolic blood pressure 152 mm[Hg] Niya Martinez MD Work Phone: [facility] 07-15-2023 09:04-0500 Body height 167.6 cm Niya Martinez MD Work Phone: [facility] 07-15-2023 09:04-0500 Body weight 80.74 kg Niya Martinez MD Work Phone: [facility] 07-15-2023 09:04-0500 Heart rate 54 /min Niya Martinez MD Work Phone: [facility] 07-15-2023 09:04-0500 Respiratory rate 16 /min Niya Martinez MD Work Phone: [facility] 03-10-2023 14:51-0400 Body height 168.9 cm Bety Mena MD Work Phone: [facility] 03-10-2023 14:51-0400 Body weight 80.29 kg Bety Mena MD Work Phone: [facility] 03-10-2023 14:51-0400 Diastolic blood pressure 76 mm[Hg] Bety Mena MD Work Phone: [facility] 03-10-2023 14:51-0400 Heart rate 52 /min Bety Mena MD Work Phone: [facility] 03-10-2023 14:51-0400 Systolic blood pressure 119 mm[Hg] Bety Mena MD Work Phone: [facility] 11-20-2022 09:00-0400 Body height 168.9 cm Dara Mir MD Work Phone: [facility] 11-20-2022 09:00-0400 Body weight 80.29 kg Dara Mir MD Work Phone: [facility] 11-20-2022 09:00-0400 Diastolic blood pressure 62 mm[Hg] Dara Mir MD Work Phone: [facility] 11-20-2022 09:00-0400 Systolic blood pressure 116 mm[Hg] Dara Mir MD Work Phone: [facility] 07-05-2022 15:54-0500 Body temperature 98.01 [degF] Niya Martinez MD Work Phone: [facility] 07-05-2022 15:54-0500 Body weight 81.19 kg Niya Martinez MD Work Phone: [facility] 07-05-2022 15:54-0500 Diastolic blood pressure 60 mm[Hg] Niya Martinez MD Work Phone: [facility] 07-05-2022 15:54-0500 Heart rate 56 /min Niya Martinez MD Work Phone: [facility] 07-05-2022 15:54-0500 Respiratory rate 18 /min Niya Martinez MD Work Phone: [facility] 07-05-2022 15:54-0500 SaO2% (BldA) [Mass fraction] 95 % Niya Martinez MD Work Phone: [facility] 07-05-2022 15:54-0500 Systolic blood pressure 128 mm[Hg] Niya Martinez MD Work Phone: [facility] 06-14-2022 08:58-0500 Body height 170.18 cm MD Niya Martinez [facility] Work Phone: 06-14-2022 08:58-0500 Body mass index (BMI) [Ratio] 28 kg/m2 MD Niya Martinez [facility] Work Phone: 06-14-2022 08:58-0500 Body weight 81.19 kg MD Niya Martinez [facility] Work Phone: 06-14-2022 08:58-0500 Diastolic blood pressure 66 mm[Hg] MD Niya Martinez [facility] Work Phone: 06-14-2022 08:58-0500 Heart rate 57 /min MD Niya Martinez [facility] Work Phone: 06-14-2022 08:58-0500 Respiratory rate 18 /min Niya [facility] Work Phone: 06-14-2022 08:58-0500 SaO2% (BldA) [Mass fraction] 98 % Niya [facility] Work Phone: 06-14-2022 08:58-0500 Systolic blood pressure 108 mm[Hg] Niya [facility] Work Phone: 02-06-2017 11:17-0400 BMI (Body Mass Index) 26 kg/m2 [facility] Work Phone: 02-06-2017 11:17-0400 BP Diastolic 62 mm[Hg] Kishorishmaelrodolfo [facility] Work Phone: 02-06-2017 11:17-0400 BP Systolic 104 mm[Hg] Devikarodolfo [facility] Work Phone: 02-06-2017 11:17-0400 Height 170.18 cm Saurav [facility] Work Phone: 02-06-2017 11:17-0400 Pulse (Heart Rate) 52 /min Saurav [facility] Work Phone: 02-06-2017 11:17-0400 Respiratory Rate 16 /min Saurav [facility] Work Phone: 02-06-2017 11:17-0400 Weight 75.3 kg Saurav [facility] Work Phone: 12-09-2016 11:52-0400 BMI (Body Mass Index) 25.68 kg/m2 Saurav Marie [facility] Work Phone: 12-09-2016 11:52-0400 BP Diastolic 68 mm[Hg] Devikarodolfo [facility] Work Phone: 12-09-2016 11:52-0400 BP Systolic 118 mm[Hg] Saurav [facility] Work Phone: 12-09-2016 11:52-0400 Pulse (Heart Rate) 52 /min Saurav [facility] Work Phone: 12-09-2016 11:52-0400 Respiratory Rate 16 /min Saurav [facility] Work Phone: 12-09-2016 11:52-0400 Weight 74.39 kg Saurav [facility] Work Phone: 12-06-2016 14:38-0400 Pulse (Heart Rate) 62 /min Conor [facility] Work Phone: 12-06-2016 14:25-0400 Heart rate 62 /min [facility] Work Phone: 11-06-2016 15:22-0400 Heart rate 66 /min Radha [facility] Work Phone: 11-06-2016 15:00-0400 BMI (Body Mass Index) 25.53 kg/m2 [facility] Work Phone: 11-06-2016 15:00-0400 Body weight 73.94 kg [facility]alind [facility] Work Phone: 11-06-2016 15:00-0400 BP Diastolic 60 mm[Hg] Rosalind Sherman RN [facility] Work Phone: 11-06-2016 15:00-0400 BP Systolic 108 mm[Hg] [facility] Work Phone: 11-06-2016 15:00-0400 Pulse (Heart Rate) 68 /min [facility] Work Phone: 11-06-2016 15:00-0400 Respiratory Rate 16 /min [facility] Work Phone: 11-06-2016 15:00-0400 Weight 73.94 kg Rosalind Sherman RN [facility] Work Phone: 01-31-2016 14:58-0400 BMI (Body Mass Index) 25.68 kg/m2 [facility] Work Phone: 01-31-2016 14:58-0400 Body weight 74.39 kg Radha Maldonado [facility] Work Phone: 01-31-2016 14:58-0400 BP Diastolic 62 mm[Hg] Rosalind Sherman RN [facility] Work Phone: 01-31-2016 14:58-0400 BP Systolic 110 mm[Hg] Rosalind Sherman RN [facility] Work Phone: 01-31-2016 14:58-0400 BSA (Body Surface Area) 1.86 m2 Rosalind Sherman RN [facility] Work Phone: 01-31-2016 14:58-0400 Pulse (Heart Rate) 56 /min [facility]ind [facility] Work Phone: 01-31-2016 14:58-0400 Respiratory Rate 16 /min [facility] Work Phone: 01-31-2016 14:58-0400 Weight 74.39 kg Rosalind Sherman RN [facility] Work Phone: 10-23-2011 14:12-0400 Heart rate 399 ms Radha [facility] Work Phone: 10-23-2011 13:45-0400 Height 170.18 cm Rosalind Sherman RN [facility] Work Phone: Encounters Encounter Date Encounter Type Care Provider Facility Start: 01-28-2025 ambulatory Niya D Talampas Facilit y:[facility] Start: 01-07-2025 ambulatory Niya D Talampas Facilit y:[facility] Start: 12-31-2024 End: 12-31-2024 Patient encounter procedure Elie FABIAN -[facility] Work Phone: Start: 12-31-2024 End: 12-31-[address] Niya Martinez MD Work Phone: -[facility] Start: 12-31-2024 End: 12-31-2024 ambulatory Niya Martinez Facility:[facility] Start: 12-28-2024 End: 12-28-2024 [facility] Start: 12-27-2024 End: 12[facility] Start: 11-30-2024 End: 11-30-2024 Patient encounter procedure [facility]at[facility] Work Phone: Gastroenterology Start: 11-30-2024 End: 11-30-2024 ambulatory NIYA MARTINEZ [facility] Start: 10-13-2024 End: 10-13-2024 Telemedicine consultation with patient Juaquin Burgess MD Work Phone: Gastroenterology Start: 10-13-2024 End: 10-13-2024 ambulatory Juaquin Burgess MD Work Phone: Gastroenterology Comment on above: Abnormal LFTs (Prima ry Dx) Start: 09-22-2024 End: 09-22-2024 ambulatory NIYA MARTINEZ Facility:[facility] Start: 09-22-2024 End: 09-22-2024 Subsequent hospital visit by physician Main A21 5 Work Phone: Radiology Comment on above: Abnormal LFTs [R79.8 9] Start: 09-06-2024 End: 09-06-[address] Niya Martinez MD Work Phone: [facility] Work Phone: Start: 09-06-2024 End: 09-06-[address] [facility] Start: 09-06-2024 End: 09-06-[address] Ivan Pink MD -[facility] Work Phone: Start: 09-06-2024 End: 09-06-2024 ambulatory Niya Haritha Quiñonesampas [place] Start: 09-06-2024 End: 09-06-2024 ambulatory Niya D Talampas Facility:[facility] Start: 08-10-2024 End: 08-10-[address] Niya Martinez MD Work Phone: [facility] Work Phone: Start: 08-10-2024 End: 08-10-[address] [facility] Work [facility]: Start: 08-10-2024 End: 08-10-2024 ambulatory Ivan Pink Facility:[facility] Start: 07-20-2024 End: 07-20-2024 Patient encounter procedure Rosalind Wells [place] -[facility] Work Phone: Start: 07-20-2024 End: 07-20-2024 ambulatory Niya D Ishmaelampas [place] Start: 07-14-2024 End: 07-14-[address] [facility] Work Phone: Start: 07-14-2024 End: 07-14-2024 ambulatory Niya D Talampas Facility:[facility] Start: 06-30-2024 End: 06-30-2024 ambulatory NIYA D ISHMAELAMPAS Facility:[facility] Start: 06-30-2024 End: 06-30-2024 Patient encounter procedure Niya Martinez MD Work Phone: [facility] [place] Comment on above: Medicare annual well ness visit, subsequent (Primary Dx); NAFLD (nonalcoholic fatty liver disease); Headaches; Elevated liver enzymes; Polyarthralgia; History of cholecystectomy; Family history of malignant neoplasm of colon Start: 06-28-2024 End: 06-28-2024 ambulatory NIYA D ISHMAELAMPAS Facility:[facility] Start: 06-15-2024 End: 06-15-[address] Ivan Pink MD -[facility] Work Phone: Start: 06-15-2024 End: 06-15-2024 ambulatory Niya Martinez Facility:[facility] Start: 04-08-2024 End: 04-08-2024 Patient encounter procedure Bety Mena MD Work Phone: [facility] Comment on above: Fibrocystic breast c hanges of both breasts (Primary Dx); Mastodynia; Family history of breast cancer Start: 04-08-2024 End: 04-08-2024 Telemedicine consultation with patient Bety Mena MD Work Phone: [facility] Start: 04-08-2024 End: 04-08-2024 ambulatory NIYA MARTINEZ Facility:[facility] Start: 04-06-2024 ambulatory NIYA MARTINEZ Facilit y:[facility] Start: 04-06-2024 End: 04-06-2024 Subsequent hospital visit by physician Procedure Mammo [facility] Comment on above: Mass of lower outer quadrant of right breast [N63.13] Start: 03-25-2024 End: 03-25-2024 Patient encounter procedure Bety Mena MD Work Phone: [facility] Comment on above: Fibrocystic breast c hanges of both breasts (Primary Dx); Mass of lower outer quadrant of right breast; Mastodynia; Papilloma of left breast; Family history of breast cancer; Screening mammogram for breast cancer Start: 03-25-2024 End: 03-25-2024 ambulatory NIYA MARTINEZ Facility:[facility] Start: 03-22-2024 End: 03-22-2024 ambulatory BETY MENA Facility:[facility] Start: 03-22-2024 End: 03-22-2024 Subsequent hospital visit by physician Screen Mammo [facility] Comment on above: Screening mammogram for breast cancer [Z12.31] Start: 01-05-2024 End: 01-05-2024 Patient encounter procedure Sushila Chávez APRN.TRANSFORMER MAKER Work Phone: [facility] Comment on above: Medicare annual well ness visit, subsequent (Primary Dx); Encounter for immunization Start: 11-19-2023 End: 11-19-2023 Office outpatient visit 25 minutes Niya Martinez MD Work Phone: [facility] [place] Comment on above: Episodic tension-typ e headache, not intractable (Primary Dx); Paroxysmal atrial fibrillation (HCC); Primary hypertension; Gastroesophageal reflux disease without esophagitis; Right leg swelling Start: 09-02-2023 Telephone encounter Niya bustamante MD Work Phone: [facility] [place] Comment on above: Release Of Medical R ecords Start: 08-25-2023 End: 08-25-2023 Office outpatient visit 15 minutes Niya Martinez MD Work Phone: [facility] [place] Comment on above: DDD (degenerative di sc disease), cervical (Primary Dx); Other subacute sinusitis; Diarrhea, unspecified type Start: 08-18-2023 End: 08-18-2023 Emergency department patient visit Dr. Niya Martinez Work Phone: [facility] Work Phone: Start: 08-08-2023 End: 08-08-[address] Niya Martinez Work Phone: [facility] Work Phone: Start: 07-27-2023 End: 06-18-2024 Telephone encounter Juaquin Burgess MD Work Phone: Gastroenterology Start: 07-24-2023 End: 07-24-2023 Office outpatient visit 25 minutes Sushila Chávez APRN.TRANSFORMER MAKER Work Phone: [facility] [place] Comment on above: Cervicalgia (Primary Dx); Cough; Acute nonintractable headache, unspecified headache type; Acute ear pain, bilateral; Inflammatory arthritis; Paroxysmal atrial fibrillation (HCC); Bradycardia Start: 07-21-2023 End: 07-21-2023 Patient encounter procedure Mateo Morel Work Phone: Podiatry Comment on above: Porokeratosis (Prima ry Dx) Start: 07-18-2023 ambulatory Niya schmidt MD Work Phone: [facility] [place] Comment on above: TESTRESULTS Start: 07-15-2023 End: 07-15-2023 Subsequent hospital visit by physician Xr [facility] [place] Work Phone: Radiology Comment on above: Cervical neck pain w ith evidence of disc disease [M50.90] Start: 07-15-2023 End: 07-15-2023 Office outpatient visit 25 minutes Niya Martinez MD Work Phone: [facility] [place] Comment on above: Cervical neck pain w ith evidence of disc disease (Primary Dx); Vitamin D deficiency; Elevated ferritin; Elevated LFTs; Mixed hyperlipidemia; Paroxysmal atrial fibrillation (HCC); Rheumatoid arthritis involving multiple sites, unspecified whether rheumatoid factor present (HCC); Encounter for therapeutic drug monitoring; Encounter for immunization Start: 03-10-2023 End: 03-10-2023 Patient encounter procedure Bety Mena MD Work Phone: [facility] Comment on above: Fibrocystic breast c hanges of both breasts (Primary Dx); Papilloma of left breast; Family history of breast cancer; Pruritus of nipple; Inconclusive mammogram; Screening mammogram for breast cancer Start: 03-10-2023 End: 03-10-2023 Subsequent hospital visit by physician Screen Mammo [facility] Comment on above: 1 year screning mamm w/ brigida and follow up msg to RTC to move times to afternoon Start: 11-20-2022 End: 11-20-2022 Patient encounter procedure Dara Mir MD Work Phone: OB/Gynecology Comment on above: Encounter for gyneco logical examination (general) (routine) without abnormal findings (Primary Dx) Start: 11-20-2022 End: 11-20-2022 Patient encounter status Dara Mir MD Work Phone: OB/Gynecology Start: 07-29-2022 End: 07-29-2022 Patient encounter procedure Mateo Testrake Work Phone: Podiatry Comment on above: Porokeratosis (Prima ry Dx); Pain of left great toe Start: 07-11-2022 End: 07-11-2022 Subsequent hospital visit by physician Sara [facility] [place] Work Phone: Radiology Comment on above: Pain of left great t oe [M79.675] Start: 07-11-2022 ambulatory Pcp ([facility]) [facility] Start: 07-05-2022 End: 07-05-2022 Office outpatient visit 40 minutes Niya Martinez MD Work Phone: [facility] [place] Comment on above: Pain of left great t oe (Primary Dx); Elevated LFTs; Vitamin D deficiency; Mixed hyperlipidemia; Elevated ferritin; Bilateral leg edema; Paroxysmal atrial fibrillation (HCC); Rheumatoid arthritis, unspecified (HCC) Start: 06-24-2022 Telephone encounter Niya bustamante MD Work Phone: [address] [place] [address] Comment on above: Lab Orders Start: 06-23-2022 E-mail encounter fro m caregiver Niya Martinez MD Work Phone: [facility] Start: 06-23-2022 Patient encounter procedure Niya Martinez MD Work Phone: [facility] [place] Comment on above: Appointment Request (HM) Start: 06-14-2022 End: 06-14-2022 ambulatory MD Niya Martinez [facility] Work Phone: Start: 06-14-2022 End: 06-14-2022 Patient encounter procedure MD Niya Martinez [facility] Start: 06-14-2022 End: 06-14-2022 Patient encounter procedure MD Niya Martinez [facility] Start: 02-07-2022 End: 02-07-2022 Patient encounter procedure Bety Mena MD Work Phone: [facility] Comment on above: 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); Papilloma of left breast; Fibrocystic breast changes of both breasts; Visit for screening mammogram Start: 02-07-2022 End: 02-07-2022 Subsequent hospital visit by physician Screen Mammo [facility] Comment on above: Visit for screening mammogram [Z12.31] Start: 01-28-2022 End: 01-28-2022 Subsequent hospital visit by physician Us [facility] Work Phone: Radiology Comment on above: Elevated LFTs [R79.8 9] Procedures Date Procedure Procedure Detail Performing Clinician Start: 11-30-2024 Liver elastography w /o imag w/i&r Juaquin Burgess MD Work Phone: Start: 09-22-2024 Us abdominal real ti me w/image limited Juaquin Burgess MD Work Phone: Start: 09-06-2024 Albumin/Globulin ratio Dr. Niya Martinez MD Work Phone: Start: 09-06-[address] Niya Martinez MD Work Phone: Start: 09-06-[address] Ana Martinez MD Work Phone: Comment on above: Presence of monoclon al protein is unclear at this time. Suggestrepeat in 3 to 6 months if clinically indicated.Performed at: [address] [id number] Director: Edward Moore PhD, Phone: [phone] Start: 07-20-2024 Evaluation of diagno stic study results Dr. Niya Martinez MD Work Phone: Start: 07-14-2024 Magnetic resonance angiography of head without contrast Dr. Niya Martinez MD Work Phone: Start: 07-14-2024 MRI of brain with contrast Dr. Niya Martinez MD Work Phone: Start: 04-06-2024 Us breast uni real t usama with image limited Bety Mena MD Work Phone: Start: 03-22-2024 Screening digital br east tomosynthesis bi Bety Mena MD Work Phone: Start: 01-05-2024 PFIZER-BIONTECH COVI D-19 VACCINE ( SEASON) AGE 12+ YR Sushila Chávez APRN.TRANSFORMER MAKER Work Phone: Start: 01-05-2024 Adult depression screening assessment [facility] [place] Work Phone: Start: 08-18-2023 CT of head without contrast Dr. Niya Martinez Work Phone: Start: 07-15-2023 Radex spine cervical 4 or 5 views Niya Martinez MD Work Phone: Start: 03-10-2023 Screening digital br east tomosynthesis bi Niya Martinez MD Work Phone: Start: 07-11-2022 Radex foot complete minimum 3 views Niya Martinez MD Work Phone: Start: 02-07-2022 CHAO SCREENING W BRIGIDA An fatou Mena MD Work Phone: Start: 01-28-2022 Us abdominal real ti me w/image limited Niya Martinez MD Work Phone: Start: 01-22-2022 Adult depression screening assessment [facility] 2 Work Phone: Start: 02-02-2021 Colonoscopy [facility] 2 Work Phone: Start: 02-06-2017 End: 02-06-2017 Dietary management education, guidance, and counseling Saurav Salazar Start: 02-06-2017 End: 02-06-2017 Follow Up Appt 6 months Lazaro Akbar MD Start: 02-06-2017 End: 02-06-2017 PFM Lazaro Akbar MD Start: 12-09-2016 End: 12-09-2016 Dietary management education, guidance, and counseling Saurav Salazar Start: 12-09-2016 End: 12-09-2016 Follow Up Appt Other Lazaro Akbar MD Start: 12-09-2016 End: 12-09-2016 PFM Lazaro Akbar MD Start: 12-06-2016 End: 12-06-2016 Electrocardiogram, complete Lazaro Akbar MD Start: 11-07-2016 End: 11-22-2016 Nuclear stress test -exercise Lazaro Akbar MD Start: 11-06-2016 End: 11-06-2016 Dietary management education, guidance, and counseling Rosalind Sherman RN Start: 11-06-2016 End: 11-06-2016 Documentation of current medications Rosalind Sherman RN Start: 11-06-2016 End: 11-22-2016 Echocardiography Lazaro Akbar MD Start: 11-06-2016 End: 11-06-2016 Electrocardiogram, complete Lazaro Akbar MD Start: 11-06-2016 End: 11-06-2016 Follow Up Appt 6 months Lazaro Akbar MD Start: 11-06-2016 End: 11-06-2016 PFM Lazaro Akbar MD Start: 11-06-2016 Preoperative cardiovascular examination Preoperative cardiovascular evaluation Radha Maldonado Start: 11-06-2016 End: 11-07-2016 Stress Echocardiogram (treadmill) Lazaro Akbar MD Start: 01-31-2016 End: 01-31-2016 Dietary management education, guidance, and counseling Radah Maldonado Start: 01-31-2016 End: 01-31-2016 Documentation of current medications Radha Maldonado Start: 01-31-2016 End: 01-31-2016 Follow Up Appt 9 months Lazaro Akbar MD Start: 01-31-2016 End: 01-31-2016 PFM Lazaro Akbar MD Start: 08-07-2015 End: 08-07-2015 Follow Up Appt 4 months Lazaro Akbar MD Start: 08-07-2015 End: 08-07-2015 PFM Lazaro Akbar MD Start: 05-23-2015 End: 08-16-2015 24 hour holter monitor Lazaro Akbar MD Start: 01-23-2015 End: 01-24-2015 Documentation of current medications Lazaro Akbar MD Start: 01-23-2015 End: 01-23-2015 Follow Up Appt 6 months Lazaro Akbar MD Start: 01-23-2015 End: 01-23-2015 PFM Lazaro Akbar MD Start: 04-18-2014 End: 04-18-2014 Electrocardiogram, complete Lazaro Akbar MD Start: 04-18-2014 End: 04-18-2014 Follow Up Appt 6 months Lazaro Akbar MD Start: 04-18-2014 End: 04-18-2014 MMM Lazaro Akbar MD Start: 09-22-2013 End: 09-22-2013 Follow Up Appt 6 months Roaslind Wells PA-C Work Phone: Start: 09-22-2013 End: 09-22-2013 PF Rosalind Wells PA-C Work Phone: Start: 05-19-2013 End: 05-19-2013 Follow Up Appt 4 months Lazaro Akbar MD Start: 05-19-2013 End: 05-19-2013 MMM Lazaro Akbar MD Start: 10-28-2012 End: 09-10-2013 Follow Up Appt 6 months Lazaro Akbar MD Start: 10-28-2012 End: 09-10-2013 PFM Lazaro Akbar MD Start: 04-30-2012 End: 04-30-2012 Follow Up Appt 6 months Lazaro Akbar MD Start: 10-23-2011 End: 10-23-2011 Electrocardiogram, complete Lazaro Akbar MD Start: 10-23-2011 End: 10-23-2011 Follow Up Appt 6 months Lazaro Akbar MD History of cholecystectomy History of cholecystectomy Niya Martinez MD Work Phone: Plan of Treatment Date Care Activity Detail Author Start: 12-23-2027 Urine microalbumin profile [facility] Start: 09-08-2027 Diabetes Screening Diabetes Screening [facility] Start: 07-01-2027 LIPID SCREEN LIPID SCREEN [facility] Start: 06-28-2027 Diabetes Screening Diabetes Screening [facility] Start: 01-21-2027 LIPID SCREEN LIPID SCREEN [facility] Start: 12-30-2026 Diabetes Screening Diabetes Screening [facility] Start: 07-15-2026 Diabetes Screening Diabetes Screening [facility] Start: 03-10-2026 Diabetes Screening Diabetes Screening [facility] Start: 02-02-2026 Colonoscopy COLONOSCOPY [facility] Start: 02-02-2026 COLORECTAL CANCER SCREENING COLORECTAL CANCER SCREENING [facility] Start: 07-04-2025 End: 07-04-2025 Patient encounter procedure 07/04/2025 3:40 PM EST Office Visit [facility] [place] [address] [place], [place] [id number] Niya Martinez MD [address] [place], [place] [id number] Medicare Wellness [facility] [place] Comment on above: Medicare Wellness Start: 07-01-2025 DIABETES SCREEN DIABETES SCREEN [facility] Start: 06-30-2025 Medicare Annual Wellness Visit Medicare Annual Wellness Visit [facility] Start: 04-18-2025 End: 04-18-2025 Patient encounter procedure 04/18/2025 2:00 PM EST Office Visit [facility] 1 [facility] Acc [address] [place] [address] Bety Mena MD [facility] [address] [place] [address] screening mammogram with brigida Follow up [facility] Comment on above: screening mammogram with brigida Follow up Start: 04-11-2025 End: 04-11-2025 Patient encounter procedure 04/11/2025 9:30 AM EDT Appointment Mammogram [address] [place] [address] screening mammogram with brigida Mammogram Comment on above: screening mammogram with brigida Start: 03-25-2025 End: 04-24-2025 DBT Breast - bilateral screening CHAO SCREENING W BRIGIDA Radiology Routine Screening mammogram for breast cancer Expected: 03/25/2025, Expires: 04/24/2025 [facility] Comment on above: Expected: 03/25/2025, Expires: Start: 03-22-2025 Screening for malignant neoplasm of breast Mammogram Screening [facility] Start: 02-14-2025 Influenza vaccination Influenza Vaccine (Season Ended) [facility] Start: 01-21-2025 DIABETES SCREEN DIABETES SCREEN [facility] Start: 01-04-2025 Anxiety Screening Anxiety Screening [facility] Start: 01-04-2025 Depression Screening Depression Screening [facility] Start: 12-31-2024 Evaluation of diagnostic study results [facility] Start: 12-28-2024 End: 12-28-2024 Patient encounter procedure 12/28/2024 2:20 PM EDT Office Visit [facility] [place] [address] [place] [address] Niya Martinez MD [address] [place] [address] 6 month follow up [facility] [place] Comment on above: 6 month follow up Start: 10-13-2024 End: 10-13-2024 Patient encounter procedure 10/13/2024 11:30 AM EDT Office Visit Gastroenterology [address] [address] Juaquin Burgess MD [address] [place] [address] F/U Gastroenterology Comment on above: F/U Start: 09-22-2024 End: 09-22-2024 Patient encounter procedure 09/22/2024 12:45 PM EDT Appointment Radiology [address] [address] US ABD SPLEEN/RUQ Radiology Comment on above: US ABD SPLEEN/RUQ Start: 06-30-2024 End: 06-30-2024 Patient encounter procedure 06/30/2024 4:20 PM EST Office Visit [facility] [place] [address] [place] [address] Niya Martinez MD [address] [place], [place] [id number] Wellness [facility] [place] Comment on above: Wellness Start: 06-16-2024 Advance Directive Discussion Advance Directive Discussion [facility] Start: 05-07-2024 Covid-19 Vaccine () Covid-19 Vaccine () [facility] Start: 04-08-2024 End: 04-08-2024 Patient encounter procedure 04/08/2024 4:15 PM EDT Office Visit [facility] Acc [address] [place] [address] Bety Mena MD 1 [facility] [address] [place] [address] right breast ultrasound follow up [facility] Comment on above: right breast ultrasound follow up Start: 04-08-2024 End: 04-08-2024 Telephone follow-up 04/08/2024 4:15 PM EDT [facility] [address] [facility] [address] [place] [address] Bety Mena MD [address] [facility] [address] [place] [address] right breast ultrasound follow up - telephone visit - remember to order screening [facility] Comment on above: right breast ultrasound follow up - tele phone visit - remember to order screening Start: 04-06-2024 End: 04-06-2024 Patient encounter procedure 04/06/2024 12:30 PM EDT Appointment [facility] [address] [place] [address] right breast ultrasound [facility] MAMMO [facility] Comment on above: right breast ultrasound Start: 03-25-2024 End: 03-25-2024 Patient encounter procedure 03/25/2024 1:00 PM EDT Office Visit [facility] 1 [facility] Acc [address] [place] [address] Bety Mena MD [address] [facility] [address] [place] [address] Yearly CBE, screening mammogram w/brigida 03/22/24 [facility] Comment on above: Yearly CBE, screening mammogram w/brigida 1 Start: 03-22-2024 End: 03-22-2024 Patient encounter procedure 03/22/2024 9:10 AM EDT Appointment Mammogram [address] [place] [address] Screening mammogram w/brigida Mammogram Comment on above: Screening mammogram w/brigida Start: 03-11-2024 End: 04-08-2024 CHAO SCREENING W BRIGIDA CHAO SCREENING W BRIG[facility] Radiology Routine Screening mammogram for breast cancer Expected: 03/11/2024, Expires: 04/08/2024 [facility] Work Phone: Comment on above: Expected: 03/11/2024, Expires: Start: 03-01-2024 Covid-19 Vaccine ( season) Covid-19 Vaccine () [facility] Start: 02-15-2024 Influenza vaccination Influenza Vaccine (#1) [facility] Start: 01-05-2024 End: 01-05-2024 Patient encounter procedure 01/05/2024 9:20 AM EDT Office Visit [facility] [place] [address] [facility] [place] [address] Sushila Chávez APRN.TRANSFORMER MAKER [address] [place] [place] [address] follow-up [facility] [place] Comment on above: follow-up Start: 08-18-2023 [facility] Start: 06-16-2023 Advance Directive Discussion Advance Directive Discussion [facility] Start: 06-16-2023 Behavioral Health Screening Behavioral Health Screening [facility] Start: 06-16-2023 Depression Assessment Depression Assessment [facility] Start: 03-05-2023 Covid-19 Vaccine () Covid-19 Vaccine () [facility] Start: 02-14-2023 Influenza vaccination Influenza Vaccine (#1) [facility] Start: 02-10-2023 End: 03-09-2023 CHAO SCREENING W BRIGIDA CHAO SCREENING W BRIG[place] Radiology Routine Visit for screening mammogram Expected: 02/10/2023 (Approximate), Expires: 03/09/2023 [facility] Work Phone: Comment on above: Expected: 02/10/2023 (Approximate), Expi res: 03/09/2023 Start: 01-22-2023 Adult depression screening assessment DEPRESSION SCREENING [facility] Start: 07-03-2022 End: 09-02-2022 Urate [Mass/volume] in Serum or Plasma URIC ACID BLOOD Lab Routine Inflammatory arthritis Expected: 07/03/2022, Expires: 09/02/2022 [facility] Work Phone: Comment on above: Expected: 07/03/2022, Expires: Start: 06-16-2022 ADVANCE DIRECTIVE DISCUSSION ADVANCE DIRECTIVE DISCUSSION [facility] Start: 06-16-2022 DEPRESSION ASSESSMENT DEPRESSION ASSESSMENT [facility] Start: 02-14-2022 Influenza vaccination INFLUENZA (#1) [facility] Start: 02-05-2022 COVID-19 VACCINE (5 - Booster for Moderna series) COVID-19 VACCINE (5 - Booster for Moderna series) [facility] Start: 2021 RSV Vaccine (1 - 1-dose 75+ series) RSV Vaccine (1 - 1-dose 75+ series) [facility] Start: 07-20-2019 FECAL OCCULT BLOOD FECAL OCCULT BLOOD [facility] Start: 09-29-2017 End: 09-29-2017 Appointment Appointment [facility] Work Phone: Start: 05-14-2017 End: 05-14-2017 Appointment Appointment [facility] Work Phone: Start: 02-06-2017 End: 02-06-2017 Appointment Appointment [facility] Work Phone: Start: 02-06-2017 End: 02-06-2017 Follow Up Appt 6 months Follow Up Appt 6 months [facility] Work Phone: Start: 02-06-2017 End: 02-06-2017 PFM PFM [facility] Work Phone: Start: 12-09-2016 End: 12-09-2016 Appointment Appointment [facility] Work Phone: Start: 12-09-2016 End: 12-09-2016 Follow Up Appt Other Follow Up Appt Other [facility] Work Phone: Start: 12-09-2016 End: 12-09-2016 PFM PFM [facility] Work Phone: Start: 12-06-2016 End: 12-06-2016 Appointment Appointment [facility] Work Phone: Start: 12-06-2016 End: 12-06-2016 Electrocardiogram, complete EKG (In office) [facility] Work Phone: Start: 11-07-2016 End: 11-08-2016 Nuclear stress test -exercise Nuclear stress test -exercise [facility] Work Phone: Start: 11-06-2016 End: 11-06-2016 Appointment Appointment [facility] Work Phone: Start: 11-06-2016 End: 11-06-2016 Appointment Appointment [facility] Work Phone: Start: 11-06-2016 End: 11-12-2016 Echocardiography Echocardiogram (complete) [facility] Work Phone: Start: 11-06-2016 End: 11-06-2016 Electrocardiogram, complete EKG (In office) [facility] Work Phone: Start: 11-06-2016 End: 11-06-2016 Follow Up Appt 6 months Follow Up Appt 6 months [facility] Work Phone: Start: 11-06-2016 End: 11-06-2016 PFM PFM [facility] Work Phone: Start: 11-06-2016 End: 11-07-2016 Stress Echocardiogram (treadmill) Stress Echocardiogram (treadmill) [facility] Work Phone: Start: 01-31-2016 End: 01-31-2016 Follow Up Appt 9 months Follow Up Appt 9 months [facility] Work Phone: Start: 01-31-2016 End: 01-31-2016 PFM PFM [facility] Work Phone: Start: 08-30-2015 End: 08-16-2015 *BMP *BMP [facility] Work Phone: Start: 08-07-2015 End: 08-07-2015 Follow Up Appt 4 months Follow Up Appt 4 months [facility] Work Phone: Start: 08-07-2015 End: 08-07-2015 PFM PFM [facility] Work Phone: Start: 05-23-2015 End: 05-23-2015 24 hour holter monitor 24 hour holter monitor [facility] Work Phone: Start: 01-23-2015 End: 01-23-2015 Follow Up Appt 6 months Follow Up Appt 6 months [facility] Work Phone: Start: 01-23-2015 End: 01-23-2015 PFM PFM [facility] Work Phone: Start: 04-18-2014 End: 04-18-2014 Electrocardiogram, complete EKG (In office) [facility] Work Phone: Start: 04-18-2014 End: 04-18-2014 Follow Up Appt 6 months Follow Up Appt 6 months [facility] Work Phone: Start: 04-18-2014 End: 04-18-2014 MMM MMM [facility] Work Phone: Start: 09-22-2013 End: 09-22-2013 Follow Up Appt 6 months Follow Up Appt 6 months [facility] Work Phone: Start: 09-22-2013 End: 09-22-2013 PFM PFM [facility] Work Phone: Start: 05-19-2013 End: 05-19-2013 Follow Up Appt 4 months Follow Up Appt 4 months [facility] Work Phone: Start: 05-19-2013 End: 05-19-2013 MMM MMM [facility] Work Phone: Start: 10-28-2012 End: 09-10-2013 Follow Up Appt 6 months Follow Up Appt 6 months [facility] Work Phone: Start: 10-28-2012 End: 09-10-2013 PFM PFM [facility] Work Phone: Start: 04-30-2012 End: 04-30-2012 Follow Up Appt 6 months Follow Up Appt 6 months [facility] Work Phone: Start: 10-23-2011 End: 10-23-2011 Electrocardiogram, complete EKG (In office) [facility] Work Phone: Start: 10-23-2011 End: 10-23-2011 Follow Up Appt 6 months Follow Up Appt 6 months [facility] Work Phone: Start: 2006 RSV Vaccine (1 - 1-dose 60+ series) RSV Vaccine (1 - 1-dose 60+ series) [facility] Start: 09-24-1991 COLOGUARD (FIT-DNA) COLOGUARD (FIT-DNA) [facility] Start: 09-24-[address] COLONOGRAPHY [facility] Start: 09-24-1991 SIGMOIDOSCOPY SIGMOIDOSCOPY [facility] End: 07-14-2024 25-hydroxyvitamin D3 [Mass/volume] in Serum or Plasma VITAMIN D 25 HYDROXY Lab Routine Vitamin D deficiency Encounter for therapeutic drug monitoring Every 6 months for 90 Occurrences starting 07/15/2023 until 07/14/2024, 1 completed [facility] Work Phone: Comment on above: Every 6 months for 90 Occurrences starti ng 07/15/2023 until 07/14/2024, 1 completed Basic metabolic 2008 panel with ionized calcium - Serum or Plasma [facility] End: 07-14-2024 C reactive protein [Mass/volume] in Serum or Plasma C-REACTIVE PROTEIN (CRP) Lab Routine Encounter for therapeutic drug monitoring Rheumatoid arthritis involving multiple sites, unspecified whether rheumatoid factor present (HCC) Every 6 months for 90 Occurrences starting 07/15/2023 until 07/14/2024, 1 completed [employer] [facility] Work Phone: Comment on above: Every 6 months for 90 Occurrences starti ng 07/15/2023 until 07/14/2024, 1 completed Cardiac event recording [facility] End: 07-14-2024 CBC panel - Blood by Automated count CBC Lab Routine Elevated ferritin Encounter for therapeutic drug monitoring Every 6 months for 90 Occurrences starting 07/15/2023 until 07/14/2024, [facility]: Comment on above: Every 6 months for 90 Occurrences starti ng 07/15/2023 until 07/14/2024, 1 completed End: 07-14-2024 Cobalamin (Vitamin B12) [Mass/volume] in Serum or Plasma VITAMIN B12 BLOOD Lab Routine Encounter for therapeutic drug monitoring Every 6 months for 90 Occurrences starting 07/15/2023 until 07/14/2024, 1 completed [employer] [facility] Work Phone: Comment on above: Every 6 months for 90 Occurrences starti ng 07/15/2023 until 07/14/2024, 1 completed End: 07-14-2024 Comprehensive metabolic 2000 panel - Serum or Plasma COMP METABOLIC PANEL Lab Routine Elevated LFTs Encounter for therapeutic drug monitoring Every 6 months for 90 Occurrences starting 07/15/2023 until 07/14/2024, 1 completed [employer] Work Phone: Comment on above: Every 6 months for 90 Occurrences starti ng 07/15/2023 until 07/14/2024, [address] Unspecified body region WO contrast [facility] ECG COMPLETE ECG COMPLETE ECG Routine Bradycardia Ordered: 07/24/2023 [facility] Phone: Comment on above: Ordered: 07/24/2023 End: 07-14-2024 Erythrocyte sedimentation rate SED RATE WESTERGREN Lab Routine Encounter for therapeutic drug monitoring Rheumatoid arthritis involving multiple sites, unspecified whether rheumatoid factor present (HCC) Every 6 months for 90 Occurrences starting 07/15/2023 until 07/14/2024, 1 completed [employer] [facility] Work Phone: Comment on above: Every 6 months for 90 Occurrences starti ng 07/15/2023 until 07/14/2024, 1 completed End: 07-14-2024 Ferritin [Mass/volume] in Serum or Plasma FERRITIN BLD Lab Routine Elevated ferritin Encounter for therapeutic drug monitoring Every 6 months for 90 Occurrences starting 07/15/2023 until 07/14/2024, 1 completed [employer] Work Phone: Comment on above: Every 6 months for 90 Occurrences starti ng 07/15/2023 until 07/14/2024, 1 completed End: 07-14-2024 Iron and Iron binding capacity panel - Serum or Plasma IRON + TIBC Lab Routine Elevated ferritin Encounter for therapeutic drug monitoring Every 6 months for 90 Occurrences starting 07/15/2023 until 07/14/2024, 1 completed [employer] Work Phone: Comment on above: Every 6 months for 90 Occurrences starti ng 07/15/2023 until 07/14/2024, 1 completed End: 07-14-2024 Lipid 1996 panel - Serum or Plasma LIPID PANEL BASIC Lab Routine Mixed hyperlipidemia Encounter for therapeutic drug monitoring Every 6 months for 90 Occurrences starting 07/15/2023 until 07/14/2024, 1 completed [employer] [facility] Work Phone: Comment on above: Every 6 months for 90 Occurrences starti ng 07/15/2023 until 07/14/2024, 1 completed Liver ultrasound attenuation by transient elastography DDI VIBRATION CONTROLLED TRANSIENT ELASTOGRAPHY (VCTE) Endoscopy Routine Abnormal LFTs Ordered: 10/13/2024 [facility] Work Phone: Comment on above: Ordered: 10/13/2024 Magnesium measurement [facility] Heart Views W str ess and W radionuclide IV [facility] Patient Education ED Sinusitis (Antibiotic Treatment) [facility] Work Phone: Patient referral [facility] Work Phone: Serum immunofixation [facility] Thyroid stimulating hormone measurement [facility] Urine immunofixation [facility] End: 04-24-2025 US Breast - right limited US BREAST LTD RIGHT Radiology Routine Mass of lower outer quadrant of right breast Mastodynia 1 Occurrences starting 03/25/2024 until 04/24/2025 [facility] Work Phone: Comment on above: 1 Occurrences starting 03/25/2024 until 04/24/2025 End: 04-08-2024 US BREAST LTD LEFT US BREAST LTD LEFT Radiology Routine Pruritus of nipple Inconclusive mammogram 1 Occurrences starting 03/10/2023 until 04/08/2024 [facility] Work Phone: Comment on above: 1 Occurrences starting 03/10/2023 until 04/08/2024 End: 04-08-2024 US BREAST LTD RIGHT US BREAST LTD RIGHT Radiology Routine Pruritus of nipple Inconclusive mammogram 1 Occurrences starting 03/10/2023 until 04/08/2024 [facility] Work Phone: Comment on above: 1 Occurrences starting 03/10/2023 until 04/08/2024 [facility] Immunizations Immunization Date Immunization Notes Care Provider Laverne santos 01-05-2024 COVID-19 vaccine, ag e 12+ yr, 2022- season (PFIZER-BIONTTrainfox) Sushila Chávez APRN.[employer] Work Phone: [facility] 03-12-2023 influenza (HD-IIV4) vaccine, age 65+ yr, high dose, quadrivalent, PF (FLUZONE HIGH-DOSE) Niya Martinez MD Work Phone: [facility] 03-12-2023 influenza virus vacc ine, unspecified formulation Niya Martinez MD Work Phone: [facility] 05-29-2022 influenza virus vacc ine, unspecified formulation Pcp (Historical) [facility] 05-23-2021 influenza, high dose seasonal, preservative-free Us 2 Work Phone: [facility] 05-01-2021 COVID-19 vaccine, fu ll dose (MODERNA) Us 2 Work Phone: [facility] 04-18-2021 influenza, high dose seasonal, preservative-free Pcp (Historical) [facility] 02-09-2021 zoster vaccine recombinant Us 2 Work Phone: [facility] 12-08-2020 zoster vaccine recombinant Us 2 Work Phone: [facility] 08-25-2020 COVID-19 vaccine, fu ll dose (MODERNA) Us 2 Work Phone: [facility] 07-28-2020 COVID-19 vaccine, fu ll dose (MODERNA) Us 2 Work Phone: [facility] 05-03-2020 influenza, high-dose , quadrivalent vaccine (FLUZONE HIGH DOSE QUADRIVALENT) Us 2 Work Phone: [facility] 03-16-2020 influenza, high dose seasonal, preservative-free Pcp (Historical) [facility] 07-14-2018 pneumococcal conjuga te vaccine, 13 valent Us 2 Work Phone: [facility] Work Phone: 05-03-2014 pneumococcal polysaccharide vaccine, 23 valent Pcp (Historical) [facility] 06-19-2012 pneumococcal polysaccharide vaccine, 23 valent Us 2 Work Phone: [facility] 05-13-2011 hepatitis B vaccine, adult dosage Us 2 Work Phone: [facility] 05-13-2011 zoster vaccine, live Us 2 Work Phone: [facility] 03-14-2008 hepatitis B vaccine, adult dosage Us 2 Work Phone: [facility] 02-01-2008 hepatitis A vaccine, unspecified formulation Us 2 Work Phone: [facility] Work Phone: 01-18-2008 hepatitis B vaccine, adult dosage Us 2 Work Phone: [facility] 01-12-2008 tetanus and diphther ia toxoids, adsorbed, preservative free, for adult use (2 Lf of tetanus toxoid and 2 Lf of diphtheria toxoid) Us 2 Work Phone: [facility] Payers Date Payer Category Payer Self-pay [id number] 2015 Medicare [id number] 2015 Private Health Insurance [id number] 2015 Private Health Insurance [id number] 2011 Medicare [id number] Unknown [id number] 2.16.8 [id number] Unknown [id number] 2.16.8 [id number] Unknown [id number] 2.16.8 [id number] Unknown [id number] 2.16.8 [id number] Unknown [id number] 2.16.8 [id number] Unknown [id number] 2.16.8 [id number] Unknown [id number] 2.16.8 [id number] Unknown [id number] 2.16.8 [id number] Unknown [id number] 2.16.8 [id number] Unknown [id number] 2.16.8 [id number] Social History Date Type Detail Facility Start: 01-22-2022 End: 08-18-2023 Tobacco smoking status NHIS Never smoked tobacco [facility] Start: 01-22-2022 Tobacco use and exposure Smokeless tobacco non-user [facility] Start: 01-22-2022 End: 06-30-2024 Alcohol intake Current drinker of alcohol (finding) [facility] Start: 1945 Sex Assigned At Female [facility] Start: 01-12-2022 End: 02-07-2022 Exposure to SARS-CoV-2 (event) Not sure [facility] Start: 06-14-2022 End: 08-18-2023 Tobacco smoking status NYIS Unknown if ever smoked [facility] Start: 11-26-2016 Rare [facility] Start: 11-26-2016 None [facility] Start: 11-26-2016 Spouse/ Signif icant Other [facility] Start: 11-26-2016 Non-smoker [facility] Start: 11-20-2022 End: 03-10-2023 History of Social function [facility] Start: 11-20-2022 End: 03-10-2023 Tobacco use panel [facility] Adult Depression Screening Assessment 0 [facility] Start: 12-05-2020 Gender identity Identifies as female gender (finding) [facility] How often to you hav e a drink containing alcohol? 2-3 time sa week [facility] How many standard drinks containing alcohol do you have on a typical day? 1 or 2 [facility] How often do you hav e 6 or more drinks on 1 occasion? Never [facility] Start: 08-24-2024 End: 09-13-2024 Sex Female (finding) [facility] Functional Status Date Assessment Result Facility 06-30-2024 Total score [AUDIT-C] 3 06/30/19 25 4:44 PM RANDEE Suzy AshrafLOUISE [facility] 11-01-2014 Are you deaf, or do you have serious difficulty hearing No 11/01/2014 10:02 AM Lanny Harry RN No [facility] 11-01-2014 Are you blind, or do you have serious difficulty seeing, even when wearing glasses No 11/01/2014 10:02 AM Lanny Harry RN No [facility] 11-01-2014 Do you have serious difficulty walking or climbing stairs No 11/01/2014 10:02 AM Lanny Harry RN No [facility] 11-01-2014 Do you have difficul ty dressing or bathing No 11/01/2014 10:02 AM Lanny Harry RN No [facility] 11-01-2014 Because of a physica l, mental, or emotional condition, do you have difficulty doing errands alone such as visiting a physician's office or shopping No 11/01/2014 10:02 AM Lanny Harry RN No [facility] Mental Status Date Assessment Result Facility 08-18-2023 Cognitive function Level Of Cons ciousness Awake;Alert;Appropriate;Fol lows Commands [facility] Work Phone: 11-01-2014 Because of a physica l, mental, or emotional condition, do you have serious difficulty concentrating, remembering, or making decisions No 11/01/2014 10:02 AM Lanny Harry RN No [facility] Clinical Notes 04-24-2009 to 12-31-2024 Note Date & Type Note Facility 12-31-2024 Evaluation note Diagnosis Onset Date Resolution Encounter for monitoring flecainide therapy acute December 31, 2024 8:38am Palpitations acute December 31 025 8:38am Hypertension chronic December 31 8:38am Paroxysmal atrial fibrillation chronic December 31, 2024 8:38am [facility] Work Phone: 1(495) 818-201507-15-2025 NoteHNO ID: [id number] Author: NIYA MARTINEZ MD Service: ? Author Type: Physician Type: Progress Notes Filed: 01/21/2025 00:57 Note Text: This note was created using roundCornerter. Subjective Oneida Steward is a 79 year old female. SUBJECTIVE: Oneida Steward is a 79-year-old female with a history of atrial fibrillation, presenting for a Medicare Annual Wellness Visit. Oneida reports episodes of tachycardia, particularly nocturnally, and occasionally upon waking. She is currently on flecainide, but notes that the generic version is ineffective. She has identified a specific white pill that works and requests this formulation. She denies recent episodes of atrial fibrillation. She also reports occasional fatigue, particularly in the mornings, but denies anxiety, depression, or suicidal ideation. Oneida has a history of elevated cholesterol and is currently on metoprolol. Recent lab results show LDL levels fluctuating between 130-147 mg/dL, with previous levels in the 150s. HDL levels have improved from the 70s to the 80s, and triglycerides are in the 60s. She denies consuming processed foods or high-fructose corn syrup, but admits to occasional ice cream and cake consumption. Oneida has a history of fatty liver disease, with recent lab results showing elevated alkaline phosphatase levels (230 U/L, previously 190 U/L) and slightly elevated AST and ALT levels. A recent FibroScan showed minimal fibrosis, and a repeat scan is scheduled for next year. She denies any new symptoms related to her liver condition. She also reports a recent episode of bleeding from a lesion on her leg, which occurred in late September. The lesion formed a thick crust and took several weeks to heal. She denies any known trauma to the area and is unsure of the cause of the bleeding. She used zinc cream during the healing process. She also reports mild swelling in her legs, which worsens throughout the day, particularly in hot weather. She denies any current issues with diarrhea and is no longer taking Lomotil. She also reports occasional use of omeprazole for acid reflux, but denies needing it regularly. PAST MEDICAL HISTORY Diagnosis Date Diarrhea Diverticulosis of colon (without mention of hemorrhage) Paroxysmal atrial fibrillation (HCC) 06/02/2017 Controlled on current meds; Dr. Akbar managing. Positive hepatitis C antibody test 06/02/2017 negative for chronic active hepatitis C Pure hypercholesterolemia 11/01/2014 Rheumatoid arthritis(714.0) Remission; note that diagnosis inflammatory arthritis (neg RF) on Dr. 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 losartan (COZAAR) 50 mg tablet Take 50 mg by mouth once daily. Dr. Leyva Milk Thistle 500 mg cap Take 500 mg by mouth. turmeric root extract 500 mg cap Take 1 capsule by mouth every other day. pyridoxine HCl, vitamin B6, (VITAMIN B-6 ORAL) Take by mouth. cyanocobalamin, vitamin B-12, (VITAMIN B-12 ORAL) Take by mouth. COD LIVER OIL ORAL Take by mouth. ELIQUIS 5 mg tab tab(s) 5 mg twice daily. metoprolol tartrate, short acting, (LOPRESSOR) 25 mg tablet 12.5 mg twice daily. CALCIUM 500 MG TAB Take one(1) tablet two(2) times daily. MAGNESIUM CARBONATE ORAL Take by mouth. No current facility-administered medications for this visit. Review of Systems Objective BP 99/63 (BP Site: Left Arm, BP Position: Sitting, BP Cuff Size: Large Adult) Pulse (!) 57 Wt 81.2 kg (179 lb 0.2 oz) BMI 28.94 kg/m? Physical Exam Constitutional: Appearance: Normal appearance. HENT: Head: Normocephalic. Eyes: Conjunctiva/sclera: Conjunctivae normal. Cardiovascular: Rate and Rhythm: Normal rate and regular rhythm. Heart sounds: Normal heart sounds. Pulmonary: Effort: Pulmonary effort is normal. Breath sounds: Normal breath sounds. Musculoskeletal: Right lower le+ Pitting Edema present. Left lower le+ Pitting Edema present. Skin: General: Skin is warm and dry. Neurological: General: No focal deficit present. Mental Status: She is alert and oriented to person, place, and time. Psychiatric: Mood and Affect: Mood normal. Behavior: Behavior normal. Thought Content: Thought content normal. Judgment: Judgment normal. Latest Ref Rng 12/31/2023 06/28/2024 12/27/2024 Protein, Total 6.3 - 8.0 g/dL 6.7 7.3 7.2 Albumin 3.9 - 4.9 g/dL 3.8 (L) 4.0 3.9 Calcium 8.5 - 10.2 mg/dL 9.2 9.5 9.4 Bilirubin, Total 0.2 - 1.3 mg/dL 0.3 0.4 0.4 Alkaline Phosphatase 34 - 123 U/L 176 (H) 197 (H) 234 (H) AST 13 - 35 U/L 49 (H) 44 (H) 71 (H) ALT 7 - 38 U/L 53 (H) 58 (H) 93 (H) Glucose 74 - 99 mg/dL 91 88 100 (H) BUN 7 - 21 mg/dL 14 15 18 Creatinine 0.58 - 0.96 mg/dL 0.76 0.69 0.75 Sodium 136 - 144 mmol/L 141 141 139 Potassium 3.7 - 5.1 mmol/L 4.5 4.4 4. (more content not included)...[facility]06-17-2025 NoteHNO ID: [id number] Author: MARCUS BOLTON APRN.[facility] Service: ? Author Type: Nurse Practitioner Type: Progress Notes Filed: 11/30/2024 15:04 Note Text: Fibroscan Report Date performed: November 30, 2024 Indication : MASLD Patient fasted 3 hours:Yes Performed by Alka Lorenzo LPN Impression The liver stiffness is 7.2 kPa which corresponds to 91% chance of stage F0-F2 fibrosis. The CAP analysis showed grade S0 of liver steatosis. Stage of liver fibrosis based on above kPa: A 91% chance of stage 0-2 fibrosis A 9% chance of stage 3-4 fibrosis (advanced fibrosis) A 1.3% chance of stage 4 fibrosis (cirrhosis). A kPa >20 indicates a high likelihood of stage 4 fibrosis/cirrhosis, consider further testing to confirm and refer to hepatology. Recommendations If kPa <8.0, reassess periodically Fib-4 score every 1-2 years if T2DM/Pre-T2DM OR with 2 or more metabolic risk factors Fib-4 score 2-3 years if no T2DM and <2 metabolic risk factors If kPa >8.0, refer to hepatology for further evaluation Result-Findings Technical difficulties: None. Result: The reading was adequate. Please refer to get images report for individual readings Number of readings: 10 IQR %: 7 E (kpa): 7.2 CAP: 221 Interpreted by: Marcus Bolton APRN, CNP MASLD Fibroscan Fibrosis Risk <7 kPA = F0-F2 97%, F3+F4 3%, F4 <1% <10 kPA = F0-F2 91%, F3+F4 9%, F4 1.3% 10-15 kPA = F0-F2 56%, F3+F4 43%, F4 14% >15 kPA = F0-F2 26%, F3+F4 74%, F4 46% Grade CAP value up to 237 dB/M [...] stage 3 (>/= S3: > 66% steatosis) References Aiden Y, Torey Q, Aiden T, Marjorie J, Aiden H, Edenilson T. Controlled attenuation parameter for assessment of hepatic steatosis grades: a diagnostic meta-analysis. Int J Clin Exp Med. 2015 Mar 15;8(10):14602-69. PMID: 83372668; PMCID: [id number]. Srinivasan Cline, Aaron JARAD, Leigh Ann M, Tamy F, Azeb J, Sadaf O, Nelson F, Lakia M, Bijal G, Malcolm A, Daniele E, Patrice L, Gilberto G, Roberto A, [place] U, Hunter S, Elfego P, Dawit V, de Shey V, Herminia M, My EA. Refining the Baveno elastography criteria for the definition of compensated advanced chronic liver disease. J Hepatol. 2020;74(5):8669-6528. doi: 10.1016/j.jhep.2020.11.050. Epub 2019May 24. PMID: 97307147. Kenneth Cline, Vicky B, Romi Cline, Manuel Cline, Kenna S, Mara Weeks, Prachi Dietrich. [facility] practice guidance on the clinical assessment and management of nonalcoholic fatty liver disease. Hepatology. 2022;77(5):1116-5966. doi:10.1097/HEP.[id number] Grady Memorial Hospital 11-30-2024 History of Present illness Narrative* Marcus Bolton APRN.[facility] - 11/30/2024 12:57 PM EDT Fibroscan Report Date performed: November 30, 2024 Indication : MASLD Patient fasted 3 hours:Yes Performed by Alka Lorenzo LPN Impression The liver stiffness is 7.2 kPa which corresponds to 91% chance of stage F0-F2 fibrosis. The CAP analysis showed grade S0 of liver steatosis. Stage of liver fibrosis based on above kPa: A 91% chance of stage 0-2 fibrosis A 9% chance of stage 3-4 fibrosis (advanced fibrosis) A 1.3% chance of stage 4 fibrosis (cirrhosis). A kPa >20 indicates a high likelihood of stage 4 fibrosis/cirrhosis, consider further testing to confirm and refer to hepatology. Recommendations If kPa <8.0, reassess periodically Fib-4 score every 1-2 years if T2DM/Pre-T2DM OR with 2 or more metabolic risk factors Fib-4 score 2-3 years if no T2DM and <2 metabolic risk factors If kPa >8.0, refer to hepatology for further evaluation Result-Findings Technical difficulties: None. Result: The reading was adequate. Please refer to get images report for individual readings Number of readings: 10 IQR %: 7 E (kpa): 7.2 CAP: 221 Interpreted by: Marcus Bolton APRN, PNEUMATIC PRESS HAND [facility] Fibroscan Fibrosis Risk <7 kPA = F0-F2 97%, F3+F4 3%, F4 <1% <10 kPA = F0-F2 91%, F3+F4 9%, F4 1.3% 10-15 kPA = F0-F2 56%, F3+F4 43%, F4 14% >15 kPA = F0-F2 26%, F3+F4 74%, F4 46% Grade CAP value up to 237 dB/M [...] stage 3 (>/= S3: > 66% steatosis) References Wolfe Y, Torey Q, Wolfe T, Marjorie J, Wolfe H, Pyle T. Controlled attenuation parameter for assessment of hepatic steatosis grades: a diagnostic meta-analysis. Int J Clin Exp Med. 2015 Mar 15;8(10):18246-02.PMID: [id number]; PMCID: [id number]. Srinivasan Cline, Aaron ABRAHAM, Leigh Ann M, Tamy F, Azeb J, Sadaf O, Nelson F, Lakia M, Bijal G, Malcolm A, Daniele E, Patrice L, Gilberto G, Roberto A, Israel U, Harrison S, Emanuel, Dawit V, de Shey V, Herminia M, My EA. Refining the Baveno elastography criteria for the definition of compensated advanced chronic liver disease. J Hepatol. 2020;74(5):8354-2634. doi: 10.1016/j.jhep.2020.11.050. Epub 2019May 24. PMID: [id number]. Kenneth Cline, Vicky B, Romi Cline, Manuel Cline, Kenna S, Hali Mg, Mara Mg, Prachi Dietrich.[facility] practice guidance on the clinical assessment and management of nonalcoholic fatty liver disease. Hepatology. 2022;77(5):1797- 1835. doi:10.1097/HEP.[id number] documented in this encounterUniversity [facility]04-30-[facility]25 Instructions* Patient Instructions* Juaquin Burgess MD - 10/13/2024 11:58 AM EDT Please barbara a Fibroscan. See if it can be done in [place]. documented in this encounterUniversity Hospitals [facility]aug[facility] Center04-30-2025 History of Present illness Narrative* Juaquin Burgess MD - 10/13/2024 11:30 AM EDT VIRTUAL VISIT FOLLOW UP I have communicated my name and active licensure. The patient's identity and physical location wereverified at the time of this visit. Either the patient or their legal in home sales representative has been informed of the risks and benefits of -- and alternatives to -- treatment through a remote evaluation andconsents to proceed with the evaluation remotely. I had a virtual visit with Ms. Steward today for follow up of abn LFT's. UPDATED HISTORY: See impression PAST MEDICAL HISTORY Diagnosis Date Diarrhea Diverticulosis of colon (without mention of hemorrhage) Paroxysmal atrial fibrillation (HCC) 06/02/2017 Controlled on current meds; Dr. Akbar managing. Positive hepatitis C antibody test 06/02/2017 negative for chronic active hepatitis C Rheumatoid arthritis(714.0) Remission; note that diagnosis inflammatory arthritis (neg RF) on Dr. 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 Mena- Radial Scar CHOLECYSTECTOMY 12/25/1983 Cholecystectomy COLONOSCOPY FLX DX W/COLLJ SPEC WHEN PFRMD , 12/11/2001 Colonoscopy COLONOSCOPY FLX DX W/COLLJ SPEC WHEN PFRMD 02/13/2006 COLONOSCOPY FLX DX W/COLLJ SPEC WHEN PFRMD 11/29/2010 Colonoscopy COLONOSCOPY FLX DX W/COLLJ SPEC WHEN PFRMD N/A 02/02/2021 [facility]-Abdirizak Yuan MD LEFT HEART CATH,PERCUTANEOUS 11/14/2008 Cardiac cath, L heart [facility] - coronary angiography OPEN REPAIR OF ROTATOR CUFF ACUTE 01/16/2012 Rotator cuff repair left - [facility] PAST SURGICAL HISTORY OF Surgery on Bile Duct REVISE MEDIAN N/CARPAL TUNNEL SURG Left 2022 TOTAL ABDOMINAL HYSTERECT W/WO RMVL TUBE OVARY 12/03/2000 Hysterectomy, KINDRA, BSO FAMILY HISTORY Problem Relation Age of Onset Colon Cancer Father 80 Breast Cancer Paternal Grandmother other (Other) Other No stock letterer cancer Ovarian cancer No Family History Social History Tobacco Use Smoking status: Never Smokeless tobacco: Never Vaping Use Vaping status: Never Used Substance Use Topics Alcohol use: Yes Comment: Socially Drug use: No Current Outpatient Medications Medication Sig Dispense Refill flecainide (TAMBOCOR) 100 mg tablet Take 0.5 tablets by mouth two times a day. losartan (COZAAR) 50 mg tablet Take 50 mg by mouth once daily. Dr. Leyva diphenoxylate-atropine (LOMOTIL) 2.5-0.025 mg per tablet Take 1 tablet by mouth four times a day asneeded for diarrhea for up to 10 days. 20 tablet 0 omeprazole (PRILOSEC) 20 mg capsule Take 1 capsule by mouth daily before breakfast. 1/2 hr before meal. As directed 30 capsule 2 Milk Thistle 500 mg cap Take 500 mg by mouth. turmeric root extract 500 mg cap Take 1 capsule by mouth every other day. pyridoxine HCl, vitamin B6, (VITAMIN B-6 ORAL) Take by mouth. cyanocobalamin, vitamin B-12, (VITAMIN B-12 ORAL) Take by mouth. COD LIVER OIL ORAL Take by mouth. ELIQUIS 5 mg tab tab(s) 5 mg twice daily. metoprolol tartrate, short acting, (LOPRESSOR) 25 mg tablet 12.5 mg twice daily. MAGNESIUM CARBONATE ORAL Take by mouth. CALCIUM 500 MG TAB Take one(1) tablet two(2) times daily. 0 No current facility-administered medications for this visit. ALLERGIES No Known Allergies LABS Latest Ref Rng 06/28/2024 Protein, Total 6.3 - 8.0 g/dL 7.3 Albumin 3.9 - 4.9 g/dL 4.0 Calcium 8.5 - 10.2 mg/dL 9.5 Bilirubin, Total 0.2 - 1.3 mg/dL 0.4 Alkaline Phosphatase 34 - 123 U/L 197 (H) AST 13 - 35 U/L 44 (H) ALT 7 - 38 U/L 58 (H) Glucose 74 - 99 mg/dL 88 BUN 7 - 21 mg/dL 15 Creatinine 0.58 - 0.96 mg/dL 0.69 Sodium 136 - 144 mmol/L 141 Potassium 3.7 - 5.1 mmol/L 4.4 Chloride 98 - 107 mmol/L 104 CO2 22 - 30 mmol/L 25 Anion Gap 8 - 15 mmol/L 12 eGFR >=60 mL/min/1.73m 90 WBC 3.70 - 11.00 k/uL 7.61 RBC 3.90 - 5.20 m/uL 4.48 Hemoglobin 11.5 - 15.5 g/dL 13.8 Hematocrit 36.0 - 46.0 % 42.0 MCV 80.0 - 100.0 fL 93.8 MCH 26.0 - 34.0 pg 30.8 MCHC 30.5 - 36.0 g/dL 32.9 RDW-CV 11.5 - 15.0 % 13.2 Platelet Count 150 - 400 k/uL 244 MPV 9.0 - 12.7 fL 11.1 Absolute nRBC <0.01 k/uL <0.01 IMAGING US ABD RIGHT UPPER QUADRANT Sep 22 2024 IMPRESSION: Coarse liver echotexture. No mass. No splenomegaly. PHYSICAL FINDINGS OF NOTE: General - Normal, healthy, cooperative, in no acute distress Able to interact verbally by video conference IMPRESSION The patient was last seen by me in 07/02/2023 with the following impression: The patient is a 77-year-old female. She has been seen by several GI providers in [place] and most recently by Dr. Almanza in the hepatology section The patient is currently feeling well she has had a slight increase in constipation. Her LFTs have been staying within range and hepatology feels that this is secondary to fatty liver. At this time we will repeat a right upper quadrant ultrasound in January 2024, obtain a fit test, and follow-up serial LFTs. The patient is in agreement with this plan. Update 10/13/2024: On 09/22/2024 the patient had right upper quadrant ultrasound showing coarsened liver architecture nomass no splenomegaly. On 06/28/2024 she had a CMP showing a total bili 0.4 alk phos of 197 AST of 44ALT of 58. Her albumin is 4. Her white count is 7.61 hemoglobin 13.8 hematocrit 42.0 MCV of 93.8 and a platelet count of 244,000. Her last colonoscopy was in 02/02/2021 and was read as normal as recommendations for repeat colonoscopy in 5 years. This was done at [facility]. The patient is feeling great having absolutely no symptoms. I would like to repeat a FibroScan at this time to follow what is likely fatty liver disease. RECOMMENDATION: Above I spent more than 30 minutes [id number] with the patient and over half the time was devoted to counseling and/or coordination of care. Juaquin Burgess MD documented in this encounterUniversity Hospitals Geaug[facility] Center04-30-2025 NoteHNO ID: [id number] Author: JUAQUIN BURGESS MD Service: ? Author Type: Physician Type: Progress Notes Filed: 10/13/2024 11:59 Note Text: VIRTUAL VISIT FOLLOW UP I have communicated my name and active licensure. The patient's identity and physical location were verified at the time of this visit. Either the patient or their legal in home sales representative has been informed of the risks and benefits of -- and alternatives to -- treatment through a remote evaluation and consents to proceed with the evaluation remotely. I had a virtual visit with Ms. Steward today for follow up of abn LFT's. UPDATED HISTORY: See impression PAST MEDICAL HISTORY Diagnosis Date Diarrhea Diverticulosis of colon (without mention of hemorrhage) Paroxysmal atrial fibrillation (HCC) 06/02/2017 Controlled on current meds; Dr. Akbar managing. Positive hepatitis C antibody test 06/02/2017 negative for chronic active hepatitis C Rheumatoid arthritis(714.0) Remission; note that diagnosis inflammatory arthritis (neg RF) on Dr. 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 Mena- Radial Scar CHOLECYSTECTOMY 12/25/1983 Cholecystectomy COLONOSCOPY FLX DX W/COLLJ SPEC WHEN PFRMD , 12/11/2001 Colonoscopy COLONOSCOPY FLX DX W/COLLJ SPEC WHEN PFRMD 02/13/2006 COLONOSCOPY FLX DX W/COLLJ SPEC WHEN PFRMD 11/29/2010 Colonoscopy COLONOSCOPY FLX DX W/COLLJ SPEC WHEN PFRMD N/A 02/02/2021 [facility]-Abdirizak Yuan MD LEFT HEART CATH,PERCUTANEOUS 11/14/2008 Cardiac cath, L heart [facility] - coronary angiography OPEN REPAIR OF ROTATOR CUFF ACUTE 01/16/2012 Rotator cuff repair left - [facility] PAST SURGICAL HISTORY OF Surgery on Bile Duct REVISE MEDIAN N/CARPAL TUNNEL SURG Left 2022 TOTAL ABDOMINAL HYSTERECT W/WO RMVL TUBE OVARY 12/03/2000 Hysterectomy, KINDRA, BSO FAMILY HISTORY Problem Relation Age of Onset Colon Cancer Father 80 Breast Cancer Paternal Grandmother other (Other) Other No stock letterer cancer Ovarian cancer No Family History Social History Tobacco Use Smoking status: Never Smokeless tobacco: Never Vaping Use Vaping status: Never Used Substance Use Topics Alcohol use: Yes Comment: Socially Drug use: No Current Outpatient Medications Medication Sig Dispense Refill flecainide (TAMBOCOR) 100 mg tablet Take 0.5 tablets by mouth two times a day. losartan (COZAAR) 50 mg tablet Take 50 mg by mouth once daily. Dr. Leyva diphenoxylate-atropine (LOMOTIL) 2.5-0.025 mg per tablet Take 1 tablet by mouth four times a day as needed for diarrhea for up to 10 days. 20 tablet 0 omeprazole (PRILOSEC) 20 mg capsule Take 1 capsule by mouth daily before breakfast. 1/2 hr before meal. As directed 30 capsule 2 Milk Thistle 500 mg cap Take 500 mg by mouth. turmeric root extract 500 mg cap Take 1 capsule by mouth every other day. pyridoxine HCl, vitamin B6, (VITAMIN B-6 ORAL) Take by mouth. cyanocobalamin, vitamin B-12, (VITAMIN B-12 ORAL) Take by mouth. COD LIVER OIL ORAL Take by mouth. ELIQUIS 5 mg tab tab(s) 5 mg twice daily. metoprolol tartrate, short acting, (LOPRESSOR) 25 mg tablet 12.5 mg twice daily. MAGNESIUM CARBONATE ORAL Take by mouth. CALCIUM 500 MG TAB Take one(1) tablet two(2) times daily. 0 No current facility-administered medications for this visit. ALLERGIES No Known Allergies LABS Latest Ref Rng 06/28/2024 Protein, Total 6.3 - 8.0 g/dL 7.3 Albumin 3.9 - 4.9 g/dL 4.0 Calcium 8.5 - 10.2 mg/dL 9.5 Bilirubin, Total 0.2 - 1.3 mg/dL 0.4 Alkaline Phosphatase 34 - 123 U/L 197 (H) AST 13 - 35 U/L 44 (H) ALT 7 - 38 U/L 58 (H) Glucose 74 - 99 mg/dL 88 BUN 7 - 21 mg/dL 15 Creatinine 0.58 - 0.96 mg/dL 0.69 Sodium 136 - 144 mmol/L 141 Potassium 3.7 - 5.1 mmol/L 4.4 Chloride 98 - 107 mmol/L 104 CO2 22 - 30 mmol/L 25 Anion Gap 8 - 15 mmol/L 12 eGFR >=60 mL/min/1.73m? 90 WBC 3.70 - 11.00 k/uL 7.61 RBC 3.90 - 5.20 m/uL 4.48 Hemoglobin 11.5 - 15.5 g/dL 13.8 Hematocrit 36.0 - 46.0 % 42.0 MCV 80.0 - 100.0 fL 93.8 MCH 26.0 - 34.0 pg 30.8 MCHC 30.5 - 36.0 g/dL 32.9 RDW-CV 11.5 - 15.0 % 13.2 Platelet Count 150 - 400 k/uL 244 MPV 9.0 - 12.7 fL 11.1 Absolute nRBC <0.01 k/uL <0.01 IMAGING US ABD RIGHT UPPER QUADRANT Sep 22 2024 IMPRESSION: Coarse liver echotexture. No mass. No splenomegaly. PHYSICAL FINDINGS OF NOTE: General - Normal, healthy, cooperative, in no acute distress Able to interact verbally by video conference IMPRESSION The patient was last seen by me in 07/02/2023 with the following impression: The patient is a 77-year-old female. She has been seen by several GI providers in [place] and most (more content not included)...[facility] 09-22-2024 History of Present illness Narrative* Lanny Rose RDMS - 09/22/2024 12:45 PM EDT Radiology Service Progress Note PATIENT NAME: Oneida Steward DATE OF SERVICE: September 22, 2024 TIME: 12:57 PM PATIENT IDENTITY VERIFICATION COMPLETED USING TWO (2) IDENTIFIERS: Name and Date of confirmedby patient verbally. FALL SCREENING: Has the patient had 2 falls in the last year or 1 fall with injury or currently using an Ambulatory Assistive Device (Walker, Cane, Wheelchair, Crutches, etc.)? No PATIENT GENDER DATA: Assigned female at . status: : No status:N/A PATIENT RELEVANT IMPLANT DATA REVIEWED: Not Applicable PATIENT PRESENTS WITH AN IMPLANTABLE OR ATTACHED BRAKE REPAIR SUPERVISOR: No RADIOLOGY DEPARTMENT: Ultrasound PERIPHERAL IV DATA: Not applicable SIGNED BY: Lanny Rose RDMS September 22, 2024 12:57 PM documented in this encounterUniversity Hospitals Geaug[facility] Center04-09-2025 NoteHNO ID: [id number] Author: LANNY ROSE RDMS Service: ? Author Type: Coding Advisor Type: Progress Notes Filed: 09/22/2024 12:57 Note Text: Radiology Service Progress Note PATIENT NAME: Oneida Steward DATE OF SERVICE: September 22, 2024 TIME: 12:57 PM PATIENT IDENTITY VERIFICATION COMPLETED USING TWO (2) IDENTIFIERS: Name and Date of confirmed by patient verbally. FALL SCREENING: Has the patient had 2 falls in the last year or 1 fall with injury or currently using an Ambulatory Assistive Device (Walker, Cane, Wheelchair, Crutches, etc.)? No PATIENT GENDER DATA: Assigned female at . status: : No status: N/A PATIENT RELEVANT IMPLANT DATA REVIEWED: Not Applicable PATIENT PRESENTS WITH AN IMPLANTABLE OR ATTACHED BRAKE REPAIR SUPERVISOR: No RADIOLOGY DEPARTMENT: Ultrasound PERIPHERAL IV DATA: Not applicable SIGNED BY: Lanny Rose RDMS September 22, 2024 12:57 [facility]03-24-2025 Evaluation note* Diagnosis Onset Date Resolution Status Admit Date Migraine headache without aura acute September 06, 2024 9:53am Polyneuropathy acute August 9:53am New daily persistent headach e (ndph) resolved September 06, 2024 9:53am [facility] Work Phone: [phone]) 563-577901-15-2025 Instructions* Patient Instructions* Niya Martinez MD - 06/30/2024 4:39 PM EST - Schedule and complete the ordered ultrasound at your convenience. You can have it done at any [facility] location, including the specialty center in [place]. - Follow up with Dr. Burgess after the ultrasound to discuss the results. You already have an appointment with him in September. - Maintain a diet rich in omega-3 oils to help improve your HDL (good cholesterol). Consider incorporating foods like fish, flaxseed, nuts, and dark green leafy vegetables. - Continue regular aerobic exercise to support overall health and cholesterol levels. - Your mammogram is scheduled; ensure it is completed as planned. - If you experience any recurring headaches, consider following up with your assistant director of financial aid, Chava, in [place]. - Monitor any new or unusual symptoms and report them to your healthcare provider. Screening schedule The following prevention plan is recommended: RSV Vaccine(1 - 1-dose 75+ series) Never done Influenza Vaccine(1) due on 02/15/2024 Covid-19 Vaccine(2023- season) due on 03/01/2024 Advance Directive Discussion due on 06/16/2024 WHAT YOU CAN DO TO PREVENT FALLS Many falls can be prevented. By making some changes, you can lower your chances of falling. Four things YOU can do to prevent falls for you* and your caregiver 1. Begin a regular exercise program Exercise is one of the most important ways to lower your chances of falling. It makes you stronger and helps you feel better. Exercises that improve balance and coordination (like [place]geta Chi) are the most helpful. Lack of exercise leads to weakness and increases your chances of falling. Ask your doctor or health care provider about the best type of exercise program for you. 2. Have your health care provider review your medicines Have your doctor or pharmacist review all the medicines you take, even [id number] medicines. As you get older, the way medicines work in your body can change. Some medicines, or combinations of medicines, can make you sleepy or dizzy andcan cause you to fall. 3. Have your vision checked Have your eyes checked by an eye doctor at least once a year. You may be wearing the wrong glasses or have a condition like glaucoma or cataracts that limits your vision. Poor vision can increase your chances of falling. 4. Make your home safer About half of all falls happen at home. To make your home safer: Remove things you can trip over (like papers, books, clothes, and shoes) from stairs and places where you walk. Remove small throw rugs or use double-sided tape to keep the rugs from slipping. Keep items you use often in cabinets you can reach easily without using a step stool. Have grab bars put in next to your toilet and in the tub or shower. Use non-slip mats in the bathtub and on shower floors. Improve the lighting in your home. As you get older, you need brighter lights to see well. Hang light-weight curtains or shades to reduce glare. Have handrails and lights put in on all staircases. Wear shoes both inside and outside the house. Avoid going barefoot or wearing slippers. For more information, contact: Centers for Disease Control and Prevention www.cdc.gov/injury * This information may not apply if you have certain medical conditions. documented in this encounterUniversity Hospitals Geauga Medical Center01-15-2025 NoteHNO ID: [id number] Author: NIYA MARTINEZ MD Service: ? Author Type: Physician Type: Progress Notes Filed: 07/26/2024 00:01 Note Text: This note was created using roundCornerter. Subjective Oneida Steward is a 78 year old female. HISTORY Oneida Steward is a 78 year old lady here for yearly exam and follow up appointment. Oneida Steward is a 78-year-old female with a history of elevated liver enzymes, presenting for a Medicare Annual Wellness Visit and yearly exam. Oneida has a history of elevated liver enzymes and was previously seen by Dr. Burgess, who ordered ultrasounds that were not completed. She reports that she was supposed to have an ultrasound done last year but did not receive a call to schedule it. She has an upcoming appointment with Dr. Burgess in September. She also mentions a family history of colon cancer, as her father from the disease. Oneida has a history of severe headaches, for which she was seen by Dr. Pink, a neurologist. She reports that acupuncture treatments by Edilma Gonzalez in [place] have resolved her headaches. She had three sessions last year and does not require regular treatments. Oneida also reports experiencing deep pain in her knee, buttocks, and hip that lasted for three days. The pain did not radiate down her leg and was not associated with any specific activity. She used heat for three days, which provided relief. Oneida has a history of a hysterectomy and has not seen a filling operator for a long time. She had an appointment with Dr. Mir last year, which was canceled without her being informed. She expresses frustration with the scheduling issues and lack of communication. Oneida has a mammogram scheduled and reports that her bowel movements have been regular. She denies any issues with her appetite or energy levels. She also denies any recent falls or fear of falling. She reports feeling safe in her home and does not have any difficulties with activities of daily living. She denies any changes in memory or ability to focus, and does not report any feelings of depression or anxiety. She denies any issues with her sexual health. She reports that she does not smoke or use tobacco, and drinks alcohol occasionally. She reports that she eats out very little and tries to watch what she eats. She also reports that she enjoys traveling. PAST MEDICAL HISTORY Diagnosis Date Diarrhea Diverticulosis of colon (without mention of hemorrhage) Paroxysmal atrial fibrillation (HCC) 06/02/2017 Controlled on current meds; Dr. Akbar managing. Positive hepatitis C antibody test 06/02/2017 negative for chronic active hepatitis C Rheumatoid arthritis(714.0) Remission; note that diagnosis inflammatory arthritis (neg RF) on Dr. 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 losartan (COZAAR) 50 mg tablet Take 50 mg by mouth once daily. Dr. Leyva omeprazole (PRILOSEC) 20 mg capsule Take 1 capsule by mouth daily before breakfast. 1/2 hr before meal. As directed Milk Thistle 500 mg cap Take 500 mg by mouth. turmeric root extract 500 mg cap Take 1 capsule by mouth every other day. pyridoxine HCl, vitamin B6, (VITAMIN B-6 ORAL) Take by mouth. cyanocobalamin, vitamin B-12, (VITAMIN B-12 ORAL) Take by mouth. COD LIVER OIL ORAL Take by mouth. ELIQUIS 5 mg tab tab(s) 5 mg twice daily. metoprolol tartrate, short acting, (LOPRESSOR) 25 mg tablet 12.5 mg twice daily. MAGNESIUM CARBONATE ORAL Take by mouth. CALCIUM 500 MG TAB Take one(1) tablet two(2) times daily. diphenoxylate-atropine (LOMOTIL) 2.5-0.025 mg per tablet Take 1 tablet by mouth four times a day as needed for diarrhea for up to 10 days. No current facility-administered medications for this visit. ALLERGIES No Known Allergies FAMILY HISTORY Problem Relation Age of Onset Colon Cancer Father 80 Breast Cancer Paternal Grandmother other (Other) Other No stock letterer cancer Ovarian cancer No Family History Social History Tobacco Use Smoking status: Never Smokeless tobacco: Never Vaping Use Vaping status: Never Used Substance Use Topics Alcohol use: Yes Comment: Socially Drug use: No Review of Systems Objective BP 107/65 Pulse (!) 55 Temp 36.9 ?C (98.5 ?F) Resp 16 Ht 167.5 cm (5' 5.95) Wt 84 kg (185 lb 3 oz) SpO2 97% BMI 29.94 kg/m? Physical Exam Vitals reviewed. Constitutional: Appearance: Normal appearance. She is well-developed. HENT: Head: Normocephalic and atraumatic. Right Ear: External ear normal. Left Ear: External ear normal. Nose: Nose normal. Eyes: Conjunctiva/sclera: Conjunctivae normal. Neck: Thyroid: No thyromegaly. Vascular: No carotid bruit. Cardiovascular: Rate and Rhythm: Normal rate and regular rhythm. Pulses: Normal pulses. (more content not included)...[facility]01-15-[facility] History of Present illness Narrative* Niya Martinez MD - 06/30/2024 4:38 PM EST Images from the original note were not included. This note was created using roundCornerter. Subjective Oneida Steward is a 78 year old female. HISTORY Oneida Steward is a 78 year old lady here for yearly exam and follow up appointment. Oneida Steward is a 78-year-old female with a history of elevated liver enzymes, presenting for a Medicare Annual Wellness Visit and yearly exam. Oneida has a history of elevated liver enzymes and was previously seen by Dr. Burgess, who ordered ultrasounds that were not completed. She reports that she was supposed to have an ultrasound done last year but did not receive a call to schedule it. She has an upcoming appointment with Dr. Burgess in September. She also mentions a family history of colon cancer, as her father from the disease. Oneida has a history of severe headaches, for which she was seen by Dr. Pink, a neurologist. She reports that acupuncture treatments by Edilma Gonzalez in [place] have resolved her headaches. She had three sessions last year and does not require regular treatments. Oneida also reports experiencing deep pain in her knee, buttocks, and hip that lasted for three days. The pain did not radiate down her leg and was not associated with any specific activity. She used heat for three days, which provided relief. Oneida has a history of a hysterectomy and has not seen a filling operator for a long time. She had an appointment with Dr. Mir last year, which was canceled without her being informed. She expresses frustration with the scheduling issues and lack of communication. Oneida has a mammogram scheduled and reports that her bowel movements have been regular. She denies any issues with her appetite or energy levels. She also denies any recent falls or fear of falling. She reports feeling safe in her home and does not have any difficulties with activities of daily living. She denies any changes in memory or ability to focus, and does not report any feelings of depression or anxiety. She denies any issues with her sexual health. She reports that she does not smoke or use tobacco, and drinks alcohol occasionally. She reports that she eats out very little and triesto watch what she eats. She also reports that she enjoys traveling. PAST MEDICAL HISTORY Diagnosis Date Diarrhea Diverticulosis of colon (without mention of hemorrhage) Paroxysmal atrial fibrillation (HCC) 06/02/2017 Controlled on current meds; Dr. Akbar managing. Positive hepatitis C antibody test 06/02/2017 negative for chronic active hepatitis C Rheumatoid arthritis(714.0) Remission; note that diagnosis inflammatory arthritis (neg RF) on Dr. 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 losartan (COZAAR) 50 mg tablet Take 50 mg by mouth once daily. Dr. Leyva omeprazole (PRILOSEC) 20 mg capsule Take 1 capsule by mouth daily before breakfast. 1/2 hr before meal. As directed Milk Thistle 500 mg cap Take 500 mg by mouth. turmeric root extract 500 mg cap Take 1 capsule by mouth every other day. pyridoxine HCl, vitamin B6, (VITAMIN B-6 ORAL) Take by mouth. cyanocobalamin, vitamin B-12, (VITAMIN B-12 ORAL) Take by mouth. COD LIVER OIL ORAL Take by mouth. ELIQUIS 5 mg tab tab(s) 5 mg twice daily. metoprolol tartrate, short acting, (LOPRESSOR) 25 mg tablet 12.5 mg twice daily. MAGNESIUM CARBONATE ORAL Take by mouth. CALCIUM 500 MG TAB Take one(1) tablet two(2) times daily. diphenoxylate-atropine (LOMOTIL) 2.5-0.025 mg per tablet Take 1 tablet by mouth four times a day asneeded for diarrhea for up to 10 days. No current facility-administered medications for this visit. ALLERGIES No Known Allergies FAMILY HISTORY Problem Relation Age of Onset Colon Cancer Father 80 Breast Cancer Paternal Grandmother other (Other) Other No stock letterer cancer Ovarian cancer No Family History Social History Tobacco Use Smoking status: Never Smokeless tobacco: Never Vaping Use Vaping status: Never Used Substance Use Topics Alcohol use: Yes Comment: Socially Drug use: No Review of Systems Objective BP 107/65 Pulse (!) 55 Temp 36.9 C (98.5 F) Resp 16 Ht 167.5 cm (5' 5.95) Wt 84 kg (185 lb 3 oz) SpO2 97% BMI 29.94 kg/m Physical Exam Vitals reviewed. Constitutional: Appearance: Normal appearance. She is well-developed. HENT: Head: Normocephalic and atraumatic. Right Ear: External ear normal. Left Ear: External ear normal. Nose: Nose normal. Eyes: Conjunctiva/sclera: Conjunctivae normal. Neck: Thyroid: No thyromegaly. Vascular: No carotid bruit. Cardiovascular: Rate and Rhythm: Normal rate and regular rhythm. Pulses: Normal pulses. Heart sounds: Normal heart sounds. No murmur heard. No friction rub. No gallop. Pulmonary: Effort: Pulmonary effort is normal. Breath sounds: Normal breath sounds. Abdominal: General: Bowel sounds are normal. There is no distension. Palpations: Abdomen is soft. There is no mass. Tenderness: There is no abdominal tenderness. Musculoskeletal: General: No deformity. Normal range of motion. Right lower leg: No edema. Left lower leg: No edema. Lymphadenopathy: Cervical: No cervical adenopathy. Skin: General: Skin is warm and dry. Coloration: Skin is not jaundiced or pale. Findings: No rash. Neurological: General: No focal deficit present. Mental Status: She is alert and oriented to person, place, and time. Cranial Nerves: No cranial nerve deficit. Sensory: No sensory deficit. Motor: No abnormal muscle tone. Coordination: Coordination normal. Deep Tendon Reflexes: Reflexes normal. Psychiatric: Mood and Affect: Mood normal. Behavior: Behavior normal. Thought Content: Thought content normal. Judgment: Judgment normal. Latest Ref Rng 07/15/2023 12/31/2023 06/28/2024 Protein, Total 6.3 - 8.0 g/dL 7.5 6.7 7.3 Albumin 3.9 - 4.9 g/dL 4.1 3.8 (L) 4.0 Calcium 8.5 - 10.2 mg/dL 9.4 9.2 9.5 Bilirubin, Total 0.2 - 1.3 mg/dL 0.5 0.3 0.4 Alkaline Phosphatase 34 - 123 U/L 170 (H) 176 (H) 197 (H) AST 13 - 35 U/L 61 (H) 49 (H) 44 (H) ALT 7 - 38 U/L 78 (H) 53 (H) 58 (H) Glucose 74 - 99 mg/dL 89 91 88 BUN 7 - 21 mg/dL 13 14 15 Creatinine 0.58 - 0.96 mg/dL 0.69 0.76 0.69 Sodium 136 - 144 mmol/L 139 141 141 Potassium 3.7 - 5.1 mmol/L 4.0 4.5 4.4 Chloride 98 - 107 mmol/L 100 104 104 CO2 22 - 30 mmol/L 29 28 25 Anion Gap 8 - 15 mmol/L 10 9 12 eGFR >=60 mL/min/1.73m 90 81 90 WBC 3.70 - 11.00 k/uL 12.71 (H) 6.52 7.61 RBC 3.90 - 5.20 m/uL 4.58 4.58 4.48 Hemoglobin 11.5 - 15.5 g/dL 14.0 13.9 13.8 Hematocrit 36.0 - 46.0 % 43.4 42.7 42.0 MCV 80.0 - 100.0 fL 94.8 93.2 93.8 MCH 26.0 - 34.0 pg 30.6 30.3 30.8 MCHC 30.5 - 36.0 g/dL 32.3 32.6 32.9 RDW-CV 11.5 - 15.0 % 13.7 14.3 13.2 Platelet Count 150 - 400 k/uL 229 226 244 MPV 9.0 - 12.7 fL 11.5 11.2 11.1 Absolute nRBC <0.01 k/uL <0.01 <0.01 <0.01 Cholesterol, Total <200 mg/dL 249 (H) 243 (H) 222 (H) Triglyceride <150 mg/dL 79 66 63 HDL Cholesterol >39 mg/dL 90 77 75 Non HDL Cholesterol <130 mg/dL 159 (H) 166 (H) 147 (H) Fasting Time hrs 12 10 12 VLDL Cholesterol <30 mg/dL 16 13 13 TC:HDL Ratio <5.10 2.77 3.16 2.96 LDL Cholesterol <100 mg/dL 143 (H) 153 (H) 134 (H) LDL:HDL Ratio <2.54 1.59 1.99 1.79 Iron 41 - 186 ug/dL 52 49 88 TIBC 232 - 386 ug/dL 298 287 276 Transferrin Saturation 15.0 - 57.0 % 17.4 17.1 31.9 Vitamin D 25 Hydroxy 31.0 - 80.0 ng/mL 55.1 56.2 52.4 Ferritin 14.7 - 205.1 ng/mL 299.0 (H) 211.0 (H) 240.0 (H) Vitamin B12 232 - 1,245 pg/mL 878 864 825 WSR 0 - 20 mm/hr 26 (H) 5 13 CRP <0.9 mg/dL 1.3 (H) <0.3 0.3 Legend: (H) High (L) Low Assessment and Plan-- See Below Oneida Steward is a 78 year old female here for a Medicare wellness visit. Medicare Health Risk Assessment General Health Very good Exercise: Minutes/Day 50 min Exercise: Days/Week 3 days Alcohol: Daily Use 2-3 times a week Alcohol: Drinks/Day 1 or 2 Alcohol: 6 or more drinks Never Feel off balance No Concerns: Teeth/Dentures No Concerns: Sexual function No Troubled by feelings None of the above Frequency: Eating healthy diet Nearly every day ADLs requiring help None of the above Safety precautions in home/vehicle Yes Smoke, vape, chews tobacco No Difficulty hearing No Difficulty seeing No Current Providers Specialists: I have reviewed specialist-related care of the patient in the medical record. Outside specialists seen: Dr. Pink (neurologist) Medical/Family history review Reviewed and updated problem list, medical/surgical/family/social history, medications, and allergies. Opioid use review Opioid Medications (last 90 days) No data to display Anxiety/Depression screening PHQ-2 Score: 0 (Lower risk for depression) Recommendation: no further intervention at this time Cognitive screening Mini Cog Score: 5 Cognitive screening reviewed and No further action needed (score 3-5). Functional Observation Was the patient's Timed Up & Go test unsteady or >= 12 seconds? No Advance Care Planning Surrogate decision maker and/or advance care plan documented Measurements BP 107/65 Pulse (!) 55 Temp 36.9 C (98.5 F) Resp 16 Ht 167.5 cm (5' 5.95) Wt 84 kg (185 lb 3 oz) SpO2 97% BMI 29.94 kg/m Vision Screening: Follows with optometry/ophthalmology Assessment/Plan Medicare annual wellness visit, subsequent (Z) - Counseled on healthy diet and regular exercise - Fall avoidance information provided - Personalized prevention plan provided # Medicare annual wellness visit, subsequent (Z.) - Completed Medicare annual wellness visit. - Reviewed and discussed lab results, including normal BUN and creatinine levels, normal blood counts, and improved LDL levels at 134 mg/dL. - Discussed dietary recommendations to increase HDL levels, including consumption of omega-3 rich foods such as fish, flaxseed, nuts, and dark green leafy vegetables. - Discussed the importance of regular aerobic exercise. - Mammogram order is up to date and scheduled. - Discussed previous INTERVENTIONAL RADIOLOGIST appointment cancellation; patient informed about Medicare coverage for annual INTERVENTIONAL RADIOLOGIST visits. - Patient has a healthcare power of transactional attorney (HPOA) in place. - Provided printed after-visit summary. # NAFLD (nonalcoholic fatty liver disease) (K76.0) # Elevated liver enzymes (R74.8) - Reviewed history of NAFLD with steatosis grade 2, no evidence of BEYER or cirrhosis per Dr. Almanza's evaluation in 2019. - Recent labs show elevated ALT and ALP levels; AST levels have decreased. - Previous ultrasound in January 2022 showed a normal liver with slight dilation of a biliary duct. - Discussed the importance of follow-up ultrasound to monitor for changes or signs of fatty liver. - Extended ultrasound orders for abdomen, spleen, and right upper quadrant to prevent expiration. - Patient advised to schedule the ultrasound at [facility] or locally in [place]. - Follow-up appointment with Dr. Real scheduled for September to discuss ultrasound results and further management. # Headaches (R51.9) - Severe headaches previously managed with acupuncture by Edilma Gonzalez in [place]; significant improvement noted. - Neurology consultation with Dr. Pink at [facility]; ongoing evaluation with additional tests planned. - Differential diagnosis includes migraines. - Patient to continue acupuncture as needed for headache management. # Polyarthralgia (M25.50) - Recent episode of deep-seated pain in the buttock and hip region, resolved with heat application over three days. - Discussed possible involvement of the iliacus muscle or nerve irritation. - Advised on the potential benefits of acupuncture for similar future episodes. # History of cholecystectomy (Z90.49) - Acknowledged history of cholecystectomy; no current issues related to the procedure. # Family history of malignant neoplasm of colon (Z80.0) - Discussed family history of colon cancer. - Previous positive Cologuard test followed by colonoscopy with polyp removal. - Follow-up with Dr. Burgess in September to discuss further surveillance and management. Niya Martinez MD documented in this encounterUniversity Hospitals [facility]12-31-2024 Chief complaint+Reason for visit Narrative* Chief Complaint Admit Date NEUROLGIC EVALUATION June 15, 2024 9:00am SUDDEN ONSET HEADACHE July 14, 2024 10:52am 6 M FU July 20, 2024 1 1:00am EORDERS August 10, 2024 9:52am Reason for Visit Admit Date Migraine headache without aura June 15, 2024 9:00am New daily persistent headache (ndph) May 9:00am Polyneuropathy June 15, 2024 9:00am Edema July 20, 2024 1 1:00am Hypertension July 20, 2024 1 1:00am Nonrheumatic mitral (valve) insufficienc y July 20, 2024 11:00am Paroxysmal atrial fibrillation July 20, 2024 11:00am [facility] Work Phone: 1(254) 989-923012-31-2024 Chief complaint+Reason for visit Narrative * Chief Complaint Admit Date NEUROLGIC EVALUATION June 15, 2024 9:00am SUDDEN ONSET HEADACHE July 14, 2024 10:52am 6 M FU July 20, 2024 1 1:00am EORDERS August 10, 2024 9:52am 3 M FU September 06, 2024 9:5 3am EORDERS September 06, 2024 2:1 1pm Reason for Visit Admit Date Migraine headache without aura June 15, 2024 9:00am Polyneuropathy June 15, 2024 9:00am New daily persistent headache (ndph) May 9:00am Edema July 20, 2024 1 1:00am Hypertension July 20, 2024 1 1:00am Nonrheumatic mitral (valve) insufficienc y July 20, 2024 11:00am Paroxysmal atrial fibrillation July 20, 2024 11:00am Migraine headache without aura August 9:53am Polyneuropathy September 06, 2024 9:5 3am New daily persistent headache (ndph) [facility] 2024 9:53am [facility] Work Phone: 1(887) 733-348112-31-2024 Evaluation note* Diagnosis Onset Date Resolution Status Admit Date Migraine headache without aura acute June 15, 2024 9:00am New daily persistent headach e (ndph) acute June 15, 024 9:00am Polyneuropathy acute May 182023 9:00am Edema acute July 20, 2024 11:00am Hypertension chronic July 11:00am Nonrheumatic mitral (valve) insufficiency chronic July 20 11:00am Paroxysmal atrial fibrillation chron ic July 20, 2024 11:00am [facility] Work Phone: 1(546) 277-704812-31-2024 Evaluation note* Diagnosis Onset Date Resolution Status Admit Date Migraine headache without aura acute June 15, 2024 9:00am Polyneuropathy acute May 182023 9:00am New daily persistent headach e (ndph) resolved June 15, 024 9:00am Edema acute July 20, 2024 11:00am Hypertension chronic July 11:00am Nonrheumatic mitral (valve) insufficiency chronic July 20 11:00am Paroxysmal atrial fibrillation chron ic July 20, 2024 11:00am Migraine headache without aura acute September 06, 2024 9:53am Polyneuropathy acute August 9:53am New daily persistent headach e (ndph) resolved September 06, 2024 9:53am [facility] Work Phone: 1(573) 484-266910-24-2024 History of Present illness Narrative* Bety Mena MD - 04/08/2024 4:15 PM EDT This is a phone visit that patient consented to. Time of phone visit: 6 minutes Chief Complaint: Ultrasound follow-up HISTORY OF PRESENT ILLNESS: Oneida Steward is a 78 year old female who presents for follow-up on her right breast ultrasound which was negative. She still notes some discomfort in the right breast but no changes from when she wasseen recently. PAST MEDICAL HISTORY Diagnosis Date Diarrhea Diverticulosis of colon (without mention of hemorrhage) Paroxysmal atrial fibrillation (HCC) 06/02/2017 Controlled on current meds; Dr. Akbar managing. Positive hepatitis C antibody test 06/02/2017 negative for chronic active hepatitis C Rheumatoid arthritis(714.0) Remission; note that diagnosis inflammatory arthritis (neg RF) on Dr. 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 Mena- Radial Scar CHOLECYSTECTOMY 12/25/1983 Cholecystectomy COLONOSCOPY FLX DX W/COLLJ SPEC WHEN PFRMD , 12/11/2001 Colonoscopy COLONOSCOPY FLX DX W/COLLJ SPEC WHEN PFRMD 02/13/2006 COLONOSCOPY FLX DX W/COLLJ SPEC WHEN PFRMD 11/29/2010 Colonoscopy COLONOSCOPY FLX DX W/COLLJ SPEC WHEN PFRMD N/A 02/02/2021 [facility]-Abdirizak Yuan MD LEFT HEART CATH,PERCUTANEOUS 11/14/2008 Cardiac cath, L heart [facility] - coronary angiography OPEN REPAIR OF ROTATOR CUFF ACUTE 01/16/2012 Rotator cuff repair left - [facility] PAST SURGICAL HISTORY OF Surgery on Bile Duct REVISE MEDIAN N/CARPAL TUNNEL SURG Left 2022 TOTAL ABDOMINAL HYSTERECT W/WO RMVL TUBE OVARY 12/03/2000 Hysterectomy, KINDRA, BSO Social History Tobacco Use Smoking status: Never Smokeless tobacco: Never Vaping Use Vaping status: Never Used Substance Use Topics Alcohol use: Yes Comment: Socially Drug use: No FAMILY HISTORY Problem Relation Age of Onset Colon Cancer Father 80 Breast Cancer Paternal Grandmother other (Other) Other No stock letterer cancer Ovarian cancer No Family History ALLERGIES No Known Allergies Current Outpatient Medications Medication Sig flecainide (TAMBOCOR) 100 mg tablet Take 0.5 tablets by mouth two times a day. losartan (COZAAR) 50 mg tablet Take 50 mg by mouth once daily. Dr. Leyva diphenoxylate-atropine (LOMOTIL) 2.5-0.025 mg per tablet Take 1 tablet by mouth four times a day asneeded for diarrhea for up to 10 days. omeprazole (PRILOSEC) 20 mg capsule Take 1 capsule by mouth daily before breakfast. 1/2 hr before meal. As directed (Patient not taking: Reported on 03/25/2024) Milk Thistle 500 mg cap Take 500 mg by mouth. turmeric root extract 500 mg cap Take 1 capsule by mouth every other day. pyridoxine HCl, vitamin B6, (VITAMIN B-6 ORAL) Take by mouth. cyanocobalamin, vitamin B-12, (VITAMIN B-12 ORAL) Take by mouth. COD LIVER OIL ORAL Take by mouth. ELIQUIS 5 mg tab tab(s) 5 mg twice daily. metoprolol tartrate, short acting, (LOPRESSOR) 25 mg tablet 12.5 mg twice daily. MAGNESIUM CARBONATE ORAL Take by mouth. CALCIUM 500 MG TAB Take one(1) tablet two(2) times daily. No current facility-administered medications for this visit. Data Reviewed: RT breast US, Birads 2: 04/06/2024 3:38 PM - Radiology, [place] In Impression IMPRESSION: No suspicious sonographic findings to correlate with the patient's area of pain/thickening in the right breast. Recommend clinical correlation/management. A return to screening mammogram in 1 year is recommended. BI-RADS Category 2: Benign Interpreting Radiologist: Agnes Palumbo M.D. Electronically signed on: 04/06/2024 ASSESSMENT/PLAN: 1. Fibrocystic breast changes of both breasts - ICD9: 610.1, ICD10: N60.11, N60.12 (primary diagnosis) -I explained to the patient that fibrocystic changes account for her symptoms. We do not see any worrisome masses on breast imaging. We discussed options and at this point she and I are comfortable with mammograms and follow-up in 1 year unless she notices any further changes. Mammograms were ordered at the last visit. 2. Mastodynia - ICD9: 611.71, ICD10: N64.4 3. Family history of breast cancer - ICD9: V16.3, ICD10: Z80.3 Bety Mena MD I verified the medical office coordinator/nurse documentation in the medical record, and made appropriate changes. I personally performed a history, physical exam and medical decision making. Bety Mena MD This note was partially generated using [employer] voice recognition system, and there may be some incorrect words, spellings, and punctuation that were not noted in checking the note before saving. documented in this encounterUniversity Hospitals Geaug[facility] Center10-24-2024 NoteHNO ID: [id number] Author: BETY MENA MD Service: ? Author Type: Physician Type: Progress Notes Filed: 04/08/2024 11:35 Note Text: This is a phone visit that patient consented to. Time of phone visit: 6 minutes Chief Complaint: Ultrasound follow-up HISTORY OF PRESENT ILLNESS: Oneida Steward is a 78 year old female who presents for follow-up on her right breast ultrasound which was negative. She still notes some discomfort in the right breast but no changes from when she was seen recently. PAST MEDICAL HISTORY Diagnosis Date Diarrhea Diverticulosis of colon (without mention of hemorrhage) Paroxysmal atrial fibrillation (HCC) 06/02/2017 Controlled on current meds; Dr. Akbar managing. Positive hepatitis C antibody test 06/02/2017 negative for chronic active hepatitis C Rheumatoid arthritis(714.0) Remission; note that diagnosis inflammatory arthritis (neg RF) on Dr. 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 Mena- Radial Scar CHOLECYSTECTOMY 12/25/1983 Cholecystectomy COLONOSCOPY FLX DX W/COLLJ SPEC WHEN PFRMD , 12/11/2001 Colonoscopy COLONOSCOPY FLX DX W/COLLJ SPEC WHEN PFRMD 02/13/2006 COLONOSCOPY FLX DX W/COLLJ SPEC WHEN PFRMD 11/29/2010 Colonoscopy COLONOSCOPY FLX DX W/COLLJ SPEC WHEN PFRMD N/A 02/02/2021 [facility]-Abdirizak Yuan MD LEFT HEART CATH,PERCUTANEOUS 11/14/2008 Cardiac cath, L heart [facility] - coronary angiography OPEN REPAIR OF ROTATOR CUFF ACUTE 01/16/2012 Rotator cuff repair left - [facility] PAST SURGICAL HISTORY OF Surgery on Bile Duct REVISE MEDIAN N/CARPAL TUNNEL SURG Left 2022 TOTAL ABDOMINAL HYSTERECT W/WO RMVL TUBE OVARY 12/03/2000 Hysterectomy, KINDRA, BSO Social History Tobacco Use Smoking status: Never Smokeless tobacco: Never Vaping Use Vaping status: Never Used Substance Use Topics Alcohol use: Yes Comment: Socially Drug use: No FAMILY HISTORY Problem Relation Age of Onset Colon Cancer Father 80 Breast Cancer Paternal Grandmother other (Other) Other No stock letterer cancer Ovarian cancer No Family History ALLERGIES No Known Allergies Current Outpatient Medications Medication Sig flecainide (TAMBOCOR) 100 mg tablet Take 0.5 tablets by mouth two times a day. losartan (COZAAR) 50 mg tablet Take 50 mg by mouth once daily. Dr. Leyva diphenoxylate-atropine (LOMOTIL) 2.5-0.025 mg per tablet Take 1 tablet by mouth four times a day as needed for diarrhea for up to 10 days. omeprazole (PRILOSEC) 20 mg capsule Take 1 capsule by mouth daily before breakfast. 1/2 hr before meal. As directed (Patient not taking: Reported on 03/25/2024) Milk Thistle 500 mg cap Take 500 mg by mouth. turmeric root extract 500 mg cap Take 1 capsule by mouth every other day. pyridoxine HCl, vitamin B6, (VITAMIN B-6 ORAL) Take by mouth. cyanocobalamin, vitamin B-12, (VITAMIN B-12 ORAL) Take by mouth. COD LIVER OIL ORAL Take by mouth. ELIQUIS 5 mg tab tab(s) 5 mg twice daily. metoprolol tartrate, short acting, (LOPRESSOR) 25 mg tablet 12.5 mg twice daily. MAGNESIUM CARBONATE ORAL Take by mouth. CALCIUM 500 MG TAB Take one(1) tablet two(2) times daily. No current facility-administered medications for this visit. Data Reviewed: RT breast US, Birads 2: 04/06/2024 3:38 PM - Radiology, Oru In Impression IMPRESSION: No suspicious sonographic findings to correlate with the patient's area of pain/thickening in the right breast. Recommend clinical correlation/management. A return to screening mammogram in 1 year is recommended. BI-RADS Category 2: Benign Interpreting Radiologist: Agnes Palumbo M.D. Electronically signed on: 04/06/2024 ASSESSMENT/PLAN: 1. Fibrocystic breast changes of both breasts - ICD9: 610.1, ICD10: N60.11, N60.12 (primary diagnosis) -I explained to the patient that fibrocystic changes account for her symptoms. We do not see any worrisome masses on breast imaging. We discussed options and at this point she and I are comfortable with mammograms and follow-up in 1 year unless she notices any further changes. Mammograms were ordered at the last visit. 2. Mastodynia - ICD9: 611.71, ICD10: N64.4 3. Family history of breast cancer - ICD9: V16.3, ICD10: Z80.3 Bety Mena MD ?I verified the medical office coordinator/nurse documentation in the medical record, and made appropriate changes. I personally performed a history, physical exam and medical decision making. Bety Mena MD This note was partially generated using [employer] voice recognition system, and there may be some incorrect words, spellings, and punctuation that were not noted in ch (more content not included)...[facility]10-24-2024 Nurse Note* Dara Bashir MA - 04/08/2024 11:25 AM EDT Oneida Steward is a 78 year old female who presents for Follow Up Tests Results (Patient presents to follow up after her RIGHT breast US. Patient denies any new concerns. Patient states that she has a RIGHT palpable breast lump. Patient denies any skin changes or nipple changes. ) Dara Bashir MA [facility]10-24-2024 Nurse Note* Dara Bashir MA - 04/08/2024 11:25 AM EDT Oneida Steward is a 78 year old female who presents for Follow Up Tests Results (Patient presents to follow up after her RIGHT breast US. Patient denies any new concerns. Patient states that she has a RIGHT palpable breast lump. Patient denies any skin changes or nipple changes. ) Dara Bashir MA documented in this encounterUniversity Hospitals Geauga [facility] Center10-22-2024 History of Present illness Narrative* Alia Shafer, RT(R) - 04/06/2024 12:30 PM EDT Radiology Service Progress Note PATIENT NAME: Oneida Steward DATE OF SERVICE: April 06, 2024 TIME: 1:50 PM PATIENT IDENTITY VERIFICATION COMPLETED USING TWO (2) IDENTIFIERS: Name and Date of confirmedby patient verbally. FALL SCREENING: Has the patient had 2 falls in the last year or 1 fall with injury or currently using an Ambulatory Assistive Device (Walker, Cane, Wheelchair, Crutches, etc.)? No PATIENT GENDER DATA: Female. status: : No status: NO. PATIENT RELEVANT IMPLANT DATA REVIEWED: Not Applicable PATIENT PRESENTS WITH AN IMPLANTABLE OR ATTACHED BRAKE REPAIR SUPERVISOR: No RADIOLOGY DEPARTMENT: Ultrasound PERIPHERAL IV DATA: Not applicable SIGNED BY: RT Mildred(Karlo) April 06, 2024 1:50 PM documented in this encounterUniversity Hospitals Geauga [facility] Center10-22-2024 NoteHNO ID: [id number] Author: ALIA SHAFER RT(Karlo) Service: ? Author Type: Technologist Type: Progress Notes Filed: 04/06/2024 13:51 Note Text: Radiology Service Progress Note PATIENT NAME: Oneida Steward DATE OF SERVICE: April 06, 2024 TIME: 1:50 PM PATIENT IDENTITY VERIFICATION COMPLETED USING TWO (2) IDENTIFIERS: Name and Date of confirmed by patient verbally. FALL SCREENING: Has the patient had 2 falls in the last year or 1 fall with injury or currently using an Ambulatory Assistive Device (Walker, Cane, Wheelchair, Crutches, etc.)? No PATIENT GENDER DATA: Female. status: : No status: NO. PATIENT RELEVANT IMPLANT DATA REVIEWED: Not Applicable PATIENT PRESENTS WITH AN IMPLANTABLE OR ATTACHED BRAKE REPAIR SUPERVISOR: No RADIOLOGY DEPARTMENT: Ultrasound PERIPHERAL IV DATA: Not applicable SIGNED BY: RT Mildred(Karlo) April 06, 2024 1:50 [facility]10-10-2024 Nurse Note* Dara Bashir MA - 03/25/2024 1:07 PM EDT Oneida Steward is a 78 year old female who presents for Follow Up Tests Results (Patient presents forher follow up after her screening preformed on 03/22/24. Patient denies any palpable breast lumps. Patient states that she had RIGHT nipple redness and burning/itching. ) Dara Bashir MA [facility]10-10-[facility] Nurse Note* Dara Bashir MA - 03/25/2024 1:07 PM EDT Oneida Steward is a 78 year old female who presents for Follow Up Tests Results (Patient presents forher follow up after her screening preformed on 03/22/24. Patient denies any palpable breast lumps. Patient states that she had RIGHT nipple redness and burning/itching. ) Dara Bashir MA documented in this encounterUniversity Hospitals Geauga Medical Center10-10-2024 History of Present illness Narrative* Bety Mena MD - 03/25/2024 1:00 PM EDT Chief Complaint: [facility] follow up HISTORY OF PRESENT ILLNESS: Oneida Steward is a 78 year old female who presents for CBE after imaging. She notes burning and itching for 2 weeks in right breast during February, now resolved. Area below nipple was reddish and she used lotion and resolved, maybe heat rash she thought? No nipple DC, lumps or skin scaling of nipple. PAST MEDICAL HISTORY Diagnosis Date Diarrhea Diverticulosis of colon (without mention of hemorrhage) Paroxysmal atrial fibrillation (HCC) 06/02/2017 Controlled on current meds; Dr. Akbar managing. Positive hepatitis C antibody test 06/02/2017 negative for chronic active hepatitis C Rheumatoid arthritis(714.0) Remission; note that diagnosis inflammatory arthritis (neg RF) on Dr. 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 Mena- Radial Scar CHOLECYSTECTOMY 12/25/1983 Cholecystectomy COLONOSCOPY FLX DX W/COLLJ SPEC WHEN PFRMD , 12/11/2001 Colonoscopy COLONOSCOPY FLX DX W/COLLJ SPEC WHEN PFRMD 02/13/2006 COLONOSCOPY FLX DX W/COLLJ SPEC WHEN PFRMD 11/29/2010 Colonoscopy COLONOSCOPY FLX DX W/COLLJ SPEC WHEN PFRMD N/A 02/02/2021 [facility]-Abdirizak Yuan MD LEFT HEART CATH,PERCUTANEOUS 11/14/2008 Cardiac cath, L heart [facility] - coronary angiography OPEN REPAIR OF ROTATOR CUFF ACUTE 01/16/2012 Rotator cuff repair left - [facility] PAST SURGICAL HISTORY OF Surgery on Bile Duct REVISE MEDIAN N/CARPAL TUNNEL SURG Left 2022 TOTAL ABDOMINAL HYSTERECT W/WO RMVL TUBE OVARY 12/03/2000 Hysterectomy, KINDRA, BSO Social History Tobacco Use Smoking status: Never Smokeless tobacco: Never Vaping Use Vaping status: Never Used Substance Use Topics Alcohol use: Yes Comment: Socially Drug use: No FAMILY HISTORY Problem Relation Age of Onset Colon Cancer Father 80 Breast Cancer Paternal Grandmother other (Other) Other No stock letterer cancer Ovarian cancer No Family History ALLERGIES No Known Allergies Current Outpatient Medications Medication Sig flecainide (TAMBOCOR) 100 mg tablet Take 0.5 tablets by mouth two times a day. losartan (COZAAR) 50 mg tablet Take 50 mg by mouth once daily. Dr. Leyva Milk Thistle 500 mg cap Take 500 mg by mouth. turmeric root extract 500 mg cap Take 1 capsule by mouth every other day. pyridoxine HCl, vitamin B6, (VITAMIN B-6 ORAL) Take by mouth. cyanocobalamin, vitamin B-12, (VITAMIN B-12 ORAL) Take by mouth. COD LIVER OIL ORAL Take by mouth. ELIQUIS 5 mg tab tab(s) 5 mg twice daily. metoprolol tartrate, short acting, (LOPRESSOR) 25 mg tablet 12.5 mg twice daily. MAGNESIUM CARBONATE ORAL Take by mouth. CALCIUM 500 MG TAB Take one(1) tablet two(2) times daily. diphenoxylate-atropine (LOMOTIL) 2.5-0.025 mg per tablet Take 1 tablet by mouth four times a day asneeded for diarrhea for up to 10 days. omeprazole (PRILOSEC) 20 mg capsule Take 1 capsule by mouth daily before breakfast. 1/2 hr before meal. As directed (Patient not taking: Reported on 03/25/2024) No current facility-administered medications for this visit. PHYSICAL EXAM: BP 130/73 Pulse 95 Ht 5' 2.25 (1.58m) Wt 180 lb (81.6kg) BMI 32.66 kg/(m^2). General Appearance: Well appearing, alert, in no acute distress, well-hydrated, well nourished.. Skin: Negative for jaundice or pallor. Lungs: Normal respirations Breast Exam:The sensitive examination was discussed with the Patient or Patient's Authorized Track Service Person. As applicable, any other physician, advance practice provider, medical student, or other health professional student that will be observing or involved in the sensitive examination for educational or training purposes was discussed with the Patient or Authorized Track Service Person. The Patientor Authorized Track Service Person has agreed to proceed with the sensitive examination. (Sensitive examination includes inspection and/or palpation of the breasts, pelvis, prostate and anorectal regions) Right Well-healed incisions noted. She has mild diffuse fibrocystic changes with more prominent thickening at the 8 o'clock position lower outer quadrant. Inferiorly at the 6 o'clock position where she noticed the burning and itching there are no palpable lesions. She has chronic nipple inversion but no discharge or axillary adenopathy. Left Mild diffuse fibrocystic changes especially in the upper outer quadrant but no dominant masses, worrisome skin changes, nipple discharge or axillary adenopathy. She has chronic nipple inversion. Well-healed incision laterally. Data Reviewed: Mammograms: 03/23/2024 8:28 AM - Radiology, [place] In Impression IMPRESSION: Finding 1: Area of clinical concern in the right breast requires additional evaluation. A DIAGNOSTIC ultrasound is recommended. Finding 2: Post-operative changes in the left breast are benign. BI-RADS Category 0: Incomplete: Needs Additional Imaging Evaluation RISK: Based on the Tyrer-Cuzick (TC) risk assessment model, this patient has a 6.5% lifetime risk of developing breast cancer, meaning they are at average risk for developing breast cancer. However, this is only an estimate based on available history provided on the patient's questionnaire. We encourage all patients talk with their providers about these results, further recommendations for managing breast health, and appropriate supplemental screening options if the patient has dense breast tissue. Interpreting Radiologist: Sharon Zepeda M.D. Electronically signed on: 03/23/2024 Egg Grader: HO Ramosrifreya Date/Time: Mar 22 2024 9:18A Dictated by: SHARON ZEPEDA MD This examination was interpreted and the report reviewed and electronically signed by: SHARON ZEPEDA MD on Mar 23 2024 8:22AM EST Results-Findings * * *Final Report* * * DATE OF EXAM: Mar 22 2024 9:35AM W [id number] - CHAO SCREENING W BRIGIDA / PROCEDURE REASON: Screening mammogram for breast cancer * * * * Physician Interpretation * * * * RESULT: [place] [address] HISTORY: Patient is 78 years old and is seen for screening and focal pain in the right breast. The patient has no personal history of cancer. COMPARISON STUDIES: The present examination has been compared to prior imaging studies dated 12/21/2020 (mammogram), 02/07/2022 (mammogram) and 03/10/2023 (mammogram). MAMMOGRAM TECHNIQUE: The study was acquired using full field digital technology and interpreted from soft copy. Digital Breast Tomosynthesis (DBT) images were obtained and used to assist in the interpretation of this examination. Computer-aided detection was utilized by the radiologist in the interpretation of this examination. MAMMOGRAM FINDINGS: The breasts are heterogeneously dense, which may obscure small masses. Finding 1: No suspicious mammographic finding to correlate to the area of focal pain in the lower inner quadrant of the right breast There are no significant changes from the prior study. Finding 2: There are post-operative changes in the left breast. There are no significant changes from the prior study. ASSESSMENT/PLAN: 1. Fibrocystic breast changes of both breasts - ICD9: 610.1, ICD10: N60.11, N60.12 (primary diagnosis) -78-year-old female with history of complex sclerosing lesion and papillomas who had discomfort of the right breast with itching of skin rash which is all since resolved. Clinical exam reveals diffuse fibrocystic changes with thickening at the 8 o'clock position of the right breast rule out mass. Recent mammograms are negative but considered BI-RADS 0 due to her symptoms. -We will ask for right breast ultrasound and follow-up visit. If ultrasound is negative we will plan on mammograms and follow-up in 1 year. 2. Mass of lower outer quadrant of right breast - ICD9: 611.72, ICD10: N63.13 - US BREAST LTD RIGHT 3. Mastodynia - ICD9: 611.71, ICD10: N64.4 - US BREAST LTD RIGHT 4. Papilloma of left breast - ICD9: 217, ICD10: D24.2 5. Family history of breast cancer - ICD9: V16.3, ICD10: Z80.3 6. Screening mammogram for breast cancer - ICD9: V76.12, ICD10: Z12.31 - Mammograms one year Bety Mena MD I verified the medical office coordinator/nurse documentation in the medical record, and made appropriate changes. I personally performed a history, physical exam and medical decision making. Bety Mena MD Medical Decision Making: Problems: Moderate: New problem with uncertain prognosis Data: Unique test result(s) reviewed: 1 Unique test(s) ordered: 2 Risk: Minimal: Minimal risk from testing/treatment Medical Decision Making Level: 4 - Moderate This note was partially generated using [employer] voice recognition system, and there may be some incorrect words, spellings, and punctuation that were not noted in checking the note before saving. documented in this encounterUniversity Hospitals Geaug[facility] Center10-10-2024 NoteHNO ID: [id number] Author: BETY MENA MD Service: ? Author Type: Physician Type: Progress Notes Filed: 03/25/2024 13:53 Note Text: Chief Complaint: [facility] follow up HISTORY OF PRESENT ILLNESS: Oneida Steward is a 78 year old female who presents for CBE after imaging. She notes burning and itching for 2 weeks in right breast during February, now resolved. Area below nipple was reddish and she used lotion and resolved, maybe heat rash she thought? No nipple DC, lumps or skin scaling of nipple. PAST MEDICAL HISTORY Diagnosis Date Diarrhea Diverticulosis of colon (without mention of hemorrhage) Paroxysmal atrial fibrillation (HCC) 06/02/2017 Controlled on current meds; Dr. Akbar managing. Positive hepatitis C antibody test 06/02/2017 negative for chronic active hepatitis C Rheumatoid arthritis(714.0) Remission; note that diagnosis inflammatory arthritis (neg RF) on Dr. 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 Mena- Radial Scar CHOLECYSTECTOMY 12/25/1983 Cholecystectomy COLONOSCOPY FLX DX W/COLLJ SPEC WHEN PFRMD , 12/11/2001 Colonoscopy COLONOSCOPY FLX DX W/COLLJ SPEC WHEN PFRMD 02/13/2006 COLONOSCOPY FLX DX W/COLLJ SPEC WHEN PFRMD 11/29/2010 Colonoscopy COLONOSCOPY FLX DX W/COLLJ SPEC WHEN PFRMD N/A 02/02/2021 [facility]-Abdirizak Yuan MD LEFT HEART CATH,PERCUTANEOUS 11/14/2008 Cardiac cath, L heart [facility] - coronary angiography OPEN REPAIR OF ROTATOR CUFF ACUTE 01/16/2012 Rotator cuff repair left - [facility] PAST SURGICAL HISTORY OF Surgery on Bile Duct REVISE MEDIAN N/CARPAL TUNNEL SURG Left 2022 TOTAL ABDOMINAL HYSTERECT W/WO RMVL TUBE OVARY 12/03/2000 Hysterectomy, KINDRA, BSO Social History Tobacco Use Smoking status: Never Smokeless tobacco: Never Vaping Use Vaping status: Never Used Substance Use Topics Alcohol use: Yes Comment: Socially Drug use: No FAMILY HISTORY Problem Relation Age of Onset Colon Cancer Father 80 Breast Cancer Paternal Grandmother other (Other) Other No stock letterer cancer Ovarian cancer No Family History ALLERGIES No Known Allergies Current Outpatient Medications Medication Sig flecainide (TAMBOCOR) 100 mg tablet Take 0.5 tablets by mouth two times a day. losartan (COZAAR) 50 mg tablet Take 50 mg by mouth once daily. Dr. Leyva Milk Thistle 500 mg cap Take 500 mg by mouth. turmeric root extract 500 mg cap Take 1 capsule by mouth every other day. pyridoxine HCl, vitamin B6, (VITAMIN B-6 ORAL) Take by mouth. cyanocobalamin, vitamin B-12, (VITAMIN B-12 ORAL) Take by mouth. COD LIVER OIL ORAL Take by mouth. ELIQUIS 5 mg tab tab(s) 5 mg twice daily. metoprolol tartrate, short acting, (LOPRESSOR) 25 mg tablet 12.5 mg twice daily. MAGNESIUM CARBONATE ORAL Take by mouth. CALCIUM 500 MG TAB Take one(1) tablet two(2) times daily. diphenoxylate-atropine (LOMOTIL) 2.5-0.025 mg per tablet Take 1 tablet by mouth four times a day as needed for diarrhea for up to 10 days. omeprazole (PRILOSEC) 20 mg capsule Take 1 capsule by mouth daily before breakfast. 1/2 hr before meal. As directed (Patient not taking: Reported on 03/25/2024) No current facility-administered medications for this visit. PHYSICAL EXAM: BP 130/73 Pulse 95 Ht 5' 2.25 (1.58m) Wt 180 lb (81.6kg) BMI 32.66 kg/(m2). General Appearance: Well appearing, alert, in no acute distress, well-hydrated, well nourished.. Skin: Negative for jaundice or pallor. Lungs: Normal respirations Breast Exam:The sensitive examination was discussed with the Patient or Patient's Authorized Track Service Person. As applicable, any other physician, advance practice provider, medical student, or other health professional student that will be observing or involved in the sensitive examination for educational or training purposes was discussed with the Patient or Authorized Track Service Person. The Patient or Authorized Track Service Person has agreed to proceed with the sensitive examination. (Sensitive examination includes inspection and/or palpation of the breasts, pelvis, prostate and anorectal regions) Right Well-healed incisions noted. She has mild diffuse fibrocystic changes with more prominent thickening at the 8 o'clock position lower outer quadrant. Inferiorly at the 6 o'clock position where she noticed the burning and itching there are no palpable lesions. She has chronic nipple inversion but no discharge or axillary adenopathy. Left Mild diffuse fibrocystic changes especially in the upper outer quadrant but no dominant masses, worrisome skin changes, nipple discharge or axillary adenopathy (more content not included)...[facility]10-07-2024 History of Present illness Narrative* Lester Velásquez Mammo Tech - 03/22/2024 9:10 AM EDT Radiology Service Progress Note PATIENT NAME: Oneida Steward DATE OF SERVICE: March 22, 2024 TIME: 10:29 AM PATIENT IDENTITY VERIFICATION COMPLETED USING TWO (2) IDENTIFIERS: Name and Date of confirmedby patient verbally. FALL SCREENING: Has the patient had 2 falls in the last year or 1 fall with injury or currently using an Ambulatory Assistive Device (Walker, Cane, Wheelchair, Crutches, etc.)? No PATIENT GENDER DATA: Female. status: : No status: NO. PATIENT RELEVANT IMPLANT DATA REVIEWED: Not Applicable PATIENT PRESENTS WITH AN IMPLANTABLE OR ATTACHED BRAKE REPAIR SUPERVISOR: No RADIOLOGY DEPARTMENT: Mammography PERIPHERAL IV DATA: Not applicable SIGNED BY: Maco Magallanes March 22, 2024 10:29 AM documented in this encounterUniversity Hospitals Geauga [facility] Center10-07-2024 NoteHNO ID: [id number] Author: LESTER VELÁSQUEZ Mammo Tech Service: ? Author Type: Armature Rewinder Type: Progress Notes Filed: 03/22/2024 10:29 Note Text: Radiology Service Progress Note PATIENT NAME: Oneida Steward DATE OF SERVICE: March 22, 2024 TIME: 10:29 AM PATIENT IDENTITY VERIFICATION COMPLETED USING TWO (2) IDENTIFIERS: Name and Date of confirmed by patient verbally. FALL SCREENING: Has the patient had 2 falls in the last year or 1 fall with injury or currently using an Ambulatory Assistive Device (Walker, Cane, Wheelchair, Crutches, etc.)? No PATIENT GENDER DATA: Female. status: : No status: NO. PATIENT RELEVANT IMPLANT DATA REVIEWED: Not Applicable PATIENT PRESENTS WITH AN IMPLANTABLE OR ATTACHED BRAKE REPAIR SUPERVISOR: No RADIOLOGY DEPARTMENT: Mammography PERIPHERAL IV DATA: Not applicable SIGNED BY: Maco Magallanes March 22, 2024 10:29 [facility]07-22-2024 Instructions* Patient Instructions* Sushila Chávez APRN.TRANSFORMER MAKER - 01/05/2024 9:36 AM EDT Screening schedule The following prevention plan is recommended: RSV Vaccine(1 - 1-dose 60+ series) Never done Covid-19 Vaccine(2022- season) due on 03/05/2023 Advance Directive Discussion due on 06/16/2023 Behavioral Health Screening Never done WHAT YOU CAN DO TO PREVENT FALLS Many falls can be prevented. By making some changes, you can lower your chances of falling. Four things YOU can do to prevent falls for you* and your caregiver 1. Begin a regular exercise program Exercise is one of the most important ways to lower your chances of falling. It makes you stronger and helps you feel better. Exercises that improve balance and coordination (like Mulugeta Chi) are the most helpful. Lack of exercise leads to weakness and increases your chances of falling. Ask your doctor or health care provider about the best type of exercise program for you. 2. Have your health care provider review your medicines Have your doctor or pharmacist review all the medicines you take, even fins-[id number]-lfroexq medicines. As you get older, the way medicines work in your body can change. Some medicines, or combinations of medicines, can make you sleepy or dizzy andcan cause you to fall. 3. Have your vision checked Have your eyes checked by an eye doctor at least once a year. You may be wearing the wrong glasses or have a condition like glaucoma or cataracts that limits your vision. Poor vision can increase your chances of falling. 4. Make your home safer About half of all falls happen at home. To make your home safer: Remove things you can trip over (like papers, books, clothes, and shoes) from stairs and places where you walk. Remove small throw rugs or use double-sided tape to keep the rugs from slipping. Keep items you use often in cabinets you can reach easily without using a step stool. Have grab bars put in next to your toilet and in the tub or shower. Use non-slip mats in the bathtub and on shower floors. Improve the lighting in your home. As you get older, you need brighter lights to see well. Hang light-weight curtains or shades to reduce glare. Have handrails and lights put in on all staircases. Wear shoes both inside and outside the house. Avoid going barefoot or wearing slippers. For more information, contact: Centers for Disease Control and Prevention www.cdc.gov/injury * This information may not apply if you have certain medical conditions. documented in this encounterUniversity Hospitals Geauga [facility] Center07-22-2024 History of Present illness Narrative* Sushila Chávez APRN.CNS - 01/05/2024 9:20 AM EDT Images from the original note were not included. Oneida Steward is a 78 year old female here for a Medicare wellness visit. Medicare Health Risk Assessment General Health good Exercise: Minutes/Day walking and yard work Exercise: Days/Week most days of the week Alcohol: Daily Use no Alcohol: Drinks/Day rare Alcohol: 6 or more drinks no Feel off balance no Concerns: Teeth/Dentures no Concerns: Sexual function no concerns Troubled by feelings no Frequency: Eating healthy diet yes ADLs requiring help no Safety precautions in home/vehicle no problems Smoke, vape, chews tobacco no Difficulty hearing tinnitus Difficulty seeing corrected vision Current Providers Specialists: I have reviewed specialist-related care of the patient in the medical record. Dr Paul Olea [facility] [place] [facility] Medical/Family history review Reviewed and updated problem list, medical/surgical/family/social history, medications, and allergies. Opioid use review Opioid Medications (last 90 days) No data to display Anxiety/Depression screening Recommendation: no further intervention at this time Cognitive screening Cognitive screening reviewed and No further action needed (score 3-5). Functional Observation Was the patient's Timed Up & Go test unsteady or ? 12 seconds? No Advance Care Planning Surrogate decision maker and/or advance care plan documented Measurements BP 97/59 Pulse 53 Resp 16 Ht 5' 5.25 (1.66m) Wt 180 lb (81.6kg) BMI 29.74 kg/(m^2). Vision Screening: Follows with optometry/ophthalmology Latest Ref Rng 03/10/2023 03/12/2023 07/14/2023 07/15/2023 12/31/2023 WBC 3.70 - 11.00 k/uL 6.58 12.71 (H) 6.52 RBC 3.90 - 5.20 m/uL 4.55 4.58 4.58 Hemoglobin 11.5 - 15.5 g/dL 14.0 14.0 13.9 Hematocrit 36.0 - 46.0 % 41.8 43.4 42.7 MCV 80.0 - 100.0 fL 91.9 94.8 93.2 MCH 26.0 - 34.0 pg 30.8 30.6 30.3 MCHC 30.5 - 36.0 g/dL 33.5 32.3 32.6 RDW-CV 11.5 - 15.0 % 13.8 13.7 14.3 Platelet Count 150 - 400 k/uL 220 229 226 MPV 9.0 - 12.7 fL 10.5 11.5 11.2 Neut% % 48.6 Abs Neut (ANC) 1.45 - 7.50 k/uL 3.20 Lymph% % 35.1 Abs Lymph 1.00 - 4.00 k/uL 2.31 Hardee% % 10.0 Abs Hardee <0.87 k/uL 0.66 Eosin% % 5.5 Abs Eosin <0.46 k/uL 0.36 Baso% % 0.6 Abs Baso <0.11 k/uL 0.04 Immature Gran % % 0.2 IMMATURE GRANS (ABS) <0.10 k/uL <0.03 NRBC /100 WBC 0.0 Absolute nRBC <0.01 k/uL <0.01 <0.01 <0.01 DTYPE Auto Protein, Total 6.3 - 8.0 g/dL 6.8 7.5 6.7 Albumin 3.9 - 4.9 g/dL 4.0 4.1 3.8 (L) Calcium 8.5 - 10.2 mg/dL 9.1 9.4 9.2 Bilirubin, Total 0.2 - 1.3 mg/dL 0.4 0.5 0.3 Alkaline Phosphatase 34 - 123 U/L 156 (H) 170 (H) 176 (H) AST 13 - 35 U/L 32 61 (H) 49 (H) ALT 7 - 38 U/L 48 (H) 78 (H) 53 (H) Glucose 74 - 99 mg/dL 101 (H) 89 91 BUN 7 - 21 mg/dL 16 13 14 Creatinine 0.58 - 0.96 mg/dL 0.76 0.69 0.76 Sodium 136 - 144 mmol/L 138 139 141 Potassium 3.7 - 5.1 mmol/L 4.2 4.0 4.5 Chloride 98 - 107 mmol/L 104 100 104 CO2 22 - 30 mmol/L 23 29 28 Anion Gap 8 - 15 mmol/L 11 10 9 eGFR >=60 mL/min/1.73m 81 90 81 Cholesterol, Total <200 mg/dL 243 (H) 249 (H) 243 (H) Triglyceride <150 mg/dL 61 79 66 HDL Cholesterol >39 mg/dL 81 90 77 Non HDL Cholesterol <130 mg/dL 162 (H) 159 (H) 166 (H) Fasting Time hrs 12 12 10 VLDL Cholesterol <30 mg/dL 12 16 13 TC:HDL Ratio <5.10 3.00 2.77 3.16 LDL Cholesterol <100 mg/dL 150 (H) 143 (H) 153 (H) LDL:HDL Ratio <2.54 1.85 1.59 1.99 Iron 41 - 186 ug/dL 65 52 49 TIBC 232 - 386 ug/dL 291 298 287 Transferrin Saturation 15.0 - 57.0 % 22.3 17.4 17.1 Vitamin B12 232 - 1,245 pg/mL 948 878 864 Magnesium 1.7 - 2.3 mg/dL 1.9 Vitamin D 25 Hydroxy 31.0 - 80.0 ng/mL 83.1 (H) 55.1 56.2 Ferritin 14.7 - 205.1 ng/mL 213.0 (H) 299.0 (H) 211.0 (H) WSR 0 - 20 mm/hr 8 26 (H) 5 CRP <0.9 mg/dL <0.3 1.3 (H) <0.3 Stool DNA Negative Negative ASSESSMENT/PLAN: 1. Medicare annual wellness visit, subsequent - ICD9: V70.0, ICD10: Z00.00 (primary diagnosis) - Counseled on healthy diet and regular exercise 2. Encounter for immunization - ICD9: V03.89, ICD10: Z23 - PFIZER-BIONTECH COVID-19 VACCINE ( SEASON) AGE 12+ YR Assessment/Plan Medicare annual wellness visit, subsequent (Z00.00) - Counseled on healthy diet and regular exercise - Fall avoidance information provided - Personalized prevention plan provided 1 year follow up Medicare wellness Sushila Chávez APRN.TRANSFORMER MAKER documented in this encounterUniversity Hospitals Geauga [facility] Center06-05-2024 History of Present illness Narrative* Niya Martinez MD - 11/19/2023 10:46 AM EDT This note was created using [employer]. Subjective Oneida Steward is a 78 year old female. Patient presents with: F/U 6 months SUBJECTIVE: Oneida Steward is a 78 year old year old lady here today for 6 month follow up appointment for reviewof medical conditions. Headache eval--had ER not MRI as discussed) at [facility] and was unremarkable. Saw ENT--Adriana. Seeing Neuro in May. Did acupuncture (Edilma Gonzalez) and after 2 sessions, resolved. [place] like had exploding. Feeling much better. Just mild headaches once in a while. Leg swelling right--started after headache, Medical Transcriptionist said can help BP running higher lately. Used to be 110 to 120s. Lately 130s in the office or [facility]. Had episode with irregular heart beat and higher BP--resolved by next day.Has appointment next month with Dr. Leyva. PAST MEDICAL HISTORY Diagnosis Date Diarrhea Diverticulosis of colon (without mention of hemorrhage) Paroxysmal atrial fibrillation (HCC) 06/02/2017 Controlled on current meds; Dr. Akbar managing. Positive hepatitis C antibody test 06/02/2017 negative for chronic active hepatitis C Rheumatoid arthritis(714.0) Remission; note that diagnosis inflammatory arthritis (neg RF) on Dr. 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 Dr. Leyva Milk Thistle 500 mg cap Take 500 mg by mouth. turmeric root extract 500 mg cap Take 1 capsule by mouth every other day. pyridoxine HCl, vitamin B6, (VITAMIN B-6 ORAL) Take by mouth. cyanocobalamin, vitamin B-12, (VITAMIN B-12 ORAL) Take by mouth. COD LIVER OIL ORAL Take by mouth. ELIQUIS 5 mg tab tab(s) 5 mg twice daily. metoprolol tartrate, short acting, (LOPRESSOR) 25 mg tablet 12.5 mg twice daily. MAGNESIUM CARBONATE ORAL Take by mouth. CALCIUM 500 MG TAB Take one(1) tablet two(2) times daily. flecainide (TAMBOCOR) 100 mg tablet Take 0.5 tablets by mouth two times a day. diphenoxylate-atropine (LOMOTIL) 2.5-0.025 mg per tablet Take 1 tablet by mouth four times a day asneeded for diarrhea for up to 10 days. omeprazole (PRILOSEC) 20 mg capsule Take 1 capsule by mouth daily before breakfast. 1/2 hr before meal. As directed (Patient not taking: Reported on 11/19/2023) No current facility-administered medications for this visit. Review of Systems Objective BP 130/80 Pulse 63 Temp 36.8 C (98.2 F) Resp 18 Wt 81.2 kg (179 lb) SpO2 98% BMI 28.89 kg/m Last 5 Encounter Wt Readings: Date: Wt: 11/19/2023 81.2 kg (179 lb) 08/25/2023 83 kg (183 lb) 07/24/2023 80.7 kg (178 lb) 07/15/2023 80.7 kg (178 lb) 07/02/2023 82.1 kg (181 lb) No waist measurement recorded Estimated body mass index is 28.89 kg/m as calculated from the following: Height as of 08/25/23: 167.6 cm (5' 6). Weight as of this encounter: 81.2 kg (179 lb). Last 5 Encounter BP Readings: Date: BP: 11/19/2023 130/80 08/25/2023 110/68 07/24/2023 135/67 07/15/2023 152/62 07/02/2023 149/62 Physical Exam Constitutional: Appearance: Normal appearance. HENT: Head: Normocephalic. Eyes: Conjunctiva/sclera: Conjunctivae normal. Cardiovascular: Rate and Rhythm: Normal rate and regular rhythm. Heart sounds: Normal heart sounds. Pulmonary: Effort: Pulmonary effort is normal. Breath sounds: Normal breath sounds. Musculoskeletal: Right lower leg: Edema (doughy) present. Left lower leg: No edema. Skin: General: Skin is warm and dry. Neurological: General: No focal deficit present. Mental Status: She is alert and oriented to person, place, and time. Psychiatric: Mood and Affect: Mood normal. Behavior: Behavior normal. Thought Content: Thought content normal. Judgment: Judgment normal. Assessment and Plan Encounter Diagnosis ICD-10-CM 1. Episodic tension-type headache, not intractable G44.219 [place] like head exploding 2. Paroxysmal atrial fibrillation (HCC) I48.0 3. Primary hypertension I10 4. Gastroesophageal reflux disease without esophagitis K21.9 PPI just once in a while then good for months 5. Right leg swelling M79.89 Above issues addressed with patient. Patient involved in shared decision making for management of medical issues. History and medications reviewed. Epic updated as needed Refills and/or prescriptions taken care of and meds adjusted as indicated after reviewed history, exam and labs. Health Maintenance reviewed. Updated record and/or ordered tests as recorded. Encouraged on efforts at healthy diet and regular exercise and adequate sleep. Niya Martinez MD documented in this encounterUniversity Hospitals Ge[facility]03-19-2024 Miscellaneous Notes* Telephone Encounter - Maggie Livingston LPN - 09/02/2023 3:47 PM EDT [facility]queline favio [facility] for copies of x-rays and testing done. Identified pt with name and date of . FAX: [phone] Done Maggie Livingston LPN documented in this encounterUniversity Hospitals Geauga [facility] Center03-11-2024 Instructions* Patient Instructions* Niya Martinez MD - 08/25/2023 2:52 PM EDT Flonase can help with sinus congestion and ear pain and pressure. May also try saline solution. documented in this encounterUniversity Hospitals Geauga [facility] Center03-11-2024 History of Present illness Narrative* Niya Martinez MD - 08/25/2023 2:32 PM EDT This note was created using Availinkriter. Subjective Oneida Steward is a 77 year old female. Patient presents with: ED Follow-up SUBJECTIVE: Oneida Steward is a 77 year old year old lady here today for ER follow up appointment for review of medical conditions. Noted that head still feels painful and tender. Could not find a comfortable position unless kept head free from touching anything and neck on pillow. Can feel pain coming up from the n\mushtaq. Mostly affects right ear. Can be either side of head. Noted that ER doctor treated for acute sinusitis based on his reading of the CT scan--he though there was air fluid level in sphenoid sinus and mucosal thickening maxillary sinuses. He prescribed Augmentin for 10 days. Symptoms are a little better and getting some sleep. Headaches are still varying--yesterday good yesterday but had headache today as noted above. Daughter had similar symptoms when had sinus issues. Scheduled to go on trip on September 18. Noted prednisone had helped pain in head and ears, but after off antibiotic and prednisone. pain would come back. Noted BP was high in ER--fine today. Has improved ROM of neck--was bad Friday Has some noise in right ear like chirping. See assessment and plan for other issues addressed. PAST MEDICAL HISTORY Diagnosis Date Diarrhea Diverticulosis of colon (without mention of hemorrhage) Paroxysmal atrial fibrillation (HCC) 06/02/2017 Controlled on current meds; Dr. Akbar managing. Positive hepatitis C antibody test 06/02/2017 negative for chronic active hepatitis C Rheumatoid arthritis(714.0) Remission; note that diagnosis inflammatory arthritis (neg RF) on Dr. 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 Dr. Leyva turmeric root extract 500 mg cap 1 cap(s) pyridoxine HCl, vitamin B6, (VITAMIN B-6 ORAL) Take by mouth. cyanocobalamin, vitamin B-12, (VITAMIN B-12 ORAL) Take by mouth. COD LIVER OIL ORAL Take by mouth. flecainide (TAMBOCOR) 100 mg tablet Take 1 tablet by mouth twice daily. This is to fill because told cannot fill her RX early before going to [place] for 4 weeks (cannot run out of med while away). Running out of medication can be detrimental to her health. Do not cancel her usual prescription with refills (Patient taking differently: Take 50 mg by mouth two times a day.) ELIQUIS 5 mg tab tab(s) 5 mg twice daily. metoprolol tartrate, short acting, (LOPRESSOR) 25 mg tablet 12.5 mg twice daily. MAGNESIUM CARBONATE ORAL Take by mouth. CALCIUM 500 MG TAB Take one(1) tablet two(2) times daily. predniSONE (DELTASONE) 10 mg tablet Take 40 mg x 5 days, 20 mg x 5 days, 10 mg x 5 days. Take with food omeprazole (PRILOSEC) 20 mg capsule Take 1 capsule by mouth daily before breakfast. 1/2 hr before meal. As directed Milk Thistle 500 mg cap Take 500 mg by mouth. No current facility-administered medications for this visit. Review of Systems Objective BP 110/68 Pulse 80 Resp 16 Ht 167.6 cm (5' 6) Wt 83 kg (183 lb) BMI 29.54 kg/m Physical Exam Constitutional: Appearance: Normal appearance. HENT: Head: Normocephalic. Eyes: Conjunctiva/sclera: Conjunctivae normal. Neck: Comments: Tight muscles more on right posterior neck and midthoracic spine level Cardiovascular: Rate and Rhythm: Normal rate and regular rhythm. Heart sounds: Normal heart sounds. Pulmonary: Effort: Pulmonary effort is normal. Breath sounds: Normal breath sounds. Musculoskeletal: Cervical back: Tenderness present. Muscular tenderness present. Skin: General: Skin is warm and dry. Neurological: General: No focal deficit present. Mental Status: She is alert and oriented to person, place, and time. Psychiatric: Mood and Affect: Mood normal. Behavior: Behavior normal. Thought Content: Thought content normal. Judgment: Judgment normal. Assessment and Plan Encounter Diagnosis ICD-10-CM 1. DDD (degenerative disc disease), cervical M50.30 Neck pain issues as noted in HPI. 2. Other subacute sinusitis J01.80 Treated again through ER; trying to get in with Dr. Tor Wright 3. Diarrhea, unspecified type R19.7 diphenoxylate-atropine (LOMOTIL) 2.5-0.025 mg per tablet Needed refill on prn lomotil Above issues addressed with patient. Patient involved in shared decision making for management of medical issues. History and medications reviewed. Epic updated as needed Refills and/or prescriptions taken care of and meds adjusted as indicated after reviewed history, exam and labs. Health Maintenance reviewed. Updated record and/or ordered tests as recorded. Encouraged on efforts at healthy diet and regular exercise and adequate sleep. Niay Martinez MD documented in this encounterUniversity Hospitals Geaug[facility] Center02-12-2024 Telephone encounter Note * Telephone Encounter - Francoise Ríos RN - 07/28/2023 3:44 PM EST notified [facility]02-12-2024 Miscellaneous Notes* Telephone Encounter - Francoise Ríos RN - 07/28/2023 3:44 PM EST notified * Telephone Encounter - Juaquin Burgess MD - 07/27/2023 9:49 AM EST Please inform the Cologuard test is negative. documented in this encounterUniversity Hospitals Geaug[facility] Center02-11-2024 Telephone encounter Note * Telephone Encounter - Juaquin Burgess MD - 07/27/2023 9:49 AM EST Please inform the Cologuard test is negative. [facility] Work Phone: [phone]) 240-867802-08-2024 Instructions* Patient Instructions* Sushila Chávez APRN.CNS - 07/24/2023 10:15 AM EST For bilateral ear pain please take antibiotic-amoxicillin. For neck pain please make an appointment with your trace evidence technician, see if you can be seen sooner than August. Stop your current prednisone taper and start a taper of longer duration. Make an appointment with your weather stripper if you do not have 1 coming up for slower heart rate. documented in this encounterUniversity Hospitals Geaug[facility] Center02-08-2024 History of Present illness Narrative* Sushila Chávez APRN.CNS - 07/24/2023 9:40 AM EST SUBJECTIVE: RSV Vaccine(1 - 1-dose 60+ series) Never done Covid-19 Vaccine( season) due on 03/05/2023 Advance Directive Discussion due on 06/16/2023 Depression Assessment due on 06/16/2023 HPI Oneida Steward is a 77 year old female.PMH significant for ACTIVE PROBLEM LIST Diverticulosis of Colon Family History of Malignant Neoplasm of Gastrointestinal Tract Inflammatory Arthritis Fh: Colon Cancer Hyperlipidemia Positive Hepatitis C Antibody Test Primary Osteoarthritis of Both Knees Paroxysmal Atrial Fibrillation (Hcc) Radial Scar of Left Breast She was seen by PCP July 15, 2023 for neck pain. Treated with prednisone. Cervical x-ray showed cervical spine degenerative changes with multilevel disc space narrowing and bilateral neuroforaminal narrowing. PMH significant for rheumatoid arthritis. 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 Pain in her posterior neck radiating up to her head, occipital region. Also radiating to bilateral shoulders. No upper extremity numbness tingling or weakness is noted. Range of motion: Is improved somewhat No current spine physician. She notes bilateral ear pain, no fever and runny nose. She notes feeling dizzy and lightheaded all the time for the last week or so. History of atrial fibrillation on OAC taking flecainide and eliquis. Follows with [facility]. Review of Systems Constitutional: Negative. HENT: Positive for ear pain and rhinorrhea. Cardiovascular: Negative. Musculoskeletal: Positive for neck pain. Neurological: Positive for light-headedness and headaches. Objective BP 135/67 Pulse (!) 45 Resp 16 Wt 80.7 kg (178 lb) SpO2 97% BMI 28.73 kg/m General appearance: alert, cooperative, pleasant, in no acute distress Head: Normocephalic Eyes: conjunctiva/corneas normal Ears: R TM -erythema, L TM -erythema Nose: Mucosal edema and clear rhinorrhea Oropharynx: moist without lesions Neck: supple and small, benign anterior cervical nodes bilaterally Heart: Bradycardic rate regular rate and rhythm, without murmur Lungs: clear to auscultation, without rales or wheeze, good air exchange Neck: Decreased range of motion, tender to palpation ALLERGIES No Known Allergies predniSONE (DELTASONE) 10 mg tablet Take 4 tabs daily x 3 days, then 3 tabs x 3 days, 2 tabs x 3 days, then 1 tab x3 days with food. omeprazole (PRILOSEC) 20 mg capsule Take 1 capsule by mouth daily before breakfast. 1/2 hr before meal. As directed Milk Thistle 500 mg cap Take 500 mg by mouth. turmeric root extract 500 mg cap 1 cap(s) pyridoxine HCl, vitamin B6, (VITAMIN B-6 ORAL) Take by mouth. cyanocobalamin, vitamin B-12, (VITAMIN B-12 ORAL) Take by mouth. COD LIVER OIL ORAL Take by mouth. flecainide (TAMBOCOR) 100 mg tablet Take 1 tablet by mouth twice daily. This is to fill because told cannot fill her RX early before going to [place] for 4 weeks (cannot run out of med while away). Running out of medication can be detrimental to her health. Do not cancel her usual prescription with refills (Patient taking differently: Take 50 mg by mouth two times a day.) ELIQUIS 5 mg tab tab(s) 5 mg twice daily. metoprolol tartrate, short acting, (LOPRESSOR) 25 mg tablet 12.5 mg twice daily. MAGNESIUM CARBONATE ORAL Take by mouth. CALCIUM 500 MG TAB Take one(1) tablet two(2) times daily. predniSONE (DELTASONE) 10 mg tablet Take 40 mg x 5 days, 20 mg x 5 days, 10 mg x 5 days. Take with food amoxicillin (AMOXIL) 875 mg tablet Take 1 tablet by mouth two times a day for 10 days. PAST MEDICAL HISTORY Diagnosis Date Diarrhea Diverticulosis of colon (without mention of hemorrhage) Paroxysmal atrial fibrillation (HCC) 06/02/2017 Controlled on current meds; Dr. Akbar managing. Positive hepatitis C antibody test 06/02/2017 negative for chronic active hepatitis C Rheumatoid arthritis(714.0) Remission; note that diagnosis inflammatory arthritis (neg RF) on Dr. 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 Social History Tobacco Use Smoking status: Never Smokeless tobacco: Never Vaping Use Vaping Use: Never used Substance Use Topics Alcohol use: Yes Comment: Socially Drug use: No Component Latest Ref Rng & Units 07/01/2022 03/10/2023 03/12/2023 07/15/2023 WBC 3.70 - 11.00 k/uL 7.03 6.58 12.71 (H) RBC 3.90 - 5.20 m/uL 4.44 4.55 4.58 Hemoglobin 11.5 - 15.5 g/dL 13.8 14.0 14.0 Hematocrit 36.0 - 46.0 % 41.7 41.8 43.4 MCV 80.0 - 100.0 fL 93.9 91.9 94.8 MCH 26.0 - 34.0 pg 31.1 30.8 30.6 MCHC 30.5 - 36.0 g/dL 33.1 33.5 32.3 RDW-CV 11.5 - 15.0 % 13.6 13.8 13.7 Platelet Count 150 - 400 k/uL 233 220 229 MPV 9.0 - 12.7 fL 11.1 10.5 11.5 Neut% % 48.6 Abs Neut (ANC) 1.45 - 7.50 k/uL 3.20 Lymph% % 35.1 Abs Lymph 1.00 - 4.00 k/uL 2.31 Hardee% % 10.0 Abs Hardee <0.87 k/uL 0.66 Eosin% % 5.5 Abs Eosin <0.46 k/uL 0.36 Baso% % 0.6 Abs Baso <0.11 k/uL 0.04 Immature Gran % % 0.2 IMMATURE GRANS (ABS) <0.10 k/uL <0.03 NRBC /100 WBC 0.0 Absolute nRBC <0.01 k/uL <0.01 <0.01 <0.01 DTYPE Auto Protein, Total 6.3 - 8.0 g/dL 7.1 6.8 7.5 Albumin 3.9 - 4.9 g/dL 4.1 4.0 4.1 Calcium 8.5 - 10.2 mg/dL 9.7 9.1 9.4 Bilirubin, Total 0.2 - 1.3 mg/dL 0.3 0.4 0.5 Alkaline Phosphatase 34 - 123 U/L 153 (H) 156 (H) 170 (H) AST 13 - 35 U/L 55 (H) 32 61 (H) ALT 7 - 38 U/L 62 (H) 48 (H) 78 (H) Glucose 74 - 99 mg/dL 93 101 (H) 89 BUN 7 - 21 mg/dL 16 16 13 Creatinine 0.58 - 0.96 mg/dL 0.79 0.76 0.69 Sodium 136 - 144 mmol/L 140 138 139 Potassium 3.7 - 5.1 mmol/L 4.5 4.2 4.0 Chloride 97 - 105 mmol/L 104 104 100 CO2 22 - 30 mmol/L 28 23 29 Anion Gap 9 - 18 mmol/L 8 (L) 11 10 eGFR >=60 mL/min/1.73m 78 81 90 Cholesterol, Total <200 mg/dL 233 (H) 243 (H) 249 (H) Triglyceride <150 mg/dL 62 61 79 HDL Cholesterol >39 mg/dL 82 81 90 Non HDL Cholesterol <130 mg/dL 151 (H) 162 (H) 159 (H) Fasting Time hrs 12 12 12 VLDL Cholesterol <30 mg/dL 12 12 16 TC:HDL Ratio <5.10 2.84 3.00 2.77 LDL Cholesterol <100 mg/dL 139 (H) 150 (H) 143 (H) LDL:HDL Ratio <2.54 1.70 1.85 1.59 Iron 41 - 186 ug/dL 53 65 52 TIBC 232 - 386 ug/dL 287 291 298 Transferrin Saturation 15.0 - 57.0 % 18.5 22.3 17.4 Uric Acid 2.5 - 6.6 mg/dL 6.0 Vitamin D 25 Hydroxy 31.0 - 80.0 ng/mL 66.0 83.1 (H) 55.1 Ferritin 14.7 - 205.1 ng/mL 249.0 (H) 213.0 (H) 299.0 (H) Vitamin B12 232 - 1,245 pg/mL 948 878 Magnesium 1.7 - 2.3 mg/dL 1.9 WSR 0 - 20 mm/hr 8 26 (H) CRP <0.9 mg/dL <0.3 1.3 (H) ASSESSMENT/PLAN: 1. Cervicalgia - ICD9: 723.1, ICD10: M54.2 (primary diagnosis) 3. Acute nonintractable headache, unspecified headache type - ICD9: 784.0, ICD10: R51.9 Improved on prednisone, returned once dose decreased. Will place on longer taper. 4. Acute ear pain, bilateral - ICD9: 388.70, ICD10: H92.03 Bilateral ear pain, increased white cell count, will treat as otitis. - PREDNISONE 10 MG TABLET - AMOXICILLIN 875 MG TABLET 5. Inflammatory arthritis - ICD9: 714.9, ICD10: M19.90 Followed at [facility], I encouraged being seen sooner. - PREDNISONE 10 MG TABLET 6. Paroxysmal atrial fibrillation (HCC) - ICD9: 427.31, ICD10: I48.0 7. Bradycardia - ICD9: 427.89, ICD10: R00.1 She reports feeling dizzy and lightheaded the last several days.Declines EKG in the office today. Prefers to follow-up with [facility], states she has an appointment next week. Encouraged togo to the emergency department if any severe or concerning symptoms. - ECG COMPLETE Advised; For bilateral ear pain please take antibiotic-amoxicillin. For neck pain please make an appointment with your trace evidence technician, see if you can be seen sooner than August. Stop your current prednisone taper and start a taper of longer duration. Make an appointment with your weather stripper if you do not have 1 coming up for slower heart rate. Sushila Chávez APRN.TRANSFORMER MAKER Medical Decision Making: Problems: Moderate: New problem with uncertain prognosis and 1+ chronic illnesses with change Data: Unique test result(s) reviewed: 3+ Risk: Moderate: Drug management Medical Decision Making Level: 4 - Moderate documented in this encounterUniversity Hospitals Geaug[facility] Center02-05-2024 Instructions* Patient Instructions* Mateo Morel - 07/21/2023 10:26 AM EST Trichloroacetic acid (TCA) has been applied to the plantar warts. Rinse off in 12 hours and keep clean and dry. May bathe and shower normally starting the day after treatment The area is expected to burn and blister in about 1-3 days, if painful soak in plain, cool water. If blistered, you may drain the blister with a clean, STERILIZED needle and apply OTC antibiotic ointment and band aid to area. Repeat 2-3 times daily as needed. Tylenol or Aleve as needed for pain, provided you have no allergies to either of these. Keep scheduled follow up appointment to have wart(s) re-evaluated and/or additional treatments. documented in this encounterUniversity Hospitals Geaug[facility] Center02-05-2024 History of Present illness Narrative* Mateo Morel - 07/21/2023 10:19 AM EST FOLLOW UP PODIATRIC OFFICE VISIT Chief Complaint: This 77 year old who presents for follow up:porokeratosis of left hallux Patient presents to clinic for follow-up porokeratosis of left hallux Was seen last year and had this debrided Has pain that comes from time to time Is here to have the lesion debrided. PAIN EVALUATION 07/21/2023 0954 Pain Level: 5 Pain Location: Toe Description: Burning Duration Units: Months Frequency: Intermittent Intervention/Comfort measure: Reposition;Relaxation No results found for: HBA1C PCP: Niya Martinez MD PAST MEDICAL HISTORY Diagnosis Date Diarrhea Diverticulosis of colon (without mention of hemorrhage) Paroxysmal atrial fibrillation (HCC) 06/02/2017 Controlled on current meds; Dr. Akbar managing. Positive hepatitis C antibody test 06/02/2017 negative for chronic active hepatitis C Rheumatoid arthritis(714.0) Remission; note that diagnosis inflammatory arthritis (neg RF) on Dr. 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 omeprazole (PRILOSEC) 20 mg capsule Take 1 capsule by mouth daily before breakfast. 1/2 hr before meal. As directed Milk Thistle 500 mg cap Take 500 mg by mouth. turmeric root extract 500 mg cap 1 cap(s) pyridoxine HCl, vitamin B6, (VITAMIN B-6 ORAL) Take by mouth. cyanocobalamin, vitamin B-12, (VITAMIN B-12 ORAL) Take by mouth. COD LIVER OIL ORAL Take by mouth. flecainide (TAMBOCOR) 100 mg tablet Take 1 tablet by mouth twice daily. This is to fill because told cannot fill her RX early before going to [place] for 4 weeks (cannot run out of med while away). Running out of medication can be detrimental to her health. Do not cancel her usual prescription with refills (Patient taking differently: Take 50 mg by mouth two times a day.) ELIQUIS 5 mg tab tab(s) 5 mg twice daily. metoprolol tartrate, short acting, (LOPRESSOR) 25 mg tablet 12.5 mg twice daily. MAGNESIUM CARBONATE ORAL Take by mouth. CALCIUM 500 MG TAB Take one(1) tablet two(2) times daily. No current facility-administered medications for this visit. ALLERGIES No Known Allergies PAST SURGICAL HISTORY Procedure Laterality Date ANESTHESIA SHOULDER: REPLACE Right 2017 APPENDECTOMY age 10 BX OF BREAST; INCISIONAL Bilateral 40+ years ago, benign per patient BX OF BREAST; INCISIONAL Left 02/14/2021 Core Bx- Radial Scar BX OF BREAST; INCISIONAL Left 04/26/2021 Dr. Mena- Radial Scar CHOLECYSTECTOMY 12/25/1983 Cholecystectomy COLONOSCOPY FLX DX W/COLLJ SPEC WHEN PFRMD , 12/11/2001 Colonoscopy COLONOSCOPY FLX DX W/COLLJ SPEC WHEN PFRMD 02/13/2006 COLONOSCOPY FLX DX W/COLLJ SPEC WHEN PFRMD 11/29/2010 Colonoscopy COLONOSCOPY FLX DX W/COLLJ SPEC WHEN PFRMD N/A 02/02/2021 [facility]-Abdirizak Yuan MD LEFT HEART CATH,PERCUTANEOUS 11/14/2008 Cardiac cath, heart [facility] - coronary angiography OPEN REPAIR OF ROTATOR CUFF ACUTE 01/16/2012 Rotator cuff repair left - [facility] PAST SURGICAL HISTORY OF Surgery on Bile Duct REVISE MEDIAN N/CARPAL TUNNEL SURG Left 2022 TOTAL ABDOMINAL HYSTERECT W/WO RMVL TUBE OVARY 12/03/2000 Hysterectomy, KINDRA, BSO Physical Exam: OBJECTIVE: Constitutional: Pt is a well developed 77 year old female who is alert, oriented, cooperative and in no apparent distress. Eyes: Following during examination. No redness or drainage. Respiratory: RR normal and nonlabored. Even breathing. No evidence of distress. Psychology: Patient is engaged during conversation. Normal affect and mood. Does not appear depressed or anxious. NVSI unchanged from previous visit. Dermatological: Porokeratosis present to plantar aspect of left hallux. No ulceration noted Callus to right hallux Musculoskeletal/Orthopaedic: Patient has pain to palpation of left hallux at site of porokeratosis ASSESSMENT: (Q82.8) Porokeratosis (primary encounter diagnosis) PLAN: Porokeratosis to left hallux reduced with 15 blade and dremmel. Tca applied under occlusion Callus to right hallux reduced with dremmel Discussed risk of recurrence Can come in periodically for debridement Mateo Morel DPM * Nevin Rivera LPN - 07/21/2023 9:52 AM EST AMB ROOMING INTAKE FLOWSHEET DATA Pain Pain Level: 5 Pain Location: Toe Description: Burning Duration Units: Months Frequency: Intermittent Intervention/Comfort measure: Reposition, Relaxation Patient presents with: Left Great Toe - Callous, Established Patient, Follow Up, Pain Right Great Toe - Established Patient, Follow Up, Pain, Callous Nevin Rivera LPN documented in this encounterUniversity Hospitals Geauga Medical Center01-30-2024 History of Present illness Narrative* Madina Massey RT(R) - 07/15/2023 11:10 AM EST Radiology Service Progress Note PATIENT NAME: Oneida Steward DATE OF SERVICE: July 15, 2023 TIME: 11:12 AM PATIENT IDENTITY VERIFICATION COMPLETED USING TWO (2) IDENTIFIERS: Name and Date of confirmedby patient verbally. FALL SCREENING: Has the patient had 2 falls in the last year or 1 fall with injury or currently using an Ambulatory Assistive Device (Walker, Cane, Wheelchair, Crutches, etc.)? No PATIENT GENDER DATA: Female. status: : No status: NO. PATIENT RELEVANT IMPLANT DATA REVIEWED: Yes PATIENT PRESENTS WITH AN IMPLANTABLE OR ATTACHED BRAKE REPAIR SUPERVISOR: No RADIOLOGY DEPARTMENT: General X-ray: Exam(s) Completed: Spine X-Ray(s): Cervical AP / LAT / OBL PERIPHERAL IV DATA: Not applicable SIGNED BY: RT Ophelia(R) July 15, 2023 11:12 AM documented in this encounterUniversity Hospitals Geauga Medical Center01-30-2024 History of Present illness Narrative* Niya Martinez MD - 07/15/2023 9:15 AM EST This note was created using [employer]ailink[employer]. Subjective Oneida Steward is a 77 year old female. HISTORY Oneiad Steward is a 77 year old lady here for yearly exam and follow up appointment. Scalp sore--painful and tender. Started a little on Friday. Shoulder and neck pain. Limited ROM. Pain was at first bottom of skull then became whole skull. Nauseous from the pain. Tried leftover prednsone 10mg pills (10 years old)--took 15mg Friday and Friday 30mg, 20mg yesterday. Thought helped the pain. Slept okay from yesterday to today. [place] pretty good today. Could not tip head up over the weekend but this Am was able to tip head up. Almost went to ER but did not want to go over the weekend, then prednisone helped. No pain into arms or legs. No change in activity prior. Started suddenly. Dumb head--would hurt if bends down. Would have this every so often. Current pain is much worse. Dry eye issue. Eye drops helped but not her. Seeing eye doctor. Noted a fib episode when on a different generic. Better with getting back to a different generic. Has not had COVID yet. Wears masks when out in crowds. PAST MEDICAL HISTORY Diagnosis Date Diarrhea Diverticulosis of colon (without mention of hemorrhage) Paroxysmal atrial fibrillation (HCC) 06/02/2017 Controlled on current meds; Dr. Akbar managing. Positive hepatitis C antibody test 06/02/2017 negative for chronic active hepatitis C Rheumatoid arthritis(714.0) Remission; note that diagnosis inflammatory arthritis (neg RF) on Dr. 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 turmeric root extract 500 mg cap 1 cap(s) pyridoxine HCl, vitamin B6, (VITAMIN B-6 ORAL) Take by mouth. cyanocobalamin, vitamin B-12, (VITAMIN B-12 ORAL) Take by mouth. COD LIVER OIL ORAL Take by mouth. flecainide (TAMBOCOR) 100 mg tablet Take 1 tablet by mouth twice daily. This is to fill because told cannot fill her RX early before going to [place] for 4 weeks (cannot run out of med while away). Running out of medication can be detrimental to her health. Do not cancel her usual prescription with refills (Patient taking differently: Take 50 mg by mouth two times a day.) ELIQUIS 5 mg tab tab(s) 5 mg twice daily. metoprolol tartrate, short acting, (LOPRESSOR) 25 mg tablet 12.5 mg twice daily. MAGNESIUM CARBONATE ORAL Take by mouth. CALCIUM 500 MG TAB Take one(1) tablet two(2) times daily. omeprazole (PRILOSEC) 20 mg capsule Take 1 capsule by mouth daily before breakfast. 1/2 hr before meal. As directed No current facility-administered medications for this visit. ALLERGIES No Known Allergies FAMILY HISTORY Problem Relation Age of Onset Colon Cancer Father 80 Breast Cancer Paternal Grandmother other (Other) Other No stock letterer cancer Social History Tobacco Use Smoking status: Never Smokeless tobacco: Never Vaping Use Vaping Use: Never used Substance Use Topics Alcohol use: Yes Comment: Socially Drug use: No Review of Systems Objective BP 200/110 Pulse (!) 54 Resp 16 Ht 167.6 cm (5' 6) Wt 80.7 kg (178 lb) BMI 28.73 kg/m 07/15/23 0904 07/15/23 1005 BP: 200/110 152/62 Pulse: (!) 54 Resp: 16 Weight: 80.7 kg (178 lb) Height: 167.6 cm (5' 6) Last 5 Encounter Wt Readings: Date: Wt: 07/15/2023 80.7 kg (178 lb) 07/02/2023 82.1 kg (181 lb) 03/12/2023 81 kg (178 lb 8 oz) 03/10/2023 80.3 kg (177 lb) 11/20/2022 80.3 kg (177 lb) No waist measurement recorded Estimated body mass index is 28.73 kg/m as calculated from the following: Height as of this encounter: 167.6 cm (5' 6). Weight as of this encounter: 80.7 kg (178 lb). Last 5 Encounter BP Readings: Date: BP: 07/15/2023 200/110 07/02/2023 149/62 03/12/2023 110/67 03/10/2023 119/76 11/20/2022 116/62 Physical Exam Vitals reviewed. Constitutional: Appearance: She is well-developed. HENT: Head: Normocephalic and atraumatic. Right Ear: External ear normal. Left Ear: External ear normal. Nose: Nose normal. Eyes: Conjunctiva/sclera: Conjunctivae normal. Neck: Thyroid: No thyromegaly. Cardiovascular: Rate and Rhythm: Normal rate and regular rhythm. Pulses: Normal pulses. Heart sounds: Normal heart sounds. No murmur heard. No friction rub. No gallop. Pulmonary: Effort: Pulmonary effort is normal. Breath sounds: Normal breath sounds. Abdominal: General: Bowel sounds are normal. There is no distension. Palpations: Abdomen is soft. There is no mass. Tenderness: There is no abdominal tenderness. Musculoskeletal: General: No deformity. Cervical back: Decreased range of motion (Not able to turn to left or right much more than 5 to 10 degrees; not able to tip head up more than 5 degrees max; not able to tip head down more than 20 to 30 degress). Lymphadenopathy: Cervical: No cervical adenopathy. Skin: General: Skin is warm and dry. Coloration: Skin is not jaundiced or pale. Findings: No rash. Neurological: General: No focal deficit present. Mental Status: She is alert and oriented to person, place, and time. Cranial Nerves: No cranial nerve deficit. Sensory: No sensory deficit. Motor: No abnormal muscle tone. Coordination: Coordination normal. Deep Tendon Reflexes: Reflexes normal. Psychiatric: Mood and Affect: Mood normal. Behavior: Behavior normal. Thought Content: Thought content normal. Judgment: Judgment normal. Component Latest Ref Rng & Units 01/21/2022 07/01/2022 03/10/2023 03/12/2023 WBC 3.70 - 11.00 k/uL 7.15 7.03 6.58 RBC 3.90 - 5.20 m/uL 4.59 4.44 4.55 Hemoglobin 11.5 - 15.5 g/dL 14.2 13.8 14.0 Hematocrit 36.0 - 46.0 % 43.0 41.7 41.8 MCV 80.0 - 100.0 fL 93.7 93.9 91.9 MCH 26.0 - 34.0 pg 30.9 31.1 30.8 MCHC 30.5 - 36.0 g/dL 33.0 33.1 33.5 RDW-CV 11.5 - 15.0 % 13.5 13.6 13.8 Platelet Count 150 - 400 k/uL 222 233 220 MPV 9.0 - 12.7 fL 11.7 11.1 10.5 Neut% % 48.6 Abs Neut (ANC) 1.45 - 7.50 k/uL 3.20 Lymph% % 35.1 Abs Lymph 1.00 - 4.00 k/uL 2.31 Hardee% % 10.0 Abs Hardee <0.87 k/uL 0.66 Eosin% % 5.5 Abs Eosin <0.46 k/uL 0.36 Baso% % 0.6 Abs Baso <0.11 k/uL 0.04 Immature Gran % % 0.2 IMMATURE GRANS (ABS) <0.10 k/uL <0.03 NRBC /100 WBC 0.0 Absolute nRBC <0.01 k/uL <0.01 <0.01 <0.01 DTYPE Auto Protein, Total 6.3 - 8.0 g/dL 7.2 7.1 6.8 Albumin 3.9 - 4.9 g/dL 4.1 4.1 4.0 Calcium 8.5 - 10.2 mg/dL 9.9 9.7 9.1 Bilirubin, Total 0.2 - 1.3 mg/dL 0.4 0.3 0.4 Alkaline Phosphatase 34 - 123 U/L 178 (H) 153 (H) 156 (H) AST 13 - 35 U/L 58 (H) 55 (H) 32 ALT 7 - 38 U/L 79 (H) 62 (H) 48 (H) Glucose 74 - 99 mg/dL 95 93 101 (H) BUN 7 - 21 mg/dL 16 16 16 Creatinine 0.58 - 0.96 mg/dL 0.75 0.79 0.76 Sodium 136 - 144 mmol/L 140 140 138 Potassium 3.7 - 5.1 mmol/L 4.3 4.5 4.2 Chloride 97 - 105 mmol/L 103 104 104 CO2 22 - 30 mmol/L 25 28 23 Anion Gap 9 - 18 mmol/L 12 8 (L) 11 eGFR >=60 mL/min/1.73m 83 78 81 Cholesterol, Total <200 mg/dL 241 (H) 233 (H) 243 (H) Triglyceride <150 mg/dL 80 62 61 HDL Cholesterol >39 mg/dL 76 82 81 Non HDL Cholesterol <130 mg/dL 165 (H) 151 (H) 162 (H) Fasting Time hrs 12 12 12 VLDL Cholesterol <30 mg/dL 16 12 12 TC:HDL Ratio <5.10 3.17 2.84 3.00 LDL Cholesterol <100 mg/dL 149 (H) 139 (H) 150 (H) LDL:HDL Ratio <2.54 1.96 1.70 1.85 Iron 41 - 186 ug/dL 53 65 TIBC 232 - 386 ug/dL 287 291 Transferrin Saturation 15.0 - 57.0 % 18.5 22.3 Vitamin D 25 Hydroxy 31.0 - 80.0 ng/mL 69.4 66.0 83.1 (H) Ferritin 14.7 - 205.1 ng/mL 282.0 (H) 249.0 (H) 213.0 (H) Uric Acid 2.5 - 6.6 mg/dL 6.0 Vitamin B12 232 - 1,245 pg/mL 948 Magnesium 1.7 - 2.3 mg/dL 1.9 WSR 0 - 20 mm/hr 8 CRP <0.9 mg/dL <0.3 Assessment and Plan Encounter Diagnosis ICD-10-CM 1. Cervical neck pain with evidence of disc disease M50.90 XR CERV OTHER 4V AP/LAT/OBL 2. Vitamin D deficiency E55.9 VITAMIN D 25 HYDROXY 3. Elevated ferritin R79.89 CBC FERRITIN BLD IRON + TIBC 4. Elevated LFTs R79.89 COMP METABOLIC PANEL 5. Mixed hyperlipidemia E78.2 LIPID PANEL BASIC 6. Paroxysmal atrial fibrillation (HCC) I48.0 7. Rheumatoid arthritis involving multiple sites, unspecified whether rheumatoid factor present (HCC) M06.9 SED RATE WESTERGREN C-REACTIVE PROTEIN (CRP) 8. Encounter for therapeutic drug monitoring Z51.81 COMP METABOLIC PANEL CBC LIPID PANEL BASIC VITAMIN D 25 HYDROXY FERRITIN BLD IRON + TIBC VITAMIN B12 BLOOD SED RATE WESTERGREN C-REACTIVE PROTEIN (CRP) 9. Encounter for immunization Z23 RSV PRINTED PHARMACY INSTRUCTIONS Above issues addressed with patient. Patient involved in shared decision making for management of medical issues. History and medications reviewed. Epic updated as needed Refills and/or prescriptions taken care of and meds adjusted as indicated after reviewed history, exam and labs. Health Maintenance reviewed. Updated record and/or ordered tests as recorded. Encouraged on efforts at healthy diet and regular exercise and adequate sleep. Niya Martinez MD documented in this encounterUniversity Hospitals [facility]aug[facility]09-25-2023 Instructions* Patient Instructions* Bety Mena MD - 03/10/2023 3:19 PM EDT General Breast Health Recommendations A healthy body helps promote healthy breasts. If you smoke, please consider a smoking cessation program. If you do not exercise, please consider starting an exercise program if you are able to, even if it is just walking in your neighborhood. Research shows that obesity, especially post-menopausal obesity, is a risk factor for breast cancer. Obtaining calcium in your diet or taking a calcium supplement that contains vitamin D is good for your bones. There is evolving evidence that Vitamin D supplementation may also help to decrease breast cancer risk. If you are post-menopausal and are bothered by hot flashes and still have a uterus, combined estrogen-progesterone preparations can increase your risk of breast cancer if taken for longer than five years. Alcohol is also an under-recognized risk factor. Every drink you have daily increases your breast cancer risk by 10%. Mammograms save lives. Have an annual mammogram annually beginning at age 40. Continue annual mammograms as long as you remain in good health. Breast self-exam, performed on day 7 of your menstrual cycle, can also be very helpful. Know your breasts and report changes to your health care provider or breast specialist. Clinical breast exams by your primary care provider or breast specialist are recommended annually every 1-3 years for women over the age of 20 and annually after the age of 40. Increased frequency ofthe clinical exam may be recommended for women at increased risk of breast cancer. Risk factors for breast cancer: Being a woman Family history of breast cancer Early menarche (onset of menses) prior to age 14 Nulliparity (never had children) First child after age 31 Late menopause (stopping of periods) after age 56 History of breast biopsy that showed atypical cells (ADH, ALH, LCIS, FEA) Presence of a genetic mutation (BRCA1, BRCA2, PTEN, P53, CDH1) History of chest wall irradiation (such as with Hodgkin's Lymphoma) prior to age 30 Personal history of breast cancer Post-menopausal Obesity Combined hormone therapy (estrogen and progesterone) for greater than 5 years Alcohol consumption of greater than 7 alcohol-containing drinks per week Breast density If you have a family history of breast or ovarian cancer, review this with your primary care provider or breast specialist to see if a referral for genetic counseling is recommended. 5-10% of breast cancers and up to 15% of ovarian cancers are linked to a genetic mutation. Signs of hereditary breast cancer syndrome include breast cancer that occurs under the age of 50, ovarian cancer at any age, male breast cancer, multiple family members affected with breast cancer, and a history of Ashkenazi Scientologist ancestry. Breast pain is very common and usually is not a sign of cancer, but should be evaluated by a breastspecialist. For comfort, simply reducing caffeine (coffee, tea, chocolate, energy drinks) in your diet can provide relief. A properly fitted bra can also be helpful in reducing breast pain. If those two measures do not provide relief, taking Evening [place] Oil 1000mg capsules twice a day for a short period of time (three to four months) may be helpful. Many women wonder about their breast density. Dense breast tissue is, in and of itself, a relatively common condition which could hide abnormalities in a screening mammogram. This information is not provided to cause undue concern; rather, it is to raise your awareness and promote discussion with your health care provider regarding the presence of dense breast tissue in addition to other risk factors. documented in this encounterUniversity Hospitals Ge[facility]09-25-2023 History of Present illness Narrative* Bety Mena MD - 03/10/2023 3:04 PM EDT Chief Complaint: Patient presents with: Follow Up Tests Results Nursing Notes: Jordan Katie ClineJOSHUA 03/10/2023 2:57 PM Signed Patient presents for follow up after imaging. Patient states of itchy nipples no discharge. Katie Ortega JOSHUA AGE AT [place] 13 AGE AT FIRST 22 FAMILY HISTORY OF BREAST CANCER Yes (IF YES) NUMBER OF FIRST DEGREE RELATIVES WITH BREAST CANCER 0 PREVIOUS BREAST BIOPSIES Yes (x2) RACE RJ MODEL RISK 5 YEAR 2.4 RJ MODEL RISK LIFETIME 4.8 HISTORY OF PRESENT ILLNESS: Oneida Steward is a 77 year old female who presents for CBE after imaging. She notes intermittent bilateral nipple itching, but no discharge or masses. Last time it occurred was 3 weeks ago and has occurred a couple of times. Longest is lasted has been a day. She has bilateral chronically inverted nipples which have been that way her entire adult life. PAST MEDICAL HISTORY Diagnosis Date Diarrhea Diverticulosis of colon (without mention of hemorrhage) Paroxysmal atrial fibrillation (HCC) 06/02/2017 Controlled on current meds; Dr. Akbar managing. Positive hepatitis C antibody test 06/02/2017 negative for chronic active hepatitis C Rheumatoid arthritis(714.0) Remission; note that diagnosis inflammatory arthritis (neg RF) on Dr. 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 Mena- Radial Scar CHOLECYSTECTOMY 12/25/1983 Cholecystectomy COLONOSCOPY FLX DX W/COLLJ SPEC WHEN PFRMD , 12/11/2001 Colonoscopy COLONOSCOPY FLX DX W/COLLJ SPEC WHEN PFRMD 02/13/2006 COLONOSCOPY FLX DX W/COLLJ SPEC WHEN PFRMD 11/29/2010 Colonoscopy COLONOSCOPY FLX DX W/COLLJ SPEC WHEN PFRMD N/A 02/02/2021 [facility]-Abdirizak Yuan MD LEFT HEART CATH,PERCUTANEOUS 11/14/2008 Cardiac cath, L heart [facility] - coronary angiography OPEN REPAIR OF ROTATOR CUFF ACUTE 01/16/2012 Rotator cuff repair left - [facility] PAST SURGICAL HISTORY OF Surgery on Bile Duct REVISE MEDIAN N/CARPAL TUNNEL SURG Left 2022 TOTAL ABDOMINAL HYSTERECT W/WO RMVL TUBE OVARY 12/03/2000 Hysterectomy, KINDRA, BSO Social History Tobacco Use Smoking status: Never Smokeless tobacco: Never Vaping Use Vaping Use: Never used Substance Use Topics Alcohol use: Yes Comment: Socially Drug use: No FAMILY HISTORY Problem Relation Age of Onset Colon Cancer Father 80 Breast Cancer Paternal Grandmother other (Other) Other No stock letterer cancer ALLERGIES No Known Allergies Current Outpatient Medications Medication Sig Milk Thistle 500 mg cap Take 500 mg by mouth. turmeric root extract 500 mg cap 1 cap(s) pyridoxine HCl, vitamin B6, (VITAMIN B-6 ORAL) Take by mouth. cyanocobalamin, vitamin B-12, (VITAMIN B-12 ORAL) Take by mouth. COD LIVER OIL ORAL Take by mouth. flecainide (TAMBOCOR) 100 mg tablet Take 1 tablet by mouth twice daily. This is to fill because told cannot fill her RX early before going to [place] for 4 weeks (cannot run out of med while away). Running out of medication can be detrimental to her health. Do not cancel her usual prescription with refills (Patient taking differently: Take 50 mg by mouth twice daily.) ELIQUIS 5 mg tab tab(s) 5 mg twice daily. metoprolol tartrate, short acting, (LOPRESSOR) 25 mg tablet 12.5 mg twice daily. MAGNESIUM CARBONATE ORAL Take by mouth. CALCIUM 500 MG TAB Take one(1) tablet two(2) times daily. VITAMIN D 400 UNIT CAP Take one(1) tablet two(2) times daily. No current facility-administered medications for this visit. PHYSICAL EXAM: BP 119/76 Pulse 52 Ht 5' 6.5 (1.69m) Wt 177 lb (80.3kg) BMI 28.14 kg/(m^2). General Appearance: Well appearing, alert, in no acute distress, well-hydrated, well nourished. Skin: Negative for jaundice or pallor. Lungs: Normal respirations Breast Exam: Right Mild diffuse fibrocystic changes especially in the upper outer quadrant but no dominant masses, worrisome skin changes, nipple discharge or axillary adenopathy. Chronically inverted right nipple. Well-healed incision on the right breast. Left Mild diffuse fibrocystic changes especially in the upper outer quadrant but no dominant masses, worrisome skin changes, nipple discharge or axillary adenopathy. Chronically inverted left nipple without discharge. Well-healed breast incisions. Data Reviewed: Bilat 3D mammograms performed today are negative, Birads 2 ASSESSMENT/PLAN: 1. Fibrocystic breast changes of both breasts - ICD9: 610.1, ICD10: N60.11, N60.12 (primary diagnosis) -77-year-old female with history of fibrocystic changes, breast papilloma, complex sclerosing lesion, and radial scar who has a family history of breast cancer and of late has noticed bilateral nipple pruritus without discharge. -Bilateral 3D mammograms performed today are negative. Her clinical breast exam other than the chronically inverted bilateral nipples is unremarkable. I do not appreciate any subareolar masses bilaterally. -Our plan is to obtain bilateral breast ultrasounds of the subareolar regions to rule out any ductal abnormality. We will call patient with results and if negative, plan on 3D mammograms and follow-up in 1 year. She and her are comfortable with this plan. 2. 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 Family history of breast cancer - ICD9: V16.3, ICD10: Z80.3 4. Pruritus of nipple - ICD9: 698.9, ICD10: L29.9 - US BREAST LTD LEFT - US BREAST LTD RIGHT--we will call with results 5. Inconclusive mammogram - ICD9: 793.82, ICD10: R92.2 - US BREAST LTD LEFT - US BREAST LTD RIGHT 6. Screening mammogram for breast cancer - ICD9: V76.12, ICD10: Z12.31 - CHAO SCREENING W BRIGIDA-- 1 year Bety Mena MD I verified the medical office coordinator/nurse documentation in the medical record, and made appropriate changes. I personally performed a history, physical exam and medical decision making. Bety Mena MD Medical Decision Making: Problems: Moderate: New problem with uncertain prognosis Data: Unique test result(s) reviewed: 1 Unique test(s) ordered: 3+ Risk: Minimal: Minimal risk from testing/treatment Medical Decision Making Level: 4 - Moderate documented in this encounterUniversity Hospitals [facility]09-25-2023 Nurse Note* Katie Ortega NA - 03/10/2023 2:55 PM EDT Patient presents for follow up after imaging. Patient states of itchy nipples no discharge. JOSHUA Robins documented in this encounterUniversity Hospitals Geaug[facility]09-25-2023 History of Present illness Narrative* Bekah Perales RT(R) - 03/10/2023 1:45 PM EDT Radiology Service Progress Note PATIENT NAME: Oneida Steward DATE OF SERVICE: March 10, 2023 TIME: 2:10 PM PATIENT IDENTITY VERIFICATION COMPLETED USING TWO (2) IDENTIFIERS: Name and Date of confirmedby patient verbally. FALL SCREENING: Has the patient had 2 falls in the last year or 1 fall with injury or currently using an Ambulatory Assistive Device (Walker, Cane, Wheelchair, Crutches, etc.)? No PATIENT GENDER DATA: Female. status: : No status: NO. PATIENT RELEVANT IMPLANT DATA REVIEWED: Not Applicable RADIOLOGY DEPARTMENT: Mammography PERIPHERAL IV DATA: Not applicable SIGNED BY: RT Myriam(R) March 10, 2023 2:10 PM documented in this encounterUniversity Hospitals Ge[facility]06-07-2023 History of Present illness Narrative* Dara Mir MD - 11/20/2022 8:57 AM EDT Oneida is a 77 year old who presents for an annual gynecologic exam without complaints. s/p hysterectomy H/o VAIN Postmenopausal: yes HRT use: No. Last Pap: 07/02/2012 normal HPV: 05/24/2005 negative History of abnormal pap: No Last mammogram: 2021 normal Sexually active: No OB History T2 L2 SAB1 IAB0 Ectopic0 Multiple0 Live Births2 [place] History LMP: Hysterectomy Age at Menarche: Age at First : Age at Menopause: [place] History Comments: Sexual Activity: Yes; Male Contraception: Surgical PAST MEDICAL HISTORY Diagnosis Date Diarrhea Diverticulosis of colon (without mention of hemorrhage) Paroxysmal atrial fibrillation (HCC) 06/02/2017 Controlled on current meds; Dr. Akbar managing. Positive hepatitis C antibody test 06/02/2017 negative for chronic active hepatitis C Rheumatoid arthritis(714.0) Remission; note that diagnosis inflammatory arthritis (neg RF) on Dr. 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 Mena- Radial Scar CHOLECYSTECTOMY 12/25/1983 Cholecystectomy COLONOSCOPY FLX DX W/COLLJ SPEC WHEN PFRMD , 12/11/2001 Colonoscopy COLONOSCOPY FLX DX W/COLLJ SPEC WHEN PFRMD 02/13/2006 COLONOSCOPY FLX DX W/COLLJ SPEC WHEN PFRMD 11/29/2010 Colonoscopy COLONOSCOPY FLX DX W/COLLJ SPEC WHEN PFRMD N/A 02/02/2021 [facility]-Abdirizak Yuan MD LEFT HEART CATH,PERCUTANEOUS 11/14/2008 Cardiac cath, L heart [facility] - coronary angiography OPEN REPAIR OF ROTATOR CUFF ACUTE 01/16/2012 Rotator cuff repair left - [facility] PAST SURGICAL HISTORY OF Surgery on Bile Duct TOTAL ABDOMINAL HYSTERECT W/WO RMVL TUBE OVARY 12/03/2000 Hysterectomy, KINDRA, BSO FAMILY HISTORY Problem Relation Age of Onset Colon Cancer Father 80 Breast Cancer Paternal Grandmother other (Other) Other No stock letterer cancer SOCIAL HISTORY Social History Tobacco Use Smoking status: Never Smokeless tobacco: Never Substance Use Topics Alcohol use: Yes Comment: Socially Drug use: No REVIEW OF SYSTEMS Abdomen: No abdominal pain, nausea, vomiting, diarrhea, or constipation. No bloating, early satiety, indigestion, or increased flatulence. Bladder: No dysuria, gross hematuria, urinary frequency, urinary urgency, or incontinence Breast: No breast lumps, nipple d/c, overlying skin changes, redness or skin retraction Allergies and current medication updated:Yes EXAM: BP 116/62 Ht 5' 6.5 (1.69m) Wt 177 lb (80.3kg) BMI 28.14 kg/(m^2). GENERAL: pleasant, female in no apparent distress HEENT: Normocephalic, atraumatic, mucus membranes moist, and no lesions NECK: Supple, full range of motion, no adenopathy, and thyroid normal DERMATOLOGY: Normal, without lesions, non-icteric, and non-hirsute BREAST: soft, non-tender, no dominant mass, normal nipple-areolar complex, no lymphadenopathy, and no nipple discharge, scars from previous surgery noted CHEST: Normal inspiratory effort ABDOMEN: soft, non-tender, and no masses PELVIC: external genitalia normal, normal Bartholin's glands, urethra, [place]'s glands, no vulvar lesions, good vaginal support, physiologic discharge present, normal appearing perineal body and perianal region, cervix surgically absent, atrophic flattened vaginal epithelium BIMANUAL: no adnexal masses, non-tender, and uterus surgically absent RECTOVAGINAL: deferred. NEURO: alert and oriented x3,exam grossly non-focal EXTREMITIES: normal ASSESSMENT/PLAN: 1) Health maintenance: Pap/HPV screening no longer needed Mammogram ordered Colon cancer screening: up to date with screening 2) Follow up one year or sooner as needed Dara Mir MD documented in this encounterUniversity Hospitals [facility]02-13-2023 History of Present illness Narrative* Maria Luisa Howard RN - 07/29/2022 10:[address] Morel, Oneida was provided with Gel Powerstep Inserts, size 7-8.5 Women's, and instructed/educated in its application, wear, and care. All questions were answered, and patient was able to demonstrate competence with the necessary skills to utilize the above equipment. Maria Luisa Howard RN * Mateo Morel - 07/29/2022 9:55 AM EST Images from the original note were not included. Consultation requested by Dr. Martinez for an opinion regarding left foot pain. My final recommendations will be communicated back to the requesting physician by way of shared Medical record or letter to requesting physician via US mail. Initial Podiatric Office Visit: Chief Complaint: This 76 year old female who presents with chief complaint:b/l great toe pain HPI Patient presents to clinic for evaluation of b/l feet. Patient complains of pain in both great toes L>R. In addition to the pain, she does have callus of ipj of b/l hallux and wonders if this is causing her pain. The pain in her great toes is most painful when she is walking. Patient hasn't done anything for the pain except for lotion and soaking. PAIN EVALUATION 07/28/2022 1051 Pain Level: 4 Pain Location: Foot-Left Description: Aching;Stabbing Intervention/Comfort measure: Other: See comment Comments: Feet Soakig, herbal cream No results found for: HBA1C PCP: Niya Martinez MD PAST MEDICAL HISTORY Diagnosis Date Diarrhea Diverticulosis of colon (without mention of hemorrhage) Paroxysmal atrial fibrillation (HCC) 06/02/2017 Controlled on current meds; Dr. Akbar managing. Positive hepatitis C antibody test 06/02/2017 negative for chronic active hepatitis C Rheumatoid arthritis(714.0) Remission; note that diagnosis inflammatory arthritis (neg RF) on Dr. 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 COD LIVER OIL ORAL Take by mouth. flecainide (TAMBOCOR) 100 mg tablet Take 1 tablet by mouth twice daily. This is to fill because told cannot fill her RX early before going to [place] for 4 weeks (cannot run out of med while away). Running out of medication can be detrimental to her health. Do not cancel her usual prescription with refills (Patient taking differently: Take 50 mg by mouth twice daily.) ELIQUIS 5 mg tab tab(s) 5 mg twice daily. metoprolol tartrate, short acting, (LOPRESSOR) 25 mg tablet 12.5 mg twice daily. MAGNESIUM CARBONATE ORAL Take by mouth. CALCIUM 500 MG TAB Take one(1) tablet two(2) times daily. VITAMIN D 400 UNIT CAP Take one(1) tablet two(2) times daily. docusate sodium (COLACE) 100 mg capsule Take 1 capsule by mouth twice daily as needed for constipation. While taking narcotic pain medications traMADol (ULTRAM) 50 mg tablet Take 1 tablet by mouth every 8 hours as needed for pain. (Patient not taking: No sig reported) pyridoxine HCl, vitamin B6, (VITAMIN B-6 ORAL) Take by mouth. (Patient not taking: No sig reported) No current facility-administered medications for this visit. ALLERGIES No Known Allergies PAST SURGICAL HISTORY Procedure Laterality Date ANESTHESIA SHOULDER: REPLACE Right 2017 APPENDECTOMY age 10 BX OF BREAST; INCISIONAL Bilateral 40+ years ago, benign per patient BX OF BREAST; INCISIONAL Left 02/14/2021 [facility]- Radial Scar BX OF BREAST; INCISIONAL Left 04/26/2021 Dr. Mena- Radial Scar CHOLECYSTECTOMY 12/25/1983 Cholecystectomy COLONOSCOPY FLX DX W/COLLJ SPEC WHEN PFRMD , 12/11/2001 Colonoscopy COLONOSCOPY FLX DX W/COLLJ SPEC WHEN PFRMD 02/13/2006 COLONOSCOPY FLX DX W/COLLJ SPEC WHEN PFRMD 11/29/2010 Colonoscopy COLONOSCOPY FLX DX W/COLLJ SPEC WHEN PFRMD N/A 02/02/2021 [facility]-Abdirizak Yuan MD LEFT HEART CATH,PERCUTANEOUS 11/14/2008 Cardiac cath, L heart [facility] - coronary angiography OPEN REPAIR OF ROTATOR CUFF ACUTE 01/16/2012 Rotator cuff repair left - [facility] PAST SURGICAL HISTORY OF Surgery on Bile Duct TOTAL ABDOMINAL HYSTERECT W/WO RMVL TUBE OVARY 12/03/2000 Hysterectomy, KINDRA, BSO FAMILY HISTORY Problem Relation Age of Onset Colon Cancer Father 80 Breast Cancer Paternal Grandmother other (Other) Other No stock letterer cancer Social History Tobacco Use Smoking status: Never Smokeless tobacco: Never Substance Use Topics Alcohol use: Yes Comment: Socially Drug use: No REVIEW OF SYSTEMS GENERAL: Negative for Malaise, significant weight loss, fever RESPIRATORY: Negative for cough, wheezing and shortness of breath CARDIOVASCULAR: Negative for chest pain, leg swelling and palpitations GI: Negative for abdominal discomfort, blood in stools or black stools and change in bowel habits : Negative for dysuria, frequency and incontinence MUSCULOSKELETAL: Negative for joint pain or swelling, back pain, and muscle pain. SKIN: Negative for lesions, rash, and itching. HEMATOLOGY/LYMPHOLOGY Negative for prolonged bleeding, bruising easily, and swollen nodes. ENDOCRINE: Negative for cold or heat intolerance, polyuria, polydipsia and goiter. NEURO: negative Physical Exam: Constitutional: Pt is a well developed 76 year old female who is alert, oriented and cooperative Eyes: Following during examination. No redness or drainage. Respiratory: RR normal and nonlabored. Even breathing. No evidence of distress or shortness of breath. Psychology: Patient is engaged during conversation. Normal affect and mood. Does not appear depressed or anxious during encounter. Vascular: Dorsalis pedis and posterior tibial pulses palpable as b/l Capillary Fill time < 5 seconds to digits 1-5 b/l Skin temperature warm to warm proximal to distal b/l Hair growth present to digits Neurological: intact light touch/epicritic sensation b/l intact protective sensation no significant neurological deficits Dermatological: Nails 1-5 b/l appear normal. Webspaces clean and dry 1-4 b/l. Skin appears well hydrated and supple. good color, texture, turgor. No open lesions present. 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 MTJ, STJ are full and free of pain and crepitus. +5/5 muscle strength dorsiflexion, plantarflexion, inversion, eversion b/l Radiographs: 3 views left foot ordered July 29, 2022: I have personally reviewed and interpreted these XR myself: no acute fracture. Small bunion of left foot. 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 History and physical examination performed. 2. XR reviewed with patient and interpreted today 3. Patient has porokeratosis of left hallux ipj and left 5th metatarsal. These were debrided with 15 blade.. tca applied under occlusion. Recommend powerstep inserts and offloading pad 4. Can follow-up as needed for porokeratosis debridement Mateo Morel DPM Podiatry [address] [facility] [address] Dept: [phone] Dept * Nevin Rivera LPN - 07/29/2022 9:41 AM EST AMB ROOMING INTAKE FLOWSHEET DATA Pain Pain Level: 4 Pain Location: Foot-Left Description: Aching, Stabbing Intervention/Comfort measure: Other: See comment Comments: Feet Soakig, herbal cream Patient presents with: Right Great Toe - New, Pain, Callous Left Great Toe - New, Pain, Callous Present to office with . Nevin Rivera LPN documented in this encounterUniversity Hospitals [facility]02-13-[facility]23 Instructions* Patient Instructions* Mateo Morel - 07/29/2022 10:08 AM EST Trichloroacetic acid (TCA) has been applied to the plantar warts. Rinse off in 12 hours and keep clean and dry. May bathe and shower normally starting the day after treatment The area is expected to burn and blister in about 1-3 days, if painful soak in plain, cool water. If blistered, you may drain the blister with a clean, STERILIZED needle and apply OTC antibiotic ointment and band aid to area. Repeat 2-3 times daily as needed. Tylenol or Aleve as needed for pain, provided you have no allergies to either of these. Keep scheduled follow up appointment to have wart(s) re-evaluated and/or additional treatments. Powerstep Original Full length. Can purchase at [employer] here in [place], [employer] in [place] or [employer]. Also can find in [employer] in [facility]. Powersteps can also be purchased online, starting around $25.00 If you have a metatarsal or dancer pad for your feet apply the pad directly to the insole so you can interchange between your shoes. Find a shoe with a removable insole and take this out and replace with your powerstep insole. Always bring powersteps with you when shopping for shoes so that you can make sure that everything fits well together Place pad on insert to offload callus 1. Color callus with magic marker or lipstick 2. Step on insert 3. Carefully remove from insert 4. Apply padding so that the karuk is around the transfer lesion. documented in this encounterUniversity Hospitals [facility]01-26-2023 History of Present illness Narrative* Inez Rojas RT(R) - 07/11/2022 3:20 PM EST Radiology Service Progress Note PATIENT NAME: Oneida Steward DATE OF SERVICE: July 11, 2022 TIME: 3:23 PM PATIENT IDENTITY VERIFICATION COMPLETED USING TWO (2) IDENTIFIERS: Name and Date of confirmedby patient verbally. FALL SCREENING: Has the patient had 2 falls in the last year or 1 fall with injury or currently using an Ambulatory Assistive Device (Walker, Cane, Wheelchair, Crutches, etc.)? No PATIENT GENDER DATA: Female. status: : No status: NO. PATIENT RELEVANT IMPLANT DATA REVIEWED: Not Applicable RADIOLOGY DEPARTMENT: General X-ray: Exam(s) Completed: Lower Extremity X- Ray(s): Foot, Left and Wt. Bearing PERIPHERAL IV DATA: Not applicable SIGNED BY: RT Alberta(R) July 11, 2022 3:23 PM documented in this encounterUniversity Hospitals [facility]01-26-2023 History of Present illness Narrative* Consuelo Boland - 07/11/2022 10:00 AM EST POPULATION HEALTH NAVIGATION OUTREACH Action/FYI Left vm Patient Identified by Name and : NO Outreach Outcome/Action Spoke to patient / parent / legal guardian: Patient scheduled Did you use a PCP flex slot to schedule this appointment? No Reason for Outreach Care Gap or Scheduling/Wellness visits Payer: Payor: MEDICARE / Plan: MEDICARE A AND B / Product Type: Medicare / Care Gap Reviewed:: Specialty Scheduling Reminder: Reminder note to check Health Maintenance for items below Health Maintenance items due: ADVANCE DIRECTIVE DISCUSSION due on 06/16/2022 DEPRESSION ASSESSMENT Never done Navigation Signature: Consuelo Boland July 11, 2022 10:00 AM documented in this encounterUniversity Hospitals [facility]01-20-2023 History of Present illness Narrative* Niya Martinez MD - 07/05/2022 4:41 PM EST Images from the original note were not included. This note was created using [employer]. Subjective Oneida Steward is a 76 year old female. HISTORY Oneida Steward is a 76 year old lady here for yearly exam and follow up appointment. Pain left great toe noted. Better in AM. Great toe medially with redness and tenderness--even light sheet hurts toe. Had both toes affected when was in [place]. Right comes and goes. Left bad or very bad. Okay at rest. Continues following with Dr. Akbar PAST MEDICAL HISTORY Diagnosis Date Diarrhea Diverticulosis of colon (without mention of hemorrhage) Paroxysmal atrial fibrillation (HCC) 06/02/2017 Controlled on current meds; Dr. Akbar managing. Positive hepatitis C antibody test 06/02/2017 negative for chronic active hepatitis C Rheumatoid arthritis(714.0) Remission; note that diagnosis inflammatory arthritis (neg RF) on Dr. 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 flecainide (TAMBOCOR) 100 mg tablet Take 1 tablet by mouth twice daily. This is to fill because told cannot fill her RX early before going to [place] 4 weeks (cannot run out of med while away). Running out of medication can be detrimental to her health. Do not cancel her usual prescription with refills (Patient taking differently: Take 50 mg by mouth twice daily.) ELIQUIS 5 mg tab tab(s) 5 mg twice daily. metoprolol tartrate, short acting, (LOPRESSOR) 25 mg tablet 12.5 mg twice daily. MAGNESIUM CARBONATE ORAL Take by mouth. CALCIUM 500 MG TAB Take one(1) tablet two(2) times daily. docusate sodium (COLACE) 100 mg capsule Take 1 capsule by mouth twice daily as needed for constipation. While taking narcotic pain medications (Patient not taking: No sig reported) traMADol (ULTRAM) 50 mg tablet Take 1 tablet by mouth every 8 hours as needed for pain. (Patient not taking: No sig reported) pyridoxine HCl, vitamin B6, (VITAMIN B-6 ORAL) Take by mouth. (Patient not taking: Reported on 07/05/2022) COD LIVER OIL ORAL Take by mouth. VITAMIN D 400 UNIT CAP Take one(1) tablet two(2) times daily. No current facility-administered medications for this visit. ALLERGIES No Known Allergies FAMILY HISTORY Problem Relation Age of Onset Colon Cancer Father 80 Breast Cancer Paternal Grandmother other (Other) Other No stock letterer cancer Social History Tobacco Use Smoking status: Never Smokeless tobacco: Never Substance Use Topics Alcohol use: Yes Comment: Socially Drug use: No Review of Systems Objective BP 128/60 Pulse (!) 56 Temp 36.7 C (98 F) Resp 18 Wt 81.2 kg (179 lb) SpO2 95% BMI (P) 28.46 kg/m Physical Exam Vitals reviewed. Constitutional: Appearance: She is well-developed. HENT: Head: Normocephalic and atraumatic. Right Ear: Tympanic membrane, ear canal and external ear normal. Left Ear: Tympanic membrane, ear canal and external ear normal. Nose: Nose normal. Eyes: Conjunctiva/sclera: Conjunctivae normal. Neck: Thyroid: No thyromegaly. Vascular: No carotid bruit. Cardiovascular: Rate and Rhythm: Normal rate and regular rhythm. Pulses: Normal pulses. Heart sounds: Normal heart sounds. No murmur heard. No friction rub. No gallop. Pulmonary: Effort: Pulmonary effort is normal. Breath sounds: Normal breath sounds. Abdominal: General: Bowel sounds are normal. There is no distension. Palpations: Abdomen is soft. There is no mass. Tenderness: There is no abdominal tenderness. Musculoskeletal: General: No deformity. Normal range of motion. Feet: Lymphadenopathy: Cervical: No cervical adenopathy. Skin: General: Skin is warm and dry. Coloration: Skin is not jaundiced or pale. Findings: No rash. Neurological: General: No focal deficit present. Mental Status: She is alert and oriented to person, place, and time. Cranial Nerves: No cranial nerve deficit. Sensory: No sensory deficit. Motor: No abnormal muscle tone. Coordination: Coordination normal. Deep Tendon Reflexes: Reflexes normal. Psychiatric: Mood and Affect: Mood normal. Behavior: Behavior normal. Thought Content: Thought content normal. Judgment: Judgment normal. Component Latest Ref Rng & Units 07/10/2021 01/21/2022 07/01/2022 Protein, Total 6.3 - 8.0 g/dL 7.0 7.2 7.1 Albumin 3.9 - 4.9 g/dL 3.9 4.1 4.1 Calcium 8.5 - 10.2 mg/dL 9.7 9.9 9.7 Bilirubin, Total 0.2 - 1.3 mg/dL 0.4 0.4 0.3 Alkaline Phosphatase 34 - 123 U/L 165 (H) 178 (H) 153 (H) AST 13 - 35 U/L 50 (H) 58 (H) 55 (H) Glucose 74 - 99 mg/dL 92 95 93 BUN 7 - 21 mg/dL 13 16 16 Creatinine 0.58 - 0.96 mg/dL 0.71 0.75 0.79 Sodium 136 - 144 mmol/L 141 140 140 Potassium 3.7 - 5.1 mmol/L 4.3 4.3 4.5 Chloride 97 - 105 mmol/L 104 103 104 CO2 22 - 30 mmol/L 30 25 28 Anion Gap 9 - 18 mmol/L 7 (L) 12 8 (L) ALT 7 - 38 U/L 61 (H) 79 (H) 62 (H) eGFR- >60 eGFR-All Other Races . >60 eGFR >=60 mL/min/1.73m 83 78 WBC 3.70 - 11.00 k/uL 7.00 7.15 7.03 RBC 3.90 - 5.20 m/uL 4.31 4.59 4.44 Hemoglobin 11.5 - 15.5 g/dL 13.3 14.2 13.8 Hematocrit 36.0 - 46.0 % 41.4 43.0 41.7 MCV 80.0 - 100.0 fL 96.1 93.7 93.9 MCH 26.0 - 34.0 pg 30.9 30.9 31.1 MCHC 30.5 - 36.0 g/dL 32.1 33.0 33.1 RDW-CV 11.5 - 15.0 % 13.3 13.5 13.6 Platelet Count 150 - 400 k/uL 222 222 233 MPV 9.0 - 12.7 fL 10.5 11.7 11.1 Absolute nRBC <0.01 k/uL <0.01 <0.01 <0.01 Cholesterol, Total <200 mg/dL 233 (H) 241 (H) 233 (H) Triglyceride <150 mg/dL 71 80 62 HDL Cholesterol >39 mg/dL 77 76 82 LDL Cholesterol <100 mg/dL 142 (H) 149 (H) 139 (H) Non HDL Cholesterol <130 mg/dL 156 (H) 165 (H) 151 (H) Fasting Time hrs 12 12 12 VLDL Cholesterol <30 mg/dL 14 16 12 TC:HDL Ratio <5.10 3.03 3.17 2.84 LDL:HDL Ratio <2.54 1.84 1.96 1.70 Iron 41 - 186 ug/dL 53 TIBC 232 - 386 ug/dL 287 Transferrin Saturation 15.0 - 57.0 % 18.5 Vitamin D 25 Hydroxy 31.0 - 80.0 ng/mL 101.0 (H) 66.0 Ferritin 14.7 - 205.1 ng/mL 274.0 (H) 282.0 (H) 249.0 (H) Uric Acid 2.5 - 6.6 mg/dL 6.0 Assessment and Plan Encounter Diagnosis ICD-10-CM 1. Pain of left great toe M79.675 XR FOOT GENERAL 3V AP/LAT/OBL LEFT CONSULT TO PODIATRY 2. Elevated LFTs R79.89 3. Vitamin D deficiency E55.9 4. Mixed hyperlipidemia E78.2 5. Elevated ferritin R79.89 6. Bilateral leg edema R60.0 Right more than left, chronic 7. Paroxysmal atrial fibrillation (HCC) I48.0 controlled with med Patient here for yearly exam and follow up. Above issues addressed with patient. Patient involved in shared decision making for management of medical issues. History and medications reviewed. Epic updated as needed Refills taken care of and meds adjusted as indicated after reviewed history, exam and labs. Health Maintenance reviewed. Updated record and/or ordered tests as recorded. Encouraged on efforts at healthy diet and regular exercise and adequate sleep. I spent a total of 43 minutes on the date of the service which included preparing to see the patient, [id number] patient care, completing clinical documentation, obtaining and/or reviewing separately obtained history, performing a medically appropriate examination, counseling and educating the pat ient/family/caregiver, and ordering medications, tests, or procedures. Niya Martinez MD documented in this encounterUniversity Hospitals [facility]01-11-2023 Miscellaneous Notes* Telephone Encounter - aMry Mir LPN - 06/26/2022 4:10 PM EST Detailed message left for patient ordered and My Chart message sent also. * Telephone Encounter - Dora Renee APRN.CNP - 06/26/2022 2:41 PM EST Please let her know order has been placed. * Telephone Encounter - Luiza Mcintosh - 06/24/2022 8:49 AM EST Patient contacted us via my chart would like lab orders entered to test uric acid for gout. Please enter order and contact patient when done. Luiza Mcintosh documented in this encounterUniversity Hospitals [facility]08-25-2022 Instructions* Patient Instructions* Bety Mena MD - 02/07/2022 2:39 PM EDT Breast Self-Exam What is a breast self-exam? A breast self-exam is a way a woman can examine her breasts to look for changes (such lumps or thickenings) that may signal breast cancer. When a woman detects breast cancer in its early stages, she greatly improves her chances for surviving the disease. Most breast lumps (80 percent) are not cancerous, but you can help ensure your breast health by regularly performing a breast self-exam. When should I perform a breast self-exam? You should perform a breast self-exam once a month, three to five days after your menstrual period ends. If you have stopped menstruating, perform the exam on the same day of each month, such as the first day of the month or a day easy for you to remember, like your date. With each exam, you will become familiar with the contours and feel of your breasts and will be more alert to changes. How do I perform a breast self-exam? To perform a breast self-exam, follow the steps described below: In the mirror 1. The first part of the exam is the inspection, or looking at your breasts. Stand undressed from waist up in front of a large mirror in a well-lit room. Look at your breasts. Don't be alarmed if they do not look equal in size or shape. Most women's breasts are not. With your arms relaxed by your sides, look for any changes in your breasts' size, shape, texture, or skin. Look for any sores as well as any puckering, dimpling, or discoloration of the skin. Inspect your nipples and look for any sores, peeling, or change in the direction of the nipples. 2. Next, place your hands on your hips and press down firmly to tighten the chest muscles beneath your breasts. Turn from side to side so you can inspect the outer part of your breasts. 3. Bend forward toward the mirror. Roll your shoulders and elbows forward to tighten your chest muscles. Your breasts will fall forward. Look for any changes in the shape or contour of your breasts. 4. Now, clasp your hands behind your head and press your hands forward. Again, turn from side to side to inspect your breasts' outer portions. Remember to inspect the border underneath your breasts. You may need to lift your breasts with your hand to see this area. 5. Check your nipples for discharge (fluid). Place your thumb and forefinger on the tissue surrounding the nipple, and pull outward toward the end of the nipple. Look for any discharge. Repeat on your other breast. In the shower 6. The second part of the exam is palpation, or feeling for changes. It is helpful to have your hands slippery with soap and water. Check for any lumps or thickening in your underarm area. Place yourleft hand on your hip and reach with your right hand to feel in the left armpit. Repeat on the other side. 7. Check both sides for lumps or thickenings below your collarbone. 8. With soapy hands, support the breast with one hand while using the other hand to feel the tissue. Use the flat part of your fingers to press gently into the breast. Follow an up-and-down pattern along the breast, moving from bra line to collarbone. Continue the pattern until you have covered theentire breast. Repeat on the other side. Lying down 9. Next, lie down and place a small pillow or folded towel under your right shoulder. Put your right hand behind your head. Place your left hand on the upper portion of your right breast with fingerstogether and flat. Body lotion may help to make palpation easier. 10. Think of your breast as a face on a clock. Start at 12 o'clock and move toward 1 o'clock in small circular motions. Continue around the entire karuk until you reach 12 o'clock again. Keep your fingers flat and in constant contact with your breast. When the karuk is complete, move in one inch toward the nipple and complete another karuk around the clock. Continue in this pattern until your entire breast has been palpated. Make sure to palpate the upper outer areas that extend into your armpit. 11. Place your fingers flat and directly on top of your nipple. Feel beneath the nipple for any changes. Gently press your nipple inward. It should move easily. Repeat steps 9, 10, and 11 on your other breast. What should I do if I find a lump? See your physician if you discover any new breast changes, changes that persist after your menstrual cycle, or changes that concern you. Conditions that should be checked by a physician include: An area that is distinctly different from any other area on either breast A lump or thickening in or near the breast or in the underarm that persists through the menstrual cycle A change in the size, shape, or contour of the breast A mass or lump, which may feel as small as a pea A marble-like area under the skin A change in the feel or appearance of the skin on the breast or nipple [dimpled, puckered, scaly, or inflamed (red, warm, or swollen)] Bloody or clear fluid discharge from the nipples Redness of the skin on the breast or nipple Copyright 7366-1792 The [facility]. All rights reserved This information is provided by the [facility] and is not intended to replace the medical advice of your doctor or health care provider. Please consult your health care provider for advice about a specific medical condition. For additional written health information, please contact the [facility] at the [facility] or toll-free extension [phone] or visit [email or web address] This document was last reviewed on: 2003 index#[id number] documented in this encounterUniversity Hospitals Geauga Medical Center08-25-2022 History of Present illness Narrative* Bety Mena MD - 02/07/2022 2:24 PM EDT Chief Complaint: Breast check HISTORY OF PRESENT ILLNESS: Patient presents for follow up after imaging. Denies any new concerns. Katie Ortega MA Patient denies any new breast lumps, pain or discharge. PAST MEDICAL HISTORY Diagnosis Date Diarrhea Diverticulosis of colon (without mention of hemorrhage) Paroxysmal atrial fibrillation (HCC) 06/02/2017 Controlled on current meds; Dr. Akbar managing. Positive hepatitis C antibody test 06/02/2017 negative for chronic active hepatitis C Rheumatoid arthritis(714.0) Remission; note that diagnosis inflammatory arthritis (neg RF) on Dr. 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 Mena- Radial Scar CHOLECYSTECTOMY 12/25/1983 Cholecystectomy COLONOSCOPY FLX DX W/COLLJ SPEC WHEN PFRMD , 12/11/2001 Colonoscopy COLONOSCOPY FLX DX W/COLLJ SPEC WHEN PFRMD 02/13/2006 COLONOSCOPY FLX DX W/COLLJ SPEC WHEN PFRMD 11/29/2010 Colonoscopy COLONOSCOPY FLX DX W/COLLJ SPEC WHEN PFRMD N/A 02/02/2021 [facility]-Abdirizak Yuan MD LEFT HEART CATH,PERCUTANEOUS 11/14/2008 Cardiac cath, L heart [facility] - coronary angiography OPEN REPAIR OF ROTATOR CUFF ACUTE 01/16/2012 Rotator cuff repair left - [facility] PAST SURGICAL HISTORY OF Surgery on Bile Duct TOTAL ABDOMINAL HYSTERECT W/WO RMVL TUBE OVARY 12/03/2000 Hysterectomy, KINDRA, BSO Social History Tobacco Use Smoking status: Never Smokeless tobacco: Never Substance Use Topics Alcohol use: Yes Comment: Socially Drug use: No FAMILY HISTORY Problem Relation Age of Onset Colon Cancer Father 80 Breast Cancer Paternal Grandmother other (Other) Other No stock letterer cancer ALLERGIES No Known Allergies Current Outpatient Medications Medication Sig pyridoxine HCl, vitamin B6, (VITAMIN B-6 ORAL) Take by mouth. cyanocobalamin, vitamin B-12, (VITAMIN B-12 ORAL) Take by mouth. COD LIVER OIL ORAL Take by mouth. flecainide (TAMBOCOR) 100 mg tablet Take 1 tablet by mouth twice daily. This is to fill because told cannot fill her RX early before going to [place] for 4 weeks (cannot run out of med while away). Running out of medication can be detrimental to her health. Do not cancel her usual prescription with refills (Patient taking differently: Take 50 mg by mouth twice daily.) ELIQUIS 5 mg tab tab(s) 5 mg twice daily. metoprolol tartrate, short acting, (LOPRESSOR) 25 mg tablet 12.5 mg twice daily. MAGNESIUM CARBONATE ORAL Take by mouth. CALCIUM 500 MG TAB Take one(1) tablet two(2) times daily. VITAMIN D 400 UNIT CAP Take one(1) tablet two(2) times daily. docusate sodium (COLACE) 100 mg capsule Take 1 capsule by mouth twice daily as needed for constipation. While taking narcotic pain medications (Patient not taking: No sig reported) traMADol (ULTRAM) 50 mg tablet Take 1 tablet by mouth every 8 hours as needed for pain. (Patient not taking: No sig reported) No current facility-administered medications for this visit. PHYSICAL EXAM: 146/79 51 WT 79 HT 168 General Appearance: Well appearing, alert, in no acute distress, well-hydrated, well nourished. Skin: Negative for jaundice or pallor. Lungs: Normal respirations Breast Exam: Right Mild diffuse fibrocystic changes with well-healed incision superior aspect at the areola skin junction without dominant mass, nipple discharge, or axillary adenopathy. She has chronic right nipple inversion. Left Well-healed incision lateral aspect without dominant mass, worrisome skin changes, nipple discharge, or axillary adenopathy. She has mild diffuse fibrocystic changes and chronic left nipple inversion, unchanged. Data Reviewed: Bilateral 3D mammograms performed today are negative, BI-RADS 2 ASSESSMENT/PLAN: 1. 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 Screening 3D mammograms performed today are stable without any new findings andher breast exam is also stable. -She plans on obtaining 3D mammograms in 1 year with follow-up. 2. 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 Fibrocystic breast changes of both breasts - ICD9: 610.1, ICD10: N60.11, N60.12 4. Visit for screening mammogram - ICD9: V76.12, ICD10: Z12.31 - Follow up for annual exam in one year. - [facility] SCREENING W BRIGIDA Mena MD Medical Decision Making: Problems: Low: Stable chronic illness Data: Unique test result(s) reviewed: 1 Unique test(s) ordered: 1 Risk: Minimal: Minimal risk from testing/treatment Medical Decision Making Level: 3 - Low I verified the medical office coordinator/nurse documentation in the medical record, and made appropriate changes. I personally performed a history, physical exam and medical decision making. Bety Mena MD documented in this encounterUniversity Hospitals Geauga Medical Center08-15-2022 History of Present illness Narrative* Malina King RT(R) - 01/28/2022 2:30 PM EDT Radiology Service Progress Note PATIENT NAME: Oneida Steward DATE OF SERVICE: January 28, 2022 TIME: 2:54 PM PATIENT IDENTITY VERIFICATION COMPLETED USING TWO (2) IDENTIFIERS: Name and Date of confirmedby patient verbally. FALL SCREENING: Has the patient had 2 falls in the last year or 1 fall with injury or currently using an Ambulatory Assistive Device (Walker, Cane, Wheelchair, Crutches, etc.)? No PATIENT GENDER DATA: Female. status: : No status: NO. 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 06/02/2017 Other premature beats 12/15/2008 06/02/2017 Unspecified constipation 017 Internal hemorrhoids without mention of complica tion 10/13/2015 documented as of this encounter (statuses as of 01/29/2022) [facility] History of Past illness Narrative* Problem Noted Date Resolved Date 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 06/02/2017 Other premature beats 12/15/2008 06/02/2017 Unspecified constipation 017 Internal hemorrhoids without mention of complica tion 10/13/2015 documented as of this encounter (statuses as of 02/07/2022) [facility] History of Past illness Narrative* Problem Noted Date Resolved Date 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 06/02/2017 Other premature beats 12/15/2008 06/02/2017 Unspecified constipation 017 Internal hemorrhoids without mention of complica tion 10/13/2015 documented as of this encounter (statuses as of 02/08/2022) [facility] of Past illness Narrative* Problem Noted Date Resolved Date 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 06/02/2017 Other premature beats 12/15/2008 06/02/2017 Unspecified constipation 017 Internal hemorrhoids without mention of complica tion 10/13/2015 documented as of this encounter (statuses as of 06/26/2022) [facility] History of Past illness Narrative* Problem Noted Date Resolved Date 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 06/02/2017 Other premature beats 12/15/2008 06/02/2017 Unspecified constipation 017 Internal hemorrhoids without mention of complica tion 10/13/2015 documented as of this encounter (statuses as of 06/26/2022) [facility] of Past illness Narrative* Problem Noted Date Resolved Date 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 06/02/2017 Other premature beats 12/15/2008 06/02/2017 Unspecified constipation 017 Internal hemorrhoids without mention of complica tion 10/13/2015 documented as of this encounter (statuses as of 07/11/2022) [facility] of Past illness Narrative* Problem Noted Date Resolved Date 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 06/02/2017 Other premature beats 12/15/2008 06/02/2017 Unspecified constipation 017 Internal hemorrhoids without mention of complica tion 10/13/2015 documented as of this encounter (statuses as of 07/15/2022) [facility] of [facility] illness Narrative* Problem Noted Date Resolved Date 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 06/02/2017 Other premature beats 12/15/2008 06/02/2017 Unspecified constipation 017 Internal hemorrhoids without mention of complica tion 10/13/2015 documented as of this encounter (statuses as of 07/29/2022) [facility] of [facility] illness Narrative* Problem Noted Date Resolved Date 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 06/02/2017 Other premature beats 12/15/2008 06/02/2017 Unspecified constipation 017 Internal hemorrhoids without mention of complica tion 10/13/2015 documented as of this encounter (statuses as of 11/20/2022) [facility] of Past illness Narrative* Problem Noted Date Diagnosed Date Resolved Date VAIN I (vaginal intraepithel ial neoplasia grade I) 04/24/2009 06/02/2017 Other premature beats 12/15/20082016 Unspecified constipation Internal hemorrhoids without mention of complication 10/13/2015 documented as of this encounter (statuses as of 03/11/2023) [facility] of [facility] illness Narrative* Problem Noted Date Diagnosed Date Resolved Date VAIN I (vaginal intraepithel ial neoplasia grade I) 04/24/2009 06/02/2017 Other premature beats 12/15/20082016 Unspecified constipation Internal hemorrhoids without mention of complication 10/13/2015 documented as of this encounter (statuses as of 03/11/2023) [facility] of [facility] illness Narrative* Problem Noted Date Diagnosed Date Resolved Date VAIN I (vaginal intraepithel ial neoplasia grade I) 04/24/2009 06/02/2017 Other premature beats 12/15/20082016 Unspecified constipation Internal hemorrhoids without mention of complication 10/13/2015 documented as of this encounter (statuses as of 07/18/2023) [facility] of [facility] illness Narrative* Problem Noted Date Diagnosed Date Resolved Date VAIN I (vaginal intraepithel ial neoplasia grade I) 04/24/2009 06/02/2017 Other premature beats 12/15/20082016 Unspecified constipation Internal hemorrhoids without mention of complication 10/13/2015 documented as of this encounter (statuses as of 07/21/2023) [facility] of [facility] illness Narrative* Problem Noted Date Diagnosed Date Resolved Date VAIN I (vaginal intraepithel ial neoplasia grade I) 04/24/2009 06/02/2017 Other premature beats 12/15/20082016 Unspecified constipation Internal hemorrhoids without mention of complication 10/13/2015 documented as of this encounter (statuses as of 07/24/2023) [facility] of [facility] illness Narrative* Problem Noted Date Diagnosed Date Resolved Date VAIN I (vaginal intraepithel ial neoplasia grade I) 04/24/2009 06/02/2017 Other premature beats 12/15/20082016 Unspecified constipation Internal hemorrhoids without mention of complication 10/13/2015 documented as of this encounter (statuses as of 08/15/2023) [facility] of [facility] illness Narrative* Problem Noted Date Diagnosed Date Resolved Date VAIN I (vaginal intraepithel ial neoplasia grade I) 04/24/2009 06/02/2017 Other premature beats 12/15/20082016 Unspecified constipation Internal hemorrhoids without mention of complication 10/13/2015 documented as of this encounter (statuses as of 09/02/2023) [facility] of [facility] illness Narrative* Problem Noted Date Diagnosed Date Resolved Date VAIN I (vaginal intraepithel ial neoplasia grade I) 04/24/2009 06/02/2017 Other premature beats 12/15/20082016 Unspecified constipation Internal hemorrhoids without mention of complication 10/13/2015 documented as of this encounter (statuses as of 10/03/2023) [facility] CenterDischarge summary Author Brennon Johnston [facility] August 18, 2023 10:30am Note Date/Time August 18, 2023 8:44 am [facility] Medical Records Department [address] [place] [address] Emergency Department Summary 08/18/23 MR#: [id number] Acct: [id number] Name: ONEIDA STEWARD Rep #:[id number] : 1945 77 From: Brennon Johnston MD PCP: Dr. Niya Martinez MD Status:RE G ER Location: ED HPI History of Present Illness Chief Complaint: Headache Detail of Chief Complaint: Headache that started approximately 1 month ago Informant: patient and spouse/S.O. Onset/Context/Timing Onset: Month(s) (Approximately 1 month) Context: Sudden Timing: Continuous (Continue was initially on the right side. Now alternates toleft) Quality -Headache: Positive for Other (An explosion it in my head); Negative forSimilar Prior Headaches, Sharp, Dull, Throbbing, Tightness or Burning Current Severity: Moderate Maximum Severity: Severe Worsened by: Nothing specific Relieved by: Improved when she was prescribed prednisone by her PCP Associated Symptoms/Injury Associated Symptoms: Positive for Sore Throat (Initially); Negative for Fever, Nausea, Vomiting, Sinus Pressure, Numbness, Tingling, Preceding Aura, Visual Changes, Blurred Vision, Photophobia or Visual Loss Injury - STEPHENS: Negative for Direct Trauma Narrative Narrative: Patient is a 77-year-old woman with history of atrial fibrillation on long-term anticoagulant, apixaban. Patient was seen by her PCP approximately 1 month ago. She was prescribed prednisone and an antibiotic because she had respiratory like symptoms. She states the headache improved with the prednisone. Headache is now worse. There is nothing specific that makes it worse. She states the headache was initially constant and on the right side. It has now shifted intermittently to the left side. She describes it as her head is about to explode. She denies double vision, blurred vision loss of vision. She denies trouble with speech or swallowing. When asked if she has had problems with coordination she states something is off. She denies respiratory or cardiac symptoms. She denies GI symptoms. Patient was recently prescribed losartan for elevated blood pressure. She states she normally does not have an elevated blood pressure. Her blood pressure is presently being managed by [facility]. Prior similar symptoms: No Recent Illness/Hospitalization: No PFSH PFSH Medical History Alcohol use Cardiac murmur Cardiology follow-up encounter Chest pain on respiration Constipation Dyspnea on exertion Family history of colon cancer in father High cholesterol HLD (hyperlipidemia) Migraine headache Mitral valve regurgitation New onset a-fib Non-smoker Nonrheumatic mitral (valve) insufficiency PAC (premature atrial contraction) Palpitations Paroxysmal supraventricular tachycardia by electrocardiogram (ECG) Post-menopausal Pure hypercholesterolemia PVC (premature ventricular contraction) PVD (peripheral vascular disease) Rheumatoid arthritis Shortness of breath Shortness of breath on exertion Syncope Syncope and collapse Wears glasses Home Medications cholecalciferol (vitamin D3) 25 mcg (1,000 unit) capsule 25 mcg PO DAILY 01/17/21 [History Last Taken Unknown] omega-3 fatty acids 1,000 mg capsule (Fish Oil Concentrate) 1,000 mg PO DAILY 01/17/21 [History Last Taken Unknown] apixaban 5 mg tablet 5 mg PO BID #180 tabs 07/31/21 [Rx Last Taken Unknown] milk thistle 500 mg capsule 500 mg PO DAILY 10/24/21 [History Last Taken Unknown] flecainide 100 mg tablet 50 mg (1/2 x 100 mg) PO Q12H #90 tabs 08/08/23 [Rx Last Taken Unknown] losartan 50 mg tablet 50 mg PO DAILY #90 tabs 08/08/23 [Rx Last Taken Unknown] metoprolol tartrate 25 mg tablet 12.5 mg (1/2 x 25 mg) PO BID avoid [employer] pink brand, doesn't work for pt. #90 tabs 08/08/23 [Rx Last Taken Unknown] amoxicillin 875 mg-potassium clavulanate 125 mg tablet 875 mg (0.875 x 875-125 mg) PO Q12H #20 TABLETS 08/18/23 [Rx Last Taken Unknown] Allergy/AdvReac Type Severity Reaction Status Date / Time iodine AdvReac Severe Pt, states Verified 08/08/23 11:26 may have possible reaction Family History Father Colon cancer Mother CVA (cerebral vascular accident) Surgical History History of carpal tunnel release History of cholecystectomy History of cyst of breast (~04/2021) History of hysterectomy History of repair of rotator cuff History of shoulder replacement History of tonsillectomy History of tubal ligation Social History Smoking Status: Never smoker alcohol intake: current alcohol intake frequency: holidays/special occasions only substance use type: does not use caffeine: Yes what type of physical activity do you participate in: none frequency: does not exercise ROS ROS ED Constitutional Constitutional ED: Denies chills, fever(s), subjective, sweats or weight loss Eyes Eyes: Denies blurry vision, change in vision or diplopia ENT ENT ED: Reports rhinorrhea, sore throat and other Details: HEENT symptoms were initially present. ; Denies ear pain Cardiovascular Cardiovascular: Denies chest pain or palpitations Respiratory/Chest Respiratory/Chest: Denies cough, dyspnea or dyspnea on exertion Gastrointestinal Gastrointestinal: Denies abdominal pain, constipation, diarrhea, melena, nausea or vomiting Genitourinary Genitourinary ED: Denies dysuria, hematuria or urinary frequency Musculoskeletal Musculoskeletal: Reports arthralgias, neck pain and other Details: Patient states she has a history of rheumatoid arthritis. ; Denies back pain or myalgias Integumentary Denies rash Neurologic Neurologic: Reports headache(s); Denies paresthesias or weakness Psychiatric Psychiatric: Denies anxiety Hematologic/Lymphatic Hematologic/Lymphatic: Reports easy bruising; Denies easy bleeding EXAM Physical Exam Const Vital Signs: 08/18/23 08:05 Temperature 97.9 F Temperature Source Temporal Pulse Rate 67 Respiratory Rate 14 Blood Pressure 173/75 H Blood Pressure Mean 107 Pulse Ox 93 Oxygen Delivery Method Room Air Positive well nourished, well developed and obese General Appearance ED: well developed and NAD; Negative for cyanotic, diaphoretic or pallor Nutritional Appearance: obese HEENT Reports normocephalic, TM's clear and moist mucous membranes HEENT Narrative: Ears are normal. External auditory canal is normal. There is no tenderness over the frontal, ethmoid or maxillary sinuses. Patient reports pain with palpation of her scalp postauricular region. She does not endorse a trigger point. She does not describe it as electrical or pulsating. atraumatic Tympanic Membrane ED: Yes TM's clear Eyes PERRL and EOMs intact bilaterally Eyes Narrative: There is no nystagmus. General Eye ED: Negative for pale conjunctiva or scleral icterus Neck no lymphadenopathy, supple, no meningeal signs and no JVD Neck Narrative: Limited range of motion especially turning to the right causes her discomfort and she grimaces. She had x-rays done as an outpatient at the [facility] which revealed degenerative changes. Resp normal respiratory effort and clear to auscultation bilaterally Cardio regular rate, regular rhythm, S1 normal heart sound, S2 normal heart sound and no murmurs GI non-tender and non-distended Auscultation: normoactive bowel sounds Palpation: soft Extremity normal to inspection and full ROM Neuro oriented x3, CN's II-XII intact bilaterally and no sensory deficits noted Neuro Narrative: There is no dysmetria. There is no clonus or Babinski sign. Summer Coma Scale: document GCS findings Spontaneous Obeys Commands Oriented 15 Sensorium / Orientation: awake and alert Coordination / Balance: [id number] test normal Speech: speech normal Motor Exam: strength 5/5 throughout Psych mental status grossly normal Skin General Skin Exam: Negative for jaundice or pallor Lesions: no lesions Rashes: no rashes MDM MDM MDM Narrative Medical decision making narrative: Patient have an intractable headache that has gotten worse on anticoagulant needto entertain possibility of epidural hematoma, subdural hematoma, subarachnoid hemorrhage and intraparenchymal bleed. Epidural be less likely. This also may be a tension headache due to degenerative neck disease. In light of her age andthe fact that it was unilateral need to entertain possibility of vasculitis. ESR was obtained. Last dose of prednisone was [address] of the head was obtained without contrast. History & Record Review Additional record(s) reviewed:: Prior outpatient record (Report of cervical spine reviewed.), Prior ED visit and Prior labs Lab Data Attestation: I reviewed the patient's lab results. Lab results narrative: CBC is normal. ESR is normal. Basic metabolic panel is remarkable for slight elevation of alkaline phosphatase at 338 otherwise unremarkable. Labs: Laboratory Results - last 24 hr 08/18/23 09:30 WBC 7.9 RBC 4.39 Hgb 13.6 Hct 41.4 MCV 94.3 MCH 31.0 MCHC 32.9 RDW Std Deviation 46.7 H RDW Coeff of Claudia 13.5 Plt Count 248 MPV 10.1 Immature Gran % (Auto) 0.300 Neut % (Auto) 60.8 Lymph % (Auto) 24.1 Hardee % (Auto) 11.0 H Eos % (Auto) 3.5 Baso % (Auto) 0.3 Absolute Neuts (auto) 4.8 Absolute Lymphs (auto) 1.91 Nucleated RBC % 0 ESR 6 Sodium 139 Potassium 3.8 Chloride 107 Carbon Dioxide 29.0 Anion Gap 3 L BUN 12 Creatinine 0.66 Estim Creat Clear Calc 64.96 Est GFR (MDRD) Af Amer 111 Est GFR (MDRD) Non-Af 92 BUN/Creatinine Ratio 18.1 Glucose 108 H Calcium 9.5 Total Bilirubin 0.50 AST 49 H ALT 104 H Alkaline Phosphatase 238 H Total Protein 7.3 Albumin 3.3 Globulin 4.0 Albumin/Globulin Ratio 0.8 L Radiography Diagnostic Testing: Clinical Impression(s) from Imaging Studies Brain CT 08/18/23 08:35 IMPRESSION: 1. No CT evidence of intracranial bleeding, acute ischemic infarct or acute intracranial abnormality. 2. Chronic white matter ischemic changes in both cerebral hemispheres are new findings when compared to 11/08/2008. Electronically Signed: Isaiah Iverson MD at 10:03 EST , CT was reviewed. Agree there is no evidence of intracranial bleed or stroke. Patient does have an air-fluid level right sphenoid sinus and has mucosal thickening of the right and left maxillary sinus. There is no disease noted in the frontal sinuses. Patient was informed that my review of CAT scan is different than what the radiologist interpreted. Discharge Plan Triage Chief Complaint: Headache ED Provider: Brennon Johnston Dx/Rx/DC Orders Clinical Impression: Sphenoid sinusitis, Rheumatoid arthritis, Pure hypercholesterolemia, Hypertension, Chronic maxillary sinusitis, DDD (degenerative disc disease), cervical, Anticoagulant long-term use Instructions: ED Sinusitis (Antibiotic Treatment) Prescriptions: New amoxicillin-pot clavulanate [amoxicillin-pot clavulanate] 875-125 mg tablet 875 mg PO Q12H Qty: 20 0RF No Action milk thistle 500 mg capsule 500 mg PO DAILY Rx Instructions: give with meal/snack omega-3 fatty acids [Fish Oil Concentrate] 1,000 mg capsule 1,000 mg PO DAILY cholecalciferol (vitamin D3) 25 mcg (1,000 unit) capsule 25 mcg PO DAILY flecainide 100 mg tablet 50 mg PO Q12H Qty: 90 4RF metoprolol tartrate 25 mg tablet 12.5 mg PO BID Qty: 90 4RF losartan 50 mg tablet 50 mg PO DAILY Qty: 90 3RF apixaban 5 mg tablet 5 mg PO BID Qty: 180 3RF Patient Comments: BLOOD THINNER Primary Care Provider: Niya Martinez Referrals: Niya Martinez MD [Primary Care Provider] - 1 Week if not improving Disposition Disposition: Home, Self Care What to do if you have Problems For any increased pain, shortness of breath, bleeding, nausea or vomiting, chestpain, or any unexpected problems, contact your Primary Care Provider. Call [employer] [facility] ([phone]) or report to the closest Emergency Room. Call 911 if necessary. 08/18/23 1030 <Electronically signed by Brennon Johnston MD> Cosigner Signature (if applicable): CC: Dr. 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 Fibrocystic breast changes of both breasts Visit for screening mammogram Other screening mammogram [facility] Diagnosis Visit for screening mammogram Other screening mammogram [facility]* Diagnosis Onset Date Resolution Status Bradycardia acute Nonrheumatic mitral (valve) insufficiency chronic PAC (premature atrial contraction) chronic Palpitations chronic Paroxysmal atrial fibrillation chronic Pure hypercholesterolemia ch ronic PVC (premature ventricular contraction) chronic Shortness of breath chronic [facility] Work Phone: evaluation note* Diagnosis Inflammatory arthritis- Primary Unspecified inflammatory polyarthropathy [facility] Diagnosis Pain of left great toe- Primary Elevated LFTs Other abnormal blood chemistry Vitamin D deficiency Unspecified vitamin D deficiency Mixed hyperlipidemia Elevated ferritin Other abnormal blood chemistry Bilateral leg edema Edema Paroxysmal atrial fibrillation (HCC) Atrial fibrillation Rheumatoid arthritis, unspecified (HCC) documented [facility] Diagnosis Porokeratosis- Primary Other specified congenital anomaly of skin Pain of left great toe [facility]* Diagnosis Encounter for gynecological examination (general) (routine) without abnormal findings- Primary [facility] Diagnosis Fibrocystic breast changes of both breasts- Primary Papilloma of left breast Family history of breast cancer Family history of malignant neoplasm of breast Pruritus of nipple Inconclusive mammogram Screening mammogram for breast cancer [facility] Diagnosis Porokeratosis- Primary Other specified congenital anomaly of skin [facility] Diagnosis Cervicalgia- Primary Cough Acute nonintractable headache, unspecified headache type Acute ear pain, bilateral Inflammatory arthritis Unspecified inflammatory polyarthropathy Paroxysmal atrial fibrillation (HCC) Atrial fibrillation Bradycardia Other specified cardiac dysrhythmias [facility] Diagnosis Cervical neck pain with evidence of disc disease- Primary Other and unspecified disc disorder of cervical region Vitamin D deficiency Unspecified vitamin D deficiency Elevated ferritin Other abnormal blood chemistry Elevated LFTs Other abnormal blood chemistry Mixed hyperlipidemia Paroxysmal atrial fibrillation (HCC) Atrial fibrillation Rheumatoid arthritis involving multiple sites, unspecified whether rheumatoid factor present (HCC) Encounter for therapeutic drug monitoring Encounter for immunization Need for other specified prophylactic vaccination against single bacterial disease [facility] Diagnosis Onset Date Resolution Status Hypertension chronic Nonrheumatic mitral (valve) insufficiency chronic Paroxysmal atrial fibrillation [facility] Work Phone: Evaluation note* Diagnosis DDD (degenerative disc disease), cervical- Primary Degeneration of cervical intervertebral disc Other subacute sinusitis Diarrhea, unspecified type [facility] Diagnosis Episodic tension-type headache, not intractable- Primary Episodic tension type headache Paroxysmal atrial fibrillation (HCC) Atrial fibrillation Primary hypertension Unspecified essential hypertension Gastroesophageal reflux disease without esophagitis Esophageal reflux Right leg swelling Swelling of limb [facility] Diagnosis Medicare annual wellness visit, subsequent- Primary Routine general medical examination at a [facility] care facility Encounter for immunization Need for other specified prophylactic vaccination against single bacterial disease [facility] Diagnosis Cervical neck pain with evidence of disc disease Other and unspecified disc disorder of cervical region [facility] Pain of left great toe [facility] Diagnosis Screening [facility] for breast cancer [facility] Diagnosis Fibrocystic breast changes of both breasts- Primary Mass of lower outer quadrant of right breast Mastodynia Papilloma of left breast Family history of breast cancer Family history of malignant neoplasm of breast Screening mammogram for breast cancer [facility] Diagnosis Mass of lower outer quadrant of right breast Mastodynia [facility] Diagnosis Fibrocystic breast changes of both breasts- Primary Mastodynia Family history of breast cancer Family history of malignant neoplasm of breast [facility] Diagnosis Medicare annual wellness visit, subsequent- Primary Routine general medical examination at a health care facility NAFLD (nonalcoholic fatty liver disease) Other chronic nonalcoholic liver disease Headaches Elevated liver enzymes Other nonspecific abnormal serum enzyme levels Polyarthralgia Pain in joint, multiple sites History of cholecystectomy Other acquired absence of organ Family history of malignant neoplasm of colon Family history of malignant neoplasm of gastrointestinal tract [facility]* Diagnosis Abnormal LFTs Other abnormal blood chemistry documented in this encounter [facility] note* Diagnosis Abnormal LFTs- Primary Other abnormal blood chemistry documented in this encounter [facility] note* Diagnosis Abnormal LFTs- Primary Other abnormal blood chemistry documented in this encounter [facility] for referral (narrative)* Diagnostic Procedure Only (Routine) - Closed Specialty Diagnoses / Procedures Referred By Giovana t Referred To Contact US IMAGING Diagnoses Elevated LFTs Procedures US ABD RT UPPER QUADRANT US ABDOMINAL REAL TIME W/IMAGE LIMITED Niya Martinez MD [facility] [place] [address] Us Imaging Referral ID Status Reason Start Date Expiration Date V isits Requested Visits Authorized [id number] Closed Auto-Generate d Referral 01/22/2022 02/21/2023 1 1 [facility] for referral (narrative)* Diagnostic Procedure Only (Routine) - Authorized Specialty Diagnoses / Procedures Referred By Giovana lemon Referred To Contact [facility] Diagnoses Visit for screening mammogram Procedures CHAO SCREENING W BRIGIDA SCREENING DIGITAL BREAST TOMOSYNTHESIS BI SCREENING MAMMOGRAPHY BI 2-VIEW BREAST INC Bety Cohen MD [address] [address] [facility] [address] [place] [address] Referral ID Status Reason Start Date Expiration Date Visits Requested Visits Authorized [id number] Authorized Auto-Generat ed Referral 02/10/2023 03/09/2023 1 1 [facility] for referral (narrative)* Diagnostic Procedure Only (Routine) - Closed Specialty Diagnoses / Procedures Referred By Giovana lemon Referred To Contact BR IM[facility] Diagnoses Visit for screening mammogram Procedures CHAO SCREENING W BRIGIDA SCREENING BREAST DGTL BRIGIDA UNI/BILAT ADD ON SCREENING MAMMOGRAPHY BI 2-VIEW BREAST INC Bety Cohen MD [address] [address] [facility] [address] [place] [address] Referral ID Status Reason Start Date Expiration Date V isits Requested Visits Authorized [id number] Closed Auto-Generate d Referral 12/24/2021 06/06/2022 1 1 [facility] for referral (narrative)* Diagnostic Procedure Only (Routine) - Authorized Specialty Diagnoses / Procedures [facility] Referred To Contact [facility] IM[facility] Diagnoses Screening mammogram for breast cancer Procedures CHAO SCREENING W BRIGIDA SCREENING DIGITAL BREAST TOMOSYNTHESIS BI SCREENING MAMMOGRAPHY BI 2-VIEW BREAST INC CAD Bety Mena MD [address] [place] [address] [facility] [address] [place] [address] Referral ID Status Reason Start Date Expiration Date Visits Requested Visits Authorized [id number] Authorized Auto-Generat ed Referral 03/11/2024 04/08/2024 1 1 * Diagnostic Procedure Only (Routine) - Authorized Specialty Diagnoses / Procedures [facility] Referred To Contact [facility] IM[facility] Diagnoses Pruritus of nipple Inconclusive mammogram Procedures US BREAST LTD RIGHT US BREAST UNI REAL TIME WITH IMAGE LIMITED Bety Mena MD [address] [address] [facility] [address] [place] [address] Referral ID Status Reason Start Date Expiration Date Visits Requested Visits Authorized [id number] Authorized Auto-Generat ed Referral 03/10/2023 04/08/2024 1 1 * Diagnostic Procedure Only (Routine) - Authorized Specialty Diagnoses / Procedures [facility] Referred To Contact [facility] IM[facility] Diagnoses Pruritus of nipple Inconclusive mammogram Procedures US BREAST LTD LEFT US BREAST UNI REAL TIME WITH IMAGE LIMITED Bety Mena MD [address] [facility] [address] [place] [address] [facility] [address] [place] [address] Referral ID Status Reason Start Date Expiration Date Visits Requested Visits Authorized [id number] Authorized Auto-Generat ed Referral 03/10/2023 04/08/2024 1 1 [facility] for referral (narrative)* Outpatient Procedure (Routine) - Pending Review Specialty Diagnoses / Procedures Referred By Contac t Referred [facility] Diagnoses Bradycardia Procedures ECG COMPLETE ECG ROUTINE ECG W/LEAST 12 LDS W/I&R Sushila Chávez APRN.TRANSFORMER MAKER [address] [place] [address] [facility] [id number] [place] [address] Referral ID Status Reason Start Date Expiration Date Visits Requested Visits Authorized [id number] Pending Review Auto-Generat ed Referral 07/24/2023 07/23/2024 1 1 [facility] for referral (narrative)* Diagnostic Procedure Only (Routine) - Closed Specialty Diagnoses / Procedures Referred By Contac t Referred To Contact XR IMAGING Diagnoses Cervical neck pain with evidence of disc disease Procedures XR CERV OTHER 4V AP/LAT/OBL RADEX SPINE CERVICAL 4 OR 5 VIEWS Niya Martinez MD [address] [place] [address] [place] [address] Referral ID Status Reason Start Date Expiration Date V isits Requested Visits Authorized [id number] Closed Auto-Generate d Referral 07/15/2023 08/13/2024 1 1 [facility] for referral (narrative)* Diagnostic Procedure Only (Routine) - Closed Specialty Diagnoses / Procedures Referred By Contac t Referred To Contact XR IMAGING Diagnoses Cervical neck pain with evidence of disc disease Procedures XR CERV OTHER 4V AP/LAT/OBL RADEX SPINE CERVICAL 4 OR 5 VIEWS Niya Martinez MD [address] [place] [address] [place] [address] Referral ID Status Reason Start Date Expiration Date V isits Requested Visits Authorized [id number] Closed Auto-Generate d Referral 07/15/2023 08/13/2024 1 1 [facility] for referral (narrative)* Diagnostic Procedure Only (Routine) - Closed Specialty Diagnoses / Procedures [facility] Referred To Contact XR IMAGING Diagnoses Pain of left great toe Procedures XR FOOT GENERAL 3V AP/LAT/OBL LEFT RADEX FOOT COMPLETE MINIMUM 3 VIEWS Niya Martinez MD [address] [place] [address] [place] [address] Referral ID Status Reason Start Date Expiration Date V isits Requested Visits Authorized [id number] Closed Auto-Generate d Referral 07/05/2022 08/04/2023 1 1 [facility] for referral (narrative)* Diagnostic Procedure Only (Routine) - Closed Specialty Diagnoses / Procedures Referred By Giovana t Referred To Contact [facility] IM[facility] Diagnoses Screening mammogram for breast cancer Procedures CHAO SCREENING W BRIGIDA SCREENING DIGITAL BREAST TOMOSYNTHESIS BI SCREENING MAMMOGRAPHY BI 2-VIEW BREAST INC CAD Bety Mena MD [address] [address] [facility] [address] [place] [address] Referral ID Status Reason Start Date Expiration Date V isits Requested Visits Authorized [id number] Closed Auto-Generate d Referral 03/11/2024 04/08/2024 1 1 [facility] for referral (narrative)* Diagnostic Procedure Only (Routine) - Authorized Specialty Diagnoses / Procedures Referred By Contac t Referred To Contact [facility] IM[facility] Diagnoses Screening mammogram for breast cancer Procedures CHAO SCREENING W BRIGIDA SCREENING DIGITAL BREAST TOMOSYNTHESIS BI SCREENING MAMMOGRAPHY BI 2-VIEW BREAST INC CAD Bety Mena MD [address] [address] [facility] [address] [place] [address] Referral ID Status Reason Start Date Expiration Date Visits Requested Visits Authorized [id number] Authorized Auto-Generat ed Referral 5 04/24/2025 1 1 * Diagnostic Procedure Only (Routine) - New Request Specialty Diagnoses / Procedures Referred By Giovana t Referred To Contact [facility] IM[facility] Diagnoses Mass of lower outer quadrant of right breast Mastodynia Procedures US BREAST LTD RIGHT US BREAST UNI REAL TIME WITH IMAGE LIMITED Bety Mena MD [address] [address] [facility] [address] [place] [address] Referral ID Status Reason Start Date Expiration Date Visits Requested Visits Authorized [id number] New Request Auto-Generat ed Referral 4 04/24/2025 1 1 [facility] for referral (narrative)* Diagnostic Procedure Only (Routine) - Closed Specialty Diagnoses / Procedures Referred By Contac t Referred To Contact BR IMAG[facility] Diagnoses Mass of lower outer quadrant of right breast Mastodynia Procedures US BREAST LTD RIGHT US BREAST UNI REAL TIME WITH IMAGE LIMITED Bety Mena MD 1 [facility] [address] [address] [facility] [address] [place] [address] Referral ID Status Reason Start Date Expiration Date V isits Requested Visits Authorized [id number] Closed Auto-Generate d Referral 03/25/2024 04/24/2025 1 1 [facility] for referral (narrative)No reason for referral [facility] N[facility]* Diagnostic Procedure Only (Routine) - Closed Specialty Diagnoses / Procedures Referred By Contac t Referred To Contact BR IMAG[facility] Diagnoses Visit for screening mammogram Procedures CHAO SCREENING W BRIGIDA SCREENING BREAST DGTL BRIGIDA UNI/BILAT ADD ON SCREENING MAMMOGRAPHY BI 2-VIEW BREAST INC CAD Bety Mena MD [address] [address] [facility] [address] [place] [address] Referral ID Status Reason Start Date Expiration Date V isits Requested Visits Authorized [id number] Closed Auto-Generate d Referral 12/24/2021 06/06/2022 1 1 [facility] for visit Narrative* Diagnostic Procedure Only (Routine) - Closed Specialty Diagnoses / Procedures Referred By Giovana t Referred To Contact XR IMAGING Diagnoses Cervical neck pain with evidence of disc disease Procedures XR CERV OTHER 4V AP/LAT/OBL RADEX SPINE CERVICAL 4 OR 5 VIEWS Niya Martinez MD [address] [place], [place] [id number] [place] [address] Referral ID Status Reason Start Date Expiration Date V isits Requested Visits Authorized [id number] Closed Auto-Generate d Referral 07/15/2023 08/13/2024 1 1 [facility] for visit Narrative* Diagnostic Procedure Only (Routine) - Closed Specialty Diagnoses / Procedures Referred By Contac t Referred To Contact XR IMAGING Diagnoses Pain of left great toe Procedures XR FOOT GENERAL 3V AP/LAT/OBL LEFT RADEX FOOT COMPLETE MINIMUM 3 VIEWS Niya Martinez MD [address] [place] [address] [place] [address] Referral ID Status Reason Start Date Expiration Date V isits Requested Visits Authorized [id number] Closed Auto-Generate d Referral 07/05/2022 08/04/2023 1 1 [facility] for visit Narrative* Diagnostic Procedure Only (Routine) - Closed Specialty Diagnoses / Procedures Referred By Contac t Referred To Contact [facility] Diagnoses Screening mammogram for breast cancer Procedures CHAO SCREENING W BRIGIDA SCREENING DIGITAL BREAST TOMOSYNTHESIS BI SCREENING MAMMOGRAPHY BI 2-VIEW BREAST INC CAD Bety Mena MD [address] [address] [facility] [address] [place] [address] Referral ID Status Reason Start Date Expiration Date V isits Requested Visits Authorized [id number] Closed Auto-Generate d Referral 03/11/2024 04/08/2024 1 1 [facility] for visit Narrative* Diagnostic Procedure Only (Routine) - Closed Specialty Diagnoses / Procedures Referred By Contac t Referred To Contact BR IMAG[facility] Diagnoses Mass of lower outer quadrant of right breast Mastodynia Procedures US BREAST LTD RIGHT US BREAST UNI REAL TIME WITH IMAGE LIMITED Bety Mena MD [address] [place] [id number] [facility] [address] [place] [address] Referral ID Status Reason Start Date Expiration Date V isits Requested Visits Authorized [id number] Closed Auto-Generate d Referral 03/25/2024 04/24/2025 1 1 [facility] for visit Narrative* Diagnostic Procedure Only (Routine) - Closed Specialty Diagnoses / Procedures Referred By Giovana t Referred To Contact US IMAGING Diagnoses Abnormal LFTs Procedures US ABD SPLEEN US ABDOMINAL REAL TIME W/IMAGE LIMITED Juaquin Burgess MD [address] [place] [address] Phone: tel: fax: [facility] [place] [address] Referral ID Status Reason Start Date Expiration Date V isits Requested Visits Authorized [id number] Closed Auto-Generate d Referral 07/02/2023 10/13/2024 1 1 [facility] for visit Narrative* Outpatient Procedure (Routine) - Closed Specialty Diagnoses / Procedures Referred By Giovana t Referred To Contact [facility] Diagnoses Abnormal LFTs Procedures DDI VIBRATION CONTROLLED TRANSIENT ELASTOGRAPHY (VCTE) LIVER ELASTOGRAPHY W/O IMAG W/I&R Juaquin Burgess MD [address] [place] [address] Phone: tel: fax: [facility] [address] [place] [address] Referral ID Status Reason Start Date Expiration Date V isits Requested Visits Authorized [id number] Closed Auto-Generate d Referral 10/13/2024 10/13/2025 1 1 [facility] Chief Complaint and Reason for Visit Chief Complaint 6 M FU INT LABS Reason for Visit Bradycardia Nonrheumatic mitral (valve) insufficiency PAC (premature atrial contraction) Palpitations Paroxysmal atrial fibrillation Pure hypercholesterolemia PVC (premature ventricular contraction) Shortness of breath Chief 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 December 8:38am Reason for Visit Admit Date Migraine headache without aura August 9:53am Polyneuropathy September 06, 2024 9:5 3am New daily persistent headache (ndph) [facility] 2024 9:53am Chief Complaint Admit Date Palps, irreg HR, see clinical. December 8:38am Reason for Visit Admit Date Encounter for monitoring flecainide ther apy December 31, 2024 8:38am Palpitations December 31, 2024 8:38 am Hypertension December 31, 2024 8:38 am Paroxysmal atrial fibrillation December 8:38am Family History No Family History Records Found Relationship Condition Age at Onset Recorded Date/T usama father Malignant neoplasm of colon Unknown mother Cerebrovascular accident (CVA) Unknown Advance Directives No Advanced Directives Records Found Advance Directive Response Recorded Date/ Time Advance Directives Yes January 25, 2016 5:45am Living Will Yes January 31 12:43pm Power of Traffic Engineer No January 31 12:43pm Advance Directive Response Recorded Date/ Time Advance Directives Yes January 25, 2016 5:45am Living Will No August 18, 2023 9:38am Power of Traffic Engineer No August 17 9:38am Advance Directive Response Recorded Date/ Time Living Will No August 18, 2023 10:38am Power of Traffic Engineer No August 17 10:38am Advance Directives Yes January 25, 2016 6:45am Advance Directive Response Recorded Date/ Time Living Will No August 18, 2023 10:38am Do you have a Healthcare Power of Traffic Engineer? No August 18, 2023 10:38am Advance Directives Yes January 25, 2016 6:45am Advance Directive Response Recorded Date/ Time Advance Directives Yes January 25, 2016 6:45am Reason for Referral Specialty Diagnoses / Procedures Referred By Contac t Referred To Contact Podiatry Diagnoses Pain of left great toe Procedures CONSULT TO PODIATRY OFFICE/OUTPATIENT [facility] 60-74 MINUTES Niya Martinez MD [address] [place] [address] Referral ID Status Reason Start Date Expiration Date Visits Requested Visits Authorized [id number] Authorized PCP Requested Referral 07/05/2022 07/05/2023 1 1 Specialty Diagnoses / Procedures Referred By Contac t Referred To Contact XR IMAGING Diagnoses Pain of left great toe Procedures XR FOOT GENERAL 3V AP/LAT/OBL LEFT RADEX FOOT COMPLETE MINIMUM 3 VIEWS Niya Martinez MD [address] [place] [address] Xr Imaging Referral ID Status Reason Start Date Expiration Date V isits Requested Visits Authorized [id number] Closed Auto-Generate d Referral 07/05/2022 08/04/2023 1 1 Summary Purpose Additional Source Comments Source Comments (unrecognize d section and content) In the event this informatio n is protected by the Federal Confidentiality of Alcohol and Drug Abuse Patient Records regulations: The Federal rules restrict any use of the information to criminally investigate or prosecute any alcohol or drug abuse patient.[facility] the event this information is protected by the Federal Confidentiality of Alcohol and Drug Abuse Patient Records regulations: The Federal rules restrict any use of the information to criminally investigate or prosecute any alcohol or drug abuse patient.[facility] the event this information is protected by the Federal Confidentiality of Alcohol and Drug Abuse Patient Records regulations: The Federal rules restrict any use of the information to criminally investigate or prosecute any alcohol or drug abuse patient.[facility] CenterIn the event this information is protected by the Federal Confidentiality of Alcohol and Drug Abuse Patient Records regulations: The Federal rules restrict any use of the information to criminally investigate or prosecute any alcohol or drug abuse patient.[facility] CenterIn the event this information is protected by the Federal Confidentiality of Alcohol and Drug Abuse Patient Records regulations: The Federal rules restrict any use of the information to criminally investigate or prosecute any alcohol or drug abuse patient.[facility] CenterIn the event this information is protected by the Federal Confidentiality of Alcohol and Drug Abuse Patient Records regulations: The Federal rules restrict any use of the information to criminally investigate or prosecute any alcohol or drug abuse patient.[facility] CenterIn the event this information is protected by the Federal Confidentiality of Alcohol and Drug Abuse Patient Records regulations: The Federal rules restrict any use of the information to criminally investigate or prosecute any alcohol or drug abuse patient.[facility] CenterIn the event this information is protected by the Federal Confidentiality of Alcohol and Drug Abuse Patient Records regulations: The Federal rules restrict any use of the information to criminally investigate or prosecute any alcohol or drug abuse patient.[facility] CenterIn the event this information is protected by the Federal Confidentiality of Alcohol and Drug Abuse Patient Records regulations: The Federal rules restrict any use of the information to criminally investigate or prosecute any alcohol or drug abuse patient.[facility] CenterIn the event this information is protected by the Federal Confidentiality of Alcohol and Drug Abuse Patient Records regulations: The Federal rules restrict any use of the information to criminally investigate or prosecute any alcohol or drug abuse patient.[facility] CenterIn the event this information is protected by the Federal Confidentiality of Alcohol and Drug Abuse Patient Records regulations: The Federal rules restrict any use of the information to criminally investigate or prosecute any alcohol or drug abuse patient.[facility] CenterIn the event this information is protected by the Federal Confidentiality of Alcohol and Drug Abuse Patient Records regulations: The Federal rules restrict any use of the information to criminally investigate or prosecute any alcohol or drug abuse patient.[facility] CenterIn the event this information is protected by the Federal Confidentiality of Alcohol and Drug Abuse Patient Records regulations: The Federal rules restrict any use of the information to criminally investigate or prosecute any alcohol or drug abuse patient.[facility] CenterIn the event this information is protected by the Federal Confidentiality of Alcohol and Drug Abuse Patient Records regulations: The Federal rules restrict any use of the information to criminally investigate or prosecute any alcohol or drug abuse patient.[facility] CenterIn the event this information is protected by the Federal Confidentiality of Alcohol and Drug Abuse Patient Records regulations: The Federal rules restrict any use of the information to criminally investigate or prosecute any alcohol or drug abuse patient.[facility] CenterIn the event this information is protected by the Federal Confidentiality of Alcohol and Drug Abuse Patient Records regulations: The Federal rules restrict any use of the information to criminally investigate or prosecute any alcohol or drug abuse patient.[facility] CenterIn the event this information is protected by the Federal Confidentiality of Alcohol and Drug Abuse Patient Records regulations: The Federal rules restrict any use of the information to criminally investigate or prosecute any alcohol or drug abuse patient.[facility] CenterIn the event this information is protected by the Federal Confidentiality of Alcohol and Drug Abuse Patient Records regulations: The Federal rules restrict any use of the information to criminally investigate or prosecute any alcohol or drug abuse patient.[facility] CenterIn the event this information is protected by the Federal Confidentiality of Alcohol and Drug Abuse Patient Records regulations: The Federal rules restrict any use of the information to criminally investigate or prosecute any alcohol or drug abuse patient.[facility] CenterIn the event this information is protected by the Federal Confidentiality of Alcohol and Drug Abuse Patient Records regulations: The Federal rules restrict any use of the information to criminally investigate or prosecute any alcohol or drug abuse patient.[facility] CenterIn the event this information is protected by the Federal Confidentiality of Alcohol and Drug Abuse Patient Records regulations: The Federal rules restrict any use of the information to criminally investigate or prosecute any alcohol or drug abuse patient.[facility] CenterIn the event this information is protected by the Federal Confidentiality of Alcohol and Drug Abuse Patient Records regulations: The Federal rules restrict any use of the information to criminally investigate or prosecute any alcohol or drug abuse patient.[facility] CenterIn the event this information is protected by the Federal Confidentiality of Alcohol and Drug Abuse Patient Records regulations: The Federal rules restrict any use of the information to criminally investigate or prosecute any alcohol or drug abuse patient.[facility] CenterIn the event this information is protected by the Federal Confidentiality of Alcohol and Drug Abuse Patient Records regulations: The Federal rules restrict any use of the information to criminally investigate or prosecute any alcohol or drug abuse patient.[facility] CenterIn the event this information is protected by the Federal Confidentiality of Alcohol and Drug Abuse Patient Records regulations: The Federal rules restrict any use of the information to criminally investigate or prosecute any alcohol or drug abuse patient.[facility] CenterIn the event this information is protected by the Federal Confidentiality of Alcohol and Drug Abuse Patient Records regulations: The Federal rules restrict any use of the information to criminally investigate or prosecute any alcohol or drug abuse patient.[facility] CenterIn the event this information is protected by the Federal Confidentiality of Alcohol and Drug Abuse Patient Records regulations: The Federal rules restrict any use of the information to criminally investigate or prosecute any alcohol or drug abuse patient.[facility] CenterIn the event this information is protected by the Federal Confidentiality of Alcohol and Drug Abuse Patient Records regulations: The Federal rules restrict any use of the information to criminally investigate or prosecute any alcohol or drug abuse patient.[facility] CenterIn the event this information is protected by the Federal Confidentiality of Alcohol and Drug Abuse Patient Records regulations: The Federal rules restrict any use of the information to criminally investigate or prosecute any alcohol or drug abuse patient.[facility] CenterIn the event this information is protected by the Federal Confidentiality of Alcohol and Drug Abuse Patient Records regulations: The Federal rules restrict any use of the information to criminally investigate or prosecute any alcohol or drug abuse patient.[facility] Reason for Visit (unrecogniz ed section and content) Reason Comments Radiology US Specialty Diagnoses / Procedures Referred By Contac t Referred To Contact US IMAGING Diagnoses Elevated LFTs Procedures US ABD RT UPPER QUADRANT US ABDOMINAL REAL TIME W/IMAGE LIMITED Niya Martinez MD [address] [place] [address] Us Imaging Referral ID Status Reason Start Date Expiration Date V isits Requested Visits Authorized [id number] Closed Auto-Generate d Referral 01/22/2022 02/21/2023 1 1 Reason Comments Follow Up Tests Results Reason Comments Lab Orders Reason Comments Yearly Exam Reason Comments New Pain Callous Specialty Diagnoses / Procedures Referred By Contac t Referred To Contact Podiatry Diagnoses Pain of left great toe Procedures CONSULT TO PODIATRY OFFICE/OUTPATIENT NEW HIGH MDM 60-74 MINUTES Niya Martinez MD [address] [place] [address] Referral ID Status Reason Start Date Expiration Date V isits Requested Visits Authorized [id number] Closed PCP Requested Referral 07/05/2022 07/05/2023 1 1 Reason Comments Yearly Exam Reason Comments Follow Up Tests Results Reason Comments Callous Established Patient Follow Up Pain Reason Comments Follow Up headache/neck pain Results Reason Comments Yearly Exam Reason Comments Release Of Medical Records Reason Comments ED Follow-up Reason Comments F/U 6 months Reason Comments Follow Up Reason Comments Follow Up Tests Results Patient presents for her follow up after her screening preformed on 03/22/24. Patient denies any palpable breast lumps. Patient states that she had RIGHT nipple redness and burning/itching. Reason Comments Follow Up Tests Results Patient presents to follow up after her RIGHT breast US. Patient denies any new concerns. Patient states that she has a RIGHT palpable breast lump. Patient denies any skin changes or nipple changes. Reason Comments Medicare Wellness Exam Labs prior Reason Comments Non Alcoholic Fatty Liver Disease Care Teams (unrecognized sec tion and content) Microcomputer Support Specialist Relationship Specialty Start Date End Date Niya Martinez MD [address] [place] [address] PCP - General Internal Medicine 02/10/17 Lazaro Akbar [address] [address] Cardiology 03/26/21 Microcomputer Support Specialist Relationship Specialty Start Date End Date Niya Martinez MD [address] [place] [address] PCP - General Internal Medicine 02/10/17 Lazaro Akbar [address] [address] Cardiology 03/26/21 Microcomputer Support Specialist Relationship Specialty Start Date End Date Niya Martinez MD [address] [place] [address] PCP - General Internal Medicine 02/10/17 Lazaro Akbar [address] [place] [address] Cardiology 03/26/21 Microcomputer Support Specialist Relationship Specialty Start Date End Date Niya Martinez MD [address] [place] [address] PCP - General Internal Medicine 02/10/17 Lazaro Akbar [address] [place] [address] Cardiology 03/26/21 Microcomputer Support Specialist Relationship Specialty Start Date End Date Niya Martinez MD [address] [place] [address] PCP - General Internal Medicine 02/10/17 Lazaro Akbar [address] [place] [address] Cardiology 03/26/21 Microcomputer Support Specialist Relationship Specialty Start Date End Date Niya Martinez MD [address] [facility] [place] [address] PCP - General Internal Medicine 02/10/17 Lazaro Akbar [address] [place] [address] Cardiology 03/26/21 Microcomputer Support Specialist Relationship Specialty Start Date End Date Niya Martinez MD [address] [facility] [place] [address] PCP - General Internal Medicine 02/10/17 Lazaro Akbar [address] [place] [address] Cardiology 03/26/21 Microcomputer Support Specialist Relationship Specialty Start Date End Date Niya Martinez MD [address] [facility] [place] [address] PCP - General Internal Medicine 02/10/17 Lazaro Akbar [address] [place] [address] Cardiology 03/26/21 Microcomputer Support Specialist Relationship Specialty Start Date End Date Niya Martinez MD [address] [place] [address] PCP - General Internal Medicine 02/10/17 Lazaro Akbar [address] [address] Cardiology 03/26/21 Microcomputer Support Specialist Relationship Specialty Start Date End Date Niya Martinez MD [address] [place] [address] PCP - General Internal Medicine 02/10/17 Lazaro Akbar [address] [address] Cardiology 03/26/21 Microcomputer Support Specialist Relationship Specialty Start Date End Date Niya Martinez MD [address] [place] [address] PCP - General Internal Medicine 02/10/17 Lazaro Akbar [address] [address] Cardiology 03/26/21 Microcomputer Support Specialist Relationship Specialty Start Date End Date Niya Martinez MD [address] [place] [address] PCP - General Internal Medicine 02/10/17 Lazaro Akbar MD [address] [address] Cardiology 03/26/21 Microcomputer Support Specialist Relationship Specialty Start Date End Date Niya Martinez MD [address] [place] [address] PCP - General Internal Medicine 02/10/17 Lazaro Akbar MD [address] [facility] [address] [address] Cardiology 03/26/21 Microcomputer Support Specialist Relationship Specialty Start Date End Date Niya Martinez MD [address] [place] [address] PCP - General Internal Medicine 02/10/17 Lazaro Akbar MD [address] [address] Cardiology 03/26/21 Microcomputer Support Specialist Relationship Specialty Start Date End Date Niya Martinez MD [address] [place] [address] PCP - General Internal Medicine 02/10/17 Lazaro Akbar MD [address] [facility] [address] [address] Cardiology 03/26/21 Team Status: Active Member Role Status Dates Dr. Niya Martinez MD Family Provider Active Dr. Niya Martinez MD Primary Care Provider Active Team Status: Inactive Member Role Status Dates Dr. Niya Martinez MD Primary Care Provider, Referr ing Provider Active Dr. Trell Leyva MD Attending Provider Active Team Status: Inactive Member Role Status Dates Dr. Niya Martinez MD Primary Care Provider Active Dr. Brennon Johnston MD Emergency Provider Active Microcomputer Support Specialist Relationship Specialty Start Date End Date Niya Martinez MD [address] [facility] [place] [address] PCP - General Internal Medicine 02/10/17 Lazaro Akbar MD [address] [place] [address] Cardiology 03/26/21 Microcomputer Support Specialist Relationship Specialty Start Date End Date Niya Martinez MD [address] [facility] [place] [address] PCP - General Internal Medicine 02/10/17 Lazaro Akbar MD [address] [place] [address] Cardiology 03/26/21 Microcomputer Support Specialist Relationship Specialty Start Date End Date Niya Martinez MD [address] [facility] [place] [address] PCP - General Internal Medicine 02/10/17 Lazaro Akbar MD [address] [place] [address], [place] [address] Cardiology 03/26/21 Microcomputer Support Specialist Relationship Specialty Start Date End Date Niya Martinez MD [address] [facility] [place] [address] PCP - General Internal Medicine 02/10/17 Lazaro Akbar MD [address] [place] [address] Cardiology 03/26/21 Microcomputer Support Specialist Relationship Specialty Start Date End Date Niya Martinez MD [address] [facility] [place] [address] PCP - General Internal Medicine 02/10/17 Lazaro Akbar MD [address] [place] [address] Cardiology 03/26/21 Microcomputer Support Specialist Relationship Specialty Start Date End Date Niya Martinez MD [address] [place] [address] PCP - General Internal Medicine 02/10/17 Lazaro Akbar MD [address] [address] Cardiology 03/26/21 Microcomputer Support Specialist Relationship Specialty Start Date End Date Niya Martinez MD [address] [place] [address] PCP - General Internal Medicine 02/10/17 Lazaro Akbar MD [address] [facility] [address] [address] Cardiology 03/26/21 Microcomputer Support Specialist Relationship Specialty Start Date End Date Niya Martinez MD [address] [place] [address] PCP - General Internal Medicine 02/10/17 Lazaro Akbar MD [address] [address] Cardiology 03/26/21 Microcomputer Support Specialist Relationship Specialty Start Date End Date Niya Martinez MD [address] [place] [address] PCP - General Internal Medicine 02/10/17 Lazaro Akbar MD [address] [address] Cardiology 03/26/21 Microcomputer Support Specialist Relationship Specialty Start Date End Date Niya Martinez MD [address] [place] [address] PCP - General Internal Medicine 02/10/17 Lazaro Akbar MD [address] [address] Cardiology 03/26/21 Sushila Chávez, UNDERWEAR FINISHER.TRANSFORMER MAKER [address] [place] [address] Sugar Reprocess Operator Head Internal Medicine 05/24/24 Dora Renee UNDERWEAR FINISHER.PNEUMATIC PRESS HAND [address] [place] [address] Sugar Reprocess Operator Head Internal Medicine 05/24/24 Microcomputer Support Specialist Relationship Specialty Start Date End Date Niya Martinez MD [address] [place] [address] PCP - General Internal Medicine 02/10/17 Lazaro Akbar MD [address] [address] Cardiology 03/26/21 Sushila Chávez, UNDERWEAR FINISHER.TRANSFORMER MAKER [address] [place] [address] [facility] Internal Medicine 05/24/24 Dora Renee APRN.PNEUMATIC PRESS HAND [address] [place] [address] [facility] Internal [facility] 05/24/24 Team Status: Inactive Member Role Status Dates Dr. Niya Martinez MD Primary Care Provider Active Start: June 15, 2024 End: June 15, 2024 Dr. Niya Martinez MD Referring Provider Active Start: June 15, 2024 End: June 15, 2024 Dr. Ivan Pink MD Attending Provider Active Start: June 15, 2024 End: June 15, 2024 Team Status: Inactive Member Role Status Dates Dr. Niya Martinez MD Primary Care Provider Active Start: July 14, 2024 End: July 14, 2024 Dr. Ivan Pink MD Attending Provider Active Start: July 14, 2024 End: July 14, 2024 Dr. Ivan Pink MD Referring Provider Active Start: July 14, 2024 End: July 14, 2024 Team Status: Inactive Member Role Status Dates Dr. Niya Martinez MD Primary Care Provider Active Start: July 20, 2024 End: July 20, 2024 Dr. Niya Martinez MD Referring Provider Active Start: July 20, 2024 End: July 20, 2024 Rosalind Wells PA, PA Attending Provider Active Start: July 20, 2024 End: July 20, 2024 Team Status: Inactive Member Role Status Dates Dr. Niya Martinez MD Primary Care Provider Active Start: August 10, 2024 End: August 10, 2024 Dr. Ivan Pink MD Attending Provider Active Start: August 10, 2024 End: August 10, 2024 Dr. Ivan Pink MD Referring Provider Active Start: August 10, 2024 End: August 10, 2024 Team Status: Inactive Member Role Status Dates Dr. Niya Martinez MD Primary Care Provider Active Start: September 06, 2024 End: September 06, 2024 Dr. Niya Martinez MD Referring Provider Active Start: September 06, 2024 End: September 06, 2024 Dr. Ivan Pink MD Attending Provider Active Start: September 06, 2024 End: September 06, 2024 Team Status: Inactive Member Role Status Dates Dr. Niya Martinez MD Primary Care Provider Active Start: September 06, 2024 End: September 06, 2024 Dr. Ivan Pink MD Attending Provider Active Start: September 06, 2024 End: September 06, 2024 Dr. Ivan Pink MD Referring Provider Active Start: September 06, 2024 End: September 06, 2024 Microcomputer Support Specialist Relationship Specialty Start Date End Date Niya Martinez MD [address] [facility] [place] [address] PCP - General Internal Medicine 02/10/17 Lazaro Akbar MD [address] [facility] [address] [place] [address] Cardiology 03/26/21 Sushila Chávez, UNDERWEAR FINISHER.TRANSFORMER MAKER [address] [place] [address] Sugar Reprocess Operator Head Internal Medicine 05/24/24 Dora Renee, UNDERWEAR FINISHER.PNEUMATIC PRESS HAND [address] [facility] [place] [address] Sugar Reprocess Operator Head Internal Medicine 09/07/24 Microcomputer Support Specialist Relationship Specialty Start Date End Date Niya Martinez MD [address] [facility] [place] [address] PCP - General Internal Medicine 02/10/17 Lazaro Akbar MD [address] [place] [address] Cardiology 03/26/21 Sushila Chávez, UNDERWEAR FINISHER.TRANSFORMER MAKER [address] [place] [address] Sugar Reprocess Operator Head Internal Medicine 05/24/24 Dora Renee APRN.PNEUMATIC PRESS HAND [address] [place] [address] Sugar Reprocess Operator Head Internal Medicine 09/07/24 Microcomputer Support Specialist Relationship Specialty Start Date End Date Niya Martinez MD [address] [place] [address] PCP - General Internal Medicine 02/10/17 Lazaro Akbar MD [address] [address] Cardiology 03/26/21 Dora Renee APRN.PNEUMATIC PRESS HAND [address] [place] [address] Sugar Reprocess Operator Head Internal Medicine 09/07/24 Sushila Chávez APRN.TRANSFORMER MAKER [address] [place] [address] Sugar Reprocess Operator Head Internal Medicine 11/03/24 Team Status: Active Member Role/Relationship Status Dates Dr. Niya Martinez MD Family Provider Active Dr. Niya Martinez MD Primary Care Provider Active Team Status: Inactive Member Role/Relationship Status Dates Dr. Niya Martinez MD Primary Care Provider Active Start: September 06, 2024 End: September 06, 2024 Dr. Niya Martinez MD Referring Provider Active Start: September 06, 2024 End: September 06, 2024 Dr. Ivan Pink MD Attending Provider Active Start: September 06, 2024 End: September 06, 2024 Team Status: Inactive Member Role/Relationship Status Dates Dr. Niya Martinez MD Primary Care Provider Active Start: September 06, 2024 End: September 06, 2024 Dr. Ivan Pink MD Attending Provider Active Start: September 06, 2024 End: September 06, 2024 Dr. Ivan Pink MD Referring Provider Active Start: September 06, 2024 End: September 06, 2024 Team Status: Inactive Member Role/Relationship Status Dates Dr. Niya Martinez MD Primary Care Provider Active Start: December 31, 2024 End: December 31, 2024 Dr. Niya Martinez MD Referring Provider Active Start: December 31, 2024 End: December 31, 2024 RUI Pierce Attending Provider Active St art: December 31, 2024 End: December 31, 2024 Team Status: Inactive Member Role/Relationship Status Dates Dr. Niya Martinez MD Primary Care Provider Active Start: December 31, 2024 End: December 31, 2024 Dr. Niya Martinez MD Referring Provider Active Start: December 31, 2024 End: December 31, 2024 RUI Pierce Attending Provider Active St art: December 31, 2024 End: December 31, 2024 Team Status: Inactive Member Role/Relationship Status Dates Dr. Niya Martinez MD Primary Care Provider Active Start: December 31, 2024 End: December 31, 2024 RUI Pierce Attending Provider Active St art: December 31, 2024 End: December 31, 2024 RUI Pierce Referring Provider Active St art: December 31, 2024 End: December 31, 2024 Goals (unrecognized section and content) Goals may be documented in a n alternate sectionGoals may be documented in an alternate sectionGoals may be documented in an alternate sectionGoals may be documented in an alternate sectionGoals may be documented in an alternate sectionGoals may be documented in an alternate section INFORMATION SOURCE (unrecogn ized section and content) DATE CREATED AUTHOR 04/10/2024 [facility] DATE CREATED AUTHOR AUTHOR'S ORGANIZ ATION 01/23/2025 [facility] DATE CREATED AUTHOR AUTHOR'S ORGANIZ ATION 01/23/2025 [facility] FOR RECORDS PERTAINING TO PATIENTS WHO ARE OR HAVE BEEN ENROLLED IN A CHEMICAL DEPENDENCY/SUBSTANCEABUSE PROGRAM, SOME INFORMATION MAY BE OMITTED. This clinical summary was aggregated from multiple sources. Caution should be exercised in using it in the provision of clinical care. This summary normalizes information from multiple sources, and as a consequence, information in this document may materially change the coding, format and clinical context of patient data. In addition, data may be omitted in some cases. CLINICAL DECISIONS SHOULD BE BASED ON THE PRIMARY CLINICAL RECORDS. [facility] provides no warranty or guarantee of the accuracy or completeness of information in this document.
--- NOTE | 2025-01-28 18:47 | STRESSREP ---
Stress Test Report Pharmacologic myocardial perfusion stress test. 79-year-old lady with a history of atrial fibrillation. Resting EKG demonstrates atrial fibrillation with a rate of 106 bpm. Resting blood pressure is 140/88 mmHg. 0.4 mg of regadenoson was infused per usual protocol followed by rapid intravenous saline flush injection. Continuous EKG monitoring was performed. The maximum heart rate was 141 bpm which was 99% of max impacted heart rate the maximum workload was 1 metabolic equivalent. At rest there were no ST or T wave changes noted to suggest ischemia and at peak infusion nonspecific ST changes were noted which did not meet the criteria for ischemia. No clinical angina is noted. The final blood pressure was 122/60 mmHg. Myocardial perfusion protocol. 13 point mCi of technetium 99m sestamibi was injected at rest. 0.4 mg of regadenoson was infused per usual protocol. At peak infusion 44 mCi of technetium 99m sestamibi was injected stress images were obtained stress and rest images were reconstructed and compared in the short axis vertical long and horizontal long axis. Gated images were also obtained. Perfusion SPECT analysis: Review of the stress images demonstrate normal uptake of tracer noted in all areas of the myocardium. The resting images similar demonstrated normal uptake of tracer noted in all areas of the myocardium. No areas of reversibility are noted to suggest ischemia and no previous infarct is noted. Gated SPECT analysis: The gated ejection fraction is 63%. Conclusion: Normal pharmacologic myocardial perfusion stress test. Preserved ejection fraction.
== END | disposition home or self-care (01) ==
LOC: CVS 06:17
PROVIDERS: PCP Internal Medicine; Referring Provider Student in an Organized Health Care Education/Training Program; Visit Provider Student in an Organized Health Care Education/Training Program
DX: Z51.81 Encounter for therapeutic drug level monitoring (principal); Z79.899 Other long term (current) drug therapy; R06.02 Shortness of breath; R00.2 Palpitations
CPT/HCPCS: 78452; 93017; A9500; A4216; J2785